=== PATIENT | female | born 1945 | race Caucasian/White ===

== ENCOUNTER 2018-05-25 21:58 | Emergency (ER) | payer MEDICARE, BC ==
[2018-05-25 22:04] VITALS: RESP 18
[2018-05-25] MEDS ORDERED: IPRATROPIUM-ALBUTEROL 3 ML NEB INHALATION STA (22:36)
--- NOTE | 2018-05-25 23:08 | ED ---
SOB HPI - General Chief Complaint: Shortness of Breath Stated Complaint: chills,sob; teo Time Seen by Provider: 05/25/18 22:23 Source: patient, RN notes reviewed Mode of arrival: ambulatory Limitations: no limitations - History of Present Illness Initial Comments: This is a 72-year-old female who presents to the emergency department with chief complaint of shortness of breath. Patient states that she developed shortness of breath last evening. She reports that she is a current, every day smoker. She also reports a cough that has been productive of clear sputum. She reports chills. She states that she has had chest heaviness that comes and goes. She denies history of heart attacks, CVA, heart failure or kidney disease. She denies any fevers. She does report feeling nauseous and having abdominal muscle spasms. Denies abdominal pain. - Related Data Home Medications Medication Instructions Recorded Confirmed Citalopram Hydrobromide [CeleXA] 30 mg PO HS 02/02/16 07/02/16 LORazepam [Ativan] 0.5 mg PO HS PRN 02/02/16 07/02/16 Previous Rx's Medication Instructions Recorded Aspirin 325 mg PO BID #30 tab 07/04/16 HYDROcodone/APAP 7.5-325MG [Herod 1 - 2 each PO Q6H PRN #90 tab 07/04/16 7.5-325] Multivitamins, Thera [Multivitamin 1 each PO DAILY@1200 #30 tab 07/04/16 (formulary)] Nicotine 14Mg/24Hr Patch [Habitrol] 1 patch TRANSDERM DAILY #30 patch 07/04/16 Sennosides-Docusate Sodium 1 tab PO BID #60 tablet 07/04/16 [Senokot-S] Cephalexin [Keflex Susp] 500 mg PO BID 7 Days 05/26/18 Allergies Allergy/AdvReac Type Severity Reaction Status Date / Time Iodinated Contrast- Oral and Allergy Unknown Verified 05/25/18 22:04 IV Dye [Iodinated Contrast Media - IV Dye] sulfamethoxazole Allergy Rash/Hives Verified 05/25/18 22:04 [From Bactrim] trimethoprim [From Bactrim] Allergy Rash/Hives Verified 05/25/18 22:04 Review of Systems ROS Statement: Those systems with pertinent positive or pertinent negative responses have been documented in the HPI. ROS Other: All systems not noted in ROS Statement are negative. Past Medical History Past Medical History: Osteoarthritis (OA), Pneumonia Additional Past Medical History / Comment(s): sinus problems,kidney stones uti, bladder incnt/wears a pad,abd hernia,migraines,"muscles spasms and lt hip pain, had collapsed lung -not large enough to require c/t, DDD, sciatic History of Any Multi-Drug Resistant Organisms: None Reported, C-DIFF, ESBL Date of last positivie culture/infection: 2015 Past Surgical History: Appendectomy, Bladder Surgery, Cholecystectomy, Hysterectomy, Orthopedic Surgery Additional Past Surgical History / Comment(s): artriscopy, lt knee replacemnent, adrenal gland removed,lt knee, colonoscopy, dental implants, 1997 had lt foot sx for hammer toes and stated had an implant in that foot-then january 2015 had a revison of that sx. Past Anesthesia/Blood Transfusion Reactions: No Reported Reaction Past Psychological History: Anxiety Smoking Status: Current every day smoker Past Alcohol Use History: None Reported Past Drug Use History: Unable to Obtain - Past Family History Mother Family Medical History: Dementia Additional Family Medical History / Comment(s): moms sister also had dementia Father Family Medical History: Unable to Obtain General Exam - General Exam Comments Initial Comments: General: Awake and alert, well-developed; in no apparent distress. Patient's friend is at bedside. HEENT: Head atraumatic, normocephalic. Pupils are equal, round and reactive to light. Extraocular movements intact. Oropharynx moist without erythema or exudate. Neck: Supple. Normal ROM. Cardiovascular: Tachycardia. Normal rhythm. No murmurs, rubs or gallops. Chest symmetrical. Respiratory: Normal respiratory effort with no use of accessory muscles. Wheezes noted on auscultation of the right lower lung field. No rhonchi or rales. Abdomen: Soft, distended. Generalized tenderness on palpation, especially in the right and left lower quadrants with guarding. No rigidity or rebound. Large epigastric bulge that patient states is a hiatal hernia. Bowel sounds present in all 4 quadrants. Musculoskeletal: Normal ROM, no tenderness bilateral upper and lower extremities. Skin: [place], warm and dry without rashes or lesions. Neurological: Alert and oriented x3. CN II-XII grossly intact. Speech is fluent and answers are appropriate. No focal neuro deficits. Psychiatric: Normal mood and affect. No overt signs of depression or anxiety noted. Limitations: no limitations Course Vital Signs 05/25/18 05/25/18 05/25/18 22:01 23:26 23:30 Temperature 98.4 F Pulse Rate 113 H 106 H 112 H Respiratory 18 Rate Blood Pressure 100/64 O2 Sat by Pulse 97 Oximetry - Reevaluation(s) Reevaluation #1: Patient presented with shortness of breath, chest heaviness and was found to have tachycardia. D-dimer was obtained which is elevated. Discussed obtaining a CT angiogram of the chest with patient who initially refuses. After full conversation of benefits and risks, patient is in agreement to undergo the computed tomography scan. 05/25/18 23:59 Medical Decision Making - Medical Decision Making This is a 72-year-old female who presents to the emergency department with chief complaint of shortness of breath. Patient reports shortness of breath, increased cough and chest heaviness. Patient also reports nausea and abdominal muscle spasms. On physical examination, wheezes auscultated in the right lung base. EKG revealed sinus tachycardia with occasional PVCs. Patient was given a DuoNeb treatment and a chest x-ray was performed. Chest x-ray revealed no acute abnormalities. D-dimer came back elevated at 1.37. Discussed obtaining a CT angiogram of the chest with patient who initially refused. Benefits and risks were explained and the patient consented to have the CTA performed. This revealed no evidence for acute pulmonary embolism. CBC did reveal a slightly elevated white count at 13.6 with a left shift at 11.5. Evidence for urinary tract infection with positive nitrites, large leukocyte esterase, 125 white blood cells and many bacteria. Patient was given a gram of Rocephin in the emergency department. This case was discussed with attending physician, Dr. Rojo who also evaluated the patient. Patient's vital signs have stabilized. She is in no acute distress and wishes to be discharged home. She will be given an oral suspension of Keflex to treat UTI. Recommended following up with her primary care provider. She is in agreement and voices understanding. All questions were answered. - Lab Data Result diagrams: 05/25/18 23:00 05/25/18 23:00 Lab Results 10/07/18 10/07/18 10/07/18 Range/Units 22:50 23:00 23:00 WBC 13.6 H (3.8-10.6) k/uL RBC 4.71 (3.80-5.40) m/uL Hgb 14.4 (11.4-16.0) gm/dL Hct 41.3 (34.0-46.0) % MCV 87.6 (80.0-100.0) fL MCH 30.5 (25.0-35.0) pg MCHC 34.9 (31.0-37.0) g/dL RDW 13.5 (11.5-15.5) % Plt Count 179 (150-450) k/uL Neutrophils % 85 % Lymphocytes % 7 % Monocytes % 6 % Eosinophils % 1 % Basophils % 0 % Neutrophils # 11.5 H (1.3-7.7) k/uL Lymphocytes # 1.0 (1.0-4.8) k/uL Monocytes # 0.8 (0-1.0) k/uL Eosinophils # 0.1 (0-0.7) k/uL Basophils # 0.0 (0-0.2) k/uL PT (9.0-12.0) sec INR (<1.2) APTT (22.0-30.0) sec D-Dimer (<0.60) mg/L FEU Sodium (137-145) mmol/L Potassium (3.5-5.1) mmol/L Chloride (98-107) mmol/L Carbon Dioxide (22-30) mmol/L Anion Gap mmol/L BUN (7-17) mg/dL Creatinine (0.52-1.04) mg/dL Est GFR (CKD-EPI)AfAm (>60 ml/min/1.73 sqM) Est GFR (CKD-EPI)NonAf (>60 ml/min/1.73 sqM) Glucose (74-99) mg/dL Plasma Lactic Acid Jorge (0.7-2.0) mmol/L Calcium (8.4-10.2) mg/dL Magnesium (1.6-2.3) mg/dL Total Bilirubin (0.2-1.3) mg/dL AST (14-36) U/L ALT (9-52) U/L Alkaline Phosphatase (38-126) U/L Total Creatine Kinase 88 (30-135) U/L CK-MB (CK-2) 0.6 (0.0-2.4) ng/mL CK-MB (CK-2) Rel Index 0.7 Troponin I <0.012 (0.000-0.034) ng/mL Total Protein (6.3-8.2) g/dL Albumin (3.5-5.0) g/dL Amylase (30-110) U/L Lipase (23-300) U/L Urine Color Urine Appearance (Clear) Urine pH (5.0-8.0) Ur Specific [place] (1.001-1.035) Urine Protein (Negative) Urine Glucose (UA) (Negative) Urine Ketones (Negative) Urine Blood (Negative) Urine Nitrite (Negative) Urine Bilirubin (Negative) Urine Urobilinogen (<2.0) mg/dL Ur Leukocyte Esterase (Negative) Urine RBC (0-5) /hpf Urine WBC (0-5) /hpf Urine WBC Clumps (None) /hpf Ur Squamous Epith Cells (0-4) /hpf Urine Bacteria (None) /hpf Urine Mucus (None) /hpf Influenza Type A RNA Not Detected (Not Detectd) Influenza Type B (PCR) Not Detected (Not Detectd) 05/25/18 05/25/18 05/25/18 Range/Units 23:00 23:00 23:00 WBC (3.8-10.6) k/uL RBC (3.80-5.40) m/uL Hgb (11.4-16.0) gm/dL Hct (34.0-46.0) % MCV (80.0-100.0) fL MCH (25.0-35.0) pg MCHC (31.0-37.0) g/dL RDW (11.5-15.5) % Plt Count (150-450) k/uL Neutrophils % % Lymphocytes % % Monocytes % % Eosinophils % % Basophils % % Neutrophils # (1.3-7.7) k/uL Lymphocytes # (1.0-4.8) k/uL Monocytes # (0-1.0) k/uL Eosinophils # (0-0.7) k/uL Basophils # (0-0.2) k/uL PT 9.6 (9.0-12.0) sec INR 1.0 (<1.2) APTT 24.7 (22.0-30.0) sec D-Dimer 1.37 H (<0.60) mg/L FEU Sodium 136 L (137-145) mmol/L Potassium 4.0 (3.5-5.1) mmol/L Chloride 107 (98-107) mmol/L Carbon Dioxide 21 L (22-30) mmol/L Anion Gap 8 mmol/L BUN 16 (7-17) mg/dL Creatinine 0.73 (0.52-1.04) mg/dL Est GFR (CKD-EPI)AfAm >90 (>60 ml/min/1.73 sqM) Est GFR (CKD-EPI)NonAf 83 (>60 ml/min/1.73 sqM) Glucose 117 H (74-99) mg/dL Plasma Lactic Acid Jorge 1.0 (0.7-2.0) mmol/L Calcium 9.0 (8.4-10.2) mg/dL Magnesium 1.9 (1.6-2.3) mg/dL Total Bilirubin 2.0 H (0.2-1.3) mg/dL AST 17 (14-36) U/L ALT 15 (9-52) U/L Alkaline Phosphatase 85 (38-126) U/L Total Creatine Kinase (30-135) U/L CK-MB (CK-2) (0.0-2.4) ng/mL CK-MB (CK-2) Rel Index Troponin I (0.000-0.034) ng/mL Total Protein 6.7 (6.3-8.2) g/dL Albumin 3.8 (3.5-5.0) g/dL Amylase 39 (30-110) U/L Lipase 61 (23-300) U/L Urine Color Urine Appearance (Clear) Urine pH (5.0-8.0) Ur Specific [place] (1.001-1.035) Urine Protein (Negative) Urine Glucose (UA) (Negative) Urine Ketones (Negative) Urine Blood (Negative) Urine Nitrite (Negative) Urine Bilirubin (Negative) Urine Urobilinogen (<2.0) mg/dL Ur Leukocyte Esterase (Negative) Urine RBC (0-5) /hpf Urine WBC (0-5) /hpf Urine WBC Clumps (None) /hpf Ur Squamous Epith Cells (0-4) /hpf Urine Bacteria (None) /hpf Urine Mucus (None) /hpf Influenza Type A RNA (Not Detectd) Influenza Type B (PCR) (Not Detectd) 05/25/18 Range/Units 23:00 WBC (3.8-10.6) k/uL RBC (3.80-5.40) m/uL Hgb (11.4-16.0) gm/dL Hct (34.0-46.0) % MCV (80.0-100.0) fL MCH (25.0-35.0) pg MCHC (31.0-37.0) g/dL RDW (11.5-15.5) % Plt Count (150-450) k/uL Neutrophils % % Lymphocytes % % Monocytes % % Eosinophils % % Basophils % % Neutrophils # (1.3-7.7) k/uL Lymphocytes # (1.0-4.8) k/uL Monocytes # (0-1.0) k/uL Eosinophils # (0-0.7) k/uL Basophils # (0-0.2) k/uL PT (9.0-12.0) sec INR (<1.2) APTT (22.0-30.0) sec D-Dimer (<0.60) mg/L FEU Sodium (137-145) mmol/L Potassium (3.5-5.1) mmol/L Chloride (98-107) mmol/L Carbon Dioxide (22-30) mmol/L Anion Gap mmol/L BUN (7-17) mg/dL Creatinine (0.52-1.04) mg/dL Est GFR (CKD-EPI)AfAm (>60 ml/min/1.73 sqM) Est GFR (CKD-EPI)NonAf (>60 ml/min/1.73 sqM) Glucose (74-99) mg/dL Plasma Lactic Acid Jorge (0.7-2.0) mmol/L Calcium (8.4-10.2) mg/dL Magnesium (1.6-2.3) mg/dL Total Bilirubin (0.2-1.3) mg/dL AST (14-36) U/L ALT (9-52) U/L Alkaline Phosphatase (38-126) U/L Total Creatine Kinase (30-135) U/L CK-MB (CK-2) (0.0-2.4) ng/mL CK-MB (CK-2) Rel Index Troponin I (0.000-0.034) ng/mL Total Protein (6.3-8.2) g/dL Albumin (3.5-5.0) g/dL Amylase (30-110) U/L Lipase (23-300) U/L Urine Color Yellow Urine Appearance Cloudy H (Clear) Urine pH 5.5 (5.0-8.0) Ur Specific [place] 1.013 (1.001-1.035) Urine Protein 1+ H (Negative) Urine Glucose (UA) Negative (Negative) Urine Ketones Negative (Negative) Urine Blood Moderate H (Negative) Urine Nitrite Positive H (Negative) Urine Bilirubin Negative (Negative) Urine Urobilinogen <2.0 (<2.0) mg/dL Ur Leukocyte Esterase Large H (Negative) Urine RBC 7 H (0-5) /hpf Urine WBC 125 H (0-5) /hpf Urine WBC Clumps Few H (None) /hpf Ur Squamous Epith Cells 2 (0-4) /hpf Urine Bacteria Many H (None) /hpf Urine Mucus Rare H (None) /hpf Influenza Type A RNA (Not Detectd) Influenza Type B (PCR) (Not Detectd) - EKG Data EKG Comments: 22:44:50. Sinus tachycardia with occasional premature ventricular complexes. Ventricular rate 101 bpm, NV interval 124, QRS duration 90, QT/QTC 352/456 - Radiology Data Radiology results: report reviewed X-ray KUB impression: Nonacute abdomen. No change. Chest x-ray impression: No acute cardiopulmonary disease. There is clearing of a small infiltrate at the posterior lung base on the lateral view compared to old exam. CT angio chest impression: No evidence of pulmonary embolus. Mild atheromatous change in the thoracic aorta. No aneurysm. Minimal fibrotic changes at the lung bases. Disposition Clinical Impression: Urinary tract infection, Shortness of breath Disposition: HOME SELF-CARE Condition: Good Instructions: Shortness of Breath (ED), Urinary Tract Infection in Women (ED) Additional Instructions: Please take medications as prescribed. Please follow up with primary care provider within 1-2 days. Return to emergency department if symptoms should worsen or any concerns arise. Prescriptions: Cephalexin [Keflex Susp] 500 mg PO BID 7 Days Is patient prescribed a controlled substance at d/c from ED?: No Referrals: Emy Ball MD [Primary Care Provider] - 1-2 days Time of Disposition: 01:43
[2018-05-25 23:12] LABS: Basophils % (A) 0 %; Eosinophils # (A) 0.1 k/uL (0-0.7); Eosinophils % (A) 1 %; HCT 41.3 % (34.0-46.0); HGB 14.4 gm/dL (11.4-16.0); Lymphocytes % (A) 7 %; MCH 30.5 pg (25.0-35.0); MCHC 34.9 g/dL (31.0-37.0); MCV 87.6 fL (80.0-100.0); Mean Platelet Volume 6.5; Monocytes # (A) 0.8 k/uL (0-1.0); Monocytes % (A) 6 %; Neutrophils # (A) 11.5 k/uL (1.3-7.7); Neutrophils % (A) 85 %; Platelet Count 179 k/uL (150-450); RBC 4.71 m/uL (3.80-5.40); RDW 13.5 % (11.5-15.5); WBC 13.6 k/uL (3.8-10.6)
[2018-05-25 23:16] LABS: Appearance,Urine Cloudy (Clear); Bacteria,Urine Many /hpf; Bilirubin,Urine Negative (Negative); Blood,Urine Moderate (Negative); Color,Urine Yellow; Glucose,Urine (UA) Negative (Negative); Ketones,Urine Negative (Negative); Leukocyte Esterase,Urine Large (Negative); Mucus,Urine Rare /hpf; Nitrite,Urine Positive (Negative); PH, Urine 5.5 (5.0-8.0); Protein,Urine 1+ (Negative); RBC,Urine 7 /hpf (0-5); Specific Gravity,Urine 1.013 (1.001-1.035); Squamous Epithelial Cell,Urine 2 /hpf (0-4); Urobilinogen,Urine <2.0 mg/dL (<2.0); WBC,Urine 125 /hpf (0-5)
[2018-05-25 23:31] LABS: ALT 15 U/L (9-52); AST 17 U/L (14-36); Albumin 3.8 g/dL (3.5-5.0); Alkaline Phosphatase 85 U/L (38-126); Amylase 39 U/L (30-110); Anion Gap 8 mmol/L; Blood Urea Nitrogen 16 mg/dL (7-17); Carbon Dioxide 21 mmol/L (22-30); Chloride 107 mmol/L (98-107); Glucose 117 mg/dL (74-99); Lipase 61 U/L (23-300); Magnesium 1.9 mg/dL (1.6-2.3); Sodium 136 mmol/L (137-145); Total Protein 6.7 g/dL (6.3-8.2)
--- NOTE | 2018-05-25 23:32 | XR ---
EXAMINATION TYPE: XR chest 2V DATE OF EXAM: 05/25/2018 COMPARISON: 02/06/2016 HISTORY: Difficulty breathing TECHNIQUE: Frontal and lateral views of the chest are obtained. FINDINGS: Heart and mediastinum are normal. Lungs are clear. Diaphragm is normal. Bony thorax shows mild spurring. There is no sign of pleural effusion. There are chest leads. IMPRESSION: No active cardiopulmonary disease. There is clearing of a small infiltrate at the ent consultant ior lung base on the lateral view compared to old exam.
[2018-05-25 23:33] LABS: Partial Thromboplastin Time 24.7 sec (22.0-30.0); Prothrombin Time 9.6 sec (9.0-12.0)
--- NOTE | 2018-05-25 23:33 | XR ---
EXAMINATION TYPE: XR KUB DATE OF EXAM: 05/25/2018 COMPARISON: 02/05/2016. HISTORY: Difficulty breathing TECHNIQUE: Supine and upright views FINDINGS: There is no sign of intestinal obstruction or pneumoperitoneum. Fecal pattern is normal. Th ere are clips from cholecystectomy. There are no pathologic calcifications over the kidneys. There is spurring in the lumbar spine. IMPRESSION: Nonacute abdomen. No change.
[2018-05-25 23:41] LABS: Creatine Kinase 88 U/L (30-135)
[2018-05-25 23:47] LABS: D-Dimer 1.37 mg/L FEU (<0.60)
[2018-05-25 23:53] LABS: Creatine Kinase MB 0.6 ng/mL (0.0-2.4); Troponin I <0.012 ng/mL (0.000-0.034)
[2018-05-25] MEDS ORDERED: diphenhydrAMINE 50 MG/ML 1 ML VIAL IVP STA (23:58)
[2018-05-25] MEDS ORDERED: FAMOTIDINE 20 MG/2 ML VIAL IV STA (23:58)
[2018-05-25] MEDS ORDERED: methylPREDNISolone SOD SUCCI 125 MG/2 ML VIAL IV STA (23:58)
[2018-05-26] MEDS ORDERED: ACETAMINOPHEN TAB 325 MG TAB PO STA (00:01)
--- NOTE | 2018-05-26 00:56 | CT ---
EXAMINATION TYPE: CT angio chest DATE OF EXAM: 05/26/2018 12:42 AM COMPARISON: None HISTORY: No prior, [place], chills, vomitng, weakness/dizziness, elevated d-dimer, R/O PE CT DLP: 293.30 mGycm Automated exposure control for dose reduction was used. CONTRAST: CTA scan of the thorax is performed with IV Contrast, patient injected with 60 mL of Isovue 370, pulm onary embolism protocol. There are 3-D post processed images.. FINDINGS: The lungs are clear of consolidation. There is no pleural effusion. Heart size is normal. There is no pericardial effusion. There are small hiatal hernia. I see no filling defects in the pulmonary arter ies. There is no mediastinal adenopathy. Thoracic aorta shows mild atheromatous change. There is no e vidence of aneurysm or dissection. There is some spurring in the thoracic spine.. IMPRESSION: NO EVIDENCE OF PULMONARY EMBOLISM. MILD ATHEROMATOUS CHANGE IN THE THORACIC AORTA. NO ANEURYSM. MINIM AL FIBROTIC CHANGE AT THE LUNG BASES.
[2018-05-26 02:01] VITALS: BP 94/60; PULSE 90; TEMP 99.3
== END 2018-05-26 01:50 | disposition home or self-care (01) ==
LOC: EC 21:58
DX: N39.0 Urinary tract infection, site not specified (principal); R06.02 Shortness of breath; I70.0 Atherosclerosis of aorta; J84.10 Pulmonary fibrosis, unspecified; R00.0 Tachycardia, unspecified; I49.3 Ventricular premature depolarization; R79.1 Abnormal coagulation profile; D72.829 Elevated white blood cell count, unspecified; R06.2 Wheezing; R14.0 Abdominal distension (gaseous); K44.9 Diaphragmatic hernia without obstruction or gangrene; R05 Cough; R07.89 Other chest pain; R11.0 Nausea; M62.838 Other muscle spasm; F41.9 Anxiety disorder, unspecified; F17.200 Nicotine dependence, unspecified, uncomplicated; Z88.2 Allergy status to sulfonamides; Z91.041 Radiographic dye allergy status; Z79.899 Other long term (current) drug therapy; Z90.49 Acquired absence of other specified parts of digestive tract; Z53.8 Procedure and treatment not carried out for other reasons
CPT/HCPCS: 36415; 94640; 93005; 85379; 80053; 82150; 82550; 82553; 83605; 83690; 83735; 84484; 85025; 85610; 85730; 81001; 87040; 87502; 71046; 74018; 71275; 99285; 96365; 96375 ×3; J1200; J2930; J0696; Q9967

== ENCOUNTER 2020-10-25 20:25 | Emergency (ER) | payer MEDICARE, BC ==
[2020-10-25] MEDS ORDERED: methylPREDNISolone SOD SUCCI 125 MG/2 ML VIAL IV STA (21:31)
[2020-10-25] MEDS ORDERED: ALBUTEROL HFA INHALER INHALATION STA (21:31)
--- NOTE | 2020-10-25 22:05 | XR ---
EXAMINATION TYPE: XR chest 2V DATE OF EXAM: 10/25/2020 COMPARISON: CTA chest May 26, 2018. 2 view chest x-ray May 25, 2018. HISTORY: Difficulty breathing and chills. TECHNIQUE: Frontal and lateral views of the chest are obtained. FINDINGS: There is chronic emphysematous change with new masslike opacity left infrahilar region leora r superior heart border. Right lung is clear. No pleural effusion or pneumothorax seen bilaterally. T he cardiac silhouette size is stable and within normal limits. Multilevel spurring in the thoracic sp ine. IMPRESSION: Chronic emphysematous change with suspicious left infrahilar masslike opacity. New mass or neoplasm not excluded. Follow-up chest CT is advised to further evaluate.
[2020-10-25 22:26] LABS: Basophils # (A) 0.1 k/uL (0-0.2); Basophils % (A) 1 %; Eosinophils % (A) 9 %; HCT 41.8 % (34.0-46.0); HGB 14.2 gm/dL (11.4-16.0); Lymphocytes # (A) 2.1 k/uL (1.0-4.8); Lymphocytes % (A) 18 %; MCH 30.3 pg (25.0-35.0); MCV 89.2 fL (80.0-100.0); Mean Platelet Volume 6.9; Monocytes # (A) 0.6 k/uL (0-1.0); Monocytes % (A) 5 %; Neutrophils # (A) 7.8 k/uL (1.3-7.7); Neutrophils % (A) 67 %; Platelet Count 251 k/uL (150-450); RBC 4.69 m/uL (3.80-5.40); RDW 12.5 % (11.5-15.5); WBC 11.6 k/uL (3.8-10.6)
[2020-10-25 22:41] LABS: ALT 14 U/L (4-34); AST 29 U/L (14-36); African American GFR (CKD) >90 (>60 ml/min/1.73 sqM); Albumin 4.3 g/dL (3.5-5.0); Alkaline Phosphatase 101 U/L (38-126); Anion Gap 10 mmol/L; Blood Urea Nitrogen 15 mg/dL (7-17); Calcium 9.4 mg/dL (8.4-10.2); Carbon Dioxide 22 mmol/L (22-30); Chloride 108 mmol/L (98-107); Glucose 91 mg/dL (74-99); Non-African American GFR(CKD) 88 (>60 ml/min/1.73 sqM); Potassium 4.1 mmol/L (3.5-5.1); Sodium 140 mmol/L (137-145); Total Bilirubin 0.7 mg/dL (0.2-1.3); Total Protein 7.4 g/dL (6.3-8.2)
[2020-10-25] MEDS ORDERED: diphenhydrAMINE 50 MG/ML 1 ML VIAL IVP STA (22:46)
[2020-10-25] MEDS ORDERED: FAMOTIDINE 20 MG/2 ML VIAL IV STA (22:46)
[2020-10-25 22:51] LABS: Partial Thromboplastin Time 21.9 sec (22.0-30.0); Prothrombin Time 10.3 sec (9.0-12.0)
[2020-10-25 23:02] LABS: D-Dimer 1.37 mg/L FEU (<0.60)
--- NOTE | 2020-10-25 23:13 | ED ---
General Adult HPI - General Chief complaint: Shortness of Breath Stated complaint: SOB,Coughing Time Seen by Provider: 10/25/20 21:19 Source: patient, RN notes reviewed Mode of arrival: ambulatory Limitations: no limitations - History of Present Illness Initial comments: This a 75-year-old female presents emergency Department chief complaint of increasing shortness of breath. Patient does have known asthma, is a smoker. Patient states that her family is concerned about her worsening shortness breath or exertional dyspnea. She denies any chest pain. Occasionally she has had some tightness. Patient denies any fevers chills abdominal pain, leg swelling or leg pain. Patient does admit that she wakes up the morning with a cough which is productive of phlegm and improves throughout the day. - Related Data Home Medications Medication Instructions Recorded Confirmed Albuterol Inhaler [Ventolin Hfa 2 puff INHALATION RT-QID PRN 10/25/20 10/25/20 Inhaler] Citalopram Hydrobromide 40 mg PO DAILY 10/25/20 10/25/20 [Citalopram HBr] Fluticasone Propion/Salmeterol 1 puff INHALATION RT-BID 10/25/20 10/25/20 [Wixela 250-50 Inhub] Ibuprofen [Motrin Ib] 400 mg PO Q8H PRN 10/25/20 10/25/20 LORazepam [Ativan] 0.5 mg PO Q8H PRN 10/25/20 10/25/20 diphenhydrAMINE [Benadryl] 25 mg PO HS PRN 10/25/20 10/25/20 Allergies Allergy/AdvReac Type Severity Reaction Status Date / Time Iodinated Contrast Media Allergy Unknown Verified 10/25/20 22:48 [Iodinated Contrast Media - IV Dye] sulfamethoxazole Allergy Rash/Hives Verified 10/25/20 22:48 [From Bactrim] trimethoprim [From Bactrim] Allergy Rash/Hives Verified 10/25/20 22:48 Review of Systems ROS Statement: Those systems with pertinent positive or pertinent negative responses have been documented in the HPI. ROS Other: All systems not noted in ROS Statement are negative. Past Medical History Past Medical History: Osteoarthritis (OA), Pneumonia Additional Past Medical History / Comment(s): sinus problems,kidney stones uti, bladder incnt/wears a pad,abd hernia,migraines,"muscles spasms and lt hip pain, had collapsed lung -not large enough to require c/t, DDD, sciatic, History of Any Multi-Drug Resistant Organisms: None Reported Date of last positivie culture/infection: 2015 Past Surgical History: Appendectomy, Bladder Surgery, Cholecystectomy, Hysterectomy, Orthopedic Surgery Additional Past Surgical History / Comment(s): artriscopy, lt knee replacemnent,adrenal gland removed,lt knee, colonoscopy, dental implants, 1997 had lt foot sx for hammer toes and stated had an implant in that foot-then january 2015 had a revison of that sx, Cdiff- 2016 Past Anesthesia/Blood Transfusion Reactions: No Reported Reaction Past Psychological History: Anxiety Smoking Status: Current every day smoker Past Alcohol Use History: None Reported Past Drug Use History: None Reported - Past Family History Mother Family Medical History: Dementia Additional Family Medical History / Comment(s): moms sister also had dementia Father Family Medical History: Unable to Obtain General Exam Limitations: no limitations General appearance: alert, in no apparent distress Head exam: Present: atraumatic, normocephalic, normal inspection Eye exam: Present: normal appearance, PERRL, EOMI. Absent: scleral icterus, conjunctival injection, periorbital swelling ENT exam: Present: normal exam, normal oropharynx, mucous membranes moist Neck exam: Present: normal inspection, full ROM. Absent: tenderness, meningismus, lymphadenopathy Respiratory exam: Present: wheezes. Absent: normal lung sounds bilaterally, respiratory distress, rales, rhonchi, stridor Cardiovascular Exam: Present: regular rate, normal rhythm, normal heart sounds. Absent: systolic murmur, diastolic murmur, rubs, gallop, clicks GI/Abdominal exam: Present: soft, normal bowel sounds. Absent: distended, tenderness, guarding, rebound, rigid Extremities exam: Present: normal capillary refill. Absent: pedal edema, calf tenderness Skin exam: Present: warm, dry, intact, normal color. Absent: rash Course Vital Signs 10/25/20 20:27 Temperature 98.8 F Pulse Rate 99 Respiratory 18 Rate Blood Pressure 140/81 O2 Sat by Pulse 98 Oximetry EKG Findings - EKG Comments: EKG Findings:: EKG performed at 22:44 normal sinus rhythm rate of 87 DC 1:30 QRS 84 QT/QTC 374/450 Medical Decision Making - Medical Decision Making Labs chest x-ray CT were performed. Patient has evidence of large left lung mass. I did review all results with the patient and told patient that she needs to be admitted for pulmonology evaluation, possible collagen evaluation. Patient understands the findings states that she does not want stay in the hospital understand wrist of leaving at this time. She states she would prefer to follow palpation. She is awake alert and orientated in no signs of distress. - Lab Data Result diagrams: 10/25/20 22:10 10/25/20 22:10 Lab Results 10/25/20 10/25/20 10/25/20 Range/Units 22:10 22:10 22:10 WBC 11.6 H (3.8-10.6) k/uL RBC 4.69 (3.80-5.40) m/uL Hgb 14.2 (11.4-16.0) gm/dL Hct 41.8 (34.0-46.0) % MCV 89.2 (80.0-100.0) fL MCH 30.3 (25.0-35.0) pg MCHC 34.0 (31.0-37.0) g/dL RDW 12.5 (11.5-15.5) % Plt Count 251 (150-450) k/uL MPV 6.9 Neutrophils % 67 % Lymphocytes % 18 % Monocytes % 5 % Eosinophils % 9 % Basophils % 1 % Neutrophils # 7.8 H (1.3-7.7) k/uL Lymphocytes # 2.1 (1.0-4.8) k/uL Monocytes # 0.6 (0-1.0) k/uL Eosinophils # 1.0 H (0-0.7) k/uL Basophils # 0.1 (0-0.2) k/uL PT 10.3 (9.0-12.0) sec INR 1.0 (<1.2) APTT 21.9 L (22.0-30.0) sec D-Dimer 1.37 H (<0.60) mg/L FEU Sodium 140 (137-145) mmol/L Potassium 4.1 (3.5-5.1) mmol/L Chloride 108 H (98-107) mmol/L Carbon Dioxide 22 (22-30) mmol/L Anion Gap 10 mmol/L BUN 15 (7-17) mg/dL Creatinine 0.65 (0.52-1.04) mg/dL Est GFR (CKD-EPI)AfAm >90 (>60 ml/min/1.73 sqM) Est GFR (CKD-EPI)NonAf 88 (>60 ml/min/1.73 sqM) Glucose 91 (74-99) mg/dL Plasma Lactic Acid Jorge (0.7-2.0) mmol/L Calcium 9.4 (8.4-10.2) mg/dL Total Bilirubin 0.7 (0.2-1.3) mg/dL AST 29 (14-36) U/L ALT 14 (4-34) U/L Alkaline Phosphatase 101 (38-126) U/L Troponin I (0.000-0.034) ng/mL NT-Pro-B Natriuret Pep pg/mL Total Protein 7.4 (6.3-8.2) g/dL Albumin 4.3 (3.5-5.0) g/dL 10/25/20 10/25/20 10/25/20 Range/Units 22:10 22:10 22:10 WBC (3.8-10.6) k/uL RBC (3.80-5.40) m/uL Hgb (11.4-16.0) gm/dL Hct (34.0-46.0) % MCV (80.0-100.0) fL MCH (25.0-35.0) pg MCHC (31.0-37.0) g/dL RDW (11.5-15.5) % Plt Count (150-450) k/uL MPV Neutrophils % % Lymphocytes % % Monocytes % % Eosinophils % % Basophils % % Neutrophils # (1.3-7.7) k/uL Lymphocytes # (1.0-4.8) k/uL Monocytes # (0-1.0) k/uL Eosinophils # (0-0.7) k/uL Basophils # (0-0.2) k/uL PT (9.0-12.0) sec INR (<1.2) APTT (22.0-30.0) sec D-Dimer (<0.60) mg/L FEU Sodium (137-145) mmol/L Potassium (3.5-5.1) mmol/L Chloride (98-107) mmol/L Carbon Dioxide (22-30) mmol/L Anion Gap mmol/L BUN (7-17) mg/dL Creatinine (0.52-1.04) mg/dL Est GFR (CKD-EPI)AfAm (>60 ml/min/1.73 sqM) Est GFR (CKD-EPI)NonAf (>60 ml/min/1.73 sqM) Glucose (74-99) mg/dL Plasma Lactic Acid Jorge 1.1 (0.7-2.0) mmol/L Calcium (8.4-10.2) mg/dL Total Bilirubin (0.2-1.3) mg/dL AST (14-36) U/L ALT (4-34) U/L Alkaline Phosphatase (38-126) U/L Troponin I <0.012 (0.000-0.034) ng/mL NT-Pro-B Natriuret Pep 98 pg/mL Total Protein (6.3-8.2) g/dL Albumin (3.5-5.0) g/dL Disposition Clinical Impression: Mass of left lung Disposition: HOME SELF-CARE Condition: Fair Instructions (If sedation given, give patient instructions): Dyspnea (ED) Additional Instructions: Please return to the Emergency Department if symptoms worsen or any other concerns. Is patient prescribed a controlled substance at d/c from ED?: No Referrals: Emy Ball MD [Primary Care Provider] - 1-2 days Rosie Roa MD [STAFF PHYSICIAN] - 1-2 days Emeterio Garvin MD [STAFF PHYSICIAN] - 1-2 days Time of Disposition: 00:13
--- NOTE | 2020-10-26 00:04 | CT ---
EXAMINATION TYPE: CT chest angio for PE DATE OF EXAM: 10/25/2020 COMPARISON: 05/26/2018 HISTORY: R/O PE CT DLP: 302 mGycm Automated exposure control for dose reduction was used. CONTRAST: Performed with IV Contrast, patient injected with 65 mL of Isovue 370. Images obtained from the thoracic inlet to the diaphragm with IV contrast and 3-D post processed imag es. There is large mass at the left pulmonary hilum which is encasing the left lower lobe and left upper lobe pulmonary arteries. This mass measures approximately 8 x 5 cm. There is extension into the media stinum and enlarged multiple paratracheal and anterior mediastinal lymph nodes up to 2 cm. There is s ubcarinal adenopathy. There is no evidence of filling defect in the pulmonary arteries. Thoracic aorta is atheromatous. The re is no aneurysm or dissection. There is no pleural effusion or pneumothorax. The right lung is fairly clear. There is spurring in the thoracic spine. I see no bony destructive process. There is no compression f racture. Sternum is intact. There is epigastric ventral hernia that appears to contain some fluid and omental fat. This measures overall 6 x 3 cm. IMPRESSION: Large mass at the left pulmonary hilum with extensive mediastinal adenopathy. This is consistent with malignancy. No evidence of pulmonary embolism.
[2020-10-26 00:32] VITALS: BP 136/78; PULSE 92; RESP 20; TEMP 98.1
== END 2020-10-26 00:32 | disposition home or self-care (01) ==
LOC: EC 20:25
DX: R91.8 Other nonspecific abnormal finding of lung field (principal); J45.909 Unspecified asthma, uncomplicated; M19.90 Unspecified osteoarthritis, unspecified site; F41.9 Anxiety disorder, unspecified; F17.200 Nicotine dependence, unspecified, uncomplicated; Z79.51 Long term (current) use of inhaled steroids; Z79.899 Other long term (current) drug therapy; Z91.041 Radiographic dye allergy status; Z88.1 Allergy status to other antibiotic agents; Z88.2 Allergy status to sulfonamides
CPT/HCPCS: 36415; 94640; 93005; 85379; 83880; 80053; 83605; 84484; 85025; 85610; 85730; 71046; 71275; 99284; 96374; 96375 ×2; J1200; J2930; Q9967

== ENCOUNTER 2020-10-29 16:02 | Inpatient (IN) | payer MEDICARE, BC ==
[2020-10-29] MEDS ORDERED: IPRATROPIUM-ALBUTEROL 3 ML NEB INHALATION STA (16:29)
[2020-10-29] MEDS ORDERED: NALOXONE 0.4 MG/ML 1 ML VIAL IV PRN (16:33)
[2020-10-29] MEDS: MORPHINE SULFATE 4 MG/ML SYRINGE IV PRN ×3 (16:46→21:40)
--- NOTE | 2020-10-29 16:46 | ED ---
General Adult HPI - General Chief complaint: Shortness of Breath Stated complaint: KALEIGH Time Seen by Provider: 10/29/20 16:22 Source: patient Mode of arrival: wheelchair Limitations: no limitations - History of Present Illness Initial comments: Dictation was produced using [employer] dictation software. please excuse any grammatical, word or spelling errors. This patient was cared for during a federal and state declared state of emergency secondary to Covid 19 Chief Complaint: 75-year-old female presents to the emergency department for shortness of breath History of Present Illness: Patient is 75-year-old female she returns to the em ergency department. Patient was seen here in emergency department 4 days ago where she was evaluated for shortness of breath. CT angios the chest shows evidence of lung malignancy. Patient requested to be discharge to try and manage her symptoms on outpatient basis. She returns today because she is having persistent shortness of breath and pleuritic chest pain. The ROS documented in this emergency department record has been reviewed and confirmed by me. Those systems with pertinent positive or negative responses have been documented in the HPI. All other systems are other negative and/or noncontributory. PHYSICAL EXAM: General Impression: Alert and oriented x3, not in acute distress HEENT: Normocephalic atraumatic, extra-ocular movements intact, pupils equal and reactive to light bilaterally, mucous membranes moist. Cardiovascular: Heart regular rate and rhythm Chest: Able to complete full sentences, no retractions, no tachypnea, expiratory rale on the left anterior lung demarco Abdomen: abdomen soft, non-tender, non-distended, no organomegaly Musculoskeletal: Pulses present and equal in all extremities, no peripheral edema Motor: no focal deficits noted Neurological: CN II-XII grossly intact, no focal motor or sensory deficits noted Skin: Intact with no visualized rashes Psych: Normal affect and mood ED course: 75-year-old female presents with shortness breath and pleuritic chest pain. Patient was evaluated 4 days ago where she was found to have CT findings suggesting new lung malignancy. Upon arrival shows heart rate 106, rest of vital signs within acceptable limits. Laboratory evaluation obtained. Mild leukocytosis 16.3. Metabolic panel is unremarkable. coronavirus is negative. Chest x-ray shows left lower lobe pneumonia that is increased. Code presentation concerning for pneumonia and new lung malignancy. Patient covered with azithromycin and ceftriaxone. EKG interpretation: Ventricular rate 92, sinus rhythm, NC interval 16, QRS 86, QTC 450. No NC prolongation, no QTC prolongation, no ST or T-wave changes noted. . Overall, this EKG is unremarkable - Related Data Home Medications Medication Instructions Recorded Confirmed Albuterol Inhaler [Ventolin Hfa 2 puff INHALATION RT-QID PRN 10/25/20 10/29/20 Inhaler] Citalopram Hydrobromide 40 mg PO HS 10/25/20 10/29/20 [Citalopram HBr] Fluticasone Propion/Salmeterol 1 puff INHALATION RT-BID 10/25/20 10/29/20 [Wixela 250-50 Inhub] Ibuprofen [Motrin Ib] 400 mg PO Q8H PRN 10/25/20 10/29/20 LORazepam [Ativan] 0.5 mg PO Q8H PRN 10/25/20 10/29/20 diphenhydrAMINE [Benadryl] 25 mg PO HS PRN 10/25/20 10/29/20 Allergies Allergy/AdvReac Type Severity Reaction Status Date / Time Iodinated Contrast Media Allergy Unknown Verified 10/29/20 17:13 [Iodinated Contrast Media - IV Dye] sulfamethoxazole Allergy Rash/Hives Verified 10/29/20 17:13 [From Bactrim] trimethoprim [From Bactrim] Allergy Rash/Hives Verified 10/29/20 17:13 Review of Systems ROS Statement: Those systems with pertinent positive or pertinent negative responses have been documented in the HPI. ROS Other: All systems not noted in ROS Statement are negative. Past Medical History Past Medical History: Osteoarthritis (OA), Pneumonia Additional Past Medical History / Comment(s): sinus problems,kidney stones uti, bladder incnt/wears a pad,abd hernia,migraines,"muscles spasms and lt hip pain, had collapsed lung -not large enough to require c/t, DDD, sciatic, History of Any Multi-Drug Resistant Organisms: None Reported Date of last positivie culture/infection: 2015 Past Surgical History: Appendectomy, Bladder Surgery, Cholecystectomy, Hysterectomy, Orthopedic Surgery Additional Past Surgical History / Comment(s): artriscopy, lt knee replacemnent,adrenal gland removed,lt knee, colonoscopy, dental implants, 1997 had lt foot sx for hammer toes and stated had an implant in that foot-then january 2015 had a revison of that sx, Cdiff- 2016 Past Anesthesia/Blood Transfusion Reactions: No Reported Reaction Past Psychological History: Anxiety Smoking Status: Current every day smoker Past Alcohol Use History: Rare Past Drug Use History: None Reported - Past Family History Mother Family Medical History: Dementia Additional Family Medical History / Comment(s): moms sister also had dementia Father Family Medical History: Unable to Obtain General Exam Limitations: no limitations Course Vital Signs 10/29/20 10/29/20 16:10 17:20 Temperature 98.3 F Pulse Rate 106 H 90 Respiratory 24 22 Rate Blood Pressure 119/75 97/63 O2 Sat by Pulse 96 98 Oximetry Medical Decision Making - Lab Data Result diagrams: 10/29/20 16:30 10/29/20 16:30 Lab Results 10/29/20 10/29/20 Range/Units 16:30 16:30 WBC 16.3 H (3.8-10.6) k/uL RBC 4.91 (3.80-5.40) m/uL Hgb 14.6 (11.4-16.0) gm/dL Hct 43.2 (34.0-46.0) % MCV 88.0 (80.0-100.0) fL MCH 29.7 (25.0-35.0) pg MCHC 33.7 (31.0-37.0) g/dL RDW 13.1 (11.5-15.5) % Plt Count 366 (150-450) k/uL MPV 7.4 Neutrophils % 74 % Lymphocytes % 11 % Monocytes % 6 % Eosinophils % 9 % Basophils % 1 % Neutrophils # 12.0 H (1.3-7.7) k/uL Lymphocytes # 1.7 (1.0-4.8) k/uL Monocytes # 0.9 (0-1.0) k/uL Eosinophils # 1.4 H (0-0.7) k/uL Basophils # 0.1 (0-0.2) k/uL Sodium 138 (137-145) mmol/L Potassium 4.7 (3.5-5.1) mmol/L Chloride 110 H (98-107) mmol/L Carbon Dioxide 18 L (22-30) mmol/L Anion Gap 10 mmol/L BUN 17 (7-17) mg/dL Creatinine 0.74 (0.52-1.04) mg/dL Est GFR (CKD-EPI)AfAm >90 (>60 ml/min/1.73 sqM) Est GFR (CKD-EPI)NonAf 81 (>60 ml/min/1.73 sqM) Glucose 117 H (74-99) mg/dL Calcium 9.6 (8.4-10.2) mg/dL Disposition Clinical Impression: Pneumonia Disposition: ADMITTED IP TO THIS [facility] Condition: Fair Decision Time: 17:49
[2020-10-29] MEDS ORDERED: ONDANSETRON 4 MG/2 ML VIAL IVP STA (16:47)
[2020-10-29] MEDS: SODIUM CHLORIDE 0.9% 1,000 ML IV SCH (16:50)
[2020-10-29 17:16] LABS: Basophils # (A) 0.1 k/uL (0-0.2); Basophils % (A) 1 %; Eosinophils # (A) 1.4 k/uL (0-0.7); Eosinophils % (A) 9 %; HCT 43.2 % (34.0-46.0); HGB 14.6 gm/dL (11.4-16.0); Lymphocytes # (A) 1.7 k/uL (1.0-4.8); Lymphocytes % (A) 11 %; MCH 29.7 pg (25.0-35.0); MCHC 33.7 g/dL (31.0-37.0); Mean Platelet Volume 7.4; Monocytes # (A) 0.9 k/uL (0-1.0); Monocytes % (A) 6 %; Neutrophils % (A) 74 %; Platelet Count 366 k/uL (150-450); RBC 4.91 m/uL (3.80-5.40); RDW 13.1 % (11.5-15.5); WBC 16.3 k/uL (3.8-10.6)
[2020-10-29] MEDS ORDERED: ALBUTEROL HFA INHALER INHALATION STA (17:17)
--- NOTE | 2020-10-29 17:21 | XR ---
EXAMINATION TYPE: XR chest 1V portable DATE OF EXAM: 10/29/2020 COMPARISON: 10/25/2020 HISTORY: Short of breath TECHNIQUE: FINDINGS: There is some patchy infiltrate in the left lower lobe. The right lung is clear. There is n o heart failure. Heart deviated slightly to the left side. There are chest leads. Bony thorax appears intact. IMPRESSION: There is left lower lobe pneumonia and atelectasis that is increased compared to old exam .
[2020-10-29 17:33] LABS: African American GFR (CKD) >90 (>60 ml/min/1.73 sqM); Anion Gap 10 mmol/L; Blood Urea Nitrogen 17 mg/dL (7-17); Calcium 9.6 mg/dL (8.4-10.2); Carbon Dioxide 18 mmol/L (22-30); Chloride 110 mmol/L (98-107); Glucose 117 mg/dL (74-99); Non-African American GFR(CKD) 81 (>60 ml/min/1.73 sqM); Potassium 4.7 mmol/L (3.5-5.1); Sodium 138 mmol/L (137-145)
[2020-10-29] MEDS ORDERED: cefTRIAXone IN SWFI 1,000 MG/10 ML SYRINGE IVP STA (17:48)
[2020-10-29] MEDS ORDERED: AZITHROMYCIN 500 MG in SODIUM CHLORIDE 0.9% 250 ML IVPB STA (17:48)
[2020-10-29] MEDS ORDERED: SODIUM CHLORIDE 0.9% 1,000 ML IV STA (17:49)
[2020-10-29] MEDS ORDERED: DIAZEPAM 5 MG/ML 2 ML INJ IVP STA (19:40)
[2020-10-30] MEDS: MORPHINE SULFATE 4 MG/ML SYRINGE IV PRN ×4 (01:49→17:50)
[2020-10-30] MEDS: PANTOPRAZOLE 40 MG/10 ML VIAL IV SCH (07:47)
[2020-10-30] MEDS ORDERED: IBUPROFEN 400 MG TAB PO PRN (08:23)
[2020-10-30] MEDS ORDERED: diphenhydrAMINE 25 MG CAP PO PRN (08:23)
[2020-10-30] MEDS ORDERED: IPRATROPIUM-ALBUTEROL 3 ML NEB INHALATION PRN ×2 (08:24→14:33)
[2020-10-30] MEDS: LORazepam 0.5 MG TAB PO PRN (08:59)
[2020-10-30] MEDS ORDERED: CYCLOBENZAPRINE 5 MG TAB PO PRN (10:58)
[2020-10-30] MEDS ORDERED: polyethylene glycoL 3350 17 GM POWD.PACK PO PRN (10:59)
[2020-10-30] MEDS: HYDROcodone/APAP 7.5-325MG 1 EACH TAB PO PRN ×2 (11:08→19:21)
[2020-10-30] MEDS: IPRATROPIUM-ALBUTEROL 3 ML NEB INHALATION SCH ×3 (11:31→20:11)
[2020-10-30] MEDS ORDERED: methylPREDNISolone SOD SUCCI 125 MG/2 ML VIAL IV ONE (13:41)
[2020-10-30] MEDS ORDERED: diphenhydrAMINE 50 MG/ML 1 ML VIAL IVP ONE (13:41)
[2020-10-30] MEDS ORDERED: FAMOTIDINE 20 MG/2 ML VIAL IV ONE (13:41)
[2020-10-30] MEDS ORDERED: RX INFO: IV CONTRAST WAS GIVEN 1 EACH MISC MISCELLANE PRN (13:47)
--- NOTE | 2020-10-30 13:59 | P.CNPUL ---
History of Present Illness Consult date: 10/30/20 Requesting physician: Yonny Fofana Reason for consult: dyspnea, abnormal CXR/CT Chief complaint: Shortness of breath, chest discomfort, muscle spasms History of present illness: This a very pleasant 75-year-old female patient who follows with Dr. Ball is her primary care provider. She is a history of anxiety, osteoarthritis, chronic and ongoing tobacco dependence of greater than 50 years. Suddenly she been having issues with increasing shortness of breath. She presented again here to the emergency room and 10/25/2020 and a computed tomography scan revealed a large mass at the left pulmonary hilum with extensive mediastinal adenopathy. Consistent with malignancy. Once informed of these findings she got nervous and left the emergency room without further workup. She represented here yesterday with worsening shortness of breath, left-sided chest discomfort, muscle spasms. She is seen today in consultation on the regular medical floor. She is currently sitting up bedside. Awake and alert in no acute distress. She is still having some left-sided chest wall discomfort. Shortness of breath with exertion. Maintaining O2 saturations in the low 90s on 3 L/m per nasal cannula. Mainly complaints of muscle spasms. She has been having issues with nausea and poor appetite. No vomiting. No significant cough or congestion. No hemoptysis. White count 16.3. Hemoglobin 14.6. Sodium 138. Potassium 4.7. Chloride 110. Bicarb 18. Creatinine 0.74. Calcium 9.6. Chen virus not detected. She is requiring increased amounts of pain medication including morphine and [place]. Flexeril. Ativan. A fentanyl patch has also been ordered. Review of Systems REVIEW OF SYSTEMS: CONSTITUTIONAL: Denies any recent significant weight loss or weight gain. EYES: Denies change in vision. EARS, NOSE, MOUTH, THROAT: Denies headaches, denies sore throat. CARDIOVASCULAR: Positive for left-sided chest wall pain chest pain,no palpitations or syncopal episodes. RESPIRATORY: Positive for shortness of breath, cough, congestion no hemoptysis. GASTROINTESTINAL: Poor appetite, denies abdominal pain GENITOURINARY: Denies hematuria, denies infections. MUSKULOSKELETAL: Positive for muscle spasms. Denies pain, denies swelling. INTEGUMENTARY: Denies rash, denies eczema. NEUROLOGICAL: Denies recent memory loss, no recent seizure activity. PSYCHIATRIC: Positive for anxiety, denies depression. HEMATOLOGIC/LYMPHATIC: Denies anemia, denies enlarged lymph nodes. Past Medical History Past Medical History: Osteoarthritis (OA), Pneumonia Additional Past Medical History / Comment(s): sinus problems,kidney stones uti, bladder incnt/wears a pad,abd hernia,migraines,"muscles spasms and lt hip pain, had collapsed lung -not large enough to require c/t, DDD, sciatic, History of Any Multi-Drug Resistant Organisms: None Reported Date of last positivie culture/infection: 2015 Past Surgical History: Appendectomy, Bladder Surgery, Cholecystectomy, Hysterectomy, Orthopedic Surgery Additional Past Surgical History / Comment(s): artriscopy, lt knee replacemnent,adrenal gland removed,lt knee, colonoscopy, dental implants, 1997 had lt foot sx for hammer toes and stated had an implant in that foot-then january 2015 had a revison of that sx, Cdiff- 2015 Past Anesthesia/Blood Transfusion Reactions: No Reported Reaction Past Psychological History: Anxiety Smoking Status: Current every day smoker Past Alcohol Use History: Rare Additional Past Alcohol Use History / Comment(s): smoked for 40 years 1 ppd, since quit but was'nt sure how long ago. Past Drug Use History: None Reported - Past Family History Mother Family Medical History: Dementia Additional Family Medical History / Comment(s): moms sister also had dementia Father Family Medical History: Unable to Obtain Medications and Allergies Home Medications Medication Instructions Recorded Confirmed Type Albuterol Inhaler [Ventolin Hfa 2 puff INHALATION RT-QID PRN 10/25/20 10/29/20 History Inhaler] Citalopram Hydrobromide 40 mg PO HS 10/25/20 10/29/20 History [Citalopram HBr] Fluticasone Propion/Salmeterol 1 puff INHALATION RT-BID 10/25/20 10/29/20 History [Wixela 250-50 Inhub] Ibuprofen [Motrin Ib] 400 mg PO Q8H PRN 10/25/20 10/29/20 History LORazepam [Ativan] 0.5 mg PO Q8H PRN 10/25/20 10/29/20 History diphenhydrAMINE [Benadryl] 25 mg PO HS PRN 10/25/20 10/29/20 History Allergies Allergy/AdvReac Type Severity Reaction Status Date / Time Iodinated Contrast Media Allergy Unknown Verified 10/29/20 17:13 [Iodinated Contrast Media - IV Dye] sulfamethoxazole Allergy Rash/Hives Verified 10/29/20 17:13 [From Bactrim] trimethoprim [From Bactrim] Allergy Rash/Hives Verified 10/29/20 17:13 Physical Exam Vitals: Vital Signs Temp Pulse Pulse Resp BP BP Pulse Ox 10/30/20 13:00 97.7 F 84 14 101/65 94 L 10/30/20 11:33 92 10/30/20 08:57 96 10/30/20 08:38 88 10/30/20 04:11 98.2 F 84 18 114/66 97 10/29/20 20:00 98.0 F 87 22 110/68 96 10/29/20 19:34 97.8 F 93 24 127/78 93 L 10/29/20 18:07 90 22 97/67 98 10/29/20 17:20 90 22 97/63 98 10/29/20 16:10 98.3 F 106 H 24 119/75 96 Intake and Output 10/29/20 10/30/20 10/30/20 21:59 06:59 14:59 Intake Total Balance Intake: Intake, IV Titration Amount Azithromycin 500 mg In Sodium Chloride 0.9% 250 ml @ 250 mls/hr IVPB ONCE STA Rx#:[id number] Oral Other: Voiding Method Toilet # Voids Weight GENERAL EXAM: Alert, 75-year-old female patient, on 3 L nasal cannula, uncomfortable in no apparent distress. HEAD: Normocephalic. EYES: Normal reaction of pupils, equal size. NOSE: Clear with pink turbinates. THROAT: No erythema or exudates. NECK: No masses, no JVD. CHEST: No chest wall deformity. LUNGS: Equal air entry with end expiratory wheeze. Diminished. CVS: S1 and S2 normal with no audible murmur, regular rhythm. ABDOMEN: No hepatosplenomegaly, normal bowel sounds, no guarding or rigidity. SPINE: No scoliosis or deformity SKIN: No rashes CENTRAL NERVOUS SYSTEM: No focal deficits, tone is normal in all 4 extremities. EXTREMITIES: There is no peripheral edema. No clubbing, no cyanosis. Peripheral pulses are intact. Results - Laboratory Findings CBC and BMP: 10/29/20 16:30 10/29/20 16:30 Abnormal lab findings: Abnormal Labs 10/29/20 10/29/20 16:30 16:30 WBC 16.3 H Neutrophils # 12.0 H Eosinophils # 1.4 H Chloride 110 H Carbon Dioxide 18 L Glucose 117 H - Diagnostic Findings Chest x-ray: image reviewed CT scan - chest: image reviewed Assessment and Plan Assessment: 1 Shortness of breath with left-sided chest wall discomfort secondary to a large mass of the left pulmonary hilum with extensive mediastinal adenopathy 2 Large mass at the left pulmonary hilum with extensive mediastinal adenopathy consistent with malignancy. Suspect small cell lung cancer. CT of the chest in 2018 revealed no significant abnormalities 3 Chronic and ongoing tobacco dependence of greater than 50 years 4 Chronic obstructive pulmonary disease maintained on Wixela and albuterol in the outpatient setting new patient 5 Anxiety 6 History of osteoarthritis Plan: The patient was seen and evaluated by Dr. Roa CAT scan, chest x-ray and labs reviewed Suspect small cell lung cancer Will need bronchoscopy with biopsies either this admission or in the outpatient setting Outpatient PET scan Continue bronchodilators, titrate FiO2 as needed Encouraged regarding the importance of complete smoking cessation. NicoDerm patch is offered We will continue to follow and make further recommendations based on her clinical status I, the cosigning physician, performed a history & physical examination of the patient. Lungs sounds with end expiratory wheeze, diminished. Maintaining good O2 saturations in the 90s on 3 L/m per nasal. I discussed the assessment and plan of care with my nurse practitioner, Annabel Morales. I attest to the above consultation as dictated by her. Time with Patient: Greater than 30
--- NOTE | 2020-10-30 14:38 | P.HPIM ---
History of Present Illness His liver [id number] female with known history of smoking given complaints of pleuritic chest pain patient wasn't treated with similar complaints on October 25 this year and found to have a large mass in the left hilum with extensive gastric adenopathy. Patient was referred to pulmonology clinic and was discharged home comes back again because of uncontrolled pain. Patient is presently complaining of pain in the entire abdomen in the lower back as well as chest which is pleuritic in nature. Patient had a chest x-ray which showed some infiltrate increase in the left lower lung demarco probably atelectasis patient was evaluated by pulmonology. Usually doesn't use any oxygen at home patient is presently in status of oxygen. Patient usually smokes a pack of cigarettes per day. Patient does have shortness of breath on exertion patient was mainly complaining of muscle spasms in the abdomen. Review of Systems REVIEW OF SYSTEMS: CONSTITUTIONAL: No fever, no malaise, no fatigue. HEENT: No recent visual problems or hearing problems. Denied any sore throat. CARDIOVASCULAR: No orthopnea, PND, no palpitations, no syncope. PULMONARY: No shortness of breath, no cough, no hemoptysis. GASTROINTESTINAL: No diarrhea, no nausea, no vomiting, no abdominal pain. NEUROLOGICAL: No headaches, no weakness, no numbness. HEMATOLOGICAL: Denies any bleeding or petechiae. GENITOURINARY: Denies any burning micturition, frequency, or urgency. MUSCULOSKELETAL/RHEUMATOLOGICAL: Denies any joint pain, swelling, or any muscle pain. ENDOCRINE: Denies any polyuria or polydipsia. The rest of the 14-point review of systems is negative. Past Medical History Past Medical History: Osteoarthritis (OA), Pneumonia Additional Past Medical History / Comment(s): sinus problems,kidney stones uti, bladder incnt/wears a pad,abd hernia,migraines,"muscles spasms and lt hip pain, had collapsed lung -not large enough to require c/t, DDD, sciatic, History of Any Multi-Drug Resistant Organisms: None Reported Date of last positivie culture/infection: 2015 Past Surgical History: Appendectomy, Bladder Surgery, Cholecystectomy, Hysterectomy, Orthopedic Surgery Additional Past Surgical History / Comment(s): artriscopy, lt knee replacem nent,adrenal gland removed,lt knee, colonoscopy, dental implants, 1997 had lt foot sx for hammer toes and stated had an implant in that foot-then january 2015 had a revison of that sx, Cdiff- 2015 Past Anesthesia/Blood Transfusion Reactions: No Reported Reaction Past Psychological History: Anxiety Smoking Status: Current every day smoker Past Alcohol Use History: Rare Additional Past Alcohol Use History / Comment(s): smoked for 40 years 1 ppd, since quit but was'nt sure how long ago. Past Drug Use History: None Reported - Past Family History Mother Family Medical History: Dementia Additional Family Medical History / Comment(s): moms sister also had dementia Father Family Medical History: Unable to Obtain Medications and Allergies Home Medications Medication Instructions Recorded Confirmed Type Albuterol Inhaler [Ventolin Hfa 2 puff INHALATION RT-QID PRN 10/25/20 10/29/20 History Inhaler] Citalopram Hydrobromide 40 mg PO HS 10/25/20 10/29/20 History [Citalopram HBr] Fluticasone Propion/Salmeterol 1 puff INHALATION RT-BID 10/25/20 10/29/20 History [Wixela 250-50 Inhub] Ibuprofen [Motrin Ib] 400 mg PO Q8H PRN 10/25/20 10/29/20 History LORazepam [Ativan] 0.5 mg PO Q8H PRN 10/25/20 10/29/20 History diphenhydrAMINE [Benadryl] 25 mg PO HS PRN 10/25/20 10/29/20 History Allergies Allergy/AdvReac Type Severity Reaction Status Date / Time Iodinated Contrast Media Allergy Unknown Verified 10/29/20 17:13 [Iodinated Contrast Media - IV Dye] sulfamethoxazole Allergy Rash/Hives Verified 10/29/20 17:13 [From Bactrim] trimethoprim [From Bactrim] Allergy Rash/Hives Verified 10/29/20 17:13 Physical Exam Vitals: Vital Signs Temp Pulse Pulse Resp BP BP Pulse Ox 10/30/20 13:00 97.7 F 84 14 101/65 94 L 10/30/20 11:33 92 10/30/20 08:57 96 10/30/20 08:38 88 10/30/20 04:11 98.2 F 84 18 114/66 97 10/29/20 20:00 98.0 F 87 22 110/68 96 10/29/20 19:34 97.8 F 93 24 127/78 93 L 10/29/20 18:07 90 22 97/67 98 10/29/20 17:20 90 22 97/63 98 10/29/20 16:10 98.3 F 106 H 24 119/75 96 Intake and Output 10/29/20 10/30/20 10/30/20 21:59 06:59 14:59 Intake Total Balance Intake: Intake, IV Titration Amount Azithromycin 500 mg In Sodium Chloride 0.9% 250 ml @ 250 mls/hr IVPB ONCE STA Rx#:[id number] Oral Other: Voiding Method Toilet # Voids Weight PHYSICAL EXAMINATION: GENERAL: The patient is alert and oriented x3, mild acute distress. Well developed, well nourished. HEENT: Pupils are round and equally reacting to light. EOMI. No scleral icterus. No conjunctival pallor. Normocephalic, atraumatic. No pharyngeal erythema. No t hyromegaly. CARDIOVASCULAR: S1 and S2 present. No murmurs, rubs, or gallops. PULMONARY: Mild expiratory wheezing ABDOMEN: Soft, nontender, nondistended, normoactive bowel sounds. No palpable organomegaly. MUSCULOSKELETAL: No joint swelling or deformity. EXTREMITIES: No cyanosis, clubbing, or pedal edema. NEUROLOGICAL: Gross neurological examination did not reveal any focal deficits. SKIN: No rashes. Results CBC & Chem 7: 10/29/20 16:30 10/29/20 16:30 Labs: Abnormal Lab Results - Last 24 Hours (Table) 10/29/20 10/29/20 Range/Units 16:30 16:30 WBC 16.3 H (3.8-10.6) k/uL Neutrophils # 12.0 H (1.3-7.7) k/uL Eosinophils # 1.4 H (0-0.7) k/uL Chloride 110 H (98-107) mmol/L Carbon Dioxide 18 L (22-30) mmol/L Glucose 117 H (74-99) mg/dL Thrombosis Risk Factor Assmnt - Choose All That Apply Each Factor Represents 1 point: Serious lung disease incl. pneumonia (< 1month) Each Risk Factor Represents 2 Points: Age 61-74 years Other congenital or acquired thrombophilia - If yes, enter type in comment: No Thrombosis Risk Factor Assessment Total Risk Factor Score: 3 Thrombosis Risk Factor Assessment Level: Moderate Risk Assessment and Plan Plan: Pleuritic chest pain: Secondary to hilar mass most probably malignant. Patient has a atelectasis in the left lower lung demarco possibility of pneumonia is low. Patient may have mild COPD exacerbation. May patient has extensive mediastinal and neuropathy. Patient has significant spasms for which we will use Flexeril, for pain patient getting morphine and will add Toradol for pain along with GI prophylaxis. -Acute hypoxic respiratory failure secondary to possibly COPD exacerbation patient will be given a dose of steroids Patient was started on inhalational treatments -Possible lung malignancy: A large valid the patient possibly of bronchoscopy and biopsy tomorrow. We'll evaluate for metastatic disease causing her back pain and severe muscle spasms will obtain a contrast CT of the abdomen and pelvis and also CT of the head, patient probably will benefit from MRI of the head oncology will evaluate the patient as well as the patient probably will need outpatient PET scan -History of osteoarthritis. -Leukocytosis reactive -DVT prophylaxis with Lovenox
--- NOTE | 2020-10-30 15:01 | CT ---
EXAMINATION TYPE: CT brain w con DATE OF EXAM: 10/30/2020 COMPARISON: 05/22/2016 HISTORY: Lung cancer, new diagnosis, possible METS CT DLP: 1077.10 mGycm Automated exposure control for dose reduction was used. CONTRAST: Performed with IV Contrast, patient injected with 100 mL of Isovue 300. Images obtained of the brain with IV contrast. There is cerebral cortical atrophy. There is no mass effect nor midline shift. There is no sign of in tracranial hemorrhage. The calvarium is intact. There is no pathologic enhancement. Skull base is int act. There is normal aeration of the mastoid sinuses. IMPRESSION: Cerebral atrophy. No acute intracranial abnormality. No evidence of metastatic disease. No adverse ch víctor compared to old exam.
--- NOTE | 2020-10-30 15:21 | CT ---
EXAMINATION TYPE: CT abdomen pelvis w con DATE OF EXAM: 10/30/2020 COMPARISON: 06/05/2013 HISTORY: Lung cancer, new diagnosis, possible METS CT DLP: 1037.40 mGycm Automated exposure control for dose reduction was used. CONTRAST: Performed with IV Contrast, patient injected with 100 mL of Isovue 300. Images obtained from the diaphragm to the floor the pelvis with IV contrast. There are numerous variable sized hypodense masses in the liver that measure up to 3.4 x 2 cm. The sp va is intact. Stomach is intact. There is infiltrate and atelectasis left lung base. There is small left pleural effusion. There is no evidence of pancreatic mass. There are clips from cholecystectomy. There is 2 cm cortical cyst upper pole right kidney. There is no adrenal mass. There is some calcific ation at the right adrenal gland that could relate to old hemorrhage. Kidneys show satisfactory contrast opacification. There is no hydronephrosis. There are small cortica l cysts less than 1 cm in the posterior left and right kidney. There is no retroperitoneal adenopathy . Bladder distends smoothly. There is no inguinal hernia. There is no free fluid in the pelvis. There are some sigmoid diverticula. There is no sign of diverticulitis. There is epigastric ventral incarc erated hernia containing omental fat and measures 5 cm in maximum dimension. The lumbar vertebra have normal alignment. There is degenerative disc space narrowing throughout the lumbar spine. There is spur formation of the endplates. There is no compression fracture. Bony pelvis is intact. Hip joints are intact. There is some degenerative cyst formation in the left acetabulum. IMPRESSION: Multiple hypodense liver lesions consistent with metastatic disease. There is small left pleural effu melissa which is new compared to the recent chest CT scan of 10/25/2020. Sigmoid diverticulosis. Atherosclerotic vascular disease.
[2020-10-30] MEDS: NICOTINE 14MG/24HR PATCH TRANSDERM SCH (16:12)
[2020-10-30] MEDS: SODIUM CHLORIDE 0.9% 1,000 ML IV SCH (17:56)
[2020-10-30] MEDS: KETOROLAC 15 MG/ML 1 ML VIAL IVP PRN (19:22)
[2020-10-30] MEDS: CITALOPRAM HYDROBROMIDE 20 MG TAB PO SCH (20:49)
[2020-10-30] MEDS ORDERED: HEPARIN SODIUM,PORCINE 5,000 UNIT/ML 1 ML VIAL SQ SCH (21:00)
[2020-10-31] MEDS: HYDROcodone/APAP 7.5-325MG 1 EACH TAB PO PRN ×3 (00:40→17:55)
[2020-10-31] MEDS: MORPHINE SULFATE 4 MG/ML SYRINGE IV PRN ×2 (01:46→09:39)
[2020-10-31] MEDS: PANTOPRAZOLE 40 MG/10 ML VIAL IV SCH (07:43)
[2020-10-31] MEDS: NICOTINE 14MG/24HR PATCH TRANSDERM SCH (07:44)
[2020-10-31] MEDS: LORazepam 0.5 MG TAB PO PRN (08:29)
[2020-10-31] MEDS: IPRATROPIUM-ALBUTEROL 3 ML NEB INHALATION SCH ×4 (08:42→21:03)
[2020-10-31] MEDS ORDERED: ENOXAPARIN 40 MG/0.4 ML SYRINGE SQ SCH (09:00)
[2020-10-31 09:32] LABS: African American GFR (CKD) 98.9 (60.0-200.0); Albumin/Globulin Ratio 1.82 (1.60-3.17); BUN/Creat Ratio 41.43 Ratio (12.00-20.00); Globulin 2.2 g/dL (1.6-3.3); Non-African American GFR(CKD) 85.4 (60.0-200.0); Potassium 4.5 mmol/L (3.5-5.5); Total Bilirubin 0.4 mg/dL (0.2-1.2); Total Protein 6.2 g/dL (6.2-8.2)
[2020-10-31] MEDS: KETOROLAC 15 MG/ML 1 ML VIAL IVP PRN (09:38)
[2020-10-31 09:51] LABS: Basophils # (A) 0.01 X 10*3/uL (0.00-0.10); Basophils % (A) 0.1 %; Eosinophils # (A) 0.01 X 10*3/uL (0.04-0.35); Eosinophils % (A) 0.1 %; HCT 35.5 % (37.2-46.3); HGB 11.7 g/dL (12.0-15.0); Lymphocytes # (A) 0.65 X 10*3/uL (0.90-5.00); Lymphocytes % (A) 5.9 %; MCH 30.2 pg (27.0-32.0); MCV 91.5 fL (80.0-97.0); Mean Platelet Volume 10.4 fL (9.5-12.2); Monocytes # (A) 0.51 X 10*3/uL (0.20-1.00); Monocytes % (A) 4.6 %; Neutrophils # (A) 9.87 X 10*3/uL (1.80-7.70); Neutrophils % (A) 88.8 %; Platelet Count 229 X 10*3/uL (140-440); RBC 3.88 X 10*6/uL (4.10-5.20); RDW 12.9 % (11.5-14.5)
--- NOTE | 2020-10-31 11:11 | MR ---
EXAMINATION TYPE: MR brain wo/w con DATE OF EXAM: 10/31/2020 COMPARISON: CT brain 10/30/2020 HISTORY: Possible lung cancer asses metastatic TECHNIQUE: Multiplanar, multisequence images of the brain and brainstem is performed without and with IV contras t, utilizing 7.5 mL intravenous Gadavist . FINDINGS: Diffusion weighted images demonstrate no evidence of a recent infarct or other diffusion ab normality. There is mild generalized degenerative change. There is a numerous focal diffuse areas of abnormal signal scattered throughout the white matter bilaterally. No mass effect or midline shift. Changes of chronic sinusitis. Orbits are symmetric. Motion artifact does limit exam. Partially empty sella turcica. Midline structures demonstrate normal morphology. The craniocervical junction appears within normal limits. Post contrast images demonstrate no abnormal enhancement. IMPRESSION: 1. Degenerative nonspecific white matter changes most typical remote ischemia. 2. No evidence of enhancing mass or mass effect
[2020-10-31] MEDS ORDERED: methylPREDNISolone SOD SUCCI 40 MG/ML 1 ML VIAL IV STA (12:05)
[2020-10-31] MEDS ORDERED: SUCCINYLCHOLINE CHLORIDE 100 MG/5 ML SYR IV ONE (13:10)
[2020-10-31] MEDS ORDERED: GLYCOPYRROLATE 0.2 MG/ML 2 ML VIAL ONE (13:10)
[2020-10-31] MEDS ORDERED: MIDAZOLAM 2 MG/2 ML VIAL ONE (13:10)
[2020-10-31] MEDS ORDERED: LIDOCAINE 1% INJ 10MG/ML (20 ML MDV) ONE (13:10)
[2020-10-31] MEDS ORDERED: ePHEDrine SULFATE/0.9% NACL/PF 50 MG/5 ML SYRINGE IV ONE (13:10)
[2020-10-31] MEDS ORDERED: fentaNYL (PF) 50 MCG/ML 2 ML AMP ONE (13:10)
[2020-10-31] MEDS ORDERED: IV FLUID CONTINUATION 1,000 ML IV ONE (13:10)
[2020-10-31] MEDS ORDERED: PROPOFOL 10 MG/ML 20 ML VIAL IV ONE (13:10)
[2020-10-31] MEDS ORDERED: SODIUM CHLORIDE 0.9% 1,000 ML IV ONE (13:59)
--- NOTE | 2020-10-31 14:13 | XR ---
EXAMINATION TYPE: XR chest 1V portable DATE OF EXAM: 10/31/2020 Comparison: 10/29/2020 Clinical History: 75-year-old female post-bronch Findings: Known left hilar and infrahilar mass and patchy opacity at the left base. No pneumothorax or sizable pleural effusion. Moderate centrilobular emphysema with hyperinflation. Heart upper limits of normal in size. Impression: Known left hilar and infrahilar mass with patchy left basilar opacity. Background of COPD, overall un changed.
--- NOTE | 2020-10-31 14:15 | P.PN ---
Subjective Progress Note Date: 10/31/20 This is a 75-year-old female with known history of smoking given complaints of pleuritic chest pain patient wasn't treated with similar complaints on October 25 this year and found to have a large mass in the left hilum with extensive gastric adenopathy. Patient was referred to pulmonology clinic and was di scharged home comes back again because of uncontrolled pain. Patient is presently complaining of pain in the entire abdomen in the lower back as well as chest which is pleuritic in nature. Patient had a chest x-ray which showed some infiltrate increase in the left lower lung demarco probably atelectasis patient was evaluated by pulmonology. Usually doesn't use any oxygen at home patient is presently in status of oxygen. Patient usually smokes a pack of cigarettes per day. Patient does have shortness of breath on exertion patient was mainly complaining of muscle spasms in the abdomen. 10/31/2020 Patient is seen and evaluated follow-up with no acute overnight issues. Patient is currently maintained on 3 L of oxygen via nasal cannula although does not normally wear oxygen in the outpatient setting. Discussed with nursing staff about weaning FiO2 as tolerated. Patient is scheduled to undergo bronchoscopy with biopsy with pulmonary today. Patient denies any worsening shortness of b reath. Patient continues to have expiratory wheezing noted on exam and will give another dose of IV steroids and start a prednisone taper by mouth tomorrow. Prescription was provided to case management and the possibility of requiring oxygen in the outpatient setting. Patient does get dyspneic with exertion and also has newly diagnosed lung cancer. Patient underwent MRI of the brain which was negative for metastasis although underwent abdominal pelvic CT showing multiple hypodense liver lesions consistent with metastatic disease along with a small left pleural effusion with sigmoid diverticulosis and atherosclerotic vascular disease. White blood count trending down and is 11.10 with a h emoglobin of 11.7, sodium is 140 with a potassium of 4.5 and current creatinine is 0.7. Will await bronchoscopy report Review of systems: Constitutional: No reports of fatigue, fever, or chills Cardiovascular: No reports of chest pain or palpitations Respiratory: No reports of worsening shortness of breath or cough GI: No reports of nausea, vomiting, or diarrhea : No reports of dysuria or retention Neurovascular: No reports of weakness or numbness All medications have been reviewed Objective - Vital Signs Vital signs: Vital Signs Temp 97.6 F 10/31/20 05:00 Pulse 80 10/31/20 08:58 Resp 22 10/31/20 05:00 BP 126/72 10/31/20 05:00 Pulse Ox 95 10/31/20 05:00 Intake & Output 10/30/20 10/31/20 10/31/20 18:59 06:59 18:59 Intake Total 800 980 Balance 800 980 Intake: Intake, IV Titration 240 Amount Sodium Chloride 0.9% 1, 240 000 ml @ 20 mls/hr IV . Q24H [facility] Rx#:[id number] Oral 800 740 Other: Voiding Method Toilet Toilet Toilet # Voids 3 2 1 - Exam GENERAL: The patient is alert and oriented x3, mild acute distress. Well developed, well nourished. HEENT: Pupils are round and equally reacting to light. EOMI. No scleral icterus. No conjunctival pallor. Normocephalic, atraumatic. No pharyngeal erythema. No thyromegaly. CARDIOVASCULAR: S1 and S2 present. No murmurs, rubs, or gallops. PULMONARY: Mild expiratory wheezing noted on exam ABDOMEN: Soft, nontender, nondistended, normoactive bowel sounds. No palpable organomegaly. MUSCULOSKELETAL: No joint swelling or deformity. EXTREMITIES: No cyanosis, clubbing, or pedal edema. NEUROLOGICAL: Gross neurological examination did not reveal any focal deficits. SKIN: No rashes. - Labs CBC & Chem 7: 10/31/20 04:50 10/31/20 04:50 Labs: Abnormal Lab Results - Last 24 Hours (Table) 10/31/20 10/31/20 Range/Units 04:50 04:50 WBC 11.10 H (4.50-10.00) X 10*3/uL RBC 3.88 L (4.10-5.20) X 10*6/uL Hgb 11.7 L (12.0-15.0) g/dL Hct 35.5 L (37.2-46.3) % Immature Gran # 0.05 H (0.00-0.04) X 10*3/uL Neutrophils # 9.87 H (1.80-7.70) X 10*3/uL Lymphocytes # 0.65 L (0.90-5.00) X 10*3/uL Eosinophils # 0.01 L (0.04-0.35) X 10*3/uL Carbon Dioxide 21.0 L (21.6-31.8) mmol/L BUN 29.0 H (9.0-27.0) mg/dL BUN/Creatinine Ratio 41.43 H (12.00-20.00) Ratio Glucose 127 H (70-110) mg/dL Microbiology - Last 24 Hours (Table) 10/29/20 19:34 Blood Culture - Preliminary Blood No Growth after 24 hours 10/29/20 19:33 Blood Culture - Preliminary Blood No Growth after 24 hours Assessment and Plan Assessment: -Pleuritic chest pain: Secondary to hilar mass most probably malignant. Patient has a atelectasis in the left lower lung demarco possibility of pneumonia is low. Patient may have mild COPD exacerbation. Patient has significant spasms for which we will use Flexeril, for pain patient getting morphine and will add Toradol for pain along with GI prophylaxis. -Acute hypoxic respiratory failure secondary to possibly COPD exacerbation patient will be given a dose of IV steroids Patient was started on inhalational treatments and will add Symbicort and transitioned oral steroids tomorrow -Possible lung malignancy: Pulmonary performing bronchoscopy and biopsy today. Will await report. CT abdomen and pelvis showed multiple liver lesions most likely metastatic patient will need close outpatient follow-up with oncology and possible PET scan in the outpatient setting -History of osteoarthritis. -Leukocytosis reactive -DVT prophylaxis with Lovenox Plan: Await bronchoscopy report and pulmonary following closely. Discussed with nursing staff about weaning FiO2 as tolerated as she does not normally wear oxyg en in the outpatient setting. Prescription provided to case management and the possibility of requiring home oxygen. Will give another dose of IV steroids and transitioned oral steroids in the morning. Possible discharge in 24 hours.
--- NOTE | 2020-10-31 14:58 | P.PN ---
Subjective Progress Note Date: 10/31/20 Principal diagnosis: Shortness of breath, chest discomfort, muscle spasms This a very pleasant 75-year-old female patient who follows with Dr. Ball is her primary care provider. She is a history of anxiety, osteoarthritis, chronic and ongoing tobacco dependence of greater than 50 years. Suddenly she been having issues with increasing shortness of breath. She presented again here to the emergency room and 10/25/2020 and a computed tomography scan revealed a large mass at the left pulmonary hilum with extensive mediastinal adenopathy. Consistent with malignancy. Once informed of these findings she got nervous and left the emergency room without further workup. She represented here yesterday with worsening shortness of breath, left-sided chest discomfort, muscle spasms. She is seen today in consultation on the regular medical floor. She is currently sitting up bedside. Awake and alert in no acute distress. She is still having some left-sided chest wall discomfort. Shortness of breath with exertion. Maintaining O2 saturations in the low 90s on 3 L/m per nasal cannula. Mainly complaints of muscle spasms. She has been having issues with nausea and poor appetite. No vomiting. No significant cough or congestion. No hemoptysis. White count 16.3. Hemoglobin 14.6. Sodium 138. Potassium 4.7. Chloride 110. Bicarb 18. Creatinine 0.74. Calcium 9.6. Chen virus not detected. She is requiring increased amounts of pain medication including morp aniya and [place]. Flexeril. Ativan. A fentanyl patch has also been ordered. On 10/31/2020 patient seen in follow-up on medical floor, no acute events overnight, she is currently on 8 L of oxygen. Pulse ox is 95%, she's been afebrile, awake and alert, oriented 3. She is breathing comfortably, appears to be in no acute distress, patient underwent a bronchoscopy with biopsies of the bronchial lingular mass, multiple biopsies using the forceps, and brushings and washings for cytology were taken. And needle biopsy of the subcarinal lymph node was taken. Left upper lobe segments and lingula in particular were narrowed. There was some narrowing of the left lower lobe as well. No abnormal findings noted in the right lung. Patient was intubated for the procedure, she tolerated procedure very well, following the procedure chest x-ray was completed showing no pneumothorax or sizable pleural effusion, moderate stage emphysema with hyperinflation. Patient's daughter was updated following the procedure. Brain MRI showed no evidence of brain metastasis. CT of the abdomen showed a variable sized hypodense masses in the liver measuring up to 3.4 x 2 cm suspicious for metastatic disease. Objective - Vital Signs Vital signs: Vital Signs Temp 97.4 F L 10/31/20 13:48 Pulse 117 H 10/31/20 14:22 Resp 18 10/31/20 14:22 BP 118/63 10/31/20 14:22 Pulse Ox 97 10/31/20 14:22 Intake & Output 10/30/20 10/31/20 10/31/20 18:59 06:59 18:59 Intake Total 943 506 0062 Balance 080 560 3002 Intake: IV 700 Intake, IV Titration 240 300 Amount Sodium Chloride 0.9% 1, 240 300 000 ml @ 20 mls/hr IV . Q24H [facility] Rx#:[id number] Oral 800 740 Other: Voiding Method Toilet Toilet Toilet # Voids 3 2 3 - Exam GENERAL EXAM: Alert, very pleasant, 75-year-old white female, 3 L of oxygen with a pulse ox of 98%, comfortable in no apparent distress. HEAD: Normocephalic/atraumatic. EYES: Normal reaction of pupils, equal size. Conjunctiva pink, sclera white. NOSE: Clear with pink turbinates. THROAT: No erythema or exudates. NECK: No masses, no JVD, no thyroid enlargement, no adenopathy. CHEST: No chest wall deformity. Symmetrical expansion. LUNGS: Equal air entry with no crackles, wheeze, rhonchi or dullness. CVS: Regular rate and rhythm, normal S1 and S2, no gallops, no murmurs, no rubs ABDOMEN: Soft, nontender. No hepatosplenomegaly, normal bowel sounds, no guarding or rigidity. EXTREMITIES: No clubbing, no edema, no cyanosis, 2+ pulses and upper and lower extremities. MUSCULOSKELETAL: Muscle strength and tone normal. SPINE: No scoliosis or deformity SKIN: No rashes CENTRAL NERVOUS SYSTEM: Alert and oriented -3. No focal deficits, tone is normal in all 4 extremities. PSYCHIATRIC: Alert and oriented -3. Appropriate affect. Intact judgment and insight. - Labs CBC & Chem 7: 10/31/20 04:50 10/31/20 04:50 Labs: Abnormal Lab Results - Last 24 Hours (Table) 10/31/20 10/31/20 Range/Units 04:50 04:50 WBC 11.10 H (4.50-10.00) X 10*3/uL RBC 3.88 L (4.10-5.20) X 10*6/uL Hgb 11.7 L (12.0-15.0) g/dL Hct 35.5 L (37.2-46.3) % Immature Gran # 0.05 H (0.00-0.04) X 10*3/uL Neutrophils # 9.87 H (1.80-7.70) X 10*3/uL Lymphocytes # 0.65 L (0.90-5.00) X 10*3/uL Eosinophils # 0.01 L (0.04-0.35) X 10*3/uL Carbon Dioxide 21.0 L (21.6-31.8) mmol/L BUN 29.0 H (9.0-27.0) mg/dL BUN/Creatinine Ratio 41.43 H (12.00-20.00) Ratio Glucose 127 H (70-110) mg/dL Microbiology - Last 24 Hours (Table) 10/29/20 19:34 Blood Culture - Preliminary Blood No Growth after 24 hours 10/29/20 19:33 Blood Culture - Preliminary Blood No Growth after 24 hours Assessment and Plan Plan: Assessment: #1. Large mass at the left pulmonary hilum with extensive mediastinal adenopathy consistent with malignancy, suspect small cell lung cancer. Patient underwent bronchoscopy with biopsies of the left upper lobe/lingular endobronchial mass, and needle biopsies of the subcarinal lymph node on 10/31/2020 #2. Shortness of breath with left-sided chest wall discomfort secondary to a large mass of the left pulmonary hilum with extensive mediastinal adenopathy #3. Chronic and ongoing tobacco dependence of greater than 50 years #4. COPD, maintained on Wixela and albuterol in the outpatient setting #5. Anxiety #6. History of osteoarthritis Plan: Patient tolerated bronchoscopy with biopsies very well, will await results of the biopsies, her daughter was updated. If she remains stable in 24 hr patient may be considered for discharge home. if remains stable, may consider discharge with outpatient follow-up regarding the results of the biopsy, MRI of the brain was negative, CT of the abdomen and pelvis suggest metastatic disease in the liver. I performed a history & physical examination of the patient and discussed their management with my nurse practitioner, Teresa Agosto. I reviewed the nurse practitioner's note and agree with the documented findings and plan of care. Lung sounds are positive for diminished breath sounds throughout the lung demarco. The findings and the impression was discussed with the patient. I attest to the documentation by the nurse practitioner. Time with Patient: Less than 30
[2020-10-31 15:54] LABS: Appearance,BF Bloody; Nucleated Cells, Body Fluid 500 /uL; RBC, Body Fluid 196000 /uL
[2020-10-31] MEDS ORDERED: predniSONE 20 MG TAB PO SCH (16:00)
[2020-10-31 16:20] LABS: Mononuclear WBC,Body Fluid 8 %; Polynuclear WBC,Body Fluid 92 %; Total Cells Counted,Body Fluid 100
--- NOTE | 2020-10-31 16:30 | PCN ---
PROCEDURE NOTE PROCEDURE: Bronchoscopy, airway examination, therapeutic lavage, BAL, brushes in the lingula, transbronchial and endobronchial biopsies in the lingula, washes in the lingula and also transbronchial needle aspiration/one needle of the subcarinal region. OPERATORS: 1. Dr. Monterroso. 2. Dr. Agosto. There was informed consent and universal timeout. The patient's procedure was done in room #1. STEEL E[employer]OR APPRENTICE and Anesthesia provided general anesthetic to the patient. PROCEDURE DESCRIPTION: After the patient was sedated and intubated, the bronchoscope was pushed through the bronchoscope adapter connected to the endotracheal tube. The right side was evaluated first. The right upper lobe and its 3 segments, right middle lobe and its 2 segments, right lower lobe and its 5 segments were normal. On the left side, there was gross abnormality. There was significant narrowing at the bronchus going into the left lower lobe. The lingular bronchus was almost completely obstructed and very narrowed. There was patency to the left upper lobe proper and its 2 segments. Next, we did multiple endobronchial and transbronchial biopsies in the lingula. Afterwards, we brushed the lingula and washed the lingula. Subsequent to all this, we went ahead and did transbronchial needle aspirations of the subcarinal region. The patient tolerated the procedure well. There was minimal bleeding. The patient will be extubated and recovered. I did have a chance to speak to the patient's daughter. We should have an answer hopefully by mid week or so. MMODL / IJN: [id number] /
--- NOTE | 2020-10-31 17:41 | P.CONS ---
History of Present Illness - Reason for Consult Consult date: 10/31/20 Lung Mass Requesting physician: Sandro Rojo - Chief Complaint SOB, COugh - History of Present Illness Mrs. Campbell is lifelong smoker who presented with persistent cough and SOB. CT chest revealed a large mass at the left pulmonary hilum with extensive mediastinal adenopathy. Concerning for underlying malignancy. Apparently after this news she left AMA, but ultimately returned the next day as she continued with symptoms. We have been asked to further evaluate given the concern of malignancy. MRI brain without metastatic disease, CT abdomen and pelvis hypodens e masses in the liver measuring up to 3.4 x 2 cm suspicious for metastatic disease. She underwent a bronchoscopy with biopsies Review of Systems All systems: negative Constitutional: Reports as per HPI Past Medical History Past Medical History: Osteoarthritis (OA), Pneumonia Additional Past Medical History / Comment(s): sinus problems,kidney stones uti, bladder incnt/wears a pad,abd hernia,migraines,"muscles spasms and lt hip pain, had collapsed lung -not large enough to require c/t, DDD, sciatic, History of Any Multi-Drug Resistant Organisms: None Reported Year Discovered:: 2015 Past Surgical History: Appendectomy, Bladder Surgery, Cholecystectomy, Hysterectomy, Orthopedic Surgery Additional Past Surgical History / Comment(s): artriscopy, lt knee re placemnent,adrenal gland removed,lt knee, colonoscopy, dental implants, 1997 had lt foot sx for hammer toes and stated had an implant in that foot-then january 2015 had a revison of that sx, Cdiff- 2015 Past Anesthesia/Blood Transfusion Reactions: No Reported Reaction Past Psychological History: Anxiety Smoking Status: Current every day smoker Past Alcohol Use History: Rare Additional Past Alcohol Use History / Comment(s): smoked for 40 years 1 ppd, since quit but was'nt sure how long ago. Past Drug Use History: None Reported - Past Family History Mother Family Medical History: Dementia Additional Family Medical History / Comment(s): moms sister also had dementia Father Family Medical History: Unable to Obtain Medications and Allergies Home Medications Medication Instructions Recorded Confirmed Type Albuterol Inhaler [Ventolin Hfa 2 puff INHALATION RT-QID PRN 10/25/20 10/29/20 History Inhaler] Citalopram Hydrobromide 40 mg PO HS 10/25/20 10/29/20 History [Citalopram HBr] Fluticasone Propion/Salmeterol 1 puff INHALATION RT-BID 10/25/20 10/29/20 History [Wixela 250-50 [place]] Ibuprofen [Motrin Ib] 400 mg PO Q8H PRN 10/25/20 10/29/20 History LORazepam [Ativan] 0.5 mg PO Q8H PRN 10/25/20 10/29/20 History diphenhydrAMINE [Benadryl] 25 mg PO HS PRN 10/25/20 10/29/20 History Allergies Allergy/AdvReac Type Severity Reaction Status Date / Time Iodinated Contrast Media Allergy Unknown Verified 10/29/20 17:13 [Iodinated Contrast Media - IV Dye] sulfamethoxazole Allergy Rash/Hives Verified 10/29/20 17:13 [From Bactrim] trimethoprim [From Bactrim] Allergy Rash/Hives Verified 10/29/20 17:13 Physical Exam Vitals: Vital Signs Temp Pulse Pulse Pulse Resp BP BP 10/31/20 17:04 92 10/31/20 16:52 92 10/31/20 14:58 102 H 20 122/70 10/31/20 14:45 97.3 F L 105 H 22 142/84 10/31/20 14:22 117 H 18 118/63 10/31/20 14:14 110 H 18 122/64 10/31/20 14:01 120 H 18 122/68 10/31/20 13:48 97.4 F L 122 H 20 111/68 10/31/20 12:43 98.8 F 71 18 145/56 10/31/20 12:29 80 10/31/20 12:19 84 10/31/20 08:58 80 10/31/20 08:42 80 10/31/20 05:00 97.6 F 84 22 126/72 10/30/20 20:27 72 10/30/20 20:14 10/30/20 20:11 72 10/30/20 20:00 98.9 F 88 20 125/73 10/30/20 19:20 20 Pulse Ox 10/31/20 17:04 10/31/20 16:52 10/31/20 14:58 96 10/31/20 14:45 96 10/31/20 14:22 97 10/31/20 14:14 96 10/31/20 14:01 96 10/31/20 13:48 96 10/31/20 12:43 96 10/31/20 12:29 10/31/20 12:19 10/31/20 08:58 10/31/20 08:42 10/31/20 05:00 95 10/30/20 20:27 10/30/20 20:14 97 10/30/20 20:11 10/30/20 20:00 92 L 10/30/20 19:20 Intake and Output 10/31/20 10/31/20 10/31/20 06:59 14:59 22:59 Intake Total 480 1000 Balance 480 1000 Intake: IV 700 Intake, IV Titration 240 300 Amount Sodium Chloride 0.9% 1, 240 300 000 ml @ 20 mls/hr IV . Q24H [facility] Rx#:[id number] Oral 240 Other: Voiding Method Toilet # Voids 2 3 - Constitutional General appearance: cooperative, no acute distress - EENT Eyes: EOMI ENT: NA/AT - Neck Neck: lymphadenopathy - Respiratory Respiratory: bilateral: diminished, wheezing - Cardiovascular Rhythm: irregularly irregular - Gastrointestinal General gastrointestinal: normal bowel sounds, soft - Integumentary Integumentary: pale - Neurologic Neurologic: CNII-XII intact - Musculoskeletal Musculoskeletal: generalized weakness - Psychiatric Psychiatric: A&O x's 3 Results CBC & Chem 7: 10/31/20 04:50 10/31/20 04:50 Labs: Abnormal Lab Results - Last 24 Hours (Table) 10/31/20 10/31/20 Range/Units 04:50 04:50 WBC 11.10 H (4.50-10.00) X 10*3/uL RBC 3.88 L (4.10-5.20) X 10*6/uL Hgb 11.7 L (12.0-15.0) g/dL Hct 35.5 L (37.2-46.3) % Immature Gran # 0.05 H (0.00-0.04) X 10*3/uL Neutrophils # 9.87 H (1.80-7.70) X 10*3/uL Lymphocytes # 0.65 L (0.90-5.00) X 10*3/uL Eosinophils # 0.01 L (0.04-0.35) X 10*3/uL Carbon Dioxide 21.0 L (21.6-31.8) mmol/L BUN 29.0 H (9.0-27.0) mg/dL BUN/Creatinine Ratio 41.43 H (12.00-20.00) Ratio Glucose 127 H (70-110) mg/dL Microbiology - Last 24 Hours (Table) 10/29/20 19:34 Blood Culture - Preliminary Blood No Growth after 24 hours 10/29/20 19:33 Blood Culture - Preliminary Blood No Growth after [address] scan - abdomen: report reviewed CT scan - chest: report reviewed CT scan - pelvis: report reviewed Assessment and Plan (1) Mass of left lung Current Visit: No Status: Acute Code(s): R91.8 - OTHER NONSPECIFIC ABNORMAL FINDING OF LUNG FIELD SNOMED Code(s): 312222658 Plan: Assessment and Recommendations: Left Lyng Mass: - Possible metastatic disease in liver - MRI brain negative - Will obtain bone scan for full initial staging - Await tissue bx of lung mass pulm Bronch, Physcian attest: I have completed the full history and physical and agreee with above dictation, dictated as a scribe.
[2020-10-31] MEDS: CITALOPRAM HYDROBROMIDE 20 MG TAB PO SCH (20:03)
[2020-10-31] MEDS: SYMBICORT 80-4.5 MCG INHALER INHALATION SCH ×2 (21:03→21:07)
[2020-11-01] MEDS: SODIUM CHLORIDE 0.9% 1,000 ML IV SCH (00:38)
[2020-11-01] MEDS: HYDROcodone/APAP 7.5-325MG 1 EACH TAB PO PRN (05:15)
[2020-11-01] MEDS: MORPHINE SULFATE 4 MG/ML SYRINGE IV PRN (06:22)
[2020-11-01] MEDS: NICOTINE 14MG/24HR PATCH TRANSDERM SCH ×2 (08:06→08:44)
[2020-11-01] MEDS: PANTOPRAZOLE 40 MG/10 ML VIAL IV SCH (08:07)
[2020-11-01] MEDS: IPRATROPIUM-ALBUTEROL 3 ML NEB INHALATION SCH ×2 (08:15→11:26)
[2020-11-01] MEDS: SYMBICORT 80-4.5 MCG INHALER INHALATION SCH (08:15)
[2020-11-01] MEDS: LORazepam 0.5 MG TAB PO PRN (08:43)
[2020-11-01] MEDS ORDERED: predniSONE 20 MG TAB PO SCH (09:00)
[2020-11-01 12:22] VITALS: BP 128/77; PULSE 85; RESP 18; TEMP 97.5
--- NOTE | 2020-11-01 12:53 | P.PN ---
Subjective Progress Note Date: 11/01/20 PLanning discharge today. She will have bone scan outpatient and see us next week Objective - Vital Signs Vital signs: Vital Signs Temp 97.5 F L 11/01/20 12:21 Pulse 85 11/01/20 12:21 Resp 18 11/01/20 12:21 BP 128/77 11/01/20 12:21 Pulse Ox 91 L 11/01/20 12:35 Intake & Output 10/31/20 11/01/20 11/01/20 18:59 06:59 18:59 Intake Total 1000 440 Balance 1000 440 Intake: IV 700 Intake, IV Titration 300 Amount Sodium Chloride 0.9% 1, 300 000 ml @ 20 mls/hr IV . Q24H [facility] Rx#:[id number] Oral 440 Other: Voiding Method Toilet Toilet Toilet # Voids 3 1 - Exam - Constitutional General appearance: cooperative, no acute distress - EENT Eyes: EOMI ENT: NA/AT - Neck Neck: lymphadenopathy - Respiratory Respiratory: bilateral: diminished, wheezing - Cardiovascular Rhythm: irregularly irregular - Gastrointestinal General gastrointestinal: normal bowel sounds, soft - Integumentary Integumentary: pale - Neurologic Neurologic: CNII-XII intact - Musculoskeletal Musculoskeletal: generalized weakness - Psychiatric Psychiatric: A&O x's 3 - Labs CBC & Chem 7: 10/31/20 04:50 10/31/20 04:50 Labs: Microbiology - Last 24 Hours (Table) 10/29/20 19:33 Blood Culture - Preliminary Blood No Growth after 48 hours 10/29/20 19:34 Blood Culture - Preliminary Blood No Growth after 48 hours Assessment and Plan (1) Mass of left lung Current Visit: No Status: Acute Code(s): R91.8 - OTHER NONSPECIFIC ABNORMAL FINDING OF LUNG FIELD SNOMED Code(s): 938318205 Plan: Assessment and Recommendations: Left Lyng Mass: - Possible metastatic disease in liver - MRI brain negative - Will obtain bone scan for full initial staging - Await tissue bx of lung mass pulm Bronch, Bone Scan as outpatient if not done prior to discharge Follow-up with Dr. Garvin next week. Physcian attest: I have completed the full history and physical and agreee with above dictation, dictated as a scribe.
--- NOTE | 2020-11-01 13:51 | P.DS ---
Providers Date of admission: 10/29/20 16:33 Expected date of discharge: 11/01/20 Attending physician: Rashawn Celaya Consults: 10/29/20 16:29 Consult Physician Routine Consulting Provider: Jorge Luis Ibrahim Consult Reason/Comments: lung mass Do you want consulting provider notified?: Yes 10/29/20 16:30 Consult Physician Routine Consulting Provider: Rosie Roa Consult Reason/Comments: lung mass, asthma Do you want consulting provider notified?: Yes 11/01/20 12:38 Consult Physician Routine Consulting Provider: Juan Simmons Consult Reason/Comments: lung mass Do you want consulting provider notified?: Yes Primary care physician: Emy Reid Hospital Course: Final Diagnosis -Pleuritic chest pain: Secondary to hilar mass most probably malignant. -Acute hypoxic respiratory failure secondary to possibly COPD exacerbation -Possible lung malignancy -History of osteoarthritis -Leukocytosis reactive -DVT prophylaxis Discharge disposition Patient is being discharged in a stable condition with guarded prognosis to home. Patient will follow-up with Dr. Emy reid in the outpatient setting upon discharge. Patient also instructed to follow-up with home Dr. Monterroso along with oncology in the outpatient setting. Patient will follow-up outpatient for biopsy results. Patient is requiring home oxygen at 3 L due to worsening COPD and lung cancer. Patient will continue with the prednisone taper in the outpatient setting. Total time taken is greater than 35 minutes. Hospital course This is a 75-year-old female with known history of smoking given complaints of pleuritic chest pain patient wasn't treated with similar complaints on October 25 this year and found to have a large mass in the left hilum with extensive gastric adenopathy. Patient was referred to pulmonology clinic and was discharged home comes back again because of uncontrolled pain. Patient is presently complaining of pain in the entire abdomen in the lower back as well as chest which is pleuritic in nature. Patient had a chest x-ray which showed some infiltrate increase in the left lower lung demarco probably atelectasis patient was evaluated by pulmonology. Usually doesn't use any oxygen at home patient is presently in status of oxygen. Patient usually smokes a pack of cigarettes per day. Patient does have shortness of breath on exertion patient was mainly complaining of muscle spasms in the abdomen. 10/31/2020 Patient is seen and evaluated follow-up with no acute overnight issues. Patient is currently maintained on 3 L of oxygen via nasal cannula although does not normally wear oxygen in the outpatient setting. Discussed with nursing staff about weaning FiO2 as tolerated. Patient is scheduled to undergo bronchoscopy with biopsy with pulmonary today. Patient denies any worsening shortness of breath. Patient continues to have expiratory wheezing noted on exam and will give another dose of IV steroids and start a prednisone taper by mouth tomorrow. Prescription was provided to case management and the possibility of requiring oxygen in the outpatient setting. Patient does get dyspneic with exertion and also has newly diagnosed lung cancer. Patient underwent MRI of the brain which was negative for metastasis although underwent abdominal pelvic CT showing multiple hypodense liver lesions consistent with metastatic disease along with a small left pleural effusion with sigmoid diverticulosis and atherosclerotic vascular disease. White blood count trending down and is 11.10 with a hemoglobin of 11.7, sodium is 140 with a potassium of 4.5 and current creatinine is 0.7. Will await bronchoscopy report 11/01/2020 Patient underwent bronchoscopy with biopsies and pathology report currently pending. Follow-up with oncology along with pulmonary the outpatient setting for results. Patient will also continue on a prednisone taper along with inhalational treatments and states she does have inhalers at home. Patient would benefit from a spacer. She continued to require oxygen at 3 L and underwent home O2 eval showing 87% on room air with exercise and will continue with 3 L of oxygen via nasal cannula for COPD along with newly diagnosed lung cancer. She instructed to avoid tobacco use. Patient states she feels much better and is asking to go home. Currently no reports of chest pain, worsening shortness of breath, or palpitations. Patient is afebrile. No reports of nausea or vomiting and patient is tolerating diet. Patient will be discharged home today. On exam vital signs are stable. Cardio S1, S2 are muffled. Respiratory system shows diminished breath sounds at the bases with no rhonchi noted. Continued expiratory wheezing noted. Abdomen is soft and nontender. Nervous system shows no focal deficits. Please refer to medication reconciliation sheet for a list of medications. Patient Condition at Discharge: Fair Plan - Discharge Summary Discharge Rx Participant: No New Discharge Prescriptions: New fentaNYL 25MCG/HR PATCH [Duragesic 25MCG/HR] 1 patch TRANSDERM Q72H #3 patch Cyclobenzaprine [Flexeril] 5 mg PO TID PRN #30 tab PRN Reason: Muscle Spasm polyethylene glycoL 3350 [Miralax] 17 gm PO DAILY PRN #20 powd.pack PRN Reason: Constipation HYDROcodone/APAP 7.5-325MG [Luttrell 7.5-325] 1 each PO Q6H PRN #12 tab PRN Reason: Pain predniSONE 10 mg PO DIRECTED #30 tab Continue diphenhydrAMINE [Benadryl] 25 mg PO HS PRN PRN Reason: SLEEP/ALLERGIC REACTION LORazepam [Ativan] 0.5 mg PO Q8H PRN PRN Reason: Anxiety Ibuprofen [Motrin Ib] 400 mg PO Q8H PRN PRN Reason: Pain Fluticasone Propion/Salmeterol [Wixela 250-50 Inhub] 1 puff INHALATION RT-BID Citalopram Hydrobromide [Citalopram HBr] 40 mg PO HS Albuterol Inhaler [Ventolin Hfa Inhaler] 2 puff INHALATION RT-QID PRN PRN Reason: Shortness Of Breath Discharge Medication List Albuterol Inhaler [Ventolin Hfa Inhaler] 2 puff INHALATION RT-QID PRN 10/25/20 [History] Citalopram Hydrobromide [Citalopram HBr] 40 mg PO HS 10/25/20 [History] Fluticasone Propion/Salmeterol [Wixela 250-50 Inhub] 1 puff INHALATION RT-BID 10/25/20 [History] Ibuprofen [Motrin Ib] 400 mg PO Q8H PRN 10/25/20 [History] LORazepam [Ativan] 0.5 mg PO Q8H PRN 10/25/20 [History] diphenhydrAMINE [Benadryl] 25 mg PO HS PRN 10/25/20 [History] Cyclobenzaprine [Flexeril] 5 mg PO TID PRN #30 tab 11/01/20 [Rx] HYDROcodone/APAP 7.5-325MG [Luttrell 7.5-325] 1 each PO Q6H PRN #12 tab 11/01/20 [Rx] fentaNYL 25MCG/HR PATCH [Duragesic 25MCG/HR] 1 patch TRANSDERM Q72H #3 patch 11/01/20 [Rx] polyethylene glycoL 3350 [Miralax] 17 gm PO DAILY PRN #20 powd.pack 11/01/20 [Rx] predniSONE 10 mg PO DIRECTED #30 tab 11/01/20 [Rx] Follow up Appointment(s)/Referral(s): Emeterio Garvin MD [STAFF PHYSICIAN] - 1 Week (Per the front end web developer they will call you with an appointment time and date.) Emy Reid MD [Primary Care Provider] - 11/03/20 2:00 pm Tad Monterroso DO [Doctor of Osteopathic Medicine] - 11/09/20 10:00 am Ambulatory/Diagnostic Orders: Miscellaneous Radiology Order [RAD.AMB] Location: None Selected Activity/Diet/Wound Care/Special Instructions: Activity Limited until follow-up Follow-up with primary care provider upon discharge follow up with pulmonary outpatient Follow-up for biopsy results Follow-up oncology outpatient Avoid tobacco use Continue current diet , Discharge Disposition: HOME SELF-CARE
--- NOTE | 2020-11-01 13:55 | P.PN ---
Subjective Progress Note Date: 11/01/20 Principal diagnosis: Shortness of breath, chest discomfort, muscle spasms This a very pleasant 75-year-old female patient who follows with Dr. Ball is her primary care provider. She is a history of anxiety, osteoarthritis, chronic and ongoing tobacco dependence of greater than 50 years. Suddenly she been having issues with increasing shortness of breath. She presented again here to the emergency room and 10/25/2020 and a computed tomography scan revealed a large mass at the left pulmonary hilum with extensive mediastinal adenopathy. Consistent with malignancy. Once informed of these findings she got nervous and left the emergency room without further workup. She represented here yesterday with worsening shortness of breath, left-sided chest discomfort, muscle spasms. She is seen today in consultation on the regular medical floor. She is currently sitting up bedside. Awake and alert in no acute distress. She is still having some left-sided chest wall discomfort. Shortness of breath with exertion. Maintaining O2 saturations in the low 90s on 3 L/m per nasal cannula. Mainly complaints of muscle spasms. She has been having issues with nausea and poor appetite. No vomiting. No significant cough or congestion. No hemoptysis. White count 16.3. Hemoglobin 14.6. Sodium 138. Potassium 4.7. Chloride 110. Bicarb 18. Creatinine 0.74. Calcium 9.6. Chen virus not detected. She is requiring increased amounts of pain medication including morp aniya and Eclectic. Flexeril. Ativan. A fentanyl patch has also been ordered. On 10/31/2020 patient seen in follow-up on medical floor, no acute events overnight, she is currently on 8 L of oxygen. Pulse ox is 95%, she's been afebrile, awake and alert, oriented 3. She is breathing comfortably, appears to be in no acute distress, patient underwent a bronchoscopy with biopsies of the bronchial lingular mass, multiple biopsies using the forceps, and brushings and washings for cytology were taken. And needle biopsy of the subcarinal lymph node was taken. Left upper lobe segments and lingula in particular were narrowed. There was some narrowing of the left lower lobe as well. No abnormal findings noted in the right lung. Patient was intubated for the procedure, she tolerated procedure very well, following the procedure chest x-ray was completed showing no pneumothorax or sizable pleural effusion, moderate stage emphysema with hyperinflation. Patient's daughter was updated following the procedure. Brain MRI showed no evidence of brain metastasis. CT of the abdomen showed a variable sized hypodense masses in the liver measuring up to 3.4 x 2 cm suspicious for metastatic disease. On 11/01/2020 patient seen in follow-up on medical floor, her lung biopsy results are still pending at this time, MRI of the brain did not show metastatic disease to the brain, CT of the abdomen showed variable sized hypodense masses in the liver suspicious for metastatic disease. From pulmonary perspective she denies any worsening dyspnea, she does remain on oxygen and she did qualify for home oxygen as she desaturated to 87% on room air with ambulation, but no hemoptysis, no chest pain, no fever or chills, No acute events overnight, she's been tolerating ambulation. She is requesting to go home today. Objective - Vital Signs Vital signs: Vital Signs Temp 97.5 F L 11/01/20 12:21 Pulse 85 11/01/20 12:21 Resp 18 11/01/20 12:21 BP 128/77 11/01/20 12:21 Pulse Ox 91 L 11/01/20 12:35 Intake & Output 10/31/20 11/01/20 11/01/20 18:59 06:59 18:59 Intake Total 1000 440 Balance 1000 440 Intake: IV 700 Intake, IV Titration 300 Amount Sodium Chloride 0.9% 1, 300 000 ml @ 20 mls/hr IV . Q24H [facility] Rx#:[id number] Oral 440 Other: Voiding Method Toilet Toilet Toilet # Voids 3 1 - Exam GENERAL EXAM: Alert, very pleasant, 75-year-old white female, 3 L of oxygen with a pulse ox of 94%, comfortable in no apparent distress. HEAD: Normocephalic/atraumatic. EYES: Normal reaction of pupils, equal size. Conjunctiva pink, sclera white. NOSE: Clear with pink turbinates. THROAT: No erythema or exudates. NECK: No masses, no JVD, no thyroid enlargement, no adenopathy. CHEST: No chest wall deformity. Symmetrical expansion. LUNGS: Equal air entry with no crackles, wheeze, rhonchi or dullness. CVS: Regular rate and rhythm, normal S1 and S2, no gallops, no murmurs, no rubs ABDOMEN: Soft, nontender. No hepatosplenomegaly, normal bowel sounds, no guarding or rigidity. EXTREMITIES: No clubbing, no edema, no cyanosis, 2+ pulses and upper and lower extremities. MUSCULOSKELETAL: Muscle strength and tone normal. SPINE: No scoliosis or deformity SKIN: No rashes CENTRAL NERVOUS SYSTEM: Alert and oriented -3. No focal deficits, tone is normal in all 4 extremities. PSYCHIATRIC: Alert and oriented -3. Appropriate affect. Intact judgment and insight. - Labs CBC & Chem 7: 10/31/20 04:50 10/31/20 04:50 Labs: Microbiology - Last 24 Hours (Table) 10/29/20 19:33 Blood Culture - Preliminary Blood No Growth after 48 hours 10/29/20 19:34 Blood Culture - Preliminary Blood No Growth after 48 hours Assessment and Plan Plan: Assessment: #1. Large mass at the left pulmonary hilum with extensive mediastinal adenopathy consistent with malignancy, suspect small cell lung cancer. Patient underwent bronchoscopy with biopsies of the left upper lobe/lingular endobr onchial mass, and needle biopsies of the subcarinal lymph node on 10/31/2020 #2. Shortness of breath with left-sided chest wall discomfort secondary to a large mass of the left pulmonary hilum with extensive mediastinal adenopathy #3. Chronic and ongoing tobacco dependence of greater than 50 years #4. COPD, maintained on Wixela and albuterol in the outpatient setting #5. Anxiety #6. History of osteoarthritis Plan: Patient has been stable, no acute events overnight, she does qualify for home oxygen and discharge planning is working on setting up home oxygen for the patient, she is tolerating intubation, no worsening dyspnea, results of the right lung biopsies still pending at this time, and we'll be available for a few more days. Patient will be set up for outpatient follow-up with Dr. Monterroso in the one week. Also follow up with the radiation oncology and medical oncology I performed a history & physical examination of the patient and discussed their management with my nurse practitioner, Teresa Agosto. I reviewed the nurse practitioner's note and agree with the documented findings and plan of care. Lung sounds are positive for diminished breath sounds throughout the lung demarco. The findings and the impression was discussed with the patient. I attest to the documentation by the nurse practitioner. Time with Patient: Less than 30
[2020-11-02] MEDS ORDERED: PANTOPRAZOLE 40 MG TABLET PO SCH (09:00)
== END 2020-11-01 14:56 | disposition home or self-care (01) | DRG 180 ==
LOC: EC 16:02 → 5NMEDONC 16:33
PROVIDERS: ADMIT Internal Medicine; ATTEND Internal Medicine
PROC: 0B9H8ZX Drainage of Lung Lingula, Via Natural or Artificial Opening Endoscopic, Diagnostic (ICD-10-PCS; principal; 2020-10-31 07:45)
PROC: 0BD98ZX Extraction of Lingula Bronchus, Via Natural or Artificial Opening Endoscopic, Diagnostic (ICD-10-PCS; 2020-10-31 07:45)
DX: C34.90 Malignant neoplasm of unspecified part of unspecified bronchus or lung (principal); J96.01 Acute respiratory failure with hypoxia; C78.7 Secondary malignant neoplasm of liver and intrahepatic bile duct; J98.11 Atelectasis; J44.1 Chronic obstructive pulmonary disease with (acute) exacerbation; F17.210 Nicotine dependence, cigarettes, uncomplicated; Z79.52 Long term (current) use of systemic steroids; F41.9 Anxiety disorder, unspecified; G62.9 Polyneuropathy, unspecified; M19.90 Unspecified osteoarthritis, unspecified site; Z87.01 Personal history of pneumonia (recurrent); D72.829 Elevated white blood cell count, unspecified; Z87.442 Personal history of urinary calculi; Z90.710 Acquired absence of both cervix and uterus
CPT/HCPCS: 31623; 31624; 31625; 31629; 70460; 70553; 71045; 74177; 80048; 80053; 83625; 85025; 87040; 87635; 89050; 93005; 94640

== ENCOUNTER → 2020-11-04 | Outpatient (CLI) | payer MEDICARE, BC ==
--- NOTE | 2020-11-08 06:52 | PE ---
EXAMINATION TYPE: PET CT fusion skull to thigh DATE OF EXAM: 11/04/2020 COMPARISON: CT abdomen and pelvis 5 days ago. CTA chest October 25, 2020. 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 TECHNIQUE: Following the intravenous administration of 11.83 mCi of F-18 FDG, whole body images are performed from the skull base to the midthigh. Images are reviewed on the computer in the coronal, a xial, and sagittal planes. Reconstructed rotating images are created on independent workstation and reviewed on the computer. A localization and attenuation correction CT is performed in conjunction with the PET scan. Blood glucose level equals 79. SCAN: Initial Scan FINDINGS: SKULL BASE AND NECK: Abnormal bilateral hypermetabolic supraclavicular adenopathy with more confluen t mass on the right measuring 3.4 x 2.4 cm axial image 49, max SUV 11.2. CHEST, MEDIASTINUM, AND HILAR REGION: Redemonstration known left hilar mass measuring 3.8 x 3.7 cm ax ial image 87, max SUV is 11.1. Postobstructive atelectatic change along the periphery. There is additional abnormal hypermetabolic left hilar along with subcarinal, prevascular, paratrache al, AP window, and anterior superior mediastinal adenopathy. For reference there is 1.5 x 1.4 cm hype rmetabolic paracarinal lymph node axial image 75. At this level there is hypermetabolic 1.5 cm AP win william lymph node, max SUV 10.37. ABDOMEN AND PELVIS: Multiple hypermetabolic foci throughout the liver corresponding to hypodense lesi ons on recent CT, largest periphery right hepatic lobe measures 4.7 cm long axis axial image 132, max SUV is 6.53. Normal excretion is seen. No additional areas of abnormal hypermetabolic uptake. OSSEOUS STRUCTURES: Innumerable hypermetabolic osseous foci. For reference left sacral lesion axial i mage 188 has max SUV 6.27. Proximal right femoral lesion axial image 217 has max SUV 5.81. Left L3 le melissa axial image 152 has max SUV 7.44. Greatest osseous involvement is throughout the abdomen and pel vis OTHER CT: Moderate calcified plaque bilateral carotid bulb level. Moderate coronary artery calcificat ion. Calcification at level of mitral valve. Umbilical hernia containing fat and tiny mesenteric vessels. Cholecystectomy clips. Moderate calcifie d plaque of the aorta extends into branch vessels. Sigmoid colonic diverticulosis. Multilevel spurring and disc space narrowing in the spine with slight scoliotic curvature. IMPRESSION: Known left hilar malignancy with marked thoracic adenopathy, hepatic and osseous metastat ic disease as detailed above.
== END | disposition home or self-care (01) ==
LOC: RADPETMAIN 14:10
PROVIDERS: ATTEND Radiology Radiation Oncology
DX: C34.02 Malignant neoplasm of left main bronchus (principal); C78.7 Secondary malignant neoplasm of liver and intrahepatic bile duct; C79.51 Secondary malignant neoplasm of bone; C77.1 Secondary and unspecified malignant neoplasm of intrathoracic lymph nodes
CPT/HCPCS: 78815; A9552

== ENCOUNTER 2020-11-26 19:26 | Inpatient (IN) | payer MEDICARE, BC ==
[2020-11-26] MEDS ORDERED: methylPREDNISolone SOD SUCCI 125 MG/2 ML VIAL IV STA (19:49)
[2020-11-26] MEDS ORDERED: FAMOTIDINE 20 MG/2 ML VIAL IV STA (19:49)
[2020-11-26] MEDS ORDERED: diphenhydrAMINE 50 MG/ML 1 ML VIAL IVP STA (19:49)
--- NOTE | 2020-11-26 19:51 | ED ---
General Adult HPI <Keith Antoine - Last Filed: 11/26/20 22:24> - General Source: patient, EMS Mode of arrival: EMS Limitations: no limitations <Sandro Rojo - Last Filed: 12/01/20 15:34> - General Chief complaint: Shortness of Breath Stated complaint: KALEIGH Time Seen by Provider: 11/26/20 19:41 - History of Present Illness Initial comments: Dictation was produced using erento dictation software. please excuse any grammatical, word or spelling errors. This patient was cared for during a federal and state declared state of emergency secondary to Covid 19 Chief Complaint: 75-year-old female past medical history of lung cancer presents emergency department for poor appetite, shortness of breath and right medial thigh pain History of Present Illness: That he 5-year-old female she wears 2-4 L nasal cannula at home. Patient has been having increased shortness of breath. Thea varma is currently being treated for lung cancer. Her oncologist is Dr. Garvin. Patient is on multiple medications. She does not take any blood thinner medications. She does have a history of anxiety. She states she does have a cough that's clear of fluid. She states she has mild asthma. Denies any history of PE or DVT or other thromboembolic conditions. Patient denies any chest pain. She does wear oxygen at home. Denies any constitutional symptoms. She complains of right medial thigh pain. The ROS documented in this emergency department record has been reviewed and confirmed by me. Those systems with pertinent positive or negative responses have been documented in the HPI. All other systems are other negative and/or noncontributory. PHYSICAL EXAM: General Impression: Alert and oriented x3, dyspneic, tachypneic HEENT: Normocephalic atraumatic, extra-ocular movements intact, pupils equal and reactive to light bilaterally, mucous membranes moist. Cardiovascular: Heart regular rate and rhythm Chest: 4 word sentences, noncyanotic, clear breath sounds bilaterally Abdomen: abdomen soft, non-tender, non-distended, no organomegaly Musculoskeletal: Pulses present and equal in all extremities, no peripheral edema, tenderness to palpation over the deep veins of the right lower extremity at the level of the thigh, no popliteal pain or calf pain Motor: no focal deficits noted Neurological: CN II-XII grossly intact, no focal motor or sensory deficits noted Skin: Intact with no visualized rashes Psych: Normal affect and mood ED course: 75-year-old feel past medical history of lung cancer active be undergoing chemotherapy presents to the emergency department for worsening shortness of breath vital signs upon arrival shows heart rate of 106, 86% on room air. Patient wears to 4 L of nasal cannula at home. She is tachypneic and does appear short of breath. Her lungs are clear to auscultation bilaterally. There is concerned pulmonary embolus given that she also has DVT symptoms. She has a ALLERGY to iodine. Patient given premedication. Patient reports that she had a mild reaction to contrast in the past several years ago that required she be given Benadryl. EKG interpretation: Ventricular rate 95, sinus rhythm,. Interval 118, QRS 70, QTc 457. No GA prolongation, no QTC prolongation, no ST or T-wave changes noted. EKG compared to 10/29/2020 showing no changes. Overall, this EKG is unremarkable Patient is positive for Coronavirus. She is hypoxic. CT angios the chest shows no pulmonary embolus but does show groundglass opacities. Venous Doppler study shows no acute right lower extremity DVT. Patient is admitted to [facility]. Patient has had features of COPD exacerbation likely triggered by COVID-19. Patient will be admitted for respiratory distress. (Sandro Rojo) - Related Data Home Medications Medication Instructions Recorded Confirmed Albuterol Inhaler [Ventolin Hfa 2 puff INHALATION RT-QID 10/25/20 11/26/20 Inhaler] Citalopram Hydrobromide 40 mg PO HS 10/25/20 11/26/20 [Citalopram HBr] Ibuprofen [Motrin Ib] 400 mg PO Q8H PRN 10/25/20 11/26/20 LORazepam [Ativan] 0.5 mg PO Q8H PRN 10/25/20 11/26/20 diphenhydrAMINE [Benadryl] 25 mg PO HS PRN 10/25/20 11/26/20 Budesonide/Formoterol Fumarate 1 puff INHALATION RT-BID 11/26/20 11/26/20 [Symbicort 160-4.5 Mcg Inhaler] HYDROcodone/APAP 7.5-325MG [[place] 1 tab PO Q6H PRN 11/26/20 11/26/20 7.5-325] Nystatin 100,000 Unit/ml Susp 750,000 unit PO QID 11/26/20 11/26/20 [Mycostatin Oral Susp] Omeprazole 20 mg PO DAILY 11/26/20 11/26/20 Ondansetron HCl [Zofran] 4 mg PO Q6H PRN 11/26/20 11/26/20 Previous Rx's Medication Instructions Recorded Cyclobenzaprine [Flexeril] 5 mg PO TID PRN #30 tab 11/01/20 fentaNYL 25MCG/HR PATCH [Duragesic 1 patch TRANSDERM Q72H #3 patch 11/01/20 25MCG/HR] polyethylene glycoL 3350 [Miralax] 17 gm PO DAILY PRN #20 powd.pack 11/01/20 Cholecalciferol [Vitamin D3 (25 50 mcg PO DAILY #30 tablet 12/01/20 Mcg = 1000 Iu)] dexAMETHasone ORAL [Hexadrol] 6 mg PO DAILY #5 tab 12/01/20 Allergies Allergy/AdvReac Type Severity Reaction Status Date / Time Iodinated Contrast Media Allergy Unknown Verified 11/26/20 22:07 [Iodinated Contrast Media - IV Dye] sulfamethoxazole Allergy Rash/Hives Verified 11/26/20 22:07 [From Bactrim] trimethoprim [From Bactrim] Allergy Rash/Hives Verified 11/26/20 22:07 Review of Systems ROS Other: All systems not noted in ROS Statement are negative. <Keith Antoine - Last Filed: 11/26/20 22:24> ROS Other: All systems not noted in ROS Statement are negative. <Sandro Rojo - Last Filed: 12/01/20 15:34> ROS Statement: Those systems with pertinent positive or pertinent negative responses have been documented in the HPI. Past Medical History Past Medical History: Osteoarthritis (OA), Pneumonia Additional Past Medical History / Comment(s): sinus problems,kidney stones uti, bladder incnt/wears a pad,abd hernia,migraines,"muscles spasms and lt hip pain, had collapsed lung -not large enough to require c/t, DDD, sciatic, History of Any Multi-Drug Resistant Organisms: None Reported Date of last positivie culture/infection: 2016 Past Surgical History: Appendectomy, Bladder Surgery, Cholecystectomy, Hysterectomy, Orthopedic Surgery Additional Past Surgical History / Comment(s): artriscopy, lt knee replacemnent,adrenal gland removed,lt knee, colonoscopy, dental implants, 1997 had lt foot sx for hammer toes and stated had an implant in that foot-then january 2015 had a revison of that sx, Cdiff- 2016 Past Anesthesia/Blood Transfusion Reactions: No Reported Reaction Past Psychological History: Anxiety Smoking Status: Current every day smoker Past Alcohol Use History: Rare Past Drug Use History: None Reported - Past Family History Mother Family Medical History: Dementia Additional Family Medical History / Comment(s): moms sister also had dementia Father Family Medical History: Unable to Obtain <Sandro Rojo - Last Filed: 12/01/20 15:34> General Exam Limitations: no limitations <Sandro Rojo - Last Filed: 12/01/20 15:34> Course Vital Signs 11/26/20 11/26/20 11/26/20 19:28 19:35 19:38 Temperature 97.3 F L Pulse Rate 106 H Respiratory 24 28 H Rate Blood Pressure 104/76 O2 Sat by Pulse 86 L 89 L Oximetry 11/26/20 11/26/20 11/27/20 20:41 21:25 00:07 Temperature Pulse Rate 88 92 87 Respiratory 24 22 20 Rate Blood Pressure 106/73 119/80 123/83 O2 Sat by Pulse 93 L 95 97 Oximetry Medical Decision Making - Lab Data Result diagrams: 11/26/20 19:56 11/26/20 19:56 <Keith Antoine - Last Filed: 11/26/20 22:24> - Lab Data Result diagrams: 12/01/20 10:04 12/01/20 10:04 <Sandro Rojo - Last Filed: 12/01/20 15:34> - Medical Decision Making As Dr. Cherry had signed out of his computer, I was asked to pride placement orders, no other patient interaction (Keith Antoine) - Lab Data Lab Results 11/26/20 11/26/20 11/26/20 Range/Units 19:56 19:56 19:56 WBC 17.0 H (3.8-10.6) k/uL RBC 4.26 (3.80-5.40) m/uL Hgb 12.7 (11.4-16.0) gm/dL Hct 36.9 (34.0-46.0) % MCV 86.7 (80.0-100.0) fL MCH 29.7 (25.0-35.0) pg MCHC 34.3 (31.0-37.0) g/dL RDW 13.4 (11.5-15.5) % Plt Count 407 (150-450) k/uL MPV 7.6 Neutrophils % (Manual) 64 % Band Neuts % (Manual) 4 % Lymphocytes % (Manual) 25 % Monocytes % (Manual) 5 % Metamyelocytes % 2 % Neutrophils # (Manual) 11.50 H (1.3-7.7) k/uL Lymphocytes # (Manual) 4.25 (1.0-4.8) k/uL Monocytes # (Manual) 0.85 (0-1.0) k/uL Metamyelocytes # (Man) 0.34 H (0) k/uL Nucleated RBCs 0 (0-0) /100 WBC Manual Slide Review Performed Reactive Lymphocytes Present PT 11.1 (9.0-12.0) sec INR 1.0 (<1.2) APTT 19.8 L (22.0-30.0) sec D-Dimer (<0.60) mg/L FEU Sodium 141 (137-145) mmol/L Potassium 3.7 (3.5-5.1) mmol/L Chloride 109 H (98-107) mmol/L Carbon Dioxide 18 L (22-30) mmol/L Anion Gap 14 mmol/L BUN 39 H (7-17) mg/dL Creatinine 1.05 H (0.52-1.04) mg/dL Est GFR (CKD-EPI)AfAm 60 (>60 ml/min/1.73 sqM) Est GFR (CKD-EPI)NonAf 52 (>60 ml/min/1.73 sqM) Glucose 140 H (74-99) mg/dL Plasma Lactic Acid Jorge (0.7-2.0) mmol/L Calcium 9.0 (8.4-10.2) mg/dL Magnesium 1.7 (1.6-2.3) mg/dL Ferritin (10.0-291.0) ng/mL Total Bilirubin 0.8 (0.2-1.3) mg/dL AST 41 H (14-36) U/L ALT 18 (4-34) U/L Alkaline Phosphatase 161 H (38-126) U/L Lactate Dehydrogenase (313-618) U/L Troponin I (0.000-0.034) ng/mL C-Reactive Protein (<10.0) mg/L Total Protein 6.4 (6.3-8.2) g/dL Albumin 3.4 L (3.5-5.0) g/dL Procalcitonin (0.02-0.09) ng/mL Coronavirus (PCR) (Not Detectd) 11/26/20 11/26/20 11/26/20 Range/Units 19:56 19:56 19:57 WBC (3.8-10.6) k/uL RBC (3.80-5.40) m/uL Hgb (11.4-16.0) gm/dL Hct (34.0-46.0) % MCV (80.0-100.0) fL MCH (25.0-35.0) pg MCHC (31.0-37.0) g/dL RDW (11.5-15.5) % Plt Count (150-450) k/uL MPV Neutrophils % (Manual) % Band Neuts % (Manual) % Lymphocytes % (Manual) % Monocytes % (Manual) % Metamyelocytes % % Neutrophils # (Manual) (1.3-7.7) k/uL Lymphocytes # (Manual) (1.0-4.8) k/uL Monocytes # (Manual) (0-1.0) k/uL Metamyelocytes # (Man) (0) k/uL Nucleated RBCs (0-0) /100 WBC Manual Slide Review Reactive Lymphocytes PT (9.0-12.0) sec INR (<1.2) APTT (22.0-30.0) sec D-Dimer (<0.60) mg/L FEU Sodium (137-145) mmol/L Potassium (3.5-5.1) mmol/L Chloride (98-107) mmol/L Carbon Dioxide (22-30) mmol/L Anion Gap mmol/L BUN (7-17) mg/dL Creatinine (0.52-1.04) mg/dL Est GFR (CKD-EPI)AfAm (>60 ml/min/1.73 sqM) Est GFR (CKD-EPI)NonAf (>60 ml/min/1.73 sqM) Glucose (74-99) mg/dL Plasma Lactic Acid Jorge 1.7 (0.7-2.0) mmol/L Calcium (8.4-10.2) mg/dL Magnesium (1.6-2.3) mg/dL Ferritin (10.0-291.0) ng/mL Total Bilirubin (0.2-1.3) mg/dL AST (14-36) U/L ALT (4-34) U/L Alkaline Phosphatase (38-126) U/L Lactate Dehydrogenase (313-618) U/L Troponin I <0.012 (0.000-0.034) ng/mL C-Reactive Protein (<10.0) mg/L Total Protein (6.3-8.2) g/dL Albumin (3.5-5.0) g/dL Procalcitonin (0.02-0.09) ng/mL Coronavirus (PCR) Detected A (Not Detectd) 11/26/20 11/26/20 11/26/20 Range/Units 21:44 21:44 21:59 WBC (3.8-10.6) k/uL RBC (3.80-5.40) m/uL Hgb (11.4-16.0) gm/dL Hct (34.0-46.0) % MCV (80.0-100.0) fL MCH (25.0-35.0) pg MCHC (31.0-37.0) g/dL RDW (11.5-15.5) % Plt Count (150-450) k/uL MPV Neutrophils % (Manual) % Band Neuts % (Manual) % Lymphocytes % (Manual) % Monocytes % (Manual) % Metamyelocytes % % Neutrophils # (Manual) (1.3-7.7) k/uL Lymphocytes # (Manual) (1.0-4.8) k/uL Monocytes # (Manual) (0-1.0) k/uL Metamyelocytes # (Man) (0) k/uL Nucleated RBCs (0-0) /100 WBC Manual Slide Review Reactive Lymphocytes PT (9.0-12.0) sec INR (<1.2) APTT (22.0-30.0) sec D-Dimer 2.27 H (<0.60) mg/L FEU Sodium (137-145) mmol/L Potassium (3.5-5.1) mmol/L Chloride (98-107) mmol/L Carbon Dioxide (22-30) mmol/L Anion Gap mmol/L BUN (7-17) mg/dL Creatinine (0.52-1.04) mg/dL Est GFR (CKD-EPI)AfAm (>60 ml/min/1.73 sqM) Est GFR (CKD-EPI)NonAf (>60 ml/min/1.73 sqM) Glucose (74-99) mg/dL Plasma Lactic Acid Jorge (0.7-2.0) mmol/L Calcium (8.4-10.2) mg/dL Magnesium (1.6-2.3) mg/dL Ferritin 2774.5 H (10.0-291.0) ng/mL Total Bilirubin (0.2-1.3) mg/dL AST (14-36) U/L ALT (4-34) U/L Alkaline Phosphatase (38-126) U/L Lactate Dehydrogenase 2569 H (313-618) U/L Troponin I (0.000-0.034) ng/mL C-Reactive Protein 89.8 H (<10.0) mg/L Total Protein (6.3-8.2) g/dL Albumin (3.5-5.0) g/dL Procalcitonin 0.31 H (0.02-0.09) ng/mL Coronavirus (PCR) (Not Detectd) Disposition <Keith Antoine - Last Filed: 11/26/20 22:24> <Sandro Rojo - Last Filed: 12/01/20 15:34> Clinical Impression: COVID-19, COPD (chronic obstructive pulmonary disease) Disposition: ADMITTED IP TO THIS HOSP Condition: Stable
[2020-11-26 20:22] LABS: HCT 36.9 % (34.0-46.0); HGB 12.7 gm/dL (11.4-16.0); MCH 29.7 pg (25.0-35.0); MCHC 34.3 g/dL (31.0-37.0); MCV 86.7 fL (80.0-100.0); Mean Platelet Volume 7.6; Platelet Count 407 k/uL (150-450); RBC 4.26 m/uL (3.80-5.40); RDW 13.4 % (11.5-15.5)
[2020-11-26 20:28] LABS: Prothrombin Time 11.1 sec (9.0-12.0)
[2020-11-26 20:32] LABS: Albumin 3.4 g/dL (3.5-5.0); Magnesium 1.7 mg/dL (1.6-2.3); Potassium 3.7 mmol/L (3.5-5.1); Total Bilirubin 0.8 mg/dL (0.2-1.3); Total Protein 6.4 g/dL (6.3-8.2)
[2020-11-26 20:36] LABS: Band Neutrophils % 4 %; Lymphocytes # (M) 4.25 k/uL (1.0-4.8); Metamyelocytes # (M) 0.34 k/uL (0); Metamyelocytes % 2 %; Monocytes # (M) 0.85 k/uL (0-1.0); Neutrophils % (M) 64 %; Nucleated Red Blood Cells 0 /100 WBC (0-0); Reactive Lymphocytes Present; Total Cells Counted 100
[2020-11-26 20:37] LABS: Partial Thromboplastin Time 19.8 sec (22.0-30.0)
--- NOTE | 2020-11-26 20:53 | XR ---
EXAMINATION TYPE: XR chest 1V portable DATE OF EXAM: 11/26/2020 COMPARISON: 10/31/2020. HISTORY: Shortness of breath. TECHNIQUE: Single frontal view of the chest is obtained. FINDINGS: There is increased mild to moderate bibasilar hazy opacities. No pleural effusion, or pneu mothorax seen. The cardiac silhouette size is within normal limits. Stable left hilar prominence. T he osseous structures are intact. IMPRESSION: Bibasilar atelectasis versus infiltrates.
[2020-11-26] MEDS ORDERED: dexAMETHasone 2 MG TAB PO SCH (21:00)
--- NOTE | 2020-11-26 21:14 | US ---
EXAMINATION TYPE: US venous doppler duplex LE RT DATE OF EXAM: 11/26/2020 8:27 PM COMPARISON: NONE CLINICAL HISTORY: medial thigh pain, suspect DVT. No swelling, no h/o dvt, pain in patient's right up per medial thigh and she states no injury and does not know how long it has felt this way. SIDE PERFORMED: right TECHNIQUE: The lower extremity deep venous system is examined utilizing real time linear array sonog sandip with graded compression, doppler sonography and color-flow sonography. VESSELS IMAGED: Common Femoral Vein Deep Femoral Vein Greater Saphenous Vein * Femoral Vein Popliteal Vein Small Saphenous Vein * Proximal Calf Veins (* superficial vessels) Right Leg: Negative for DVT IMPRESSION: No acute right lower extremity DVT.
[2020-11-26] MEDS ORDERED: ACETAMINOPHEN TAB 325 MG TAB PO PRN (21:35)
--- NOTE | 2020-11-26 22:08 | CT ---
EXAMINATION TYPE: CT angio chest DATE OF EXAM: 11/26/2020 9:12 PM COMPARISON: 10/25/2020. HISTORY: SOB, covid positive, small cell lung CA CT DLP: 237.4 mGycm Automated exposure control for dose reduction was used. CONTRAST: CTA scan of the thorax is performed with IV Contrast, patient injected with 80 mL of Isovue 370, pulm onary embolism protocol. MIP images are created and reviewed. FINDINGS: LUNGS: There is interval bilateral diffuse patchy ground glass opacities most pronounced in the right lower lobe, right upper lobe and mild elsewhere. No pleural effusion or pneumothorax. There is incre ased moderate partial collapse of the right lower lobe. There is occlusion of left lower lobe bronchi . MEDIASTINUM: There is satisfactory enhancement of the pulmonary artery and its branches, there is no CT evidence for pulmonary embolism. There is redemonstration of left hilar mass measuring approximate ly 4 cm in largest dimension and similar in size and appearance to the prior study. Additional scatte red multiple enlarged mediastinal lymph nodes are also grossly unchanged with index lesion measuring up to 1.5 cm short axis. No pericardial effusion is seen. OTHER: No additional significant abnormality is seen. IMPRESSION: INTERVAL BILATERAL DIFFUSE PATCHY GROUND GLASS OPACITIES, CONCERNING FOR COVID PNEUMONIA. INCREASED MODERATE PARTIAL LEFT LOWER LOBE COLLAPSE WITH OCCLUSION OF THE BRONCHI. REDEMONSTRATED LEFT HILAR MASS AND MEDIASTINAL LYMPHADENOPATHY. NO ACUTE PE.
[2020-11-26 22:21] LABS: C Reactive Protein 89.8 mg/L (<10.0)
[2020-11-27 08:03] LABS: Glucose,Whole Blood 168 mg/dL (75-99)
[2020-11-27] MEDS ORDERED: FAMOTIDINE 20 MG/2 ML VIAL IV SCH (09:00)
[2020-11-27] MEDS: INSULIN ASPART (NovoLOG) 100 UNIT/ML VIAL SQ SCH ×4 (09:17→21:40)
[2020-11-27] MEDS: CHOLECALCIFEROL 25 MCG (1000 IU) TABLET PO SCH (09:28)
[2020-11-27 09:57] LABS: Ferritin 2774.5 ng/mL (10.0-291.0)
[2020-11-27 09:59] LABS: HCT 37.5 % (34.0-46.0); HGB 12.8 gm/dL (11.4-16.0); MCH 29.6 pg (25.0-35.0); MCHC 34.1 g/dL (31.0-37.0); MCV 86.7 fL (80.0-100.0); Mean Platelet Volume 7.4; Platelet Count 435 k/uL (150-450); RBC 4.32 m/uL (3.80-5.40); RDW 13.4 % (11.5-15.5); WBC 17.9 k/uL (3.8-10.6)
[2020-11-27] MEDS ORDERED: ALPRAZolam 0.25 MG TAB PO PRN (10:01)
[2020-11-27 10:09] LABS: Calcium 9.1 mg/dL (8.4-10.2); Potassium 4.2 mmol/L (3.5-5.1)
[2020-11-27] MEDS: ENOXAPARIN 40 MG/0.4 ML SYRINGE SQ SCH (10:12)
[2020-11-27] MEDS ORDERED: polyethylene glycoL 3350 17 GM POWD.PACK PO PRN (10:16)
[2020-11-27] MEDS ORDERED: diphenhydrAMINE 25 MG CAP PO PRN (10:16)
[2020-11-27] MEDS ORDERED: ONDANSETRON 4 MG TAB PO PRN (10:16)
[2020-11-27] MEDS ORDERED: CYCLOBENZAPRINE 5 MG TAB PO PRN (10:16)
[2020-11-27] MEDS: PANTOPRAZOLE 40 MG TABLET PO SCH (10:39)
[2020-11-27] MEDS: SODIUM CHLORIDE 0.9% 1,000 ML IV SCH (10:49)
--- NOTE | 2020-11-27 11:32 | P.HPIM ---
History of Present Illness Patient was a 75-year-old female on 2 L of plastic cannula oxygen at home came in with comments of shortness of breath presently requiring 5 L patient is found to have Covid 19 patient started having symptoms 2 weeks ago shortly after her discharge which he shortness of breath cough patient is wheezing on exam was also complaining of nausea and epigastric abdominal discomfort. 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 Patient was comparing of right thigh pain. Patient denied any fevers. Had a CT of the chest which showed groundglass obesities there is a partial left lower lobe collapse with occlusion of the bronchi and a hilar mass with mediastinal lymphadenopathy the patient's d-dimer is a 2.2 cm admission presently 1.90 patient does have leukocytosis patient does have history of COPD he quit smoking since her diagnosis of cancer. Review of Systems REVIEW OF SYSTEMS: CONSTITUTIONAL: As mentioned in HPI HEENT: No recent visual problems or hearing problems. Denied any sore throat. CARDIOVASCULAR: No chest pain, orthopnea, PND, no palpitations, no syncope. PULMONARY: As mentioned in HPI GASTROINTESTINAL: No diarrhea, no nausea, no vomiting, no abdominal pain. NEUROLOGICAL: No headaches, no weakness, no numbness. HEMATOLOGICAL: Denies any bleeding or petechiae. GENITOURINARY: Denies any burning micturition, frequency, or urgency. MUSCULOSKELETAL/RHEUMATOLOGICAL: Denies any joint pain, swelling, or any muscle pain. ENDOCRINE: Denies any polyuria or polydipsia. The rest of the 14-point review of systems is negative. Past Medical History Past Medical History: Cancer, Osteoarthritis (OA), Pneumonia Additional Past Medical History / Comment(s): sinus problems,kidney stones uti, bladder incnt/wears a pad,abd hernia,migraines,"muscles spasms , had collapsed lung -not large enough to require c/t, DDD, sciatic, [place] diagnosed lung left side with mets to liver and bone, chemotherapy last week History of Any Multi-Drug Resistant Organisms: None Reported Date of last positivie culture/infection: 2015 Past Surgical History: Appendectomy, Bladder Surgery, Cholecystectomy, Hysterectomy, Orthopedic Surgery Additional Past Surgical History / Comment(s): artriscopy, lt knee replacemnent,adrenal gland removed,lt knee, colonoscopy, dental implants, 1997 had lt foot sx for hammer toes and stated had an implant in that foot-then january 2015 had a revison of that sx, Cdi- 2015 Past Anesthesia/Blood Transfusion Reactions: No Reported Reaction Past Psychological History: Anxiety Smoking Status: Never smoker Past Alcohol Use History: Rare Additional Past Alcohol Use History / Comment(s): quit smoking aug 2020 due to lung cancer diagnosis Past Drug Use History: None Reported - Past Family History Mother Family Medical History: Dementia Additional Family Medical History / Comment(s): moms sister also had dementia Father Family Medical History: Unable to Obtain Medications and Allergies Home Medications Medication Instructions Recorded Confirmed Type Albuterol Inhaler [Ventolin Hfa 2 puff INHALATION RT-QID 10/25/20 11/26/20 History Inhaler] Citalopram Hydrobromide 40 mg PO HS 10/25/20 11/26/20 History [Citalopram HBr] Ibuprofen [Motrin Ib] 400 mg PO Q8H PRN 10/25/20 11/26/20 History LORazepam [Ativan] 0.5 mg PO Q8H PRN 10/25/20 11/26/20 History diphenhydrAMINE [Benadryl] 25 mg PO HS PRN 10/25/20 11/26/20 History Cyclobenzaprine [Flexeril] 5 mg PO TID PRN #30 tab 11/01/20 11/26/20 Rx fentaNYL 25MCG/HR PATCH [Duragesic 1 patch TRANSDERM Q72H #3 patch 11/01/20 11/26/20 Rx 25MCG/HR] polyethylene glycoL 3350 [Miralax] 17 gm PO DAILY PRN #20 powd.pack 11/01/20 11/26/20 Rx Budesonide/Formoterol Fumarate 1 puff INHALATION RT-BID 11/26/20 11/26/20 H istory [Symbicort 160-4.5 Mcg Inhaler] HYDROcodone/APAP 7.5-325MG [[place] 1 tab PO Q6H PRN 11/26/20 11/26/20 History 7.5-325] Nystatin 100,000 Unit/ml Susp 750,000 unit PO QID 11/26/20 11/26/20 History [Mycostatin Oral Susp] Omeprazole 20 mg PO DAILY 11/26/20 11/26/20 History Ondansetron HCl [Zofran] 4 mg PO Q6H PRN 11/26/20 11/26/20 History Allergies Allergy/AdvReac Type Severity Reaction Status Date / Time Iodinated Contrast Media Allergy Unknown Verified 11/26/20 22:07 [Iodinated Contrast Media - IV Dye] sulfamethoxazole Allergy Rash/Hives Verified 11/26/20 22:07 [From Bactrim] trimethoprim [From Bactrim] Allergy Rash/Hives Verified 11/26/20 22:07 Physical Exam Vitals: Vital Signs Temp Pulse Pulse Resp BP BP Pulse Ox 11/27/20 09:32 97.0 F L 98 22 142/77 90 L 11/27/20 05:01 98.2 F 76 20 115/76 93 L 11/27/20 02:30 97.7 F 11/27/20 01:39 114 H 26 H 92 L 11/27/20 00:07 87 20 123/83 97 11/26/20 21:25 92 22 119/80 95 11/26/20 20:41 88 24 106/73 93 L 11/26/20 19:38 89 L 11/26/20 19:35 28 H 11/26/20 19:28 97.3 F L 106 H 24 104/76 86 L Intake and Output 11/26/20 11/27/20 11/27/20 22:59 06:59 14:59 Intake Total 200 Balance 200 Intake: Oral 200 Other: Voiding Method Bedside Commode Incontinent # Voids 1 2 Weight 68.039 kg 68.039 kg PHYSICAL EXAMINATION: GENERAL: The patient is alert and oriented x3 mild respiratory distress on 5 L of oxygen. Well developed, well nourished. HEENT: Pupils are round and equally reacting to light. EOMI. No scleral icterus. No conjunctival pallor. Normocephalic, atraumatic. No pharyngeal erythema. No thyromegaly. CARDIOVASCULAR: S1 and S2 present. No murmurs, rubs, or gallops. PULMONARY: Chest is clear to auscultation, no wheezing or crackles. ABDOMEN: Soft, nontender, nondistended, normoactive bowel sounds. No palpable organomegaly. MUSCULOSKELETAL: No joint swelling or deformity. EXTREMITIES: No cyanosis, clubbing, or pedal edema. NEUROLOGICAL: Gross neurological examination did not reveal any focal deficits. SKIN: No rashes. Results CBC & Chem 7: 11/27/20 09:30 11/27/20 09:30 Labs: Abnormal Lab Results - Last 24 Hours (Table) 11/26/20 11/26/20 11/26/20 Range/Units 19:56 19:56 19:56 WBC 17.0 H (3.8-10.6) k/uL Neutrophils # (Manual) 11.50 H (1.3-7.7) k/uL Metamyelocytes # (Man) 0.34 H (0) k/uL APTT 19.8 L (22.0-30.0) sec D-Dimer (<0.60) mg/L FEU Chloride 109 H (98-107) mmol/L Carbon Dioxide 18 L (22-30) mmol/L BUN 39 H (7-17) mg/dL Creatinine 1.05 H (0.52-1.04) mg/dL Glucose 140 H (74-99) mg/dL POC Glucose (mg/dL) (75-99) mg/dL Ferritin (10.0-291.0) ng/mL AST 41 H (14-36) U/L Alkaline Phosphatase 161 H (38-126) U/L Lactate Dehydrogenase (313-618) U/L C-Reactive Protein (<10.0) mg/L Albumin 3.4 L (3.5-5.0) g/dL Procalcitonin (0.02-0.09) ng/mL Coronavirus (PCR) (Not Detectd) 11/26/20 11/26/20 11/26/20 Range/Units 19:57 21:44 21:44 WBC (3.8-10.6) k/uL Neutrophils # (Manual) (1.3-7.7) k/uL Metamyelocytes # (Man) (0) k/uL APTT (22.0-30.0) sec D-Dimer (<0.60) mg/L FEU Chloride (98-107) mmol/L Carbon Dioxide (22-30) mmol/L BUN (7-17) mg/dL Creatinine (0.52-1.04) mg/dL Glucose (74-99) mg/dL POC Glucose (mg/dL) (75-99) mg/dL Ferritin 2774.5 H (10.0-291.0) ng/mL AST (14-36) U/L Alkaline Phosphatase (38-126) U/L Lactate Dehydrogenase 2569 H (313-618) U/L C-Reactive Protein 89.8 H (<10.0) mg/L Albumin (3.5-5.0) g/dL Procalcitonin 0.31 H (0.02-0.09) ng/mL Coronavirus (PCR) Detected A (Not Detectd) 11/26/20 11/27/20 11/27/20 Range/Units 21:59 08:02 09:30 WBC 17.9 H (3.8-10.6) k/uL Neutrophils # (Manual) (1.3-7.7) k/uL Metamyelocytes # (Man) (0) k/uL APTT (22.0-30.0) sec D-Dimer 2.27 H (<0.60) mg/L FEU Chloride (98-107) mmol/L Carbon Dioxide (22-30) mmol/L BUN (7-17) mg/dL Creatinine (0.52-1.04) mg/dL Glucose (74-99) mg/dL POC Glucose (mg/dL) 168 H (75-99) mg/dL Ferritin (10.0-291.0) ng/mL AST (14-36) U/L Alkaline Phosphatase (38-126) U/L Lactate Dehydrogenase (313-618) U/L C-Reactive Protein (<10.0) mg/L Albumin (3.5-5.0) g/dL Procalcitonin (0.02-0.09) ng/mL Coronavirus (PCR) (Not Detectd) 11/27/20 11/27/20 Range/Units 09:30 09:30 WBC (3.8-10.6) k/uL Neutrophils # (Manual) (1.3-7.7) k/uL Metamyelocytes # (Man) (0) k/uL APTT (22.0-30.0) sec D-Dimer 1.90 H (<0.60) mg/L FEU Chloride 108 H (98-107) mmol/L Carbon Dioxide (22-30) mmol/L BUN 36 H (7-17) mg/dL Creatinine (0.52-1.04) mg/dL Glucose 190 H (74-99) mg/dL POC Glucose (mg/dL) (75-99) mg/dL Ferritin (10.0-291.0) ng/mL AST (14-36) U/L Alkaline Phosphatase (38-126) U/L Lactate Dehydrogenase 2422 H (313-618) U/L C-Reactive Protein (<10.0) mg/L Albumin (3.5-5.0) g/dL Procalcitonin (0.02-0.09) ng/mL Coronavirus (PCR) (Not Detectd) Thrombosis Risk Factor Assmnt - Choose All That Apply Any of the Below Risk Factors Present?: Yes Each Factor Represents 1 point: Medical pt on bed rest, Obesity (BMI >25) Other Risk Factors: Yes Each Risk Factor Represents 2 Points: Patient confined to bed, Malignancy Other congenital or acquired thrombophilia - If yes, enter type in comment: No Thrombosis Risk Factor Assessment Total Risk Factor Score: 6 Thrombosis Risk Factor Assessment Level: High Risk Assessment and Plan Plan: - acute on chronic hypoxic and hypercapnic respiratory failure: Secondary to COPD exacerbation along with the covid 19 pneumonia. Patient was started on systemic steroids inhalational treatments. Pulmonology evaluated the patient -Mild acute renal failure: Prerenal azotemia from sepsis and intravascular depletion and dehydration, patient will be started on IV fluids at 75 mL/h -Recently diagnosed with squamous cell lung cancer bronchial obstruction and some lung collapse. -Covid 19 pneumonia -COPD with acute exacerbation -Anxiety disorder - leukocytosis secondary to sepsis from Covid 19 as mentioned above and stent -DVT prophylaxis with Lovenox
[2020-11-27 11:33] LABS: Glucose,Whole Blood 208 mg/dL (75-99)
[2020-11-27] MEDS: methylPREDNISolone SOD SUCCI 125 MG/2 ML VIAL IV SCH ×3 (11:37→22:35)
[2020-11-27] MEDS: NYSTATIN 100,000 UNIT/ML SUSP 500,000 UNIT/5 ML CUP PO SCH ×3 (12:32→21:41)
--- NOTE | 2020-11-27 12:42 | P.CNPUL ---
History of Present Illness Consult date: 11/27/20 Requesting physician: Sandro Rojo Reason for consult: dyspnea, cough, hypoxemia, abnormal CXR/CT Chief complaint: Acute on chronic hypoxemia, cough, congestion, shortness of breath History of present illness: This is a 75-year-old white female patient was recently diagnosed with small cell lung carcinoma after she underwent endoscopy with biopsies of the left upper lobe, lingula on 11/01/2020, after she was found to have a large mass at the left pulmonary hilum with extensive mediastinal adenopathy. Biopsies were positive small cell carcinoma. PET scan on 11/04/2020 showed known left hilar malignancy with marked thoracic adenopathy, hepatic and osseous metastatic disease. MRI of the brain showed no evidence of enhancing mass or mass effect. Patient was started on chemotherapy, and she states she had 2 treatments with last one about a week ago. Following her second treatment she started feeling weak, with increased shortness of breath, cough and chest congestion. Does have history of underlying COPD usually wears 2-3 L on a regular basis. On 11/27/2019 when she came into the emergency department for evaluation of worsening dyspnea and hypoxia, she is currently up to 5 L of oxygen, her pulse ox is 90%, chest x-ray showed bibasilar atelectasis versus infiltrates. COVID 19 PCR was positive. Initial blood work showed white blood cell count of 17, hemoglobin of 12.7, sodium of 141, potassium 3.7, chloride is 109, CO2 is 18, BUN 39, creatinine of 1.05, troponin was less than 0.012. D-dimer was 2.27, pro-Was 0.31. CT Chest Showed Interval Bilateral Diffuse Patchy Groundglass Opacities and increased moderate partial left lower lobe collapse with occlusion of the bronchi, and no evidence of acute pulmonary embolism. Review of Systems All systems: negative Constitutional: Reports fatigue, Reports weakness, Denies chills, Denies fever Eyes: denies blurred vision, denies pain Ears, nose, mouth and throat: Denies headache, Denies sore throat Cardiovascular: Denies chest pain, Denies shortness of breath Respiratory: Reports dyspnea, Reports home oxygen, Reports respiratory infections, Reports wheezing, Denies cough Gastrointestinal: Denies abdominal pain, Denies diarrhea, Denies nausea, Denies vomiting Genitourinary: Denies dysuria, Denies hematuria Musculoskeletal: Denies myalgias Integumentary: Denies pruritus, Denies rash Neurological: Denies numbness, Denies weakness Psychiatric: Denies anxiety, Denies depression Endocrine: Denies fatigue, Denies weight change Past Medical History Past Medical History: Cancer, Osteoarthritis (OA), Pneumonia Additional Past Medical History / Comment(s): sinus problems,kidney stones uti, bladder incnt/wears a pad,abd hernia,migraines,"muscles spasms , had collapsed lung -not large enough to require c/t, DDD, sciatic, Aug diagnosed lung left side with mets to liver and bone, chemotherapy last week History of Any Multi-Drug Resistant Organisms: None Reported Date of last positivie culture/infection: 2015 Past Surgical History: Appendectomy, Bladder Surgery, Cholecystectomy, Hysterectomy, Orthopedic Surgery Additional Past Surgical History / Comment(s): artriscopy, lt knee replacemnent,adrenal gland removed,lt knee, colonoscopy, dental implants, 1997 had lt foot sx for hammer toes and stated had an implant in that foot-then january 2015 had a revison of that sx, Cdiff- 2015 Past Anesthesia/Blood Transfusion Reactions: No Reported Reaction Past Psychological History: Anxiety Smoking Status: Never smoker Past Alcohol Use History: Rare Additional Past Alcohol Use History / Comment(s): quit smoking aug 2020 due to lung cancer diagnosis Past Drug Use History: None Reported - Past Family History Mother Family Medical History: Dementia Additional Family Medical History / Comment(s): moms sister also had dementia Father Family Medical History: Unable to Obtain Medications and Allergies Home Medications Medication Instructions Recorded Confirmed Type Albuterol Inhaler [Ventolin Hfa 2 puff INHALATION RT-QID 10/25/20 11/26/20 History Inhaler] Citalopram Hydrobromide 40 mg PO HS 10/25/20 11/26/20 History [Citalopram HBr] Ibuprofen [Motrin Ib] 400 mg PO Q8H PRN 10/25/20 11/26/20 History LORazepam [Ativan] 0.5 mg PO Q8H PRN 10/25/20 11/26/20 History diphenhydrAMINE [Benadryl] 25 mg PO HS PRN 10/25/20 11/26/20 History Cyclobenzaprine [Flexeril] 5 mg PO TID PRN #30 tab 11/01/20 11/26/20 Rx fentaNYL 25MCG/HR PATCH [Duragesic 1 patch TRANSDERM Q72H #3 patch 11/01/20 11/26/20 Rx 25MCG/HR] polyethylene glycoL 3350 [Miralax] 17 gm PO DAILY PRN #20 powd.pack 11/01/20 11/26/20 Rx Budesonide/Formoterol Fumarate 1 puff INHALATION RT-BID 11/26/20 11/26/20 History [Symbicort 160-4.5 Mcg Inhaler] HYDROcodone/APAP 7.5-325MG [[place] 1 tab PO Q6H PRN 11/26/20 11/26/20 History 7.5-325] Nystatin 100,000 Unit/ml Susp 750,000 unit PO QID 11/26/20 11/26/20 History [Mycostatin Oral Susp] Omeprazole 20 mg PO DAILY 11/26/20 11/26/20 History Ondansetron HCl [Zofran] 4 mg PO Q6H PRN 11/26/20 11/26/20 History Allergies Allergy/AdvReac Type Severity Reaction Status Date / Time Iodinated Contrast Media Allergy Unknown Verified 11/26/20 22:07 [Iodinated Contrast Media - IV Dye] sulfamethoxazole Allergy Rash/Hives Verified 11/26/20 22:07 [From Bactrim] trimethoprim [From Bactrim] Allergy Rash/Hives Verified 11/26/20 22:07 Physical Exam Vitals: Vital Signs Temp Pulse Pulse Resp BP BP Pulse Ox 11/27/20 09:32 97.0 F L 98 22 142/77 90 L 11/27/20 05:01 98.2 F 76 20 115/76 93 L 11/27/20 02:30 97.7 F 11/27/20 01:39 114 H 26 H 92 L 11/27/20 00:07 87 20 123/83 97 11/26/20 21:25 92 22 119/80 95 11/26/20 20:41 88 24 106/73 93 L 11/26/20 19:38 89 L 11/26/20 19:35 28 H 11/26/20 19:28 97.3 F L 106 H 24 104/76 86 L Intake and Output 0411/27/20 11/27/20 22:59 06:59 14:59 Intake Total 200 Balance 200 Intake: Oral 200 Other: Voiding Method Bedside Commode Incontinent # Voids 1 2 Weight 68.039 kg 68.039 kg GENERAL EXAM: Alert, anxious, 75-year-old white female, on 5 L of oxygen and the pulse ox of 92-97% comfortable in no apparent distress. HEAD: Normocephalic/atraumatic. EYES: Normal reaction of pupils, equal size. Conjunctiva pink, sclera white. NOSE: Clear with pink turbinates. THROAT: No erythema or exudates. NECK: No masses, no JVD, no thyroid enlargement, no adenopathy. CHEST: No chest wall deformity. Symmetrical expansion. LUNGS: Equal air entry with diffuse wheezes and rhonchi CVS: Regular rate and rhythm, normal S1 and S2, no gallops, no murmurs, no rubs ABDOMEN: Soft, nontender. No hepatosplenomegaly, normal bowel sounds, no guarding or rigidity. EXTREMITIES: No clubbing, no edema, no cyanosis, 2+ pulses and upper and lower extremities. MUSCULOSKELETAL: Muscle strength and tone normal. SPINE: No scoliosis or deformity SKIN: No rashes CENTRAL NERVOUS SYSTEM: Alert and oriented -3. No focal deficits, tone is nor mal in all 4 extremities. PSYCHIATRIC: Alert and oriented -3. Appropriate affect. Intact judgment and insight. Results - Laboratory Findings CBC and BMP: 11/27/20 09:30 11/27/20 09:30 PT/INR, D-dimer PT 11.1 sec (9.0-12.0) 11/26/20 19:56 INR 1.0 (<1.2) 11/26/20 19:56 D-Dimer 1.90 mg/L FEU (<0.60) H 11/27/20 09:30 Abnormal lab findings: Abnormal Labs 11/26/20 11/26/20 11/26/20 19:56 19:56 19:56 WBC 17.0 H Neutrophils # (Manual) 11.50 H Metamyelocytes # (Man) 0.34 H APTT 19.8 L D-Dimer Chloride 109 H Carbon Dioxide 18 L BUN 39 H Creatinine 1.05 H Glucose 140 H POC Glucose (mg/dL) Ferritin AST 41 H Alkaline Phosphatase 161 H Lactate Dehydrogenase C-Reactive Protein Albumin 3.4 L Procalcitonin Coronavirus (PCR) 11/26/20 11/26/20 11/26/20 19:57 21:44 21:44 WBC Neutrophils # (Manual) Metamyelocytes # (Man) APTT D-Dimer Chloride Carbon Dioxide BUN Creatinine Glucose POC Glucose (mg/dL) Ferritin 2774.5 H AST Alkaline Phosphatase Lactate Dehydrogenase 2569 H C-Reactive Protein 89.8 H Albumin Procalcitonin 0.31 H Coronavirus (PCR) Detected A 11/26/20 11/27/20 11/27/20 21:59 08:02 09:30 WBC 17.9 H Neutrophils # (Manual) Metamyelocytes # (Man) APTT D-Dimer 2.27 H Chloride Carbon Dioxide BUN Creatinine Glucose POC Glucose (mg/dL) 168 H Ferritin AST Alkaline Phosphatase Lactate Dehydrogenase C-Reactive Protein Albumin Procalcitonin Coronavirus (PCR) 11/27/20 11/27/20 11/27/20 09:30 09:30 11:31 WBC Neutrophils # (Manual) Metamyelocytes # (Man) APTT D-Dimer 1.90 H Chloride 108 H Carbon Dioxide BUN 36 H Creatinine Glucose 190 H POC Glucose (mg/dL) 208 H Ferritin AST Alkaline Phosphatase Lactate Dehydrogenase 2422 H C-Reactive Protein Albumin Procalcitonin Coronavirus (PCR) - Diagnostic Findings Chest x-ray: report reviewed, image reviewed CT scan - chest: report reviewed, image reviewed Additional studies: Doppler of right lower extremity is negative for DVT, EKG reviewed, Assessment and Plan Plan: Assessment: #1. Acute on chronic hypoxemic respiratory failure related to acute COVID 19 pneumonia, onset of symptoms is approximately 7 days ago #2. Acute exacerbation of COPD #3. Recent diagnosis of small cell lung cancer, with a skin evidence of hepatic and osseous metastatic disease brain MRI was negative, started chemotherapy treatment last one was one week ago #4. History of COPD on home oxygen #5. Former smoker #6. Elevated d-dimer without CT evidence of pulmonary embolism, right lower extremity Doppler was negative for DVT #7. Increased inflammatory markers related to acute COVID 19 pneumonia #8. History of tobacco dependence, of greater than 50 years #9. Anxiety #10. History of osteoarthritis Plan: We'll continue supportive treatment at this time, we'll switch Decadron to IV Solu-Medrol, continue IV hydration, inhalers, continue Lovenox at prophylactic doses, overall prognosis is poor and guarded in view of underlying malignancy, advanced COPD, we'll start Remdesivir treatment. We'll continue to closely follow I performed a history & physical examination of the patient and discussed their management with my nurse practitioner, Teresa Agosto. I reviewed the nurse practitioner's note and agree with the documented findings and plan of care. Lung sounds are positive for diminished breath sounds. The findings and the impression was discussed with the patient. I attest to the documentation by the nurse practitioner. Time with Patient: Greater than 30
[2020-11-27 12:45] LABS: Band Neutrophils % 6 %; Lymphocytes # (M) 2.69 k/uL (1.0-4.8); Metamyelocytes # (M) 0.54 k/uL (0); Metamyelocytes % 3 %; Monocytes # (M) 1.07 k/uL (0-1.0); Myelocytes # (M) 0.36 k/uL (0); Myelocytes % 2 %; Neutrophils % (M) 69 %; Nucleated Red Blood Cells 0 /100 WBC (0-0); Total Cells Counted 200
[2020-11-27] MEDS ORDERED: REMDESIVIR 200 MG in SODIUM CHLORIDE 0.9% 250 ML IVPB ONE (14:00)
[2020-11-27 16:35] LABS: Glucose,Whole Blood 155 mg/dL (75-99)
[2020-11-27] MEDS: SYMBICORT 160-4.5 MCG INHALER INHALATION SCH (20:18)
[2020-11-27 21:33] LABS: Glucose,Whole Blood 176 mg/dL (75-99)
[2020-11-27] MEDS: LORazepam 0.5 MG TAB PO PRN (21:40)
[2020-11-27] MEDS: CITALOPRAM HYDROBROMIDE 20 MG TAB PO SCH (21:40)
[2020-11-27 23:37] LABS: Ferritin 2504.8 ng/mL (10.0-291.0)
[2020-11-28] MEDS: SODIUM CHLORIDE 0.9% 1,000 ML IV SCH ×2 (01:23→14:11)
[2020-11-28] MEDS: methylPREDNISolone SOD SUCCI 125 MG/2 ML VIAL IV SCH ×4 (06:06→23:35)
[2020-11-28 07:19] LABS: Glucose,Whole Blood 143 mg/dL (75-99)
[2020-11-28] MEDS: ENOXAPARIN 40 MG/0.4 ML SYRINGE SQ SCH (08:30)
[2020-11-28] MEDS: PANTOPRAZOLE 40 MG TABLET PO SCH (08:31)
[2020-11-28] MEDS: INSULIN ASPART (NovoLOG) 100 UNIT/ML VIAL SQ SCH ×4 (08:31→19:53)
[2020-11-28] MEDS: CHOLECALCIFEROL 25 MCG (1000 IU) TABLET PO SCH (08:31)
[2020-11-28] MEDS: NYSTATIN 100,000 UNIT/ML SUSP 500,000 UNIT/5 ML CUP PO SCH ×4 (08:32→20:51)
--- NOTE | 2020-11-28 09:05 | P.PN ---
Subjective Progress Note Date: 11/28/20 This is a 75-year-old white female patient was recently diagnosed with small ce ll lung carcinoma after she underwent endoscopy with biopsies of the left upper lobe, lingula on 11/01/2020, after she was found to have a large mass at the left pulmonary hilum with extensive mediastinal adenopathy. Biopsies were positive small cell carcinoma. PET scan on 11/04/2020 showed known left hilar malignancy with marked thoracic adenopathy, hepatic and osseous metastatic disease. MRI of the brain showed no evidence of enhancing mass or mass effect. Patient was started on chemotherapy, and she states she had 2 treatments with last one about a week ago. Following her second treatment she started feeling weak, with increased shortness of breath, cough and chest congestion. Does have history of underlying COPD usually wears 2-3 L on a regular basis. On 11/27/2019 when she came into the emergency department for evaluation of worsening dyspnea and hypoxia, she is currently up to 5 L of oxygen, her pulse ox is 90%, chest x-ray showed bibasilar atelectasis versus infiltrates. COVID 19 PCR was positive. Initial blood work showed white blood cell count of 17, hemoglobin of 12.7, sodium of 141, potassium 3.7, chloride is 109, CO2 is 18, BUN 39, creatinine of 1.05, troponin was less than 0.012. D-dimer was 2.27, pro-Was 0.31. CT Chest Showed Interval Bilateral Diffuse Patchy Groundglass Opacities and increased moderate partial left lower lobe collapse with occlusion of the bronchi, and no evidence of acute pulmonary embolism. On 11/28/2020, the patient is seen for a follow-up. The patient is currently being treated for COVID 19 related pneumonia. The patient is on Solu-Medrol, anticoagulation with Lovenox and the patient was also started on Remdesivir. Patient doing well. D-dimer from yesterday was 1.9. Inflammatory markers with an elevated LDH level at the time of admission at 2422 and the white cell count of 17.9 along with some mild neutropenia. CT of the chest showed bilateral ground glass pulmonary infiltrates, left lower lobe atelectasis, left hilar mass and mediastinal lymphadenopathy and this is typical of underlying lung cancer. Upper and lower extremities is a been negative. The patient is currently on 5 L of oxygen by nasal cannula. Afebrile. Hemodynamically stable. The patient is currently comfortable on 6 L about 2 by nasal cannula. She is currently undergoing the treatment. Her blood work today is still pending for now. Objective - Vital Signs Vital signs: Vital Signs Temp 98.2 F 11/28/20 08:00 Pulse 80 11/28/20 08:00 Resp 18 11/28/20 08:00 BP 148/76 11/28/20 08:00 Pulse Ox 91 L 11/28/20 08:00 Intake & Output 11/27/20 11/28/20 11/28/20 18:59 06:59 18:59 Intake Total 400 Balance 400 Intake: IV 400 Remdesivir 200 mg In 250 Sodium Chloride 0.9% 250 ml @ 250 mls/hr IVPB ONCE ONE Rx#:[id number] Sodium Chloride 0.9% 1, 150 000 ml @ 75 mls/hr IV . [id number] [facility] Rx#:[id number] Other: Voiding Method Bedside Commode Incontinent # Voids 5 2 - Exam GENERAL EXAM: Alert, anxious, 75-year-old white female, on 6 L of oxygen and the pulse ox of 92-97% comfortable in no apparent distress. HEAD: Normocephalic/atraumatic. EYES: Normal reaction of pupils, equal size. Conjunctiva pink, sclera white. NOSE: Clear with pink turbinates. THROAT: No erythema or exudates. NECK: No masses, no JVD, no thyroid enlargement, no adenopathy. CHEST: No chest wall deformity. Symmetrical expansion. LUNGS: Equal air entry with diffuse wheezes and rhonchi CVS: Regular rate and rhythm, normal S1 and S2, no gallops, no murmurs, no rubs ABDOMEN: Soft, nontender. No hepatosplenomegaly, normal bowel sounds, no gua rding or rigidity. EXTREMITIES: No clubbing, no edema, no cyanosis, 2+ pulses and upper and lower extremities. MUSCULOSKELETAL: Muscle strength and tone normal. SPINE: No scoliosis or deformity SKIN: No rashes CENTRAL NERVOUS SYSTEM: Alert and oriented -3. No focal deficits, tone is normal in all 4 extremities. PSYCHIATRIC: Alert and oriented -3. Appropriate affect. Intact judgment and insight. - Labs CBC & Chem 7: 11/27/20 09:30 11/27/20 09:30 Labs: Abnormal Lab Results - Last 24 Hours (Table) 11/26/20 11/26/20 11/27/20 Range/Units 21:44 21:44 09:30 WBC 17.9 H (3.8-10.6) k/uL Neutrophils # (Manual) 13.40 H (1.3-7.7) k/uL Monocytes # (Manual) 1.07 H (0-1.0) k/uL Metamyelocytes # (Man) 0.54 H (0) k/uL Myelocytes # (Manual) 0.36 H (0) k/uL D-Dimer (<0.60) mg/L FEU Chloride (98-107) mmol/L BUN (7-17) mg/dL Glucose (74-99) mg/dL POC Glucose (mg/dL) (75-99) mg/dL Ferritin 2774.5 H (10.0-291.0) ng/mL Lactate Dehydrogenase (313-618) U/L Procalcitonin 0.31 H (0.02-0.09) ng/mL 11/27/20 11/27/20 11/27/20 Range/Units 09:30 09:30 09:30 WBC (3.8-10.6) k/uL Neutrophils # (Manual) (1.3-7.7) k/uL Monocytes # (Manual) (0-1.0) k/uL Metamyelocytes # (Man) (0) k/uL Myelocytes # (Manual) (0) k/uL D-Dimer 1.90 H (<0.60) mg/L FEU Chloride 108 H (98-107) mmol/L BUN 36 H (7-17) mg/dL Glucose 190 H (74-99) mg/dL POC Glucose (mg/dL) (75-99) mg/dL Ferritin 2504.8 H (10.0-291.0) ng/mL Lactate Dehydrogenase 2422 H (313-618) U/L Procalcitonin 0.22 H (0.02-0.09) ng/mL 11/27/20 11/27/20 11/27/20 Range/Units 11:31 16:33 21:26 WBC (3.8-10.6) k/uL Neutrophils # (Manual) (1.3-7.7) k/uL Monocytes # (Manual) (0-1.0) k/uL Metamyelocytes # (Man) (0) k/uL Myelocytes # (Manual) (0) k/uL D-Dimer (<0.60) mg/L FEU Chloride (98-107) mmol/L BUN (7-17) mg/dL Glucose (74-99) mg/dL POC Glucose (mg/dL) 208 H 155 H 176 H (75-99) mg/dL Ferritin (10.0-291.0) ng/mL Lactate Dehydrogenase (313-618) U/L Procalcitonin (0.02-0.09) ng/mL 11/28/20 Range/Units 07:17 WBC (3.8-10.6) k/uL Neutrophils # (Manual) (1.3-7.7) k/uL Monocytes # (Manual) (0-1.0) k/uL Metamyelocytes # (Man) (0) k/uL Myelocytes # (Manual) (0) k/uL D-Dimer (<0.60) mg/L FEU Chloride (98-107) mmol/L BUN (7-17) mg/dL Glucose (74-99) mg/dL POC Glucose (mg/dL) 143 H (75-99) mg/dL Ferritin (10.0-291.0) ng/mL Lactate Dehydrogenase (313-618) U/L Procalcitonin (0.02-0.09) ng/mL Assessment and Plan Plan: #1. Acute on chronic hypoxemic respiratory failure related to acute COVID 19 pneumonia, onset of symptoms is approximately 7 days ago, and the patient is currently being treated with a combination of steroids, anticoagulation and she was also started on Remdesivir day #2 a month and the pro-calcitonin level was at 0.22. #2. Acute exacerbation of COPD #3. Recent diagnosis of small cell lung cancer, with evidence of hepatic and osseous metastatic disease brain MRI was negative, started chemotherapy treatment last one was one week ago #4. COPD on home oxygen #5. Former smoker #6. Elevated d-dimer without CT evidence of pulmonary embolism, right lower extremity Doppler was negative for DVT #7. Increased inflammatory markers related to acute COVID 19 pneumonia #8. History of tobacco dependence, of greater than 50 years #9. Anxiety #10. History of osteoarthritis Plan: We'll continue IV Solu-Medrol for ongoing bronchospasm wheezing and shortness of breath. continue IV hydration continue Lovenox at prophylactic doses Start the patient on Remdesivir and the patinet is on dio #2 of treatment overall prognosis is poor and guarded in view of underlying malignancy, advanced COPD We'll continue to closely follow
[2020-11-28] MEDS: ALBUTEROL HFA INHALER INHALATION PRN ×4 (09:33→20:02)
[2020-11-28] MEDS: SYMBICORT 160-4.5 MCG INHALER INHALATION SCH ×2 (09:33→20:02)
[2020-11-28 11:11] LABS: Glucose,Whole Blood 111 mg/dL (75-99)
[2020-11-28] MEDS: LORazepam 0.5 MG TAB PO PRN ×2 (11:43→19:53)
--- NOTE | 2020-11-28 12:24 | P.PN ---
Subjective Patient was a 75-year-old female on 2 L of plastic cannula oxygen at home came in with comments of shortness of breath presently requiring 5 L patient is found to have Covid 19 patient started having symptoms 2 weeks ago shortly after her discharge which he shortness of breath cough patient is wheezing on exam was also complaining of nausea and epigastric abdominal discomfort. 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 Patient was comparing of right thigh pain. Patient denied any fevers. Had a CT of the chest which showed groundglass obesities there is a partial left lower lobe collapse with occlusion of the bronchi and a hilar mass with mediastinal lymphadenopathy the patient's d-dimer is a 2.2 cm admission presently 1.90 patient does have leukocytosis patient does have history of COPD he quit smoking since her diagnosis of cancer. 11/28/2020 Patient appears to be bit emotional today and patient is presently on 6 L of oxygen. Patient is hemodynamically stable patient was on 5 L yesterday. Constitutional: Denied any fatigue denied any fever. Cardio vascular: denied any chest pain, palpitations Gastrointestinal denied any nausea vomiting Pulmonary: Denied any shortness of breath cough Neurologic denied any new focal deficits All inpatient medications were reviewed and appropriate changes in these medications as dictated in the interval history and assessment and plan. Objective - Vital Signs Vital signs: Vital Signs Temp 98.2 F 11/28/20 08:00 Pulse 80 11/28/20 08:00 Resp 18 11/28/20 08:00 BP 148/76 11/28/20 08:00 Pulse Ox 91 L 11/28/20 08:00 Intake & Output 11/27/20 11/28/20 11/28/20 18:59 06:59 18:59 Intake Total 400 Balance 400 Intake: IV 400 Remdesivir 200 mg In 250 Sodium Chloride 0.9% 250 ml @ 250 mls/hr IVPB ONCE ONE Rx#:[id number] Sodium Chloride 0.9% 1, 150 000 ml @ 75 mls/hr IV . [id number] [facility] Rx#:[id number] Other: Voiding Method Bedside Commode Bedside Commode Incontinent Incontinent External Catheter # Voids 5 2 - Exam PHYSICAL EXAMINATION: GENERAL: The patient is alert and oriented x3 mild respiratory distress on 5 L of oxygen. Well developed, well nourished. HEENT: Pupils are round and equally reacting to light. EOMI. No scleral icterus. No conjunctival pallor. Normocephalic, atraumatic. No pharyngeal erythema. No thyromegaly. CARDIOVASCULAR: S1 and S2 present. No murmurs, rubs, or gallops. PULMONARY: Chest is clear to auscultation, no wheezing or crackles. ABDOMEN: Soft, nontender, nondistended, normoactive bowel sounds. No palpable organomegaly. MUSCULOSKELETAL: No joint swelling or deformity. EXTREMITIES: No cyanosis, clubbing, or pedal edema. NEUROLOGICAL: Gross neurological examination did not reveal any focal deficits. SKIN: No rashes. - Labs CBC & Chem 7: 11/27/20 09:30 11/27/20 09:30 Labs: Abnormal Lab Results - Last 24 Hours (Table) 11/27/20 11/27/20 11/27/20 Range/Units 09:30 09:30 09:30 Neutrophils # (Manual) 13.40 H (1.3-7.7) k/uL Monocytes # (Manual) 1.07 H (0-1.0) k/uL Metamyelocytes # (Man) 0.54 H (0) k/uL Myelocytes # (Manual) 0.36 H (0) k/uL POC Glucose (mg/dL) (75-99) mg/dL Ferritin 2504.8 H (10.0-291.0) ng/mL Procalcitonin 0.22 H (0.02-0.09) ng/mL 11/27/20 11/27/20 11/28/20 Range/Units 16:33 21:26 07:17 Neutrophils # (Manual) (1.3-7.7) k/uL Monocytes # (Manual) (0-1.0) k/uL Metamyelocytes # (Man) (0) k/uL Myelocytes # (Manual) (0) k/uL POC Glucose (mg/dL) 155 H 176 H 143 H (75-99) mg/dL Ferritin (10.0-291.0) ng/mL Procalcitonin (0.02-0.09) ng/mL 11/28/20 Range/Units 11:10 Neutrophils # (Manual) (1.3-7.7) k/uL Monocytes # (Manual) (0-1.0) k/uL Metamyelocytes # (Man) (0) k/uL Myelocytes # (Manual) (0) k/uL POC Glucose (mg/dL) 111 H (75-99) mg/dL Ferritin (10.0-291.0) ng/mL Procalcitonin (0.02-0.09) ng/mL Assessment and Plan Plan: - acute on chronic hypoxic and hypercapnic respiratory failure: Secondary to COPD exacerbation along with the covid 19 pneumonia. Patient was started on systemic steroids inhalational treatments. Pulmonology evaluated the patient must COPD appears to have improved wheezing improved compared to yesterday -Mild acute renal failure: Prerenal azotemia from sepsis and intravascular depletion and dehydration, patient will be started on IV fluids at 75 mL/h improved with fluids fluids will be discontinued tomorrow -Recently diagnosed with squamous cell lung cancer bronchial obstruction and some lung collapse. -Covid 19 pneumonia -COPD with acute exacerbation -Anxiety disorder - leukocytosis secondary to sepsis from Covid 19 as mentioned above and stent -DVT prophylaxis with Lovenox
[2020-11-28] MEDS: REMDESIVIR 100 MG in SODIUM CHLORIDE 0.9% 250 ML IVPB SCH (15:24)
[2020-11-28 17:12] LABS: Glucose,Whole Blood 150 mg/dL (75-99)
[2020-11-28 19:52] LABS: Glucose,Whole Blood 146 mg/dL (75-99)
[2020-11-28] MEDS: CITALOPRAM HYDROBROMIDE 20 MG TAB PO SCH (19:53)
[2020-11-28] MEDS: HYDROcodone/APAP 7.5-325MG 1 EACH TAB PO PRN (20:48)
[2020-11-29] MEDS: HYDROcodone/APAP 7.5-325MG 1 EACH TAB PO PRN ×2 (02:11→16:31)
[2020-11-29] MEDS ORDERED: MORPHINE SULFATE 4 MG/ML SYRINGE IVP STA (03:08)
[2020-11-29] MEDS: SODIUM CHLORIDE 0.9% 1,000 ML IV SCH (03:12)
[2020-11-29] MEDS: methylPREDNISolone SOD SUCCI 125 MG/2 ML VIAL IV SCH ×4 (05:14→22:59)
[2020-11-29 07:19] LABS: Glucose,Whole Blood 150 mg/dL (75-99)
[2020-11-29] MEDS: SYMBICORT 160-4.5 MCG INHALER INHALATION SCH ×2 (08:19→20:02)
[2020-11-29] MEDS: ALBUTEROL HFA INHALER INHALATION PRN ×2 (08:20→12:39)
[2020-11-29] MEDS: INSULIN ASPART (NovoLOG) 100 UNIT/ML VIAL SQ SCH ×4 (08:35→21:46)
[2020-11-29] MEDS: ENOXAPARIN 40 MG/0.4 ML SYRINGE SQ SCH (08:35)
[2020-11-29] MEDS: NYSTATIN 100,000 UNIT/ML SUSP 500,000 UNIT/5 ML CUP PO SCH ×4 (08:36→21:46)
[2020-11-29] MEDS: PANTOPRAZOLE 40 MG TABLET PO SCH (08:36)
[2020-11-29] MEDS: CHOLECALCIFEROL 25 MCG (1000 IU) TABLET PO SCH (08:36)
[2020-11-29] MEDS: LORazepam 0.5 MG TAB PO PRN (08:46)
--- NOTE | 2020-11-29 09:45 | P.PN ---
Subjective Progress Note Date: 11/29/20 This is a 75-year-old white female patient was recently diagnosed with small ce ll lung carcinoma after she underwent endoscopy with biopsies of the left upper lobe, lingula on 11/01/2020, after she was found to have a large mass at the left pulmonary hilum with extensive mediastinal adenopathy. Biopsies were positive small cell carcinoma. PET scan on 11/04/2020 showed known left hilar malignancy with marked thoracic adenopathy, hepatic and osseous metastatic disease. MRI of the brain showed no evidence of enhancing mass or mass effect. Patient was started on chemotherapy, and she states she had 2 treatments with last one about a week ago. Following her second treatment she started feeling weak, with increased shortness of breath, cough and chest congestion. Does have history of underlying COPD usually wears 2-3 L on a regular basis. On 11/27/2019 when she came into the emergency department for evaluation of worsening dyspnea and hypoxia, she is currently up to 5 L of oxygen, her pulse ox is 90%, chest x-ray showed bibasilar atelectasis versus infiltrates. COVID 19 PCR was positive. Initial blood work showed white blood cell count of 17, hemoglobin of 12.7, sodium of 141, potassium 3.7, chloride is 109, CO2 is 18, BUN 39, creatinine of 1.05, troponin was less than 0.012. D-dimer was 2.27, pro-Was 0.31. CT Chest Showed Interval Bilateral Diffuse Patchy Groundglass Opacities and increased moderate partial left lower lobe collapse with occlusion of the bronchi, and no evidence of acute pulmonary embolism. On 11/28/2020, the patient is seen for a follow-up. The patient is currently being treated for COVID 19 related pneumonia. The patient is on Solu-Medrol, anticoagulation with Lovenox and the patient was also started on Remdesivir. Patient doing well. D-dimer from yesterday was 1.9. Inflammatory markers with an elevated LDH level at the time of admission at 2422 and the white cell count of 17.9 along with some mild neutropenia. CT of the chest showed bilateral ground glass pulmonary infiltrates, left lower lobe atelectasis, left hilar mass and mediastinal lymphadenopathy and this is typical of underlying lung cancer. Upper and lower extremities is a been negative. The patient is currently on 5 L of oxygen by nasal cannula. Afebrile. Hemodynamically stable. The patient is currently comfortable on 6 L about 2 by nasal cannula. She is currently undergoing the treatment. Her blood work today is still pending for now. On 11/29/2020, the patient is feeling slightly better. She remains on 6 L of oxygen by nasal cannula. Her speech is improved. She is breathing easier. She has some cough. No significant sputum production. No fever. No chills. No other new complaints otherwise for now. The patient is a case of Covid 19 related pneumonia. The patient remains on IV Solu-Medrol. The patient is also on Lovenox and the patient is also on Remdesivir. The patient also is known to have lung cancer and she was receiving systemic chemotherapy on outpatient basis. Objective - Vital Signs Vital signs: Vital Signs Temp 98.2 F 11/29/20 03:11 Pulse 71 11/29/20 03:11 Resp 20 11/29/20 03:11 BP 169/79 11/29/20 03:11 Pulse Ox 93 L 11/29/20 03:11 Intake & Output 11/28/20 11/29/20 11/29/20 18:59 06:59 18:59 Intake Total 825 Output Total 600 Balance 825 -600 Intake: IV 825 Sodium Chloride 0.9% 1, 825 000 ml @ 75 mls/hr IV . [id number] [facility] Rx#:[id number] Output: Urine 600 Other: Voiding Method Bedside Commode Bedside Commode Incontinent Incontinent External Catheter External Catheter - Exam GENERAL EXAM: Alert, anxious, 75-year-old white female, on 6 L of oxygen and the pulse ox of 92-97% comfortable in no apparent distress. HEAD: Normocephalic/atraumatic. EYES: Normal reaction of pupils, equal size. Conjunctiva pink, sclera white. NOSE: Clear with pink turbinates. THROAT: No erythema or exudates. NECK: No masses, no JVD, no thyroid enlargement, no adenopathy. CHEST: No chest wall deformity. Symmetrical expansion. LUNGS: Equal air entry with diffuse wheezes and rhonchi CVS: Regular rate and rhythm, normal S1 and S2, no gallops, no murmurs, no rubs ABDOMEN: Soft, nontender. No hepatosplenomegaly, normal bowel sounds, no guarding or rigidity. EXTREMITIES: No clubbing, no edema, no cyanosis, 2+ pulses and upper and lower extremities. MUSCULOSKELETAL: Muscle strength and tone normal. SPINE: No scoliosis or deformity SKIN: No rashes CENTRAL NERVOUS SYSTEM: Alert and oriented -3. No focal deficits, tone is normal in all 4 extremities. PSYCHIATRIC: Alert and oriented -3. Appropriate affect. Intact judgment and insight. - Labs CBC & Chem 7: 11/27/20 09:30 11/27/20 09:30 Labs: Abnormal Lab Results - Last 24 Hours (Table) 11/28/20 11/28/20 11/28/20 Range/Units 11:10 17:11 19:51 POC Glucose (mg/dL) 111 H 150 H 146 H (75-99) mg/dL 11/29/20 Range/Units 07:16 POC Glucose (mg/dL) 150 H (75-99) mg/dL Assessment and Plan Plan: #1. Acute on chronic hypoxemic respiratory failure related to acute COVID 19 pneumonia, onset of symptoms is approximately 7 days ago, and the patient is currently being treated with a combination of steroids, anticoagulation and she was also started on Remdesivir day #3 and the pro-calcitonin level was at 0.22. Clinically the patient is still having some shortness of breath although she is slightly improved and she is on 6 L of oxygen by nasal cannula. Repeat inflammatory markers. #2. Acute exacerbation of COPD #3. Recent diagnosis of small cell lung cancer, with evidence of hepatic and osseous metastatic disease brain MRI was negative, started chemotherapy treatment last one was one week ago #4. COPD on home oxygen #5. Former smoker #6. Elevated d-dimer without CT evidence of pulmonary embolism, right lower extremity Doppler was negative for DVT #7. Increased inflammatory markers related to acute COVID 19 pneumonia #8. History of tobacco dependence, of greater than 50 years #9. Anxiety #10. History of osteoarthritis Plan: We'll continue IV Solu-Medrol for ongoing bronchospasm wheezing and shortness of breath. continue IV hydration X-ray in a.m. Wean down the FiO2 currently on 6 L of oxygen by nasal cannula continue Lovenox at prophylactic doses Start the patient on Remdesivir and the patinet is on day #3 of treatment overall prognosis is poor and guarded in view of underlying malignancy, advanced COPD We'll continue to closely follow
[2020-11-29 12:00] LABS: Glucose,Whole Blood 111 mg/dL (75-99)
--- NOTE | 2020-11-29 12:38 | P.PN ---
Subjective Patient was a 75-year-old female on 2 L of plastic cannula oxygen at home came in with comments of shortness of breath presently requiring 5 L patient is found to have Covid 19 patient started having symptoms 2 weeks ago shortly after her discharge which he shortness of breath cough patient is wheezing on exam was also complaining of nausea and epigastric abdominal discomfort. 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 Patient was comparing of right thigh pain. Patient denied any fevers. Had a CT of the chest which showed groundglass obesities there is a partial left lower lobe collapse with occlusion of the bronchi and a hilar mass with mediastinal lymphadenopathy the patient's d-dimer is a 2.2 cm admission presently 1.90 patient does have leukocytosis patient does have history of COPD he quit smoking since her diagnosis of cancer. 11/28/2020 Patient appears to be bit emotional today and patient is presently on 6 L of oxygen. Patient is hemodynamically stable patient was on 5 L yesterday. 11/29/2020 Patient remains on Jt approximately 6 L at this time. Patient is on IV Solu- Medrol. Patient overall feels fine. Doesn't have any shortness of breath on 6 L of oxygen. Did update the her daughter yesterday evening. Constitutional: Denied any fatigue denied any fever. Cardio vascular: denied any chest pain, palpitations Gastrointestinal denied any nausea vomiting Pulmonary: Denied any shortness of breath cough Neurologic denied any new focal deficits All inpatient medications were reviewed and appropriate changes in these medications as dictated in the interval history and assessment and plan. Objective - Vital Signs Vital signs: Vital Signs Temp 97.5 F L 11/29/20 11:00 Pulse 85 11/29/20 11:00 Resp 20 11/29/20 11:00 BP 147/75 11/29/20 11:00 Pulse Ox 88 L 11/29/20 11:00 Intake & Output 11/28/20 11/29/20 11/29/20 18:59 06:59 18:59 Intake Total 825 Output Total 600 Balance 825 -600 Intake: IV 825 Sodium Chloride 0.9% 1, 825 000 ml @ 75 mls/hr IV . [id number] [facility] Rx#:[id number] Output: Urine 600 Other: Voiding Method Bedside Commode Bedside Commode Bedside Commode Incontinent Incontinent Incontinent External Catheter External Catheter External Catheter - Exam PHYSICAL EXAMINATION: GENERAL: The patient is alert and oriented x3 not having any respiratory distress on 6 L of oxygen. Well developed, well nourished. HEENT: Pupils are round and equally reacting to light. EOMI. No scleral icterus. No conjunctival pallor. Normocephalic, atraumatic. No pharyngeal erythema. No thyromegaly. CARDIOVASCULAR: S1 and S2 present. No murmurs, rubs, or gallops. PULMONARY: Chest is clear to auscultation, no wheezing or crackles. ABDOMEN: Soft, nontender, nondistended, normoactive bowel sounds. No palpable organomegaly. MUSCULOSKELETAL: No joint swelling or deformity. EXTREMITIES: No cyanosis, clubbing, or pedal edema. NEUROLOGICAL: Gross neurological examination did not reveal any focal deficits. SKIN: No rashes. - Labs CBC & Chem 7: 11/27/20 09:30 11/27/20 09:30 Labs: Abnormal Lab Results - Last 24 Hours (Table) 11/28/20 11/28/20 11/29/20 Range/Units 17:11 19:51 07:16 POC Glucose (mg/dL) 150 H 146 H 150 H (75-99) mg/dL 11/29/20 Range/Units 11:58 POC Glucose (mg/dL) 111 H (75-99) mg/dL Assessment and Plan Plan: - acute on chronic hypoxic and hypercapnic respiratory failure: Secondary to COPD exacerbation along with the covid 19 pneumonia. Patient was started on systemic steroids inhalational treatments. Pulmonology evaluated the patient must COPD appears to have improved wheezing improved compared to yesterday -Mild acute renal failure: Prerenal azotemia from sepsis and intravascular depletion and dehydration, improved IV fluids were discontinued. -Recently diagnosed with squamous cell lung cancer bronchial obstruction and some lung collapse. -Covid 19 pneumonia -COPD with acute exacerbation -Anxiety disorder - leukocytosis secondary to sepsis from Covid 19 as mentioned above and stent -DVT prophylaxis with Lovenox
[2020-11-29] MEDS: REMDESIVIR 100 MG in SODIUM CHLORIDE 0.9% 250 ML IVPB SCH (13:08)
[2020-11-29] MEDS: MORPHINE SULFATE 4 MG/ML SYRINGE IVP PRN ×2 (13:24→19:56)
[2020-11-29 17:02] LABS: Glucose,Whole Blood 139 mg/dL (75-99)
[2020-11-29] MEDS: CITALOPRAM HYDROBROMIDE 20 MG TAB PO SCH (19:56)
[2020-11-29 20:40] LABS: Glucose,Whole Blood 223 mg/dL (75-99)
[2020-11-30] MEDS: HYDROcodone/APAP 7.5-325MG 1 EACH TAB PO PRN ×2 (01:51→16:34)
[2020-11-30] MEDS: MORPHINE SULFATE 4 MG/ML SYRINGE IVP PRN ×2 (05:20→17:17)
[2020-11-30] MEDS: methylPREDNISolone SOD SUCCI 125 MG/2 ML VIAL IV SCH ×3 (05:20→17:19)
[2020-11-30 07:36] LABS: Glucose,Whole Blood 134 mg/dL (75-99)
[2020-11-30] MEDS: ALBUTEROL HFA INHALER INHALATION PRN ×4 (08:18→20:17)
[2020-11-30] MEDS: SYMBICORT 160-4.5 MCG INHALER INHALATION SCH ×2 (08:19→20:17)
[2020-11-30] MEDS: INSULIN ASPART (NovoLOG) 100 UNIT/ML VIAL SQ SCH ×4 (08:45→20:52)
[2020-11-30] MEDS: PANTOPRAZOLE 40 MG TABLET PO SCH (08:48)
[2020-11-30] MEDS: ENOXAPARIN 40 MG/0.4 ML SYRINGE SQ SCH (08:48)
[2020-11-30] MEDS: CHOLECALCIFEROL 25 MCG (1000 IU) TABLET PO SCH (08:48)
[2020-11-30] MEDS: NYSTATIN 100,000 UNIT/ML SUSP 500,000 UNIT/5 ML CUP PO SCH ×4 (10:12→20:53)
--- NOTE | 2020-11-30 10:41 | P.PN ---
Subjective Progress Note Date: 11/30/20 This is a 75-year-old white female patient was recently diagnosed with small ce ll lung carcinoma after she underwent endoscopy with biopsies of the left upper lobe, lingula on 11/01/2020, after she was found to have a large mass at the left pulmonary hilum with extensive mediastinal adenopathy. Biopsies were positive small cell carcinoma. PET scan on 11/04/2020 showed known left hilar malignancy with marked thoracic adenopathy, hepatic and osseous metastatic disease. MRI of the brain showed no evidence of enhancing mass or mass effect. Patient was started on chemotherapy, and she states she had 2 treatments with last one about a week ago. Following her second treatment she started feeling weak, with increased shortness of breath, cough and chest congestion. Does have history of underlying COPD usually wears 2-3 L on a regular basis. On 11/27/2019 when she came into the emergency department for evaluation of worsening dyspnea and hypoxia, she is currently up to 5 L of oxygen, her pulse ox is 90%, chest x-ray showed bibasilar atelectasis versus infiltrates. COVID 19 PCR was positive. Initial blood work showed white blood cell count of 17, hemoglobin of 12.7, sodium of 141, potassium 3.7, chloride is 109, CO2 is 18, BUN 39, creatinine of 1.05, troponin was less than 0.012. D-dimer was 2.27, pro-Was 0.31. CT Chest Showed Interval Bilateral Diffuse Patchy Groundglass Opacities and increased moderate partial left lower lobe collapse with occlusion of the bronchi, and no evidence of acute pulmonary embolism. On 11/28/2020, the patient is seen for a follow-up. The patient is currently being treated for COVID 19 related pneumonia. The patient is on Solu-Medrol, anticoagulation with Lovenox and the patient was also started on Remdesivir. Patient doing well. D-dimer from yesterday was 1.9. Inflammatory markers with an elevated LDH level at the time of admission at 2422 and the white cell count of 17.9 along with some mild neutropenia. CT of the chest showed bilateral ground glass pulmonary infiltrates, left lower lobe atelectasis, left hilar mass and mediastinal lymphadenopathy and this is typical of underlying lung cancer. Upper and lower extremities is a been negative. The patient is currently on 5 L of oxygen by nasal cannula. Afebrile. Hemodynamically stable. The patient is currently comfortable on 6 L about 2 by nasal cannula. She is currently undergoing the treatment. Her blood work today is still pending for now. On 11/29/2020, the patient is feeling slightly better. She remains on 6 L of oxygen by nasal cannula. Her speech is improved. She is breathing easier. She has some cough. No significant sputum production. No fever. No chills. No other new complaints otherwise for now. The patient is a case of Covid 19 related pneumonia. The patient remains on IV Solu-Medrol. The patient is also on Lovenox and the patient is also on Remdesivir. The patient also is known to have lung cancer and she was receiving systemic chemotherapy on outpatient basis. 11/30/2020 patient remains on 6 L. She is feeling better. She was able to get up by herself and go to the bathroom and have a bowel movement and that made her feel even better. She has a congested cough. Unable to bring up any sputum. She remains on a combination of IV Solu-Medrol, Lovenox and Remdesivir. . She is feeling stronger. Her speech is also improved. She remains on 6 L with a pulse ox of 90%. Objective - Vital Signs Vital signs: Vital Signs Temp 97.4 F L 11/30/20 07:25 Pulse 67 11/30/20 07:25 Resp 18 11/30/20 07:25 BP 124/72 11/30/20 07:25 Pulse Ox 90 L 11/30/20 07:25 Intake & Output 11/29/20 11/30/20 11/30/20 18:59 06:59 18:59 Intake Total 850 240 Output Total 250 300 550 Balance 600 -300 -310 Intake: IV 600 Sodium Chloride 0.9% 1, 600 000 ml @ 75 mls/hr IV . [id number] [facility] Rx#:[id number] Intake, IV Titration 250 Amount Remdesivir 100 mg In 250 Sodium Chloride 0.9% 250 ml @ 250 mls/hr IVPB Q24H [facility] Rx#:[id number] Oral 240 Output: Urine 250 300 550 Other: Voiding Method Bedside Commode Bedside Commode Incontinent Incontinent External Catheter External Catheter # Bowel Movements 1 - Exam GENERAL EXAM: Alert, anxious, 75-year-old white female, on 6 L of oxygen and the pulse ox of 92-97% comfortable in no apparent distress. HEAD: Normocephalic/atraumatic. EYES: Normal reaction of pupils, equal size. Conjunctiva pink, sclera white. NOSE: Clear with pink turbinates. THROAT: No erythema or exudates. NECK: No masses, no JVD, no thyroid enlargement, no adenopathy. CHEST: No chest wall deformity. Symmetrical expansion. LUNGS: Equal air entry with diffuse wheezes and rhonchi CVS: Regular rate and rhythm, normal S1 and S2, no gallops, no murmurs, no rubs ABDOMEN: Soft, nontender. No hepatosplenomegaly, normal bowel sounds, no guarding or rigidity. EXTREMITIES: No clubbing, no edema, no cyanosis, 2+ pulses and upper and lower extremities. MUSCULOSKELETAL: Muscle strength and tone normal. SPINE: No scoliosis or deformity SKIN: No rashes CENTRAL NERVOUS SYSTEM: Alert and oriented -3. No focal deficits, tone is normal in all 4 extremities. PSYCHIATRIC: Alert and oriented -3. Appropriate affect. Intact judgment and insight. - Labs CBC & Chem 7: 11/27/20 09:30 11/27/20 09:30 Labs: Abnormal Lab Results - Last 24 Hours (Table) 11/29/20 11/29/20 11/29/20 Range/Units 11:58 17:00 20:38 POC Glucose (mg/dL) 111 H 139 H 223 H (75-99) mg/dL 11/30/20 Range/Units 07:20 POC Glucose (mg/dL) 134 H (75-99) mg/dL Assessment and Plan Plan: #1. Acute on chronic hypoxemic respiratory failure related to acute COVID 19 pneumonia, onset of symptoms is approximately 7 days ago, and the patient is currently being treated with a combination of steroids, anticoagulation and she was also started on Remdesivir day #4 and the pro-calcitonin level was at 0.22. Clinically the patient is still having some shortness of breath although she is slightly improved and she is on 6 L of oxygen by nasal cannula. Repeat inflammatory markers In a.m. Clinically is looking better today. She has been less short of breath and she has more energy and her and she really seems to be much more coherent. #2. Acute exacerbation of COPD #3. Recent diagnosis of small cell lung cancer, with evidence of hepatic and osseous metastatic disease brain MRI was negative, started chemotherapy treatment last one was one week ago #4. COPD on home oxygen #5. Former smoker #6. Elevated d-dimer without CT evidence of pulmonary embolism, right lower extremity Doppler was negative for DVT #7. Increased inflammatory markers related to acute COVID 19 pneumonia #8. History of tobacco dependence, of greater than 50 years #9. Anxiety #10. History of osteoarthritis Plan: We'll continue IV Solu-Medrol for ongoing bronchospasm wheezing and shortness of breath. Clinically she is better and she is less bronchospastic and wheezy and she is resolving more clear on today's evaluation. IV fluids to KVO X-ray in a.m. Wean down the FiO2 currently on 6 L of oxygen by nasal cannula continue Lovenox at prophylactic doses Start the patient on Remdesivir and the patinet is on day #4 of treatment overall prognosis is poor and guarded in view of underlying malignancy, advanced COPD We'll continue to closely follow
[2020-11-30 11:43] LABS: Glucose,Whole Blood 158 mg/dL (75-99)
--- NOTE | 2020-11-30 13:12 | P.PN ---
Subjective Patient was a 75-year-old female on 2 L of plastic cannula oxygen at home came in with comments of shortness of breath presently requiring 5 L patient is found to have Covid 19 patient started having symptoms 2 weeks ago shortly after her discharge which he shortness of breath cough patient is wheezing on exam was also complaining of nausea and epigastric abdominal discomfort. 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 Patient was comparing of right thigh pain. Patient denied any fevers. Had a CT of the chest which showed groundglass obesities there is a partial left lower lobe collapse with occlusion of the bronchi and a hilar mass with mediastinal lymphadenopathy the patient's d-dimer is a 2.2 cm admission presently 1.90 patient does have leukocytosis patient does have history of COPD he quit smoking since her diagnosis of cancer. 11/28/2020 Patient appears to be bit emotional today and patient is presently on 6 L of oxygen. Patient is hemodynamically stable patient was on 5 L yesterday. 11/29/2020 Patient remains on Jt approximately 6 L at this time. Patient is on IV Solu- Medrol. Patient overall feels fine. Doesn't have any shortness of breath on 6 L of oxygen. Did update the her daughter yesterday evening. 11/30/2020 Patient remains on 6 L of oxygen continues to have some cough patient to respiratory status is fairly stable continues to be on Remdesivir. Patient actually previous better today Constitutional: Denied any fatigue denied any fever. Cardio vascular: denied any chest pain, palpitations Gastrointestinal denied any nausea vomiting Pulmonary: Denied any shortness of breath cough Neurologic denied any new focal deficits All inpatient medications were reviewed and appropriate changes in these medications as dictated in the interval history and assessment and plan. Objective - Vital Signs Vital signs: Vital Signs Temp 97.4 F L 11/30/20 07:25 Pulse 67 11/30/20 07:25 Resp 18 11/30/20 07:25 BP 124/72 11/30/20 07:25 Pulse Ox 90 L 11/30/20 07:25 Intake & Output 11/29/20 11/30/20 11/30/20 18:59 06:59 18:59 Intake Total 850 240 Output Total 250 300 550 Balance 600 -300 -310 Intake: IV 600 Sodium Chloride 0.9% 1, 600 000 ml @ 75 mls/hr IV . [id number] [facility] Rx#:[id number] Intake, IV Titration 250 Amount Remdesivir 100 mg In 250 Sodium Chloride 0.9% 250 ml @ 250 mls/hr IVPB Q24H [facility] Rx#:[id number] Oral 240 Output: Urine 250 300 550 Other: Voiding Method Bedside Commode Bedside Commode Incontinent Incontinent External Catheter External Catheter # Bowel Movements 1 - Exam PHYSICAL EXAMINATION: GENERAL: The patient is alert and oriented x3 not having any respiratory distress on 6 L of oxygen. Well developed, well nourished. HEENT: Pupils are round and equally reacting to light. EOMI. No scleral icterus. No conjunctival pallor. Normocephalic, atraumatic. No pharyngeal erythema. No thyromegaly. CARDIOVASCULAR: S1 and S2 present. No murmurs, rubs, or gallops. PULMONARY: Chest is clear to auscultation, no wheezing or crackles. ABDOMEN: Soft, nontender, nondistended, normoactive bowel sounds. No palpable organomegaly. MUSCULOSKELETAL: No joint swelling or deformity. EXTREMITIES: No cyanosis, clubbing, or pedal edema. NEUROLOGICAL: Gross neurological examination did not reveal any focal deficits. SKIN: No rashes. - Labs CBC & Chem 7: 11/27/20 09:30 11/27/20 09:30 Labs: Abnormal Lab Results - Last 24 Hours (Table) 11/29/20 11/29/20 11/30/20 Range/Units 17:00 20:38 07:20 POC Glucose (mg/dL) 139 H 223 H 134 H (75-99) mg/dL 11/30/20 Range/Units 11:39 POC Glucose (mg/dL) 158 H (75-99) mg/dL Assessment and Plan Plan: - acute on chronic hypoxic and hypercapnic respiratory failure: Secondary to COPD exacerbation along with the covid 19 pneumonia. Patient was started on systemic steroids inhalational treatments. Pulmonology evaluated the patient must COPD appears to have improved wheezing improved compared to admission -Mild acute renal failure: Prerenal azotemia from sepsis and intravascular depletion and dehydration, improved with IV fluids presently not on any IV fluid s. -Recently diagnosed with squamous cell lung cancer bronchial obstruction and some lung collapse. -Covid 19 pneumonia -COPD with acute exacerbation -Anxiety disorder - leukocytosis secondary to sepsis from Covid 19 as mentioned above and stent -DVT prophylaxis with Lovenox
[2020-11-30] MEDS: REMDESIVIR 100 MG in SODIUM CHLORIDE 0.9% 250 ML IVPB SCH (13:26)
[2020-11-30] MEDS: LORazepam 0.5 MG TAB PO PRN (13:26)
[2020-11-30 16:37] LABS: Glucose,Whole Blood 135 mg/dL (75-99)
[2020-11-30] MEDS: CITALOPRAM HYDROBROMIDE 20 MG TAB PO SCH (20:02)
[2020-11-30 20:28] LABS: Glucose,Whole Blood 172 mg/dL (75-99)
[2020-12-01] MEDS: methylPREDNISolone SOD SUCCI 125 MG/2 ML VIAL IV SCH ×2 (00:30→05:40)
[2020-12-01] MEDS: MORPHINE SULFATE 4 MG/ML SYRINGE IVP PRN (00:31)
[2020-12-01] MEDS: ALBUTEROL HFA INHALER INHALATION PRN (08:12)
[2020-12-01] MEDS: SYMBICORT 160-4.5 MCG INHALER INHALATION SCH (08:12)
[2020-12-01] MEDS: ENOXAPARIN 40 MG/0.4 ML SYRINGE SQ SCH (08:13)
[2020-12-01] MEDS: PANTOPRAZOLE 40 MG TABLET PO SCH (08:13)
[2020-12-01] MEDS: CHOLECALCIFEROL 25 MCG (1000 IU) TABLET PO SCH (08:13)
[2020-12-01] MEDS: NYSTATIN 100,000 UNIT/ML SUSP 500,000 UNIT/5 ML CUP PO SCH ×3 (08:13→17:49)
[2020-12-01] MEDS: HYDROcodone/APAP 7.5-325MG 1 EACH TAB PO PRN ×2 (08:15→16:33)
[2020-12-01 08:48] LABS: Glucose,Whole Blood 185 mg/dL (75-99)
[2020-12-01] MEDS: INSULIN ASPART (NovoLOG) 100 UNIT/ML VIAL SQ SCH ×3 (08:52→17:48)
--- NOTE | 2020-12-01 09:09 | XR ---
EXAMINATION TYPE: XR chest 1V portable DATE OF EXAM: 12/01/2020 COMPARISON: 11/26/2020 INDICATION: Short of breath TECHNIQUE: Single frontal view of the chest is obtained. FINDINGS: The heart size is borderline. The pulmonary vasculature is normal. Minimal left lower lobe infiltrate and small pleural effusion may be present. Findings are developing from comparison. IMPRESSION: 1. Mild developing left lower lobe infiltrate and small pleural effusion.
[2020-12-01] MEDS ORDERED: dexAMETHasone 2 MG TAB PO SCH (10:15)
--- NOTE | 2020-12-01 10:15 | P.PN ---
Subjective Progress Note Date: 12/01/20 This is a 75-year-old white female patient was recently diagnosed with small ce ll lung carcinoma after she underwent endoscopy with biopsies of the left upper lobe, lingula on 11/01/2020, after she was found to have a large mass at the left pulmonary hilum with extensive mediastinal adenopathy. Biopsies were positive small cell carcinoma. PET scan on 11/04/2020 showed known left hilar malignancy with marked thoracic adenopathy, hepatic and osseous metastatic disease. MRI of the brain showed no evidence of enhancing mass or mass effect. Patient was started on chemotherapy, and she states she had 2 treatments with last one about a week ago. Following her second treatment she started feeling weak, with increased shortness of breath, cough and chest congestion. Does have history of underlying COPD usually wears 2-3 L on a regular basis. On 11/27/2019 when she came into the emergency department for evaluation of worsening dyspnea and hypoxia, she is currently up to 5 L of oxygen, her pulse ox is 90%, chest x-ray showed bibasilar atelectasis versus infiltrates. COVID 19 PCR was positive. Initial blood work showed white blood cell count of 17, hemoglobin of 12.7, sodium of 141, potassium 3.7, chloride is 109, CO2 is 18, BUN 39, creatinine of 1.05, troponin was less than 0.012. D-dimer was 2.27, pro-Was 0.31. CT Chest Showed Interval Bilateral Diffuse Patchy Groundglass Opacities and increased moderate partial left lower lobe collapse with occlusion of the bronchi, and no evidence of acute pulmonary embolism. On 11/28/2020, the patient is seen for a follow-up. The patient is currently being treated for COVID 19 related pneumonia. The patient is on Solu-Medrol, anticoagulation with Lovenox and the patient was also started on Remdesivir. Patient doing well. D-dimer from yesterday was 1.9. Inflammatory markers with an elevated LDH level at the time of admission at 2422 and the white cell count of 17.9 along with some mild neutropenia. CT of the chest showed bilateral ground glass pulmonary infiltrates, left lower lobe atelectasis, left hilar mass and mediastinal lymphadenopathy and this is typical of underlying lung cancer. Upper and lower extremities is a been negative. The patient is currently on 5 L of oxygen by nasal cannula. Afebrile. Hemodynamically stable. The patient is currently comfortable on 6 L about 2 by nasal cannula. She is currently undergoing the treatment. Her blood work today is still pending for now. On 11/29/2020, the patient is feeling slightly better. She remains on 6 L of oxygen by nasal cannula. Her speech is improved. She is breathing easier. She has some cough. No significant sputum production. No fever. No chills. No other new complaints otherwise for now. The patient is a case of Covid 19 related pneumonia. The patient remains on IV Solu-Medrol. The patient is also on Lovenox and the patient is also on Remdesivir. The patient also is known to have lung cancer and she was receiving systemic chemotherapy on outpatient basis. 11/30/2020 patient remains on 6 L. She is feeling better. She was able to get up by herself and go to the bathroom and have a bowel movement and that made her feel even better. She has a congested cough. Unable to bring up any sputum. She remains on a combination of IV Solu-Medrol, Lovenox and Remdesivir. . She is feeling stronger. Her speech is also improved. She remains on 6 L with a pulse ox of 90%. On 12/01/2020, or seeing this patient for a follow-up. The patient is a case of related pneumonia. On today's evaluation the patient remains on oxygen and she is currently running at 6 L which is essentially the same as yesterday. She remains on IV Solu-Medrol. She is also on Remdesivir And she'll be receiving her last day of treatment. No new labs from today. The chest x-ray was done today this morning and the patient was found to have stable findings with questionable limited left lower lobe pulmonary f iltration/effusion. She is in great spirits features tolerating her diet. No nausea. No vomiting. No diarrhea. No abdominal pain. No chest pain. Objective - Vital Signs Vital signs: Vital Signs Temp 97.1 F L 12/01/20 08:00 Pulse 16 L 12/01/20 08:00 Resp 20 11/30/20 14:00 BP 130/84 12/01/20 08:00 Pulse Ox 92 L 12/01/20 08:00 Intake & Output 11/30/20 12/01/2021 18:59 06:59 18:59 Intake Total 1240 Output Total 550 Balance 690 Intake: Intake, IV Titration 250 Amount Remdesivir 100 mg In 250 Sodium Chloride 0.9% 250 ml @ 250 mls/hr IVPB Q24H [facility] Rx#:[id number] Oral 990 Output: Urine 550 Other: Voiding Method Bedside Commode Bedside Commode Incontinent Incontinent External Catheter # Voids 2 3 # Bowel Movements 1 - Exam GENERAL EXAM: Alert, anxious, 75-year-old white female, on 6 L of oxygen and the pulse ox of 92-97% comfortable in no apparent distress. HEAD: Normocephalic/atraumatic. EYES: Normal reaction of pupils, equal size. Conjunctiva pink, sclera white. NOSE: Clear with pink turbinates. THROAT: No erythema or exudates. NECK: No masses, no JVD, no thyroid enlargement, no adenopathy. CHEST: No chest wall deformity. Symmetrical expansion. LUNGS: Equal air entry with diffuse wheezes and rhonchi CVS: Regular rate and rhythm, normal S1 and S2, no gallops, no murmurs, no rubs ABDOMEN: Soft, nontender. No hepatosplenomegaly, normal bowel sounds, no guarding or rigidity. EXTREMITIES: No clubbing, no edema, no cyanosis, 2+ pulses and upper and lower extremities. MUSCULOSKELETAL: Muscle strength and tone normal. SPINE: No scoliosis or deformity SKIN: No rashes CENTRAL NERVOUS SYSTEM: Alert and oriented -3. No focal deficits, tone is normal in all 4 extremities. PSYCHIATRIC: Alert and oriented -3. Appropriate affect. Intact judgment and insight. - Labs CBC & Chem 7: 11/27/20 09:30 11/27/20 09:30 Labs: Abnormal Lab Results - Last 24 Hours (Table) 11/30/20 11/30/20 11/30/20 Range/Units 11:39 16:35 20:27 POC Glucose (mg/dL) 158 H 135 H 172 H (75-99) mg/dL 12/01/20 Range/Units 08:30 POC Glucose (mg/dL) 185 H (75-99) mg/dL Assessment and Plan Plan: #1. Acute on chronic hypoxemic respiratory failure related to acute COVID 19 pneumonia, onset of symptoms is approximately 7 days ago, and the patient is currently being treated with a combination of steroids, anticoagulation and she was also started on Remdesivir day #5 and the pro-calcitonin level was at 0.22. Clinically approving, feeling well and the patient is not having any significant shortness of breath and the patient is currently on 6 L which can be obviously weaned off. At home she is at 2 L of oxygen by nasal cannula. #2. Acute exacerbation of COPD #3. Recent diagnosis of small cell lung cancer, with evidence of hepatic and osseous metastatic disease brain MRI was negative, started chemotherapy treatment last one was one week ago #4. COPD on home oxygen #5. Former smoker #6. Elevated d-dimer without CT evidence of pulmonary embolism, right lower extremity Doppler was negative for DVT #7. Increased inflammatory markers related to acute COVID 19 pneumonia #8. History of tobacco dependence, of greater than 50 years #9. Anxiety #10. History of osteoarthritis Plan: Stop IV Solu-Medrol and put the patient on Decadron 6 mg by mouth daily to complete a ten-day course IV fluids to KVO X-ray in a.m. stable findings with questionable atelectasis in the left lower lobe Wean down the FiO2 currently on 6 L of oxygen by nasal cannula, and this is obviously wean as able. The patient has home oxygen concentrator at 2 L continue Lovenox at prophylactic doses Start the patient on Remdesivir and the patinet is on day #5 of treatment overall prognosis is poor and guarded in view of underlying malignancy, advanced COPD We'll continue to closely follow, possible home within the next 24 hours
[2020-12-01 11:12] LABS: HCT 32.8 % (34.0-46.0); HGB 11.3 gm/dL (11.4-16.0); MCH 29.9 pg (25.0-35.0); MCHC 34.5 g/dL (31.0-37.0); MCV 86.6 fL (80.0-100.0); Mean Platelet Volume 7.8; Platelet Count 251 k/uL (150-450); RBC 3.78 m/uL (3.80-5.40); RDW 13.5 % (11.5-15.5)
[2020-12-01 11:16] VITALS: RESP 16
[2020-12-01 12:15] LABS: C Reactive Protein 18.5 mg/L (<10.0); Calcium 8.8 mg/dL (8.4-10.2); Potassium 3.9 mmol/L (3.5-5.1)
--- NOTE | 2020-12-01 12:27 | P.DS ---
Providers Date of admission: 11/26/20 22:23 Attending physician: Destin Chase MD Consults: 11/26/20 20:35 Consult Physician Routine Consulting Provider: Tad Monterroso Consult Reason/Comments: covid Do you want consulting provider notified?: Yes [facility] Course: Patient was a 75-year-old female on 2 L of plastic cannula oxygen at home came in with comments of shortness of breath presently requiring 5 L patient is found to have Covid 19 patient started having symptoms 2 weeks ago shortly after her discharge which he shortness of breath cough patient is wheezing on exam was also complaining of nausea and epigastric abdominal discomfort. 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 Patient was comparing of right thigh pain. Patient denied any fevers. Had a CT of the chest which showed groundglass obesities there is a partial left lower lobe collapse with occlusion of the bronchi and a hilar mass with mediastinal lymphadenopathy the patient's d-dimer is a 2.2 cm admission presently 1.90 patient does have leukocytosis patient does have history of COPD he quit smoking since her diagnosis of cancer. 11/28/2020 Patient appears to be bit emotional today and patient is presently on 6 L of oxygen. Patient is hemodynamically stable patient was on 5 L yesterday. 11/29/2020 Patient remains on Jt approximately 6 L at this time. Patient is on IV Solu- Medrol. Patient overall feels fine. Doesn't have any shortness of breath on 6 L of oxygen. Did update the her daughter yesterday evening. 11/30/2020 Patient remains on 6 L of oxygen continues to have some cough patient to respiratory status is fairly stable continues to be on Remdesivir. Patient actually previous better today 12/01/2020 at and patient is presently on 4 L of oxygen patient usually uses 2 L at home. Patient will continue 4 L and this can be tapered as an outpatient patient will be discharged today on Decadron for 5 more days comparing total 10 day of steroid therapy. Patient completed a course of Remdesivir. Patient has mild wheezing on exam. PHYSICAL EXAMINATION: GENERAL: The patient is alert and oriented x3, not in any acute distress. Well developed, well nourished. HEENT: Pupils are round and equally reacting to light. EOMI. No scleral icterus. No conjunctival pallor. Normocephalic, atraumatic. No pharyngeal erythema. No thyromegaly. CARDIOVASCULAR: S1 and S2 present. No murmurs, rubs, or gallops. PULMONARY: Mild expiratory wheezing on exam ABDOMEN: Soft, nontender, nondistended, normoactive bowel sounds. No palpable organomegaly. MUSCULOSKELETAL: No joint swelling or deformity. EXTREMITIES: No cyanosis, clubbing, or pedal edema. NEUROLOGICAL: Gross neurological examination did not reveal any focal deficits. SKIN: No rashes. Assessment and Plan Plan: - acute on chronic hypoxic and hypercapnic respiratory failure: Secondary to COPD exacerbation along with the covid 19 pneumonia. -Mild acute renal failure: Prerenal azotemia from sepsis and intravascular depletion and dehydration, improved with IV fluids. -Recently diagnosed with squamous cell lung cancer bronchial obstruction and some lung collapse. -Covid 19 pneumonia -COPD with acute exacerbation -Anxiety disorder - leukocytosis secondary to sepsis from Covid 19 as mentioned above and stent Patient Condition at Discharge: Stable Plan - Discharge Summary Discharge Rx Participant: Yes New Discharge Prescriptions: New Cholecalciferol [Vitamin D3 (25 Mcg = 1000 Iu)] 50 mcg PO DAILY #30 tablet dexAMETHasone ORAL [Hexadrol] 6 mg PO DAILY #5 tab Continue diphenhydrAMINE [Benadryl] 25 mg PO HS PRN PRN Reason: SLEEP/ALLERGIC REACTION LORazepam [Ativan] 0.5 mg PO Q8H PRN PRN Reason: Anxiety Ibuprofen [Motrin Ib] 400 mg PO Q8H PRN PRN Reason: Pain Citalopram Hydrobromide [Citalopram HBr] 40 mg PO HS Albuterol Inhaler [Ventolin Hfa Inhaler] 2 puff INHALATION RT-QID fentaNYL 25MCG/HR PATCH [Duragesic 25MCG/HR] 1 patch TRANSDERM Q72H #3 patch Cyclobenzaprine [Flexeril] 5 mg PO TID PRN #30 tab PRN Reason: Muscle Spasm polyethylene glycoL 3350 [Miralax] 17 gm PO DAILY PRN #20 powd.pack PRN Reason: Constipation Budesonide/Formoterol Fumarate [Symbicort 160-4.5 Mcg Inhaler] 1 puff INHALATION RT-BID HYDROcodone/APAP 7.5-325MG [[place] 7.5-325] 1 tab PO Q6H PRN PRN Reason: Pain Nystatin 100,000 Unit/ml Susp [Mycostatin Oral Susp] 750,000 unit PO QID Omeprazole 20 mg PO DAILY Ondansetron HCl [Zofran] 4 mg PO Q6H PRN PRN Reason: Nausea And Vomiting Discharge Medication List Albuterol Inhaler [Ventolin Hfa Inhaler] 2 puff INHALATION RT-QID 10/25/20 [History] Citalopram Hydrobromide [Citalopram HBr] 40 mg PO HS 10/25/20 [History] Ibuprofen [Motrin Ib] 400 mg PO Q8H PRN 10/25/20 [History] LORazepam [Ativan] 0.5 mg PO Q8H PRN 10/25/20 [History] diphenhydrAMINE [Benadryl] 25 mg PO HS PRN 10/25/20 [History] Cyclobenzaprine [Flexeril] 5 mg PO TID PRN #30 tab 11/01/20 [Rx] fentaNYL 25MCG/HR PATCH [Duragesic 25MCG/HR] 1 patch TRANSDERM Q72H #3 patch 11/01/20 [Rx] polyethylene glycoL 3350 [Miralax] 17 gm PO DAILY PRN #20 powd.pack 11/01/20 [Rx] Budesonide/Formoterol Fumarate [Symbicort 160-4.5 Mcg Inhaler] 1 puff INHALATION RT-BID 11/26/20 [History] HYDROcodone/APAP 7.5-325MG [[place] 7.5-325] 1 tab PO Q6H PRN 11/26/20 [History] Nystatin 100,000 Unit/ml Susp [Mycostatin Oral Susp] 750,000 unit PO QID 11/26/20 [History] Omeprazole 20 mg PO DAILY 11/26/20 [History] Ondansetron HCl [Zofran] 4 mg PO Q6H PRN 11/26/20 [History] Cholecalciferol [Vitamin D3 (25 Mcg = 1000 Iu)] 50 mcg PO DAILY #30 tablet 12/01/20 [Rx] dexAMETHasone ORAL [Hexadrol] 6 mg PO DAILY #5 tab 12/01/20 [Rx] Follow up Appointment(s)/Referral(s): Emy Ball MD [Primary Care Provider] - 3 Days Tad Monterroso DO [Doctor of Osteopathic Medicine] - 3 Weeks
[2020-12-01 12:28] LABS: Glucose,Whole Blood 120 mg/dL (75-99)
[2020-12-01] MEDS: REMDESIVIR 100 MG in SODIUM CHLORIDE 0.9% 250 ML IVPB SCH (13:20)
[2020-12-01 14:01] LABS: Band Neutrophils % 3 %; Lymphocytes # (M) 1.03 k/uL (1.0-4.8); Metamyelocytes # (M) 0.86 k/uL (0); Metamyelocytes % 5 %; Monocytes # (M) 0.51 k/uL (0-1.0); Myelocytes # (M) 0.17 k/uL (0); Myelocytes % 1 %; Neutrophils % (M) 83 %; Nucleated Red Blood Cells 1 /100 WBC (0-0); Total Cells Counted 200; WBC 17.1 k/uL (3.8-10.6)
[2020-12-01 16:29] VITALS: BP 164/77; PULSE 86; TEMP 97.5
[2020-12-01 16:59] LABS: Glucose,Whole Blood 139 mg/dL (75-99)
== END 2020-12-01 18:35 | disposition home or self-care (01) | DRG 871 ==
LOC: EC 19:26 → 4SSUR 22:23 → 1SOBS 11-27 00:50
PROVIDERS: ADMIT Internal Medicine; ATTEND Internal Medicine
PROC: XW033E5 Introduction of Remdesivir Anti-infective into Peripheral Vein, Percutaneous Approach, New Technology Group 5 (ICD-10-PCS; principal; 2020-11-28)
DX: A41.89 Other specified sepsis (principal); J96.21 Acute and chronic respiratory failure with hypoxia; J96.22 Acute and chronic respiratory failure with hypercapnia; J12.82 Pneumonia due to coronavirus disease 2019; U07.1 COVID-19; J44.1 Chronic obstructive pulmonary disease with (acute) exacerbation; N17.9 Acute kidney failure, unspecified; J44.0 Chronic obstructive pulmonary disease with (acute) lower respiratory infection; C34.12 Malignant neoplasm of upper lobe, left bronchus or lung; C78.7 Secondary malignant neoplasm of liver and intrahepatic bile duct; C79.51 Secondary malignant neoplasm of bone; E86.0 Dehydration; E86.9 Volume depletion, unspecified; Z96.652 Presence of left artificial knee joint; G43.909 Migraine, unspecified, not intractable, without status migrainosus; R65.20 Severe sepsis without septic shock; M19.90 Unspecified osteoarthritis, unspecified site; F41.9 Anxiety disorder, unspecified; Z88.2 Allergy status to sulfonamides; Z91.041 Radiographic dye allergy status; Z79.51 Long term (current) use of inhaled steroids; Z79.52 Long term (current) use of systemic steroids; Z79.899 Other long term (current) drug therapy; Z90.49 Acquired absence of other specified parts of digestive tract; Z90.710 Acquired absence of both cervix and uterus; Z87.442 Personal history of urinary calculi; Z87.440 Personal history of urinary (tract) infections; Z87.19 Personal history of other diseases of the digestive system; Z81.8 Family history of other mental and behavioral disorders; Z99.81 Dependence on supplemental oxygen; Z87.891 Personal history of nicotine dependence
CPT/HCPCS: 36415; 71045; 71275; 80048; 80053; 82728; 83605; 83615; 83735; 84145; 84484; 85025; 85379; 85610; 85730; 86140; 87635; 93005; 94640; 96374; 96375; 99285

== ENCOUNTER 2020-12-13 14:42 | Inpatient (IN) | payer MEDICARE, BC ==
[2020-12-13] MEDS ORDERED: SODIUM CHLORIDE 0.9% 1,000 ML IV STA (15:12)
--- NOTE | 2020-12-13 15:13 | ED ---
General Adult HPI - General Chief complaint: Recheck/Abnormal Lab/Rx Stated complaint: low BP Time Seen by Provider: 12/13/20 14:49 Source: patient Mode of arrival: wheelchair Limitations: no limitations - History of Present Illness Initial comments: Dictation was produced using [employer] dictation software. please excuse any grammatical, word or spelling errors. This patient was cared for during a federal and state declared state of emergency secondary to Covid 19 Chief Complaint: 75-year-old female past medical history of lung and kidney carcinoma presents to the emergency department for low blood pressures and concerns of pneumonia History of Present Illness: Is 75-year-old female she states she's been feeling per usual. She went to her oncologist office today for a follow-up appointment. She was scheduled to have a follow-up appointment to determine if patient can resume chemotherapy for her lung in kidney cancer. She was seen in the office where she was found to have dyspnea, low blood pressure and concerns of pneum onia. She was sent here for admission, infectious disease workup and pulmonary consultation. Patient states she's been feeling usual. She has these intermittent episodes of her usual midthoracic back pain and nausea. She denies any significant vomiting. She does report having poor appetite since being discharged from the hospital. Patient was recently admitted for COVID-19 where she spent 4 days admitted to the hospital and evaluated by pulmonology. Patient wears 4 L of home oxygen. Discharge summary shows that patient was recently admitted under the care of [facility] hospitalist group. She was admitted for acute on chronic hypoxic and hypercapnic respiratory failure, mild acute renal failure. She has not had chemotherapy in several months. The ROS documented in this emergency department record has been reviewed and confirmed by me. Those systems with pertinent positive or negative responses have been documented in the HPI. All other systems are other negative and/or noncontributory. PHYSICAL EXAM: General Impression: Alert and oriented x3, not in acute distress HEENT: Normocephalic atraumatic, extra-ocular movements intact, pupils equal and reactive to light bilaterally, dry mucous membranes Cardiovascular: Heart regular rate and rhythm Chest: Able to complete full sentences, no retractions, no tachypnea Abdomen: abdomen soft, diffuse abdominal tenderness worse in the right upper quadrant, non-distended, no organomegaly Musculoskeletal: Pulses present and equal in all extremities, no peripheral edema Motor: no focal deficits noted Neurological: CN II-XII grossly intact, no focal motor or sensory deficits noted Skin: Intact with no visualized rashes Psych: Normal affect and mood ED course: 75-year-old female with past medical history of 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 She was sent here from her oncologist office. Signs upon arrival shows blood pressure of 89/62, rest of vital signs within acceptable limits. Computed tomography scan of the abdomen and pelvis was obtained given that there is concerns of sepsis without any obvious findings. She did have some abdominal pain. CT was ordered to rule out intra-abdominal source of infection. CT without contrast was obtained showing hepatic hypodensities similar to CT from previous. No acute abnormalities noted. Laboratory evaluation obtained. Leukocytosis of 19.4. Neutrophils of 17.7. Lymphocytes of 0.7. Coag panel is unremarkable. Elevated renal markers with a BUN of 43 creatinine 1.7. Lactic acidosis 2.9. Rest labs with any acceptable limits. Urinalysis does not show any signs of obvious UTI. Urinalysis is a dirty catch. She have a urinary symptoms. The patient's risk factors is concerned about bacterial infection. Given dose of Zosyn. She is observed in emergency department with stable blood pressures after intravenous fluids. That I bedside reports that patient has not been eating and drinking well since being discharged from the hospital for COVID-19. With parent Martita who is mental retardation aide for [facility] hospitalist group who is willing to accept patient's care. EKG interpretation: Ventricular rate 105, sinus tachycardia, UT interval 112, QRS 82, QTC 481. No UT prolongation, no QTC prolongation, no ST or T-wave changes noted. EKG compared to 11/26/2020 showing no changes. Overall, this EKG is unremarkable - Related Data Home Medications Medication Instructions Recorded Confirmed Albuterol Inhaler [Ventolin Hfa 2 puff INHALATION RT-QID PRN 10/25/20 12/13/20 Inhaler] Citalopram Hydrobromide 40 mg PO HS 10/25/20 12/13/20 [Citalopram HBr] Ibuprofen [Motrin Ib] 400 mg PO Q8H PRN 10/25/20 12/13/20 LORazepam [Ativan] 0.5 mg PO Q8H PRN 10/25/20 12/13/20 diphenhydrAMINE [Benadryl] 25 mg PO HS PRN 10/25/20 12/13/20 Budesonide/Formoterol Fumarate 1 puff INHALATION RT-BID 11/26/20 12/13/20 [Symbicort 160-4.5 Mcg Inhaler] HYDROcodone/APAP 7.5-325MG [[place] 1 tab PO Q6H PRN 11/26/20 12/13/20 7.5-325] Omeprazole 20 mg PO DAILY 11/26/20 12/13/20 Ondansetron HCl [Zofran] 4 mg PO Q6H PRN 11/26/20 12/13/20 Cholecalciferol [Vitamin D3 (25 25 mcg PO BID 12/13/20 12/13/20 Mcg = 1000 Iu)] Fluticasone Propion/Salmeterol 1 puff INHALATION RT-BID 12/13/20 12/13/20 [[place] 250-50 Inhub] Previous Rx's Medication Instructions Recorded Cyclobenzaprine [Flexeril] 5 mg PO TID PRN #30 tab 11/01/20 fentaNYL 25MCG/HR PATCH [Duragesic 1 patch TRANSDERM Q72H #3 patch 11/01/20 25MCG/HR] polyethylene glycoL 3350 [Miralax] 17 gm PO DAILY PRN #20 powd.pack 11/01/20 Allergies Allergy/AdvReac Type Severity Reaction Status Date / Time Iodinated Contrast Media Allergy Unknown Verified 12/13/20 15:51 [Iodinated Contrast Media - IV Dye] sulfamethoxazole Allergy Rash/Hives Verified 12/13/20 15:51 [From Bactrim] trimethoprim [From Bactrim] Allergy Rash/Hives Verified 12/13/20 15:51 Review of Systems ROS Statement: Those systems with pertinent positive or pertinent negative responses have been documented in the HPI. ROS Other: All systems not noted in ROS Statement are negative. Past Medical History Past Medical History: Cancer, Osteoarthritis (OA), Pneumonia Additional Past Medical History / Comment(s): sinus problems,kidney stones uti, bladder incnt/wears a pad,abd hernia,migraines,"muscles spasms and lt hip pain, 1980's had collapsed lung -not large enough to require c/t, DDD, sciatic, History of Any Multi-Drug Resistant Organisms: None Reported Date of last positivie culture/infection: 2015 Past Surgical History: Appendectomy, Bladder Surgery, Cholecystectomy, Hysterectomy, Orthopedic Surgery Additional Past Surgical History / Comment(s): artriscopy, lt knee replacemnen t,adrenal gland removed,lt knee, colonoscopy, dental implants, 1997 had lt foot sx for hammer toes and stated had an implant in that foot-then january 2015 had a revison of that sx, Cdiff- 2016 Past Anesthesia/Blood Transfusion Reactions: No Reported Reaction Past Psychological History: Anxiety Smoking Status: Current every day smoker Past Alcohol Use History: Rare Past Drug Use History: None Reported - Past Family History Mother Family Medical History: Dementia Additional Family Medical History / Comment(s): moms sister also had dementia Father Family Medical History: Unable to Obtain General Exam Limitations: no limitations Course Vital Signs 12/13/20 12/13/20 12/13/20 14:43 16:10 16:47 Temperature 97.5 F L 97.6 F Pulse Rate 110 H 87 Respiratory 20 18 Rate Blood Pressure 89/62 119/61 97/62 O2 Sat by Pulse 98 98 98 Oximetry 12/13/20 18:21 Temperature Pulse Rate 87 Respiratory 18 Rate Blood Pressure 97/62 O2 Sat by Pulse 98 Oximetry Medical Decision Making - Lab Data Result diagrams: 12/13/20 15:16 12/13/20 15:16 Lab Results 12/13/20 12/13/20 12/13/20 Range/Units 15:16 15:16 15:16 WBC 19.4 H (3.8-10.6) k/uL RBC 4.08 (3.80-5.40) m/uL Hgb 12.3 (11.4-16.0) gm/dL Hct 36.3 (34.0-46.0) % MCV 89.0 (80.0-100.0) fL MCH 30.2 (25.0-35.0) pg MCHC 33.9 (31.0-37.0) g/dL RDW 15.2 (11.5-15.5) % Plt Count 204 (150-450) k/uL MPV 7.9 Neutrophils % 91 % Lymphocytes % 4 % Monocytes % 4 % Eosinophils % 1 % Basophils % 1 % Neutrophils # 17.7 H (1.3-7.7) k/uL Lymphocytes # 0.7 L (1.0-4.8) k/uL Monocytes # 0.7 (0-1.0) k/uL Eosinophils # 0.1 (0-0.7) k/uL Basophils # 0.1 (0-0.2) k/uL PT 13.0 H (9.0-12.0) sec INR 1.3 H (<1.2) APTT 25.9 (22.0-30.0) sec Sodium 136 L (137-145) mmol/L Potassium 3.8 (3.5-5.1) mmol/L Chloride 99 (98-107) mmol/L Carbon Dioxide 22 (22-30) mmol/L Anion Gap 15 mmol/L BUN 43 H (7-17) mg/dL Creatinine 1.87 H (0.52-1.04) mg/dL Est GFR (CKD-EPI)AfAm 30 (>60 ml/min/1.73 sqM) Est GFR (CKD-EPI)NonAf 26 (>60 ml/min/1.73 sqM) Glucose 168 H (74-99) mg/dL Lactic Ac Sepsis Rflx Plasma Lactic Acid Jorge (0.7-2.0) mmol/L Calcium 10.2 (8.4-10.2) mg/dL Ionized Calcium Luis 5.1 (4.5-5.3) mg/dL Magnesium 1.6 (1.6-2.3) mg/dL Total Bilirubin 0.9 (0.2-1.3) mg/dL AST 61 H (14-36) U/L ALT 17 (4-34) U/L Alkaline Phosphatase 244 H (38-126) U/L Troponin I (0.000-0.034) ng/mL C-Reactive Protein 43.9 H (<1.0) mg/dL NT-Pro-B Natriuret Pep pg/mL Total Protein 6.1 L (6.3-8.2) g/dL Albumin 3.1 L (3.5-5.0) g/dL Urine Color Urine Appearance (Clear) Urine pH (5.0-8.0) Ur Specific [place] (1.001-1.035) Urine Protein (Negative) Urine Glucose (UA) (Negative) Urine Ketones (Negative) Urine Blood (Negative) Urine Nitrite (Negative) Urine Bilirubin (Negative) Urine Urobilinogen (<2.0) mg/dL Ur Leukocyte Esterase (Negative) Urine RBC (0-5) /hpf Urine WBC (0-5) /hpf Urine WBC Clumps (None) /hpf Ur Squamous Epith Cells (0-4) /hpf Urine Bacteria (None) /hpf Hyaline Casts (0-2) /lpf Urine Mucus (None) /hpf Influenza Type A (PCR) (Not Detectd) Influenza Type B (PCR) (Not Detectd) RSV (PCR) (Not Detectd) SARS-CoV-2 (PCR) (Not Detectd) 12/13/20 12/13/20 12/13/20 Range/Units 15:16 15:16 15:16 WBC (3.8-10.6) k/uL RBC (3.80-5.40) m/uL Hgb (11.4-16.0) gm/dL Hct (34.0-46.0) % MCV (80.0-100.0) fL MCH (25.0-35.0) pg MCHC (31.0-37.0) g/dL RDW (11.5-15.5) % Plt Count (150-450) k/uL MPV Neutrophils % % Lymphocytes % % Monocytes % % Eosinophils % % Basophils % % Neutrophils # (1.3-7.7) k/uL Lymphocytes # (1.0-4.8) k/uL Monocytes # (0-1.0) k/uL Eosinophils # (0-0.7) k/uL Basophils # (0-0.2) k/uL PT (9.0-12.0) sec INR (<1.2) APTT (22.0-30.0) sec Sodium (137-145) mmol/L Potassium (3.5-5.1) mmol/L Chloride (98-107) mmol/L Carbon Dioxide (22-30) mmol/L Anion Gap mmol/L BUN (7-17) mg/dL Creatinine (0.52-1.04) mg/dL Est GFR (CKD-EPI)AfAm (>60 ml/min/1.73 sqM) Est GFR (CKD-EPI)NonAf (>60 ml/min/1.73 sqM) Glucose (74-99) mg/dL Lactic Ac Sepsis Rflx Plasma Lactic Acid Jorge 2.9 H* (0.7-2.0) mmol/L Calcium (8.4-10.2) mg/dL Ionized Calcium Luis (4.5-5.3) mg/dL Magnesium (1.6-2.3) mg/dL Total Bilirubin (0.2-1.3) mg/dL AST (14-36) U/L ALT (4-34) U/L Alkaline Phosphatase (38-126) U/L Troponin I <0.012 (0.000-0.034) ng/mL C-Reactive Protein (<1.0) mg/dL NT-Pro-B Natriuret Pep 1570 pg/mL Total Protein (6.3-8.2) g/dL Albumin (3.5-5.0) g/dL Urine Color Urine Appearance (Clear) Urine pH (5.0-8.0) Ur Specific [place] (1.001-1.035) Urine Protein (Negative) Urine Glucose (UA) (Negative) Urine Ketones (Negative) Urine Blood (Negative) Urine Nitrite (Negative) Urine Bilirubin (Negative) Urine Urobilinogen (<2.0) mg/dL Ur Leukocyte Esterase (Negative) Urine RBC (0-5) /hpf Urine WBC (0-5) /hpf Urine WBC Clumps (None) /hpf Ur Squamous Epith Cells (0-4) /hpf Urine Bacteria (None) /hpf Hyaline Casts (0-2) /lpf Urine Mucus (None) /hpf Influenza Type A (PCR) (Not Detectd) Influenza Type B (PCR) (Not Detectd) RSV (PCR) (Not Detectd) SARS-CoV-2 (PCR) (Not Detectd) 12/13/20 12/13/20 12/13/20 Range/Units 15:50 16:00 16:00 WBC (3.8-10.6) k/uL RBC (3.80-5.40) m/uL Hgb (11.4-16.0) gm/dL Hct (34.0-46.0) % MCV (80.0-100.0) fL MCH (25.0-35.0) pg MCHC (31.0-37.0) g/dL RDW (11.5-15.5) % Plt Count (150-450) k/uL MPV Neutrophils % % Lymphocytes % % Monocytes % % Eosinophils % % Basophils % % Neutrophils # (1.3-7.7) k/uL Lymphocytes # (1.0-4.8) k/uL Monocytes # (0-1.0) k/uL Eosinophils # (0-0.7) k/uL Basophils # (0-0.2) k/uL PT (9.0-12.0) sec INR (<1.2) APTT (22.0-30.0) sec Sodium (137-145) mmol/L Potassium (3.5-5.1) mmol/L Chloride (98-107) mmol/L Carbon Dioxide (22-30) mmol/L Anion Gap mmol/L BUN (7-17) mg/dL Creatinine (0.52-1.04) mg/dL Est GFR (CKD-EPI)AfAm (>60 ml/min/1.73 sqM) Est GFR (CKD-EPI)NonAf (>60 ml/min/1.73 sqM) Glucose (74-99) mg/dL Lactic Ac Sepsis Rflx Y Plasma Lactic Acid Jorge (0.7-2.0) mmol/L Calcium (8.4-10.2) mg/dL Ionized Calcium Luis (4.5-5.3) mg/dL Magnesium (1.6-2.3) mg/dL Total Bilirubin (0.2-1.3) mg/dL AST (14-36) U/L ALT (4-34) U/L Alkaline Phosphatase (38-126) U/L Troponin I (0.000-0.034) ng/mL C-Reactive Protein (<1.0) mg/dL NT-Pro-B Natriuret Pep pg/mL Total Protein (6.3-8.2) g/dL Albumin (3.5-5.0) g/dL Urine Color Yellow Urine Appearance Turbid H (Clear) Urine pH 5.5 (5.0-8.0) Ur Specific [place] 1.021 (1.001-1.035) Urine Protein 1+ H (Negative) Urine Glucose (UA) Negative (Negative) Urine Ketones Negative (Negative) Urine Blood Moderate H (Negative) Urine Nitrite Negative (Negative) Urine Bilirubin 1+ H (Negative) Urine Urobilinogen 2.0 (<2.0) mg/dL Ur Leukocyte Esterase Large H (Negative) Urine RBC 14 H (0-5) /hpf Urine WBC 26 H (0-5) /hpf Urine WBC Clumps Many H (None) /hpf Ur Squamous Epith Cells 46 H (0-4) /hpf Urine Bacteria Many H (None) /hpf Hyaline Casts 15 H (0-2) /lpf Urine Mucus Rare H (None) /hpf Influenza Type A (PCR) Not Detected (Not Detectd) Influenza Type B (PCR) Not Detected (Not Detectd) RSV (PCR) Not Detected (Not Detectd) SARS-CoV-2 (PCR) Not Detected (Not Detectd) Critical Care Time Critical Care Time: Yes Total Critical Care Time: 33 Disposition Clinical Impression: Hypotension, SIRS (systemic inflammatory response syndrome), Dehydration Disposition: [facility] Condition: Fair Referrals: Emy Ball MD [Primary Care Provider] - 1-2 days Decision Time: 18:45
[2020-12-13 15:31] LABS: Basophils # (A) 0.1 k/uL (0-0.2); Basophils % (A) 1 %; Eosinophils # (A) 0.1 k/uL (0-0.7); Eosinophils % (A) 1 %; HCT 36.3 % (34.0-46.0); HGB 12.3 gm/dL (11.4-16.0); Lymphocytes # (A) 0.7 k/uL (1.0-4.8); Lymphocytes % (A) 4 %; MCH 30.2 pg (25.0-35.0); MCHC 33.9 g/dL (31.0-37.0); Mean Platelet Volume 7.9; Monocytes # (A) 0.7 k/uL (0-1.0); Monocytes % (A) 4 %; Neutrophils # (A) 17.7 k/uL (1.3-7.7); Neutrophils % (A) 91 %; Platelet Count 204 k/uL (150-450); RBC 4.08 m/uL (3.80-5.40); RDW 15.2 % (11.5-15.5); WBC 19.4 k/uL (3.8-10.6)
[2020-12-13 15:38] LABS: Ionized Calcium 5.1 mg/dL (4.5-5.3)
--- NOTE | 2020-12-13 15:41 | XR ---
EXAMINATION TYPE: XR chest 1V portable DATE OF EXAM: 12/13/2020 HISTORY: Shortness of breath. COMPARISON: None. TECHNIQUE: Single view of the chest is submitted. FINDINGS: Left hilar mass redemonstrated. Patchy infiltrate and volume loss left lower lobe with small effusion . Overall similar appearance to prior study. The heart is stable. Hilar and mediastinal structures are within normal limits. Degenerative changes are seen of the dorsal spine. IMPRESSION: 1. Left hilar mass redemonstrated. Patchy infiltrate and volume loss left lower lobe with small effu melissa. Overall similar appearance to prior study.
[2020-12-13 15:48] LABS: INR 1.3 (<1.2); Partial Thromboplastin Time 25.9 sec (22.0-30.0)
[2020-12-13 15:54] LABS: Potassium 3.8 mmol/L (3.5-5.1)
[2020-12-13 15:55] LABS: Albumin 3.1 g/dL (3.5-5.0); Calcium 10.2 mg/dL (8.4-10.2); Magnesium 1.6 mg/dL (1.6-2.3); Total Bilirubin 0.9 mg/dL (0.2-1.3); Total Protein 6.1 g/dL (6.3-8.2)
[2020-12-13 16:23] LABS: C Reactive Protein 43.9 mg/dL (<1.0)
[2020-12-13 16:29] LABS: Appearance,Urine Turbid (Clear); Bacteria,Urine Many /hpf; Bilirubin,Urine 1+ (Negative); Blood,Urine Moderate (Negative); Color,Urine Yellow; Glucose,Urine (UA) Negative (Negative); Hyaline Casts,Urine 15 /lpf (0-2); Ketones,Urine Negative (Negative); Leukocyte Esterase,Urine Large (Negative); Mucus,Urine Rare /hpf; Nitrite,Urine Negative (Negative); PH, Urine 5.5 (5.0-8.0); Protein,Urine 1+ (Negative); RBC,Urine 14 /hpf (0-5); Specific Gravity,Urine 1.021 (1.001-1.035); Squamous Epithelial Cell,Urine 46 /hpf (0-4); WBC,Urine 26 /hpf (0-5)
[2020-12-13] MEDS ORDERED: ONDANSETRON 4 MG/2 ML VIAL IVP PRN (18:10)
[2020-12-13] MEDS ORDERED: NALOXONE 0.4 MG/ML 1 ML VIAL IV PRN (18:10)
[2020-12-13] MEDS: PIPERACILLIN-TAZOBACTAM 3.375 GM in SODIUM CHLORIDE 0.9% 100 ML IVPB SCH (18:15)
[2020-12-13] MEDS: SODIUM CHLORIDE 0.9% 1,000 ML IV SCH (18:15)
--- NOTE | 2020-12-13 18:42 | CT ---
EXAMINATION TYPE: CT abdomen pelvis wo con DATE OF EXAM: 12/13/2020 COMPARISON: 10/30/2020 HISTORY: Abdominal pain. CT DLP: 446.1 mGycm Automated exposure control for dose reduction was used. Images obtained from the diaphragm to the floor the pelvis without contrast. There is some infiltrate and atelectasis at the right posterior lung base. There is some dense consol idation in the left lower lobe left paraspinal region. There is no pleural effusion. Heart size is no rmal. There are clips from cholecystectomy. There are multiple variable sized areas of hypodensity in the l iver that measure up to 3.5 cm. The spleen is intact. There is no pancreatic mass. Stomach is intact. The bile ducts are not dilated. There is no adrenal mass. Kidneys show no hydronephrosis. There are hypodense areas in both kidneys c onsistent with cortical cysts. Detail limited without contrast. There is no retroperitoneal adenopathy. Ureters are not dilated. Bladder distends smoothly. There is no inguinal hernia. There are sigmoid diverticula. I see no sign of diverticulitis. Appendix is not s een. There is no sign of thickened appendix. There is no mesenteric edema. There is no ascites or solis e air. There is no evidence of bowel obstruction. The lumbar vertebra have normal alignment. There is disc space narrowing throughout the lumbar spine. There is no compression fracture. Bony pelvis is intact. No pelvic fracture seen. Hip joints are int act. There are some subtle lucencies in the lumbar spine consistent with metastatic disease better better demonstrated on the recent PET CT scan of 11/04/2020. IMPRESSION: Multiple hepatic hypodensities consistent with metastatic disease not significantly different than ol d CT scan. There is dense left lower lobe consolidation with a changing pattern of atelectasis compared to old e xam. There is clearing of small left pleural effusion compared to old exam. Multiple renal hypodensities could be cortical cysts. Metastatic disease not excluded.
[2020-12-13] MEDS: HYDROcodone/APAP 7.5-325MG 1 EACH TAB PO SCH ×2 (18:54→23:48)
[2020-12-13] MEDS ORDERED: ALBUTEROL HFA INHALER INHALATION PRN (20:12)
[2020-12-13] MEDS ORDERED: HYDROcodone/APAP 7.5-325MG 1 EACH TAB PO PRN (20:12)
[2020-12-13] MEDS ORDERED: polyethylene glycoL 3350 17 GM POWD.PACK PO PRN (20:40)
[2020-12-13] MEDS ORDERED: IBUPROFEN 400 MG TAB PO PRN (20:40)
[2020-12-13] MEDS ORDERED: CYCLOBENZAPRINE 5 MG TAB PO PRN (20:40)
[2020-12-13] MEDS ORDERED: IPRATROPIUM-ALBUTEROL 3 ML NEB INHALATION PRN (20:43)
[2020-12-13] MEDS: CHOLECALCIFEROL 25 MCG (1000 IU) TABLET PO SCH (21:34)
[2020-12-13] MEDS: LORazepam 0.5 MG TAB PO PRN (21:34)
[2020-12-13] MEDS: CITALOPRAM HYDROBROMIDE 20 MG TAB PO SCH (21:35)
[2020-12-14] MEDS: SODIUM CHLORIDE 0.9% 1,000 ML IV SCH ×2 (01:58→16:52)
[2020-12-14] MEDS: PIPERACILLIN-TAZOBACTAM 3.375 GM in SODIUM CHLORIDE 0.9% 100 ML IVPB SCH ×3 (01:58→23:50)
[2020-12-14] MEDS: SYMBICORT 160-4.5 MCG INHALER INHALATION SCH ×2 (07:48→20:28)
--- NOTE | 2020-12-14 08:15 | P.CONS ---
History of Present Illness - Reason for Consult Consult date: 12/14/20 Hypotension Requesting physician: Sandro Rojo - Chief Complaint Weak and post covid syndrome - History of Present Illness Ms. Campbell is a very pleasant 75-year-old female who was referred to us for a new diagnosis of metastatic small cell lung cancer. She is O2 dependent, she has a 40 year pack history of smoking, states quitting but doesn't remember when. In late September early October 2020 she had a progressive, persistent cough, no hemoptysis, she was also experiencing pain in the middle of her back as well as in her left shoulder. The symptoms became so severe that it was causing her to feel lightheaded and dizzy at times, she can also not get comfortable. Family became concerned and took her to the emergency room. She had a CT angiogram on 10/25/20 revealing a large left pulmonary hilar mass encasing the left lower lobe and left upper lobe pulmonary arteries, measuring 8 x 5 cm. There was extension into the mediastinum with multiple enlarged paratracheal and anterior mediastinal lymph nodes up to 2 cm, subcarinal adenopathy. She did not have a PE. She had a Mcbride needle biopsy and bronchial washings 10/31/[address] Monterroso. All of them were nondiagnostic except for the lingula brushings, rare, mildly atypical cells suspicious for small cell, the transbronchial biopsy was positive for small cell, positive for CAM 5.2, synaptophysin and CD 56. IHC negative for TTF-1. CT of the brain with contrast 10/30/20 showed no evidence of metastatic disease. CT of the abdomen and pelvis with contrast 10/30/20 revealed numerous hypodense masses in the liver, measuring up to 3.4 x 2 cm. There was a small left pleural effusion seen. MRI of the brain with and without contrast 10/31/20 no evidence of enhancing mass. Staging PET scan 11/04/20 showed [facility] admitted the with bilateral hypermetabolic supraclavicular adenopathy right greater than left, measuring 3.4 x 2.4 cm. Left hilar mass 3.8 x 3.7 cm. Additional abnormalities in the left hilar region along subcarinal, prevascular, paratracheal, AP window and anterior superior mediastinal adenopathy. Multiple hypermetabolic foci throughout the liver, the largest one in the right lobe measuring 4.7 cm. Innumerable hypermetabolic osseous foci. Left sacral lesion, proximal right femur lesion, left L3 lesion called out for reference. Greatest osseous involvement is throughout the abdomen and pelvis. She was seen in the hospital by Dr. Garvin. Recommendation was to begin chem otherapy therapy/IO. She is in the office 11/08/20 for treatment education. During the discussion is noted patient is extraordinarily anxious, her O2 tank ran out, at 1. she burst into tears and began sobbing uncontrollably. She started to complain of chest pain, pain in the middle of her back, feeling dizzy, to touch she was clammy and sweaty. Muscles brought into evaluate patient. Once she began talking about other things, her symptoms dissipated. Patient does not appear to have substantial support at home. She has 2 daughters but, neither are here for her appointment, I did talk to one of them on the phone briefly. She states that she lives alone, she has 4-5 steps to get up into her house. She is getting back and forth to appointments via Cab at this time as her family would not let her drive because of the new addition of narcotic painkillers. 11/15/20-Pt here today s/p cycle 1 of carbo/[employer]/tecentriq. States diarrhea and vomiting yesterday and today, 1 hour, thick and frothy, nausea pill helped, 2-3 episodes of diarrhea, denied cramping, bleeding or mucus. CBC is WNL. No fevers, she does have dry mouth, SOB is stable, no swelling, pain is controlled. No other physical c/o. As above. patient had cycle #1 starting 11/09/20 and is status post 1 cycle. The patient was unable to have cycle #2 on schedule, as she was admitted with Covid pneumonitis. Discharged on 12/01/20. She was seen in the office in follow-up on 12/13/20. The patient on evaluation was quite weak and unable to give a coherent history. History was mostly obtained from the daughter. There is no history of any fevers/chills/nausea or vomiting. Patient appears to be having significant cough with production of clear phlegm. She has been quite weak with some worsening over the past few days, including in her respiratory status. Oxygen requirement is up to 4 L, and activity level is very limited. She has mostly been taking liquids with oral intake of solids also quite limited. She is able to walk only a few feet before getting winded. He is complaining of some new onset of left-sided back pain that developed while moving around earlier today. the patient was recently admitted for COVID pneumonitis. therefore second cycle of chemotherapy was delayed. Post discharge the patient was doing better, but over the last few days has deteriorated, with multiple symptoms as detailed in the HPI. On exam the patient was quite weak and otherwise functionally. In addition her blood pressure was quite low with systolic in the 70-80 range which is much lower than her baseline. - Possible etiologies were discussed in detail with her daughter. At this time concern is for developing sepsis, such as from postobstructive pneumonia second phase of COVID pneumonitis with immune mediated inflammation is also possibility, among others - Given the patient's current compromised status, she is obviously not a candidate to begin treatment at this time. She was directed to go to the em ergency room immediately. Case was discussed with [facility] ER physici Review of Systems All systems: negative Constitutional: Reports as per HPI Past Medical History Past Medical History: Cancer, Osteoarthritis (OA), Pneumonia Additional Past Medical History / Comment(s): sinus problems,kidney stones uti, bladder incnt/wears a pad,abd hernia,migraines,"muscles spasms and lt hip pain, had collapsed lung -not large enough to require c/t, DDD, sciatic, History of Any Multi-Drug Resistant Organisms: None Reported Year Discovered:: 2015 Past Surgical History: Appendectomy, Bladder Surgery, Cholecystectomy, Hysterectomy, Orthopedic Surgery Additional Past Surgical History / Comment(s): artriscopy, lt knee replacemnent,adrenal gland removed,lt knee, colonoscopy, dental implants, 1997 had lt foot sx for hammer toes and stated had an implant in that foot-then january 2015 had a revison of that sx, Cdiff- 2015 Past Anesthesia/Blood Transfusion Reactions: No Reported Reaction Past Psychological History: Anxiety Smoking Status: Current every day smoker Past Alcohol Use History: Rare Additional Past Alcohol Use History / Comment(s): quit smoking aug 2020 due to lung cancer diagnosis Past Drug Use History: None Reported - Past Family History Mother Family Medical History: Dementia Additional Family Medical History / Comment(s): moms sister also had dementia Father Family Medical History: Unable to Obtain Medications and Allergies Home Medications Medication Instructions Recorded Confirmed Type Albuterol Inhaler [Ventolin Hfa 2 puff INHALATION RT-QID PRN 10/25/20 12/13/20 History Inhaler] Citalopram Hydrobromide 40 mg PO HS 10/25/20 12/13/20 History [Citalopram HBr] Ibuprofen [Motrin Ib] 400 mg PO Q8H PRN 10/25/20 12/13/20 History LORazepam [Ativan] 0.5 mg PO Q8H PRN 10/25/20 12/13/20 History diphenhydrAMINE [Benadryl] 25 mg PO HS PRN 10/25/20 12/13/20 History Cyclobenzaprine [Flexeril] 5 mg PO TID PRN #30 tab 11/01/20 12/13/20 Rx fentaNYL 25MCG/HR PATCH [Duragesic 1 patch TRANSDERM Q72H #3 patch 11/01/20 12/13/20 Rx 25MCG/HR] polyethylene glycoL 3350 [Miralax] 17 gm PO DAILY PRN #20 powd.pack 11/01/20 Rx Budesonide/Formoterol Fumarate 1 puff INHALATION RT-BID 11/26/20 12/13/20 History [Symbicort 160-4.5 Mcg Inhaler] HYDROcodone/APAP 7.5-325MG [[place] 1 tab PO Q6H PRN 11/26/20 12/13/20 History 7.5-325] Omeprazole 20 mg PO DAILY 11/26/20 12/13/20 History Ondansetron HCl [Zofran] 4 mg PO Q6H PRN 11/26/20 12/13/20 History Cholecalciferol [Vitamin D3 (25 25 mcg PO BID 12/13/20 12/13/20 History Mcg = 1000 Iu)] Fluticasone Propion/Salmeterol 1 puff INHALATION RT-BID 12/13/20 12/13/20 History [Wixela 250-50 Inhub] Allergies Allergy/AdvReac Type Severity Reaction Status Date / Time Iodinated Contrast Media Allergy Unknown Verified 12/13/20 15:51 [Iodinated Contrast Media - IV Dye] sulfamethoxazole Allergy Rash/Hives Verified 12/13/20 15:51 [From Bactrim] trimethoprim [From Bactrim] Allergy Rash/Hives Verified 12/13/20 15:51 Physical Exam Vitals: Vital Signs Temp Pulse Pulse Resp BP BP Pulse Ox 12/14/20 05:00 97.7 F 87 16 98/65 97 12/13/20 21:46 98.4 F 87 16 102/62 99 12/13/20 20:35 16 12/13/20 20:05 70 17 110/67 100 12/13/20 18:53 97.6 F 93 18 101/65 99 12/13/20 18:21 87 18 97/62 98 12/13/20 16:47 97.6 F 87 18 97/62 98 12/13/20 16:10 119/61 98 12/13/20 14:43 97.5 F L 110 H 20 89/62 98 Intake and Output 12/13/20 12/14/20 12/14/20 22:59 06:59 14:59 Intake Total 120 1970 Balance 120 1969 Intake: Intake, IV Titration 900 Amount Piperacillin-Tazobactam 3 100 .375 gm In Sodium Chloride 0.9% 100 ml @ 25 mls/hr IVPB Q8H [facility] Rx#: [id number] Sodium Chloride 0.9% 1, 800 000 ml @ 100 mls/hr IV . Q10H [facility] Rx#:[id number] Oral 120 1070 Other: # Voids 2 Weight 58.967 kg - Constitutional General appearance: cooperative, no acute distress - EENT Eyes: EOMI ENT: NA/AT - Neck Neck: lymphadenopathy - Respiratory Respiratory: bilateral: diminished, wheezing - Cardiovascular Rhythm: irregularly irregular - Gastrointestinal General gastrointestinal: normal bowel sounds, soft - Integumentary Integumentary: pale - Neurologic Neurologic: CNII-XII intact - Musculoskeletal Musculoskeletal: generalized weakness - Psychiatric Psychiatric: A&O x's 3 Results CBC & Chem 7: 12/13/20 15:16 12/13/20 15:16 Labs: Abnormal Lab Results - Last 24 Hours (Table) 12/13/20 12/13/20 12/13/20 Range/Units 15:16 15:16 15:16 WBC 19.4 H (3.8-10.6) k/uL Neutrophils # 17.7 H (1.3-7.7) k/uL Lymphocytes # 0.7 L (1.0-4.8) k/uL PT 13.0 H (9.0-12.0) sec INR 1.3 H (<1.2) Sodium 136 L (137-145) mmol/L BUN 43 H (7-17) mg/dL Creatinine 1.87 H (0.52-1.04) mg/dL Glucose 168 H (74-99) mg/dL Plasma Lactic Acid Jorge (0.7-2.0) mmol/L AST 61 H (14-36) U/L Alkaline Phosphatase 244 H (38-126) U/L C-Reactive Protein 43.9 H (<1.0) mg/dL Total Protein 6.1 L (6.3-8.2) g/dL Albumin 3.1 L (3.5-5.0) g/dL Urine Appearance (Clear) Urine Protein (Negative) Urine Blood (Negative) Urine Bilirubin (Negative) Ur Leukocyte Esterase (Negative) Urine RBC (0-5) /hpf Urine WBC (0-5) /hpf Urine WBC Clumps (None) /hpf Ur Squamous Epith Cells (0-4) /hpf Urine Bacteria (None) /hpf Hyaline Casts (0-2) /lpf Urine Mucus (None) /hpf 12/13/20 12/13/20 Range/Units 15:16 16:00 WBC (3.8-10.6) k/uL Neutrophils # (1.3-7.7) k/uL Lymphocytes # (1.0-4.8) k/uL PT (9.0-12.0) sec INR (<1.2) Sodium (137-145) mmol/L BUN (7-17) mg/dL Creatinine (0.52-1.04) mg/dL Glucose (74-99) mg/dL Plasma Lactic Acid Jorge 2.9 H* (0.7-2.0) mmol/L AST (14-36) U/L Alkaline Phosphatase (38-126) U/L C-Reactive Protein (<1.0) mg/dL Total Protein (6.3-8.2) g/dL Albumin (3.5-5.0) g/dL Urine Appearance Turbid H (Clear) Urine Protein 1+ H (Negative) Urine Blood Moderate H (Negative) Urine Bilirubin 1+ H (Negative) Ur Leukocyte Esterase Large H (Negative) Urine RBC 14 H (0-5) /hpf Urine WBC 26 H (0-5) /hpf Urine WBC Clumps Many H (None) /hpf Ur Squamous Epith Cells 46 H (0-4) /hpf Urine Bacteria Many H (None) /hpf Hyaline Casts 15 H (0-2) /lpf Urine Mucus Rare H (None) /hpf Microbiology - Last 24 Hours (Table) 12/13/20 16:00 Urine Culture - Preliminary Urine,Clean Catch Comments: Xtary hip no fracture Assessment and Plan (1) SIRS (systemic inflammatory response syndrome) Current Visit: Yes Status: Acute Code(s): R65.10 - SIRS OF NON-INFECTIOUS ORIGIN W/O ACUTE ORGAN DYSFUNCTION SNOMED Code(s): 364149100 (2) Small cell lung cancer Current Visit: Yes Status: Acute Code(s): C34.90 - MALIGNANT NEOPLASM OF UNSP PART OF UNSP BRONCHUS OR LUNG SNOMED Code(s): 158915207 Plan: She complains of pain in hip so will image to assess for metastatic disease to bone She will follow up with Dr. Garvin for further treatment plan with new diagnosis extensive small cell after discharge IV Hydration and [place] [employer] Physician attest: I have completed the full history andphysical and agree with above dictation dictated as a scribe
[2020-12-14] MEDS ORDERED: PANTOPRAZOLE 40 MG/10 ML VIAL IV SCH (09:00)
[2020-12-14] MEDS: CHOLECALCIFEROL 25 MCG (1000 IU) TABLET PO SCH ×2 (09:12→23:49)
[2020-12-14] MEDS: PANTOPRAZOLE 40 MG TABLET PO SCH (09:13)
[2020-12-14] MEDS: HYDROcodone/APAP 7.5-325MG 1 EACH TAB PO SCH ×3 (09:14→16:51)
[2020-12-14] MEDS: LORazepam 0.5 MG TAB PO PRN (13:22)
--- NOTE | 2020-12-14 14:28 | XR ---
EXAMINATION TYPE: XR Hip Bilateral and AP pelvis DATE OF EXAM: 12/14/2020 CLINICAL HISTORY: pain TECHNIQUE: Single view the pelvis is submitted. FINDINGS: No evidence for fracture, dislocation or bony lesion. Joint spaces are mildly narrowed bi laterally. SI joints appear symmetric. IMPRESSION: 1. No acute fracture or dislocation seen. ICD 10 NO FRACTURE, INITIAL EVALUATION
--- NOTE | 2020-12-14 18:03 | P.HPIM ---
History of Present Illness 75-year-old female was sent in from oncology office as patient was hypotensive found to be dyspneic with low blood pressures. Patient is found to be dehydrated was started on IV fluids were also started on antibiotics but there is no evidence of infection at this time and medics were dyspnea and patient was recently admitted for Covid 19 with an infection. Patient has history of lung cancer patient is receiving chemotherapy at this time.` Review of Systems REVIEW OF SYSTEMS: CONSTITUTIONAL: No fever, no malaise, no fatigue. HEENT: No recent visual problems or hearing problems. Denied any sore throat. CARDIOVASCULAR: No chest pain, orthopnea, PND, no palpitations, no syncope. PULMONARY: No shortness of breath, no cough, no hemoptysis. GASTROINTESTINAL: No diarrhea, no nausea, no vomiting, no abdominal pain. NEUROLOGICAL: No headaches, no weakness, no numbness. HEMATOLOGICAL: Denies any bleeding or petechiae. GENITOURINARY: Denies any burning micturition, frequency, or urgency. MUSCULOSKELETAL/RHEUMATOLOGICAL: Denies any joint pain, swelling, or any muscle pain. ENDOCRINE: Denies any polyuria or polydipsia. The rest of the 14-point review of systems is negative. Past Medical History Past Medical History: Cancer, Osteoarthritis (OA), Pneumonia Additional Past Medical History / Comment(s): sinus problems,kidney stones uti, bladder incnt/wears a pad,abd hernia,migraines,"muscles spasms and lt hip pain, had collapsed lung -not large enough to require c/t, DDD, sciatic, History of Any Multi-Drug Resistant Organisms: None Reported Date of last positivie culture/infection: 2015 Past Surgical History: Appendectomy, Bladder Surgery, Cholecystectomy, Hysterectomy, Orthopedic Surgery Additional Past Surgical History / Comment(s): artriscopy, lt knee replacemnent,adrenal gland removed,lt knee, colonoscopy, dental implants, 1997 had lt foot sx for hammer toes and stated had an implant in that foot-then january 2015 had a revison of that sx, Cdiff- 2016 Past Anesthesia/Blood Transfusion Reactions: No Reported Reaction Past Psychological History: Anxiety Smoking Status: Current every day smoker Past Alcohol Use History: Rare Additional Past Alcohol Use History / Comment(s): quit smoking aug 2020 due to lung cancer diagnosis Past Drug Use History: None Reported - Past Family History Mother Family Medical History: Dementia Additional Family Medical History / Comment(s): moms sister also had dementia Father Family Medical History: Unable to Obtain Medications and Allergies Home Medications Medication Instructions Recorded Confirmed Type Albuterol Inhaler [Ventolin Hfa 2 puff INHALATION RT-QID PRN 10/25/20 12/13/20 History Inhaler] Citalopram Hydrobromide 40 mg PO HS 10/25/20 12/13/20 History [Citalopram HBr] Ibuprofen [Motrin Ib] 400 mg PO Q8H PRN 10/25/20 12/13/20 History LORazepam [Ativan] 0.5 mg PO Q8H PRN 10/25/20 12/13/20 History diphenhydrAMINE [Benadryl] 25 mg PO HS PRN 10/25/20 12/13/20 History Cyclobenzaprine [Flexeril] 5 mg PO TID PRN #30 tab 11/01/20 12/13/20 Rx fentaNYL 25MCG/HR PATCH [Duragesic 1 patch TRANSDERM Q72H #3 patch 11/01/20 12/13/20 Rx 25MCG/HR] polyethylene glycoL 3350 [Miralax] 17 gm PO DAILY PRN #20 powd.pack 11/01/20 12/13/20 Rx Budesonide/Formoterol Fumarate 1 puff INHALATION RT-BID 11/26/20 12/13/20 Histor y [Symbicort 160-4.5 Mcg Inhaler] HYDROcodone/APAP 7.5-325MG [[place] 1 tab PO Q6H PRN 11/26/20 12/13/20 History 7.5-325] Omeprazole 20 mg PO DAILY 11/26/20 12/13/20 History Ondansetron HCl [Zofran] 4 mg PO Q6H PRN 11/26/20 12/13/20 History Cholecalciferol [Vitamin D3 (25 25 mcg PO BID 12/13/20 12/13/20 History Mcg = 1000 Iu)] Fluticasone Propion/Salmeterol 1 puff INHALATION RT-BID 12/13/20 12/13/20 History [Wixela 250-50 Inhub] Allergies Allergy/AdvReac Type Severity Reaction Status Date / Time Iodinated Contrast Media Allergy Unknown Verified 12/13/20 15:51 [Iodinated Contrast Media - IV Dye] sulfamethoxazole Allergy Rash/Hives Verified 12/13/20 15:51 [From Bactrim] trimethoprim [From Bactrim] Allergy Rash/Hives Verified 12/13/20 15:51 Physical Exam Vitals: Vital Signs Temp Pulse Pulse Resp BP BP Pulse Ox 12/14/20 11:59 97.3 F L 74 18 96/54 99 12/14/20 05:00 97.7 F 87 16 98/65 97 12/13/20 21:46 98.4 F 87 16 102/62 99 12/13/20 20:35 16 12/13/20 20:05 70 17 110/67 100 12/13/20 18:53 97.6 F 93 18 101/65 99 12/13/20 18:21 87 18 97/62 98 Intake and Output 12/14/20 12/14/20 12/14/20 06:59 14:59 22:59 Intake Total 1970 700 Balance 1969 700 Intake: Intake, IV Titration 900 700 Amount Piperacillin-Tazobactam 3 100 100 .375 gm In Sodium Chloride 0.9% 100 ml @ 25 mls/hr IVPB Q8H [facility] Rx#: [id number] Sodium Chloride 0.9% 1, 800 600 000 ml @ 100 mls/hr IV . Q10H [facility] Rx#:[id number] Oral 1070 Other: Voiding Method Toilet Diaper Incontinent # Voids 2 4 PHYSICAL EXAMINATION: GENERAL: The patient is alert and oriented x3, not in any acute distress. Well developed, well nourished. HEENT: Pupils are round and equally reacting to light. EOMI. No scleral icterus. No conjunctival pallor. Normocephalic, atraumatic. No pharyngeal erythema. No thyromegaly. CARDIOVASCULAR: S1 and S2 present. No murmurs, rubs, or gallops. PULMONARY: Chest is clear to auscultation, no wheezing or crackles. ABDOMEN: Soft, nontender, nondistended, normoactive bowel sounds. No palpable organomegaly. MUSCULOSKELETAL: No joint swelling or deformity. EXTREMITIES: No cyanosis, clubbing, or pedal edema. NEUROLOGICAL: Gross neurological examination did not reveal any focal deficits. SKIN: No rashes. Results CBC & Chem 7: 12/13/20 15:16 12/13/20 15:16 Labs: Microbiology - Last 24 Hours (Table) 12/13/20 15:16 Blood Culture - Preliminary Blood No Growth after 24 hours 12/13/20 16:00 Urine Culture - Preliminary Urine,Clean Catch Assessment and Plan Plan: -Acute renal failure: Patient has elevated creatinine of 1.87 secondary to dehydration and intravascular depletion patient will be started on IV fluids and continued on IV fluids no evidence of infection are reviewed the computed tomography scan of the chest which did not show any pneumonia or consolidation but it was read as dense consolidation on the computed tomography scan, CT of the abdomen and chest did show significant metastatic disease and significant hepatic metastasis. -Hypotension secondary to dehydration IV fluids as mentioned above Recent Covid 19 infection -Renal cell cancer: In college was consulted -Depression -Nicotine use. Next and-due to prophylaxis with the heparin
--- NOTE | 2020-12-14 19:02 | CONS ---
CONSULTATION DATE OF SERVICE: 12/14/2020 REASON FOR CONSULTATION: SIRS. HISTORY OF PRESENT ILLNESS: The patient is a 75-year-old female with a past medical history significant for small-cell lung cancer, for which the patient received her first chemo on 11/15/2020. The patient subsequently was admitted to [facility] for COVID pneumonia in the beginning of November and was discharged on 12/01/2020. The patient went for her follow-up visit with her oncologist yesterday. At the time of evaluation, the patient was noted to be very weak and incoherent. The patient has been complaining of significant cough with production of some clear sputum. The patient has been quite weak, with difficulty getting up and around, and also complaining of shortness of breath. No clear history of any nausea, vomiting or any diarrhea. The patient was noted to be hypoxic and hypotensive at the oncology office. With concern about possible postobstructive pneumonia or sepsis, the patient was sent to [facility] ER for further evaluation. On arrival in the ER, the patient was afebrile. The patient is currently saturating 92% to 99% on 4 L nasal cannula. The patient did have a white count of 19.4 with a left shift and did have elevated BUN and creatinine. Lactic acid was 2.9. CRP was 43.9. She did have a positive UA with large leukocyte esterase and 26 WBCs, many bacteria. Chen PCR was negative. RSV and influenza PCR was negative. The patient did have a chest x-ray; left hilar mass was re-demonstrated, patchy infiltrate, volume loss, left lower lobe. CT of abdomen and pelvis did show concern for dense left lower lobe consultation with changing pattern of atelectasis compared to old exam. The patient was started on Zosyn. Subsequently that has been discontinued by the primary physician. Infectious Disease was consulted for further recommendations regarding antibiotic therapy. REVIEW OF SYSTEMS: Positive points have been mentioned in the HPI. Rest of the systems are negative. PAST MEDICAL HISTORY: Significant for small-cell lung cancer, history of osteoarthritis, pneumonia and recent COVID-19 infection. PAST SURGICAL HISTORY: Appendectomy, bladder surgery, cholecystectomy, hysterectomy, left knee replacement, bronchoscopy with biopsy. SOCIAL HISTORY: Patient a current everyday smoker. Rarely drinks. No drug use. FAMILY HISTORY: Mother with history of dementia. ALLERGIES: IODINATED CONTRAST DYE and SULFAMETHOXAZOLE. MEDICATIONS: The patient is currently on Tylenol, [place], Ventolin, DuoNeb, Symbicort, Celexa, Flexeril, Duragesic patch, Ativan, Narcan, Zofran, Protonix, MiraLAX, Zosyn, which was discontinued. PHYSICAL EXAMINATION: Blood pressure is 96/54, pulse of 74, temperature 97.3. She is 99% on 4 L nasal cannula. General description is an elderly female lying in bed in no distress. No tachypnea or accessory muscle of respiration use. HEENT: Examination shows no pallor or scleral icterus. Oral mucous membrane is dry. NECK: Trachea is central. No thyromegaly. LUNGS: Unlabored breathing. Decreased breath sounds at the base. No wheeze. HEART: S1, S2. Regular rate and rhythm. ABDOMEN: Soft. No tenderness. No guarding or rigidity. EXTREMITIES: No edema of the feet. SKIN EXAMINATION: No rash or mass palpable. Neurologically the patient is awake, alert, oriented x3. Mood and affect normal. LABS: Hemoglobin is 12.3, white count 19.4, BUN of 43, creatinine 1.87. AST was 51. CRP 43.9. Urine is mildly positive. DIAGNOSTIC IMPRESSION AND PLAN: Patient admitted to hospital with generalized weakness, increasing shortness of breath. Did have a cough with sputum production with evidence of left lower lobe consolidation seen on the CT. Did have a positive UA in this patient with a history of small-cell cancer with one chemo about a month ago, now with elevated white count, elevated lactic acid. Underlying pneumonia needs to be considered plus/minus urinary tract infection. PLAN: 1. We will obtain a procalcitonin level and check sputum for Gram stain and culture. 2. We will start the patient on Zosyn 3.375 grams q.8 hours, waiting for the culture to finalize. 3. Will follow clinical condition and culture to further adjust medication if needed. Thank you for this consultation. Will follow this patient along with you. MMODL / IJN: [id number] /
[2020-12-15] MEDS: CITALOPRAM HYDROBROMIDE 20 MG TAB PO SCH ×2 (03:25→21:43)
[2020-12-15] MEDS: HYDROcodone/APAP 7.5-325MG 1 EACH TAB PO SCH ×2 (03:25→10:41)
[2020-12-15] MEDS: SYMBICORT 160-4.5 MCG INHALER INHALATION SCH ×2 (09:37→20:48)
[2020-12-15] MEDS: SODIUM CHLORIDE 0.9% 1,000 ML IV SCH ×2 (09:43→13:11)
[2020-12-15] MEDS: PIPERACILLIN-TAZOBACTAM 3.375 GM in SODIUM CHLORIDE 0.9% 100 ML IVPB SCH ×2 (10:03→17:13)
[2020-12-15] MEDS: CHOLECALCIFEROL 25 MCG (1000 IU) TABLET PO SCH ×2 (10:42→21:43)
[2020-12-15] MEDS: PANTOPRAZOLE 40 MG TABLET PO SCH (12:04)
[2020-12-15 12:19] LABS: Chloride 110 mmol/L (98-107); Glucose 52 mg/dL (74-99); Potassium 2.8 mmol/L (3.5-5.1); Sodium 141 mmol/L (137-145)
[2020-12-15 12:20] LABS: African American GFR (CKD) >90 (>60 ml/min/1.73 sqM); Anion Gap 10 mmol/L; Blood Urea Nitrogen 20 mg/dL (7-17); Calcium 9.5 mg/dL (8.4-10.2); Carbon Dioxide 21 mmol/L (22-30); Non-African American GFR(CKD) 84 (>60 ml/min/1.73 sqM)
[2020-12-15 12:36] LABS: Glucose,Whole Blood 75 mg/dL (75-99)
[2020-12-15] MEDS ORDERED: Potassium Replacement Protocol 1 EACH MISC MISCELLANE PRN (12:39)
[2020-12-15 12:49] LABS: Basophils % (A) 0 %; Eosinophils % (A) 0 %; HCT 31.2 % (34.0-46.0); HGB 9.8 gm/dL (11.4-16.0); Lymphocytes # (A) 0.7 k/uL (1.0-4.8); Lymphocytes % (A) 7 %; MCH 28.6 pg (25.0-35.0); MCHC 31.5 g/dL (31.0-37.0); MCV 90.8 fL (80.0-100.0); Mean Platelet Volume 8.4; Monocytes # (A) 0.5 k/uL (0-1.0); Monocytes % (A) 5 %; Neutrophils % (A) 86 %; Platelet Count 180 k/uL (150-450); RBC 3.43 m/uL (3.80-5.40); RDW 15.9 % (11.5-15.5); WBC 10.4 k/uL (3.8-10.6)
[2020-12-15] MEDS: POTASSIUM CHLORIDE ER 20 MEQ TAB.ER PO SCH ×4 (13:11→23:37)
--- NOTE | 2020-12-15 13:41 | P.PN ---
Subjective Progress Note Date: 12/15/20 75-year-old female was sent in from oncology office as patient was hypotensive found to be dyspneic with low blood pressures. Patient is found to be dehydrated was started on IV fluids were also started on antibiotics but there is no evidence of infection at this time and medics were dyspnea and patient was recently admitted for Covid 19 with an infection. Patient has history of lung cancer patient is receiving chemotherapy at this time.` 12/15/2020 A is seen and evaluated in follow-up this morning and per nursing staff is slightly confused and not alert and oriented 3 and has recently received Ativan and per nursing staff she takes this at home twice daily although will hold at this time and monitor for improvements and confusion. Infectious disease along with oncology following as patient was most recently receiving treatment for metastatic small cell lung cancer but due to current admissions and COVID-19 treatments have been on hold. Patient is also noted to be on a number of narc otics which have been decreased due to patient's lethargy and mentation. Patient is oxygen dependent normally of 3 L currently 97% on 4 L via nasal cannula. Patient is afebrile. Blood cultures negative and currently attempting to obtain sputum culture and urine culture preliminary showing gram-negative bacilli and patient was restarted back on IV Zosyn and infectious disease is following. Review of systems: Constitutional: reports of fatigue, no reports of fever, or chills Cardiovascular: No reports of chest pain or palpitations Respiratory: No reports of worsening shortness of breath with occasional cough GI: No reports of nausea, vomiting, or diarrhea : No reports of dysuria or retention Neurovascular: reports of weakness All medications have been reviewed Objective - Vital Signs Vital signs: Vital Signs Temp 97.9 F 12/15/20 05:00 Pulse 101 H 12/15/20 05:00 Resp 18 12/15/20 05:00 BP 143/88 12/15/20 05:00 Pulse Ox 97 12/15/20 05:00 Intake & Output 12/14/20 12/15/20 12/15/20 18:59 06:59 18:59 Intake Total 700 1800 Balance 700 1800 Intake: Intake, IV Titration 700 1300 Amount Piperacillin-Tazobactam 3 100 .375 gm In Sodium Chloride 0.9% 100 ml @ 25 mls/hr IVPB Q8H [facility] Rx#: [id number] Piperacillin-Tazobactam 3 100 .375 gm In Sodium Chloride 0.9% 100 ml @ 25 mls/hr IVPB Q8HR [facility] Rx# :[id number] Sodium Chloride 0.9% 1, 600 1200 000 ml @ 100 mls/hr IV . Q10H [facility] Rx#:[id number] Oral 500 Other: Voiding Method Toilet Bedside Commode Bedside Commode Diaper Diaper Diaper Incontinent Incontinent Incontinent # Voids 4 4 - Exam GENERAL: The patient is alert and oriented x2-3, not in any acute distress. Well developed, well nourished. HEENT: Pupils are round and equally reacting to light. EOMI. No scleral icterus. No conjunctival pallor. Normocephalic, atraumatic. No pharyngeal erythema. No thyromegaly. CARDIOVASCULAR: S1 and S2 present. No murmurs, rubs, or gallops. PULMONARY: Diminished breath sounds bilaterally with a few scattered rhonchi noted. ABDOMEN: Soft, nontender, nondistended, normoactive bowel sounds. No palpable organomegaly. MUSCULOSKELETAL: No joint swelling or deformity. EXTREMITIES: No cyanosis, clubbing, or pedal edema. NEUROLOGICAL: Gross neurological examination did not reveal any focal deficits. Diffusely weak SKIN: No rashes. - Labs CBC & Chem 7: 12/15/20 09:51 12/15/20 09:51 Labs: Abnormal Lab Results - Last 24 Hours (Table) 12/15/20 12/15/20 12/15/20 Range/Units 02:28 02:28 09:51 RBC 3.43 L (3.80-5.40) m/uL Hgb 9.8 L D (11.4-16.0) gm/dL Hct 31.2 L (34.0-46.0) % RDW 15.9 H (11.5-15.5) % Neutrophils # 9.0 H (1.3-7.7) k/uL Lymphocytes # 0.7 L (1.0-4.8) k/uL Potassium (3.5-5.1) mmol/L Chloride (98-107) mmol/L Carbon Dioxide (22-30) mmol/L BUN (7-17) mg/dL Glucose (74-99) mg/dL C-Reactive Protein 25.7 H (<1.0) mg/dL Procalcitonin 1.43 H (0.02-0.09) ng/mL 12/15/20 Range/Units 09:51 RBC (3.80-5.40) m/uL Hgb (11.4-16.0) gm/dL Hct (34.0-46.0) % RDW (11.5-15.5) % Neutrophils # (1.3-7.7) k/uL Lymphocytes # (1.0-4.8) k/uL Potassium 2.8 L (3.5-5.1) mmol/L Chloride 110 H (98-107) mmol/L Carbon Dioxide 21 L (22-30) mmol/L BUN 20 H (7-17) mg/dL Glucose 52 L (74-99) mg/dL C-Reactive Protein (<1.0) mg/dL Procalcitonin (0.02-0.09) ng/mL Microbiology - Last 24 Hours (Table) 12/13/20 16:00 Urine Culture - Preliminary Urine,Clean Catch Gram Neg Bacilli 12/13/20 15:16 Blood Culture - Preliminary Blood No Growth after 24 hours Assessment and Plan Assessment: -Acute renal failure: Patient has elevated creatinine of 1.87 secondary to dehydration and intravascular depletion patient will be started on IV fluids and continued on IV fluids no evidence of infection are reviewed the computed tomography scan of the chest which did not show any pneumonia or consolidation but it was read as dense consolidation on the computed tomography scan, CT of the abdomen and chest did show significant metastatic disease and significant hepatic metastasis. Kidney functions improving and continued on IV fluids, patient's creatinine today is 0.72, will decrease IV fluid -Hypotension secondary to dehydration IV fluids as mentioned above -Acute urinary tract infection with preliminary culture showing gram-negative bacilli and patient is maintained on Zosyn, infectious disease is following. -Hypokalemia, probably 2.8 and replacing per protocol, will repeat a.m. labs. -Recent Covid 19 infection -Small cell lung cancer, oncology following -Depression -Nicotine use. -DVT prophylaxis with subcutaneous heparin -Full code Plan: Ativan discontinued and pain medications only as needed as patient's mentation was slightly worse than yesterday. Patient was maintained on clear liquids although denying any abdominal pain and will advance to monitor for tolerance. Patient's potassium was found to be 2.8 and will replace per protocol and repeat a.m. labs. Will cut down IV fluids and advance diet and monitor. Urine cultures preliminary showing gram-negative bacilli and patient is maintained on IV antibiotics in the form of Zosyn and will continue while awaiting for cultures to finalized. Will have PT/OT evaluate the patient.
--- NOTE | 2020-12-15 19:07 | P.PN ---
Subjective Progress Note Date: 12/15/20 Objective - Vital Signs Vital signs: Vital Signs Temp 97.5 F L 12/15/20 13:43 Pulse 99 12/15/20 13:43 Resp 21 12/15/20 13:43 BP 123/74 12/15/20 13:43 Pulse Ox 97 12/15/20 13:43 Intake & Output 12/15/20 12/15/20 12/16/20 06:59 18:59 06:59 Intake Total 1800 100 Balance 1800 100 Intake: Intake, IV Titration 1300 100 Amount Piperacillin-Tazobactam 3 100 100 .375 gm In Sodium Chloride 0.9% 100 ml @ 25 mls/hr IVPB Q8HR [facility] Rx# :[id number] Sodium Chloride 0.9% 1, 1200 000 ml @ 20 mls/hr IV . Q24H [facility] Rx#:[id number] Oral 500 Other: Voiding Method Bedside Commode Bedside Commode Diaper Diaper Incontinent Incontinent # Voids 4 # Bowel Movements 1 - Exam - Constitutional General appearance: cooperative, no acute distress - EENT Eyes: EOMI ENT: NA/AT - Neck Neck: lymphadenopathy - Respiratory Respiratory: bilateral: diminished, wheezing - Cardiovascular Rhythm: irregularly irregular - Gastrointestinal General gastrointestinal: normal bowel sounds, soft - Integumentary Integumentary: pale - Neurologic Neurologic: CNII-XII intact - Musculoskeletal Musculoskeletal: generalized weakness - Psychiatric Psychiatric: A&O x's 3 - Labs CBC & Chem 7: 12/15/20 09:51 12/15/20 09:51 Labs: Abnormal Lab Results - Last 24 Hours (Table) 12/15/20 12/15/20 12/15/20 Range/Units 02:28 02:28 09:51 RBC 3.43 L (3.80-5.40) m/uL Hgb 9.8 L D (11.4-16.0) gm/dL Hct 31.2 L (34.0-46.0) % RDW 15.9 H (11.5-15.5) % Neutrophils # 9.0 H (1.3-7.7) k/uL Lymphocytes # 0.7 L (1.0-4.8) k/uL Potassium (3.5-5.1) mmol/L Chloride (98-107) mmol/L Carbon Dioxide (22-30) mmol/L BUN (7-17) mg/dL Glucose (74-99) mg/dL C-Reactive Protein 25.7 H (<1.0) mg/dL Procalcitonin 1.43 H (0.02-0.09) ng/mL 12/15/20 Range/Units 09:51 RBC (3.80-5.40) m/uL Hgb (11.4-16.0) gm/dL Hct (34.0-46.0) % RDW (11.5-15.5) % Neutrophils # (1.3-7.7) k/uL Lymphocytes # (1.0-4.8) k/uL Potassium 2.8 L (3.5-5.1) mmol/L Chloride 110 H (98-107) mmol/L Carbon Dioxide 21 L (22-30) mmol/L BUN 20 H (7-17) mg/dL Glucose 52 L (74-99) mg/dL C-Reactive Protein (<1.0) mg/dL Procalcitonin (0.02-0.09) ng/mL Microbiology - Last 24 Hours (Table) 12/13/20 16:00 Urine Culture - Final Urine,Clean Catch Escherichia coli 12/13/20 15:16 Blood Culture - Preliminary Blood No Growth after 48 hours Assessment and Plan (1) SIRS (systemic inflammatory response syndrome) Current Visit: Yes Status: Acute Code(s): R65.10 - SIRS OF NON-INFECTIOUS ORIGIN W/O ACUTE ORGAN DYSFUNCTION SNOMED Code(s): 968599052 (2) Small cell lung cancer Current Visit: Yes Status: Acute Code(s): C34.90 - MALIGNANT NEOPLASM OF UNSP PART OF UNSP BRONCHUS OR LUNG SNOMED Code(s): 429401548 Plan: She complains of pain in hip so will image to assess for metastatic disease to bone She will follow up with Dr. Garvin for further treatment plan with new diagnosis extensive small cell after discharge IV Hydration and Ocampo Cultures UTI - POsitive ecoli culture - Abx on board Hypokalemia: - CHeck mag and recheck after protocol
--- NOTE | 2020-12-15 20:10 | PN ---
PROGRESS NOTE DATE OF SERVICE: 12/15/2020 REASON FOR FOLLOWUP: Pneumonia and a question of UTI. INTERVAL HISTORY: The patient is currently afebrile. The patient mentioned she is feeling much better today. She is breathing comfortably. The patient does have a cough with occasional sputum production. No abdominal pain or diarrhea. PHYSICAL EXAMINATION: Blood pressure 123/74, pulse 99, temperature 97.5. She is 97% on 4 L nasal cannula. General description is an elderly female lying in bed in no distress. RESPIRATORY SYSTEM: Unlabored breathing with decreased breath sounds at the base. No wheeze. HEART: S1, S2. Regular rate and rhythm. ABDOMEN: Soft. No tenderness. LABS: BUN of 20, creatinine 0.72. Hemoglobin 9.8, white count of 10.4, which came down from initial white count of 19.4. She did have elevated CRP as well as procalcitonin. DIAGNOSTIC IMPRESSION AND PLAN: Patient admitted to hospital with weakness, shortness of breath, cough and hypertension with concern for possible pneumonia and urinary tract infection. Patient is covered with Zosyn and having clinical response; to continue. Hopefully finish therapy with oral antibiotics. Continue supportive care. MMODL / IJN: [id number] / MTDD
[2020-12-15 21:03] LABS: Magnesium 1.5 mg/dL (1.6-2.3); Potassium 3.2 mmol/L (3.5-5.1)
[2020-12-15] MEDS: ACETAMINOPHEN TAB 325 MG TAB PO PRN (21:43)
[2020-12-16] MEDS: POTASSIUM CHLORIDE ER 20 MEQ TAB.ER PO SCH (01:01)
[2020-12-16] MEDS: PIPERACILLIN-TAZOBACTAM 3.375 GM in SODIUM CHLORIDE 0.9% 100 ML IVPB SCH ×3 (02:49→15:36)
[2020-12-16 03:21] LABS: Basophils % (A) 0 %; Eosinophils % (A) 1 %; HCT 30.6 % (34.0-46.0); HGB 9.7 gm/dL (11.4-16.0); Lymphocytes # (A) 0.8 k/uL (1.0-4.8); Lymphocytes % (A) 8 %; MCH 28.7 pg (25.0-35.0); MCHC 31.7 g/dL (31.0-37.0); MCV 90.4 fL (80.0-100.0); Mean Platelet Volume 7.7; Monocytes # (A) 0.5 k/uL (0-1.0); Monocytes % (A) 5 %; Neutrophils # (A) 8.1 k/uL (1.3-7.7); Neutrophils % (A) 84 %; Platelet Count 173 k/uL (150-450); RBC 3.38 m/uL (3.80-5.40); RDW 15.8 % (11.5-15.5); WBC 9.6 k/uL (3.8-10.6)
[2020-12-16 03:28] LABS: ALT 13 U/L (4-34); AST 58 U/L (14-36); African American GFR (CKD) >90 (>60 ml/min/1.73 sqM); Albumin 2.4 g/dL (3.5-5.0); Alkaline Phosphatase 241 U/L (38-126); Anion Gap 4 mmol/L; Blood Urea Nitrogen 16 mg/dL (7-17); Calcium 10.4 mg/dL (8.4-10.2); Carbon Dioxide 23 mmol/L (22-30); Chloride 114 mmol/L (98-107); Globulin 2.5 g/dL; Glucose 77 mg/dL (74-99); Magnesium 1.4 mg/dL (1.6-2.3); Non-African American GFR(CKD) 88 (>60 ml/min/1.73 sqM); Potassium 3.9 mmol/L (3.5-5.1); Sodium 141 mmol/L (137-145); Total Bilirubin 0.6 mg/dL (0.2-1.3); Total Protein 4.9 g/dL (6.3-8.2)
[2020-12-16] MEDS: SODIUM CHLORIDE 0.9% 1,000 ML IV SCH (03:32)
[2020-12-16] MEDS: SYMBICORT 160-4.5 MCG INHALER INHALATION SCH (07:50)
[2020-12-16] MEDS: ACETAMINOPHEN TAB 325 MG TAB PO PRN ×2 (08:28→14:01)
[2020-12-16] MEDS: CHOLECALCIFEROL 25 MCG (1000 IU) TABLET PO SCH (08:28)
[2020-12-16] MEDS: PANTOPRAZOLE 40 MG TABLET PO SCH (08:31)
[2020-12-16 09:42] VITALS: BP 161/94; TEMP 97.5
[2020-12-16] MEDS: IPRATROPIUM-ALBUTEROL 3 ML NEB INHALATION SCH ×2 (11:28→15:07)
[2020-12-16 11:32] VITALS: RESP 18
[2020-12-16 15:19] VITALS: PULSE 110
--- NOTE | 2020-12-16 15:41 | P.DS ---
Providers Date of admission: 12/13/20 18:10 Expected date of discharge: 12/16/20 Attending physician: Mitesh Munson Consults: 12/13/20 17:37 Consult Physician Routine Consulting Provider: Emeterio Garvin Consult Reason/Comments: hx of CA Do you want consulting provider notified?: Yes 12/13/20 18:12 Consult Physician Routine Consulting Provider: Maegan Norman Consult Reason/Comments: sirs Do you want consulting provider notified?: Yes Primary care physician: Emy Ball Hospital Course: Final diagnosis -Acute renal failure: secondary to dehydration and intravascular depletion -Hypotension secondary to dehydration -Hypomagnesemia -Acute urinary tract infection with culture finalizing showing E. coli -Hypokalemia, improved -Recent Covid 19 infection -Small cell lung cancer, oncology outpatient -Depression -Nicotine use. -DVT prophylaxis -Full code Discharge disposition Patient is being discharged in a stable condition with guarded prognosis to home. Patient will follow-up with Dr. Emy ball upon discharge. Patient also instructed to follow-up with oncology Dr. Garvin and will continue with home care in the outpatient setting. Will also continue on oral antibiotics in the form of Levaquin 500 mg daily for the next 1 week to complete the course. Total time taken is greater than 35 minutes. Hospital course 75-year-old female was sent in from oncology office as patient was hypotensive found to be dyspneic with low blood pressures. Patient is found to be dehydrated was started on IV fluids were also started on antibiotics but there is no evidence of infection at this time and medics were dyspnea and patient was recently admitted for Covid 19 with an infection. Patient has history of lung cancer patient is receiving chemotherapy at this time.` 12/15/2020 Patient is seen and evaluated in follow-up this morning and per nursing staff is slightly confused and not alert and oriented 3 and has recently received Ativan and per nursing staff she takes this at home twice daily although will hold at this time and monitor for improvements and confusion. Infectious disease along with oncology following as patient was most recently receiving treatment for metastatic small cell lung cancer but due to current admissions and COVID-19 treatments have been on hold. Patient is also noted to be on a number of narcotics which have been decreased due to patient's lethargy and mentation. Patient is oxygen dependent normally of 3 L currently 97% on 4 L via nasal cannula. Patient is afebrile. Blood cultures negative and currently attempting to obtain sputum culture and urine culture preliminary showing gram-negative bacilli and patient was restarted back on IV Zosyn and infectious disease is following. 12/16/2020 Patient is seen in follow-up with no acute overnight issues. Patient is being discharged today and family is agreeable to take the patient home with home care. Patient was continued on IV Zosyn and urine cultures finalized showing E. coli and patient will continue on oral Levaquin 500 mg daily for the next one week to complete course. Magnesium was slightly low and replaced today and prescriptions provided for repeat labs in 2-3 days. Patient will follow-up with Dr. Garvin in the office to discuss reinitiating chemotherapy next week. Currently no reports of chest pain, worsening shortness of breath, or palpitations. Kobi uribe is afebrile. No reports of nausea or vomiting and patient is tolerating diet. Patient will be discharged home today. Guarded prognosis. On exam vital signs are stable. Cardio S1, S2 are muffled. Respiratory shows diminished breath sounds at the bases with no wheezing or rhonchi noted. Abdomen is soft and nontender. Nervous system shows no focal deficits. Please refer to medication reconciliation sheet for a list of medications. Patient Condition at Discharge: Fair Plan - Discharge Summary New Discharge Prescriptions: New Levofloxacin [Levaquin] 500 mg PO DAILY 7 Days #7 tab Acetaminophen Tab [Tylenol] 650 mg PO Q6HR PRN tab PRN Reason: Mild Pain Or Fever > 100.5 Continue diphenhydrAMINE [Benadryl] 25 mg PO HS PRN PRN Reason: SLEEP/ALLERGIC REACTION Citalopram Hydrobromide [Citalopram HBr] 40 mg PO HS Albuterol Inhaler [Ventolin Hfa Inhaler] 2 puff INHALATION RT-QID PRN PRN Reason: Shortness Of Breath fentaNYL 25MCG/HR PATCH [Duragesic 25MCG/HR] 1 patch TRANSDERM Q72H #3 patch Cyclobenzaprine [Flexeril] 5 mg PO TID PRN #30 tab PRN Reason: Muscle Spasm polyethylene glycoL 3350 [Miralax] 17 gm PO DAILY PRN #20 powd.pack PRN Reason: Constipation Budesonide/Formoterol Fumarate [Symbicort 160-4.5 Mcg Inhaler] 1 puff INHALATION RT-BID HYDROcodone/APAP 7.5-325MG [[place] 7.5-325] 1 tab PO Q6H PRN PRN Reason: Pain Cholecalciferol [Vitamin D3 (25 Mcg = 1000 Iu)] 25 mcg PO BID Omeprazole 20 mg PO DAILY Ondansetron HCl [Zofran] 4 mg PO Q6H PRN PRN Reason: Nausea And Vomiting Fluticasone Propion/Salmeterol [Wixela 250-50 Inhub] 1 puff INHALATION RT-BID Discontinued LORazepam [Ativan] 0.5 mg PO Q8H PRN PRN Reason: Anxiety Ibuprofen [Motrin Ib] 400 mg PO Q8H PRN PRN Reason: Pain Discharge Medication List Albuterol Inhaler [Ventolin Hfa Inhaler] 2 puff INHALATION RT-QID PRN 10/25/20 [History] Citalopram Hydrobromide [Citalopram HBr] 40 mg PO HS 10/25/20 [History] diphenhydrAMINE [Benadryl] 25 mg PO HS PRN 10/25/20 [History] Cyclobenzaprine [Flexeril] 5 mg PO TID PRN #30 tab 11/01/20 [Rx] fentaNYL 25MCG/HR PATCH [Duragesic 25MCG/HR] 1 patch TRANSDERM Q72H #3 patch 11/01/20 [Rx] polyethylene glycoL 3350 [Miralax] 17 gm PO DAILY PRN #20 powd.pack 11/01/20 [Rx] Budesonide/Formoterol Fumarate [Symbicort 160-4.5 Mcg Inhaler] 1 puff INHALATION RT-BID 11/26/20 [History] HYDROcodone/APAP 7.5-325MG [[place] 7.5-325] 1 tab PO Q6H PRN 11/26/20 [History] Omeprazole 20 mg PO DAILY 11/26/20 [History] Ondansetron HCl [Zofran] 4 mg PO Q6H PRN 11/26/20 [History] Cholecalciferol [Vitamin D3 (25 Mcg = 1000 Iu)] 25 mcg PO BID 12/13/20 [History] Fluticasone Propion/Salmeterol [[place] 250-50 Inhub] 1 puff INHALATION RT-BID 12/13/20 [History] Acetaminophen Tab [Tylenol] 650 mg PO Q6HR PRN tab 12/16/20 [Rx] Levofloxacin [Levaquin] 500 mg PO DAILY 7 Days #7 tab 12/16/20 [Rx] Follow up Appointment(s)/Referral(s): Emy Ball MD [Primary Care Provider] - 1-2 days [facility], [NON-STAFF] - 1 Week Emeterio Garvin MD [STAFF PHYSICIAN] - 3 Days Ambulatory/Diagnostic Orders: Complete Blood Count w/diff [LAB.AMB] Time Frame: 3 Days, Location: None Selected Activity/Diet/Wound Care/Special Instructions: Activity Limited until follow-up Follow-up with primary care provider upon discharge Follow-up with oncology as discussed Continue with antibiotics for 7 days Repeat labs in 2-3 days Continue with home care Continue current diet Discharge Disposition: HOME WITH HOME HEALTH SERVICES
--- NOTE | 2020-12-16 16:16 | PN ---
PROGRESS NOTE DATE OF SERVICE: 12/16/2020 REASON FOR FOLLOWUP: Pneumonia and a question of UTI. INTERVAL HISTORY: The patient is currently afebrile. The patient is feeling much better. She is breathing comfortably. The patient denies having any chest pain or shortness of breath or cough. No abdominal pain or diarrhea. PHYSICAL EXAMINATION: Blood pressure is 151/94 with a pulse of 108, temperature 97.5. She is 98% on 4 L nasal cannula. General description is an elderly female up in the chair in no distress. RESPIRATORY SYSTEM: Unlabored breathing. Clear to auscultation anteriorly. HEART: S1, S2. Regular rate and rhythm. ABDOMEN: Soft. No tenderness. LABS: Urine is showing E coli. Blood culture has been negative so far. DIAGNOSTIC IMPRESSION AND PLAN: Patient admitted to hospital with concern for pneumonia. Blood culture has been negative. No sputum has been collected. Urine is showing an E coli sensitive pathogen. Plan is to finish therapy with a seven-day course of oral Levaquin and close outpatient followup. MMODL / IJN: [id number] /
--- NOTE | 2020-12-16 19:50 | P.PN ---
Subjective Progress Note Date: 12/16/20 Principal diagnosis: Febrile Neutropenia Labs are stable, continues on zosyn for UTI. Mag supp today. Potassium improved. Objective - Vital Signs Vital signs: Vital Signs Temp 97.5 F L 12/16/20 09:40 Pulse 108 H 12/16/20 09:42 Resp 20 12/16/20 09:42 BP 161/94 12/16/20 09:40 Pulse Ox 98 12/16/20 09:40 Intake & Output 12/15/20 12/16/20 12/16/20 18:59 06:59 18:59 Intake Total 100 640 Balance 100 640 Intake: Intake, IV Titration 100 340 Amount Piperacillin-Tazobactam 3 100 100 .375 gm In Sodium Chloride 0.9% 100 ml @ 25 mls/hr IVPB Q8HR [facility] Rx# :[id number] Sodium Chloride 0.9% 1, 240 000 ml @ 20 mls/hr IV . Q24H [facility] Rx#:[id number] Oral 300 Other: Voiding Method Bedside Commode Bedside Commode Bedside Commode Diaper Diaper Diaper Incontinent # Voids 3 # Bowel Movements 1 - Exam - Constitutional General appearance: cooperative, no acute distress - EENT Eyes: EOMI ENT: NA/AT - Neck Neck: lymphadenopathy - Respiratory Respiratory: bilateral: diminished, wheezing - Cardiovascular Rhythm: irregularly irregular - Gastrointestinal General gastrointestinal: normal bowel sounds, soft - Integumentary Integumentary: pale - Neurologic Neurologic: CNII-XII intact - Musculoskeletal Musculoskeletal: generalized weakness - Psychiatric Psychiatric: A&O x's 3 - Labs CBC & Chem 7: 12/16/20 02:39 12/16/20 02:39 Labs: Abnormal Lab Results - Last 24 Hours (Table) 12/15/20 12/15/20 12/15/20 Range/Units 02:28 09:51 09:51 RBC 3.43 L (3.80-5.40) m/uL Hgb 9.8 L D (11.4-16.0) gm/dL Hct 31.2 L (34.0-46.0) % RDW 15.9 H (11.5-15.5) % Neutrophils # 9.0 H (1.3-7.7) k/uL Lymphocytes # 0.7 L (1.0-4.8) k/uL Potassium 2.8 L (3.5-5.1) mmol/L Chloride 110 H (98-107) mmol/L Carbon Dioxide 21 L (22-30) mmol/L BUN 20 H (7-17) mg/dL Glucose 52 L (74-99) mg/dL Calcium (8.4-10.2) mg/dL Magnesium (1.6-2.3) mg/dL AST (14-36) U/L Alkaline Phosphatase (38-126) U/L Total Protein (6.3-8.2) g/dL Albumin (3.5-5.0) g/dL Procalcitonin 1.43 H (0.02-0.09) ng/mL 12/15/20 12/16/20 12/16/20 Range/Units 20:32 02:39 02:39 RBC 3.38 L (3.80-5.40) m/uL Hgb 9.7 L (11.4-16.0) gm/dL Hct 30.6 L (34.0-46.0) % RDW 15.8 H (11.5-15.5) % Neutrophils # 8.1 H (1.3-7.7) k/uL Lymphocytes # 0.8 L (1.0-4.8) k/uL Potassium 3.2 L (3.5-5.1) mmol/L Chloride 112 H 114 H (98-107) mmol/L Carbon Dioxide (22-30) mmol/L BUN (7-17) mg/dL Glucose (74-99) mg/dL Calcium 10.4 H (8.4-10.2) mg/dL Magnesium 1.5 L 1.4 L (1.6-2.3) mg/dL AST 58 H (14-36) U/L Alkaline Phosphatase 241 H (38-126) U/L Total Protein 4.9 L (6.3-8.2) g/dL Albumin 2.4 L (3.5-5.0) g/dL Procalcitonin (0.02-0.09) ng/mL Microbiology - Last 24 Hours (Table) 12/13/20 16:00 Urine Culture - Final Urine,Clean Catch Escherichia coli 12/13/20 15:16 Blood Culture - Preliminary Blood No Growth after 48 hours Assessment and Plan (1) SIRS (systemic inflammatory response syndrome) Status: Acute Code(s): R65.10 - SIRS OF NON-INFECTIOUS ORIGIN W/O ACUTE ORGAN DYSFUNCTION SNOMED Code(s): 418215109 (2) Small cell lung cancer Status: Acute Code(s): C34.90 - MALIGNANT NEOPLASM OF UNSP PART OF UNSP BRONCHUS OR LUNG SNOMED Code(s): 019107403 Plan: She complains of pain in hip so will image to assess for metastatic disease to bone She will follow up with Dr. Garvin for further treatment plan with new diagnosis extensive small cell after discharge IV Hydration and Ocampo Cultures UTI - POsitive ecoli culture - Abx on board -Frances Hypokalemia: - Supped 12/15, improved today Hypomagnesium: - Supp Continue supportive care and ID for abx regimen at discharge. Spoke with patient, daughter and primary team. Will discharge with homecare and follow-up next week in office Physician Attest: I have completed full history and physical developed above impression and plan, agree with dictation, dictated as a scribe
--- NOTE | 2021-01-04 06:05 | CDI ---
Documentation Clarification Form Date: 01/04/21 From: Payton Chong Phone: Admit Date: 12/13/2020 06:10:00 PM Patient Name: Mary Campbell Visit Number: [id number] Discharge Date: 12/16/2020 05:25:00 PM ATTENTION: The Clinical Documentation Specialists (CDI) and [facility] Coding Staff appreciate your assistance in clarifying documentation. Please respond to the clarification below the line at the bottom and electronically sign. The CDI & [facility] Coding staff will review the response and follow-up if needed. Please note: Queries are made part of the Legal Health Record. If you have any questions, please contact the author of this message via ITS. Dr. Shirley Rodriguez, The patient presented with the following clinical indicators. Additional clarification regarding the etiology/cause of the clinical indicators is requested. History/Risk Factors: hx of lung & kidney cancer, pneumonia, kidney stones, UTI Clinical Indicators: Hypotension, diffuse abdominal tenderness worse in the right upper quadrant, met to liver. Per ED concerns for sepsis secondary to pneumonia. WBC: 19.4 Neutrophils: 17.7 Lactic acid: 2.9 Blood cultures: no growth Vitals signs: T-97.5, P-110, R-20, BP-89/62, O2-98 (4Lnc) Procalcitonin: 1.43 CRP: 43.9 CR: 1.87 Urine: Urine Bilirubin 1+, Leukocyte Esterase large, WBC 26, Bacteria many, hyaline casts 15 Urine culture: E. coli >100,000 CFU/ML ID Consult: Now with elevated WBC and lactic acid, underlying pneumonia needs to be considered plus/minus UTI. Antibiotics:IV Zoysn IV Bolus: Sodium Chloride 0.9% 1,000 ml IV 999 mls/hr In your professional opinion, please clarify if these findings signify one of the following conditions: [ ] Sepsis due to UTI POA [ ] Sepsis, Not POA [ ] Sepsis ruled out [ ] SIRS, without underlying infectious process [ ] Other, please specify [ ] Unable to determine SIRS Criteria: 2 or more of the following may indicate SIRS -Temperature < 96.8F (36C) or > 101.0F (38.3C) -Heart Rate > 90 bpm -Respiratory Rate > 20 breaths/min or PaCO2 < 32 mmHg -White Blood Cell Count > 12,000 or < 4,000 cells/mm3 or > 10% bands Sepsis due to UTI POA MTDD
== END 2020-12-16 17:25 | disposition home health service (06) | DRG 872 ==
LOC: EC 14:42 → 5NMEDONC 18:10
PROVIDERS: ADMIT Hospitalist; ATTEND Hospitalist
DX: A41.51 Sepsis due to Escherichia coli [E. coli] (principal); N39.0 Urinary tract infection, site not specified; N17.9 Acute kidney failure, unspecified; C78.7 Secondary malignant neoplasm of liver and intrahepatic bile duct; E87.2 Acidosis; E89.6 Postprocedural adrenocortical (-medullary) hypofunction; C34.02 Malignant neoplasm of left main bronchus; C64.9 Malignant neoplasm of unspecified kidney, except renal pelvis; B96.20 Unspecified Escherichia coli [E. coli] as the cause of diseases classified elsewhere; E87.6 Hypokalemia; I95.9 Hypotension, unspecified; Z20.822 Contact with and (suspected) exposure to COVID-19; E86.0 Dehydration; I10 Essential (primary) hypertension; E83.42 Hypomagnesemia; F32.9 Major depressive disorder, single episode, unspecified; R32 Unspecified urinary incontinence; M54.9 Dorsalgia, unspecified; M54.30 Sciatica, unspecified side; M25.552 Pain in left hip; R59.0 Localized enlarged lymph nodes; M19.90 Unspecified osteoarthritis, unspecified site; Z99.81 Dependence on supplemental oxygen; Z86.19 Personal history of other infectious and parasitic diseases; F17.210 Nicotine dependence, cigarettes, uncomplicated; F41.9 Anxiety disorder, unspecified; Z79.51 Long term (current) use of inhaled steroids; Z79.891 Long term (current) use of opiate analgesic; Z79.899 Other long term (current) drug therapy; Z87.01 Personal history of pneumonia (recurrent); Z87.442 Personal history of urinary calculi; Z86.16 Personal history of COVID-19; Z90.49 Acquired absence of other specified parts of digestive tract; Z87.19 Personal history of other diseases of the digestive system; Z90.710 Acquired absence of both cervix and uterus; Z87.42 Personal history of other diseases of the female genital tract; Z96.652 Presence of left artificial knee joint; Z96.5 Presence of tooth-root and mandibular implants; Z87.39 Personal history of other diseases of the musculoskeletal system and connective tissue; Z86.69 Personal history of other diseases of the nervous system and sense organs; Z98.890 Other specified postprocedural states; Z88.2 Allergy status to sulfonamides; Z91.041 Radiographic dye allergy status; Z81.8 Family history of other mental and behavioral disorders
CPT/HCPCS: 36415; 71045; 73521; 74176; 80048; 80051; 80053; 81001; 82330; 83605; 83735; 83880; 84145; 84484; 85025; 85610; 85730; 86140; 87040; 87077; 87086; 87186; 87636; 93005; 94640; 96361; 96365; 99291

== ENCOUNTER 2021-01-03 21:41 | Inpatient (IN) | payer MEDICARE, BC ==
--- NOTE | 2021-01-03 22:26 | ED ---
SOB HPI - General Chief Complaint: Shortness of Breath Stated Complaint: SOB Time Seen by Provider: 01/03/21 22:03 Source: patient, family, RN notes reviewed, old records reviewed Mode of arrival: wheelchair Limitations: no limitations - History of Present Illness Initial Comments: This is a 75-year-old female DF for evaluation severe weakness lightheadedness dizziness she is seeing Dr. prakash for lung cancer, having severe weakness, does not feel well severely short of breath decreased appetite lack of appetite not eating or drinking. MD Complaint: shortness of breath, pain with inspiration, anxiety -: hour(s) Severity: moderate, severe Severity scale (1-10): 7 Improves With: nothing Worsens With: exertion Known History Of: COPD, asthma Context: recent URI Associated Symptoms: chest pain, pain with inspiration, cough Treatments Prior to Arrival: oxygen - Related Data Home Medications Medication Instructions Recorded Confirmed Albuterol Inhaler [Ventolin Hfa 2 puff INHALATION RT-QID PRN 10/25/20 01/03/21 Inhaler] Citalopram Hydrobromide 40 mg PO HS 10/25/20 01/03/21 [Citalopram HBr] diphenhydrAMINE [Benadryl] 25 mg PO HS PRN 10/25/20 01/03/21 Budesonide/Formoterol Fumarate 2 puff INHALATION RT-BID 11/26/20 01/03/21 [Symbicort 160-4.5 Mcg Inhaler] HYDROcodone/APAP 7.5-325MG [Dunlow 1 tab PO Q6H PRN 11/26/20 01/03/21 7.5-325] Omeprazole 20 mg PO DAILY 11/26/20 01/03/21 Ondansetron HCl [Zofran] 4 mg PO Q4H PRN 11/26/20 01/03/21 Cholecalciferol [Vitamin D3 (25 25 mcg PO BID 12/13/20 01/03/21 Mcg = 1000 Iu)] Fluticasone Propion/Salmeterol 1 puff INHALATION RT-BID 12/13/20 01/03/21 [Wixela 250-50 Inhub] Potassium Chloride ER [K-Dur 20] See Taper PO DIRECTED 01/03/21 01/03/21 Previous Rx's Medication Instructions Recorded Cyclobenzaprine [Flexeril] 5 mg PO TID PRN #30 tab 11/01/20 fentaNYL 25MCG/HR PATCH [Duragesic 1 patch TRANSDERM Q72H #3 patch 11/01/20 25MCG/HR] Levofloxacin [Levaquin] 500 mg PO DAILY 7 Days #7 tab 12/16/20 Allergies Allergy/AdvReac Type Severity Reaction Status Date / Time Iodinated Contrast Media Allergy Unknown Verified 01/03/21 23:10 [Iodinated Contrast Media - IV Dye] sulfamethoxazole Allergy Rash/Hives Verified 01/03/21 23:10 [From Bactrim] trimethoprim [From Bactrim] Allergy Rash/Hives Verified 01/03/21 23:10 Review of Systems ROS Statement: Those systems with pertinent positive or pertinent negative responses have been documented in the HPI. ROS Other: All systems not noted in ROS Statement are negative. Past Medical History Past Medical History: Cancer, Osteoarthritis (OA), Pneumonia Additional Past Medical History / Comment(s): sinus problems,kidney stones uti, bladder incnt/wears a pad,abd hernia,migraines,"muscles spasms and lt hip pain, had collapsed lung -not large enough to require c/t, DDD, sciatic, History of Any Multi-Drug Resistant Organisms: None Reported Date of last positivie culture/infection: 2015 Past Surgical History: Appendectomy, Bladder Surgery, Cholecystectomy, Hysterectomy, Orthopedic Surgery Additional Past Surgical History / Comment(s): artriscopy, lt knee replacemnent,adrenal gland removed,lt knee, colonoscopy, dental implants, 1997 had lt foot sx for hammer toes and stated had an implant in that foot-then january 2015 had a revison of that sx, Cdiff- 2016. covid 11/06 Past Anesthesia/Blood Transfusion Reactions: No Reported Reaction Past Psychological History: Anxiety Smoking Status: Former smoker Past Alcohol Use History: Rare Past Drug Use History: None Reported - Past Family History Mother Family Medical History: Dementia Additional Family Medical History / Comment(s): moms sister also had dementia Father Family Medical History: Unable to Obtain General Exam Limitations: no limitations General appearance: alert, in no apparent distress, anxious Head exam: Present: atraumatic, normocephalic, normal inspection Eye exam: Present: normal appearance, PERRL, EOMI. Absent: scleral icterus, conjunctival injection, periorbital swelling ENT exam: Present: normal exam, mucous membranes moist Neck exam: Present: normal inspection. Absent: tenderness, meningismus, lymph adenopathy Respiratory exam: Present: normal lung sounds bilaterally. Absent: respiratory distress, wheezes, rales, rhonchi, stridor Cardiovascular Exam: Present: normal rhythm, tachycardia, normal heart sounds. Absent: systolic murmur, diastolic murmur, rubs, gallop, clicks GI/Abdominal exam: Present: soft, normal bowel sounds. Absent: distended, tenderness, guarding, rebound, rigid Extremities exam: Present: normal inspection, full ROM, normal capillary refill. Absent: tenderness, pedal edema, joint swelling, calf tenderness Back exam: Present: normal inspection Neurological exam: Present: alert, oriented X3, CN II-XII intact Psychiatric exam: Present: normal affect, normal mood Skin exam: Present: warm, dry, intact, normal color. Absent: rash Course Vital Signs 01/03/21 01/03/21 01/03/21 21:44 23:44 23:48 Temperature 97.4 F L 97.6 F Pulse Rate 112 H 100 Respiratory 24 19 19 Rate Blood Pressure 99/64 132/70 O2 Sat by Pulse 100 100 Oximetry 01/04/21 01/04/21 01/04/21 00:48 04:12 04:17 Temperature Pulse Rate 98 110 H Respiratory 18 Rate Blood Pressure 129/86 O2 Sat by Pulse 99 99 Oximetry 01/04/21 01/04/21 01/04/21 04:20 05:29 05:30 Temperature 97.9 F 97.8 F Pulse Rate 107 H 107 H 117 H Respiratory 18 18 Rate Blood Pressure 130/88 153/84 O2 Sat by Pulse 99 99 Oximetry 01/04/21 01/04/21 01/04/21 05:39 06:09 06:56 Temperature 98.5 F 99 F 98.1 F Pulse Rate 108 H 108 H 109 H Respiratory 18 20 18 Rate Blood Pressure 134/93 111/82 143/89 O2 Sat by Pulse 99 98 98 Oximetry 01/04/21 01/04/21 01/04/21 07:31 07:50 07:57 Temperature 97.7 F Pulse Rate 99 98 110 H Respiratory 19 Rate Blood Pressure 140/90 O2 Sat by Pulse 99 Oximetry 01/04/21 01/04/2101/04/21 08:03 08:13 08:27 Temperature 97.5 F L 97.8 F 98.6 F Pulse Rate 110 H 112 H 120 H Respiratory 18 18 18 Rate Blood Pressure 146/92 155/99 159/103 O2 Sat by Pulse Oximetry 01/04/21 01/04/21 08:43 09:38 Temperature 97.6 F 97.9 F Pulse Rate 116 H 105 H Respiratory 20 18 Rate Blood Pressure 150/92 139/102 O2 Sat by Pulse 98 98 Oximetry - Reevaluation(s) Reevaluation #1: Medical record is reviewed Patient has significant improvement in symptoms here in the ER Spoke patient regarding findings at length and questions are answered Patient still feeling shortness of breath and lightheaded although improved Medical Decision Making - Medical Decision Making 75 female DF for evaluation of severe weakness weakness with dehydration COPD exacerbation and anemia. Patient will be admitted - Lab Data Result diagrams: 01/05/21 04:32 01/05/21 04:32 Lab Results 01/03/21 01/03/21 01/03/21 Range/Units 22:39 22:39 22:39 WBC 6.0 (3.8-10.6) k/uL RBC 2.62 L (3.80-5.40) m/uL Hgb 7.4 L D (11.4-16.0) gm/dL Hct 23.0 L (34.0-46.0) % MCV 87.5 (80.0-100.0) fL MCH 28.4 (25.0-35.0) pg MCHC 32.4 (31.0-37.0) g/dL RDW 16.0 H (11.5-15.5) % Plt Count 42 L D (150-450) k/uL MPV 8.5 Neutrophils % (Manual) 29 % Band Neuts % (Manual) 17 % Lymphocytes % (Manual) 30 % Monocytes % (Manual) 15 % Eosinophils % (Manual) 1 % Metamyelocytes % 4 % Blast Cells % 4 H* % Neutrophils # (Manual) 2.70 (1.3-7.7) k/uL Lymphocytes # (Manual) 1.80 (1.0-4.8) k/uL Monocytes # (Manual) 0.90 (0-1.0) k/uL Eosinophils # (Manual) 0.06 (0-0.7) k/uL Metamyelocytes # (Man) 0.24 H (0) k/uL Blast Cells # (Man) 0.24 H (0) k/uL Nucleated RBCs 1 H (0-0) /100 WBC Manual Slide Review Performed Pathologist Review See comment A Anisocytosis Slight PT 14.3 H (9.0-12.0) sec INR 1.4 H (<1.2) APTT 26.0 (22.0-30.0) sec Sodium 135 L (137-145) mmol/L Potassium 3.5 (3.5-5.1) mmol/L Chloride 101 (98-107) mmol/L Carbon Dioxide 29 (22-30) mmol/L Anion Gap 5 mmol/L BUN 14 (7-17) mg/dL Creatinine 0.66 (0.52-1.04) mg/dL Est GFR (CKD-EPI)AfAm >90 (>60 ml/min/1.73 sqM) Est GFR (CKD-EPI)NonAf 87 (>60 ml/min/1.73 sqM) Glucose 89 (74-99) mg/dL Plasma Lactic Acid Jorge (0.7-2.0) mmol/L Calcium 9.1 (8.4-10.2) mg/dL Iron (50-170) ug/dL TIBC (228-460) ug/dL % Saturation (12.00-45.00) Ferritin (10.0-291.0) ng/mL Total Bilirubin 0.9 (0.2-1.3) mg/dL AST 25 (14-36) U/L ALT 11 (4-34) U/L Alkaline Phosphatase 199 H (38-126) U/L Lactate Dehydrogenase 1966 H (313-618) U/L Creatine Kinase 32 (30-135) U/L Troponin I (0.000-0.034) ng/mL C-Reactive Protein 5.7 H (<1.0) mg/dL NT-Pro-B Natriuret Pep pg/mL Total Protein 5.0 L (6.3-8.2) g/dL Albumin 2.7 L (3.5-5.0) g/dL Vitamin B12 (200.0-944.0) pg/mL Folate ng/mL Urine Color Urine Appearance (Clear) Urine pH (5.0-8.0) Ur Specific [place] (1.001-1.035) Urine Protein (Negative) Urine Glucose (UA) (Negative) Urine Ketones (Negative) Urine Blood (Negative) Urine Nitrite (Negative) Urine Bilirubin (Negative) Urine Urobilinogen (<2.0) mg/dL Ur Leukocyte Esterase (Negative) Coronavirus (PCR) (Not Detectd) 01/03/21 01/03/21 01/03/21 Range/Units 22:39 22:39 22:39 WBC (3.8-10.6) k/uL RBC (3.80-5.40) m/uL Hgb (11.4-16.0) gm/dL Hct (34.0-46.0) % MCV (80.0-100.0) fL MCH (25.0-35.0) pg MCHC (31.0-37.0) g/dL RDW (11.5-15.5) % Plt Count (150-450) k/uL MPV Neutrophils % (Manual) % Band Neuts % (Manual) % Lymphocytes % (Manual) % Monocytes % (Manual) % Eosinophils % (Manual) % Metamyelocytes % % Blast Cells % % Neutrophils # (Manual) (1.3-7.7) k/uL Lymphocytes # (Manual) (1.0-4.8) k/uL Monocytes # (Manual) (0-1.0) k/uL Eosinophils # (Manual) (0-0.7) k/uL Metamyelocytes # (Man) (0) k/uL Blast Cells # (Man) (0) k/uL Nucleated RBCs (0-0) /100 WBC Manual Slide Review Pathologist Review Anisocytosis PT (9.0-12.0) sec INR (<1.2) APTT (22.0-30.0) sec Sodium (137-145) mmol/L Potassium (3.5-5.1) mmol/L Chloride (98-107) mmol/L Carbon Dioxide (22-30) mmol/L Anion Gap mmol/L BUN (7-17) mg/dL Creatinine (0.52-1.04) mg/dL Est GFR (CKD-EPI)AfAm (>60 ml/min/1.73 sqM) Est GFR (CKD-EPI)NonAf (>60 ml/min/1.73 sqM) Glucose (74-99) mg/dL Plasma Lactic Acid Jorge 2.0 (0.7-2.0) mmol/L Calcium (8.4-10.2) mg/dL Iron (50-170) ug/dL TIBC (228-460) ug/dL % Saturation (12.00-45.00) Ferritin (10.0-291.0) ng/mL Total Bilirubin (0.2-1.3) mg/dL AST (14-36) U/L ALT (4-34) U/L Alkaline Phosphatase (38-126) U/L Lactate Dehydrogenase (313-618) U/L Creatine Kinase (30-135) U/L Troponin I <0.012 (0.000-0.034) ng/mL C-Reactive Protein (<1.0) mg/dL NT-Pro-B Natriuret Pep 488 pg/mL Total Protein (6.3-8.2) g/dL Albumin (3.5-5.0) g/dL Vitamin B12 (200.0-944.0) pg/mL Folate ng/mL Urine Color Urine Appearance (Clear) Urine pH (5.0-8.0) Ur Specific [place] (1.001-1.035) Urine Protein (Negative) Urine Glucose (UA) (Negative) Urine Ketones (Negative) Urine Blood (Negative) Urine Nitrite (Negative) Urine Bilirubin (Negative) Urine Urobilinogen (<2.0) mg/dL Ur Leukocyte Esterase (Negative) Coronavirus (PCR) (Not Detectd) 01/03/21 01/03/21 01/04/21 Range/Units 22:39 23:40 01:08 WBC (3.8-10.6) k/uL RBC (3.80-5.40) m/uL Hgb (11.4-16.0) gm/dL Hct (34.0-46.0) % MCV (80.0-100.0) fL MCH (25.0-35.0) pg MCHC (31.0-37.0) g/dL RDW (11.5-15.5) % Plt Count (150-450) k/uL MPV Neutrophils % (Manual) % Band Neuts % (Manual) % Lymphocytes % (Manual) % Monocytes % (Manual) % Eosinophils % (Manual) % Metamyelocytes % % Blast Cells % % Neutrophils # (Manual) (1.3-7.7) k/uL Lymphocytes # (Manual) (1.0-4.8) k/uL Monocytes # (Manual) (0-1.0) k/uL Eosinophils # (Manual) (0-0.7) k/uL Metamyelocytes # (Man) (0) k/uL Blast Cells # (Man) (0) k/uL Nucleated RBCs (0-0) /100 WBC Manual Slide Review Pathologist Review Anisocytosis PT (9.0-12.0) sec INR (<1.2) APTT (22.0-30.0) sec Sodium (137-145) mmol/L Potassium (3.5-5.1) mmol/L Chloride (98-107) mmol/L Carbon Dioxide (22-30) mmol/L Anion Gap mmol/L BUN (7-17) mg/dL Creatinine (0.52-1.04) mg/dL Est GFR (CKD-EPI)AfAm (>60 ml/min/1.73 sqM) Est GFR (CKD-EPI)NonAf (>60 ml/min/1.73 sqM) Glucose (74-99) mg/dL Plasma Lactic Acid Jorge (0.7-2.0) mmol/L Calcium (8.4-10.2) mg/dL Iron 117 (50-170) ug/dL TIBC 173 L (228-460) ug/dL % Saturation 67.63 H (12.00-45.00) Ferritin 1858.4 H (10.0-291.0) ng/mL Total Bilirubin (0.2-1.3) mg/dL AST (14-36) U/L ALT (4-34) U/L Alkaline Phosphatase (38-126) U/L Lactate Dehydrogenase (313-618) U/L Creatine Kinase (30-135) U/L Troponin I (0.000-0.034) ng/mL C-Reactive Protein (<1.0) mg/dL NT-Pro-B Natriuret Pep pg/mL Total Protein (6.3-8.2) g/dL Albumin (3.5-5.0) g/dL Vitamin B12 1384.0 H (200.0-944.0) pg/mL Folate 3.9 ng/mL Urine Color Yellow Urine Appearance Clear (Clear) Urine pH 7.0 (5.0-8.0) Ur Specific [place] 1.018 (1.001-1.035) Urine Protein Trace H (Negative) Urine Glucose (UA) Negative (Negative) Urine Ketones Negative (Negative) Urine Blood Negative (Negative) Urine Nitrite Negative (Negative) Urine Bilirubin 1+ H (Negative) Urine Urobilinogen 2.0 (<2.0) mg/dL Ur Leukocyte Esterase Negative (Negative) Coronavirus (PCR) Not Detected (Not Detectd) - EKG Data -: EKG Interpreted by Me (EKG is a junctional rhythm of 106 AL 96 QRS 70 QTC 480) - Radiology Data Radiology results: report reviewed (Chest x-rays negative for acute disease), image reviewed Critical Care Time Critical Care Time: Yes Total Critical Care Time: 31 Disposition Clinical Impression: Dehydration, Anemia, Weakness, COPD exacerbation Disposition: ADMITTED IP TO THIS [facility] Condition: Serious Is patient prescribed a controlled substance at d/c from ED?: No
[2021-01-03 22:58] LABS: Anisocytosis Slight; MCH 28.4 pg (25.0-35.0); MCHC 32.4 g/dL (31.0-37.0); MCV 87.5 fL (80.0-100.0); Mean Platelet Volume 8.5; RBC 2.62 m/uL (3.80-5.40)
--- NOTE | 2021-01-03 22:58 | XR ---
EXAMINATION TYPE: XR chest 2V DATE OF EXAM: 01/03/2021 COMPARISON: 12/13/2020 HISTORY: Weakness There is blunting left costophrenic angle. Heart size is normal. There is no heart failure. Right thi ng is clear. There are chest leads. IMPRESSION: There is left pleural effusion which is improved compared to last exam. No heart failure.
[2021-01-03 23:02] LABS: INR 1.4 (<1.2); Prothrombin Time 14.3 sec (9.0-12.0)
[2021-01-03 23:04] LABS: HGB 7.4 gm/dL (11.4-16.0)
[2021-01-03 23:05] LABS: ALT 11 U/L (4-34); AST 25 U/L (14-36); African American GFR (CKD) >90 (>60 ml/min/1.73 sqM); Albumin 2.7 g/dL (3.5-5.0); Alkaline Phosphatase 199 U/L (38-126); Anion Gap 5 mmol/L; Blood Urea Nitrogen 14 mg/dL (7-17); C Reactive Protein 5.7 mg/dL (<1.0); Calcium 9.1 mg/dL (8.4-10.2); Carbon Dioxide 29 mmol/L (22-30); Chloride 101 mmol/L (98-107); Creatine Kinase 32 U/L (30-135); Glucose 89 mg/dL (74-99); LDH 1966 U/L (313-618); Non-African American GFR(CKD) 87 (>60 ml/min/1.73 sqM); Potassium 3.5 mmol/L (3.5-5.1); Sodium 135 mmol/L (137-145); Total Bilirubin 0.9 mg/dL (0.2-1.3)
[2021-01-03 23:21] LABS: Band Neutrophils % 17 %; Eosinophils # (M) 0.06 k/uL (0-0.7); Metamyelocytes # (M) 0.24 k/uL (0); Metamyelocytes % 4 %; Neutrophils % (M) 29 %
[2021-01-03 23:27] LABS: Blast Cells # (M) 0.24 k/uL (0); Nucleated Red Blood Cells 1 /100 WBC (0-0); Total Cells Counted 200
[2021-01-03 23:29] LABS: Platelet Count 42 k/uL (150-450)
[2021-01-04 00:09] LABS: Appearance,Urine Clear (Clear); Bilirubin,Urine 1+ (Negative); Blood,Urine Negative (Negative); Color,Urine Yellow; Glucose,Urine (UA) Negative (Negative); Ketones,Urine Negative (Negative); Leukocyte Esterase,Urine Negative (Negative); Nitrite,Urine Negative (Negative); Protein,Urine Trace (Negative); Specific Gravity,Urine 1.018 (1.001-1.035)
[2021-01-04] MEDS ORDERED: NALOXONE 0.4 MG/ML 1 ML VIAL IV PRN (01:22)
[2021-01-04] MEDS ORDERED: SODIUM CHLORIDE 0.9% 1,000 ML IV STA ×2 (01:22)
[2021-01-04] MEDS ORDERED: IPRATROPIUM-ALBUTEROL 3 ML NEB INHALATION PRN (01:25)
[2021-01-04] MEDS ORDERED: ONDANSETRON 4 MG/2 ML VIAL IVP STA (02:32)
[2021-01-04] MEDS: methylPREDNISolone SOD SUCCI 125 MG/2 ML VIAL IV SCH ×4 (07:23→23:21)
[2021-01-04] MEDS ORDERED: HYDROcodone/APAP 7.5-325MG 1 EACH TAB PO PRN (10:58)
[2021-01-04] MEDS ORDERED: ALBUTEROL HFA INHALER INHALATION PRN (10:58)
[2021-01-04] MEDS ORDERED: guaiFENesin-Coden 100-10MG/5ML 10 ML CUP PO PRN (11:50)
--- NOTE | 2021-01-04 12:01 | P.HPIM ---
History of Present Illness This is a pleasant 75 years old female with past medical history of osteoarthritis, degenerative disc disease and sciatic nerve pain. Kidney stone. Patient also with right lung cancer for a few months now being followed closely with Dr. Garvin, presents because of increased shortness of breath and lower extremity edema. Patient states that she presents because of significant dyspnea and dry cough and since yesterday. The patient found to have severe anemia and currently she getting her second unit of blood transfusion. Patient currently lying in bed and breathing quietly stating that her dyspnea is significantly improved however she still have significant dry cough and. She denies chest pain. She did not complain from significant abdominal pain, however on examination she has significant tenderness all over. She denies diarrhea or vomiting. No fever. She denies smoking, alcohol or illicit drugs Vital signs stable except for tachycardia with heart rate 108. Hemoglobin on admission was 7.4 dropping from 9.7 last month. INR is 1.4. BMP and liver enzymes AST and ALT are unremarkable. Lactate dehydrogenase is elevated 1966. Troponin is negative less than 0.012. C- reactive protein is high 5.7. Urinalysis is not suspicious of infection. Chen virus not detected. EKG showing accelerated junctional rhythm at [address]-T changes Chest x-ray: Left pleural effusion which is improved compared to last exam. No heart failure In the emergency room patient got 1 unit of blood transfusion, And 1 L of normal saline and started on Solu-Medrol 60 mg Pathology service was consulted from the ED Review of Systems CONSTITUTIONAL: No fever, no malaise, no fatigue. HEENT: No recent visual problems or hearing problems. Denied any sore throat. CARDIOVASCULAR: No orthopnea, PND, no palpitations, no syncope. PULMONARY: No shortness of breath, no cough, no hemoptysis. GASTROINTESTINAL: No diarrhea, no nausea, no vomiting. Normoactive bowel sounds. NEUROLOGICAL: No headaches, no weakness, no numbness. HEMATOLOGICAL: Denies any bleeding or petechiae. GENITOURINARY: Denies any burning micturition, frequency, or urgency. MUSCULOSKELETAL/RHEUMATOLOGICAL: Denies any joint pain, swelling, or any muscle pain. ENDOCRINE: Denies any polyuria or polydipsia. Past Medical History Past Medical History: Cancer, Osteoarthritis (OA), Pneumonia Additional Past Medical History / Comment(s): sinus problems,kidney stones uti, bladder incnt/wears a pad,abd hernia,migraines,"muscles spasms and lt hip pain, had collapsed lung -not large enough to require c/t, DDD, sciatic, History of Any Multi-Drug Resistant Organisms: None Reported Date of last positivie culture/infection: 2015 Past Surgical History: Appendectomy, Bladder Surgery, Cholecystectomy, Hysterectomy, Orthopedic Surgery Additional Past Surgical History / Comment(s): artriscopy, lt knee replacemnent,adrenal gland removed,lt knee, colonoscopy, dental implants, 1997 had lt foot sx for hammer toes and stated had an implant in that foot-then january 2015 had a revison of that sx, Cdiff- 2015. covid 11/06 Past Anesthesia/Blood Transfusion Reactions: No Reported Reaction Past Psychological History: Anxiety Smoking Status: Former smoker Past Alcohol Use History: Rare Past Drug Use History: None Reported - Past Family History Mother Family Medical History: Dementia Additional Family Medical History / Comment(s): moms sister also had dementia Father Family Medical History: Unable to Obtain Medications and Allergies Home Medications Medication Instructions Recorded Confirmed Type Albuterol Inhaler [Ventolin Hfa 2 puff INHALATION RT-QID PRN 10/25/20 01/03/21 History Inhaler] Citalopram Hydrobromide 40 mg PO HS 10/25/20 01/03/21 History [Citalopram HBr] diphenhydrAMINE [Benadryl] 25 mg PO HS PRN 10/25/20 01/03/21 History Cyclobenzaprine [Flexeril] 5 mg PO TID PRN #30 tab 11/01/20 01/03/21 Rx fentaNYL 25MCG/HR PATCH [Duragesic 1 patch TRANSDERM Q72H #3 patch 11/01/20 01/03/21 Rx 25MCG/HR] Budesonide/Formoterol Fumarate 2 puff INHALATION RT-BID 11/26/20 01/03/21 History [Symbicort 160-4.5 Mcg Inhaler] HYDROcodone/APAP 7.5-325MG [Patterson 1 tab PO Q6H PRN 11/26/20 01/03/21 History 7.5-325] Omeprazole 20 mg PO DAILY 11/26/20 01/03/21 History Ondansetron HCl [Zofran] 4 mg PO Q4H PRN 11/26/20 01/03/21 History Cholecalciferol [Vitamin D3 (25 25 mcg PO BID 12/13/20 01/03/21 History Mcg = 1000 Iu)] Fluticasone Propion/Salmeterol 1 puff INHALATION RT-BID 12/13/20 01/03/21 History [Wixela 250-50 Inhub] Levofloxacin [Levaquin] 500 mg PO DAILY 7 Days #7 tab 12/16/20 01/03/21 Rx Potassium Chloride ER [K-Dur 20] See Taper PO DIRECTED 01/03/21 01/03/21 History Allergies Allergy/AdvReac Type Severity Reaction Status Date / Time Iodinated Contrast Media Allergy Unknown Verified 01/03/21 23:10 [Iodinated Contrast Media - IV Dye] sulfamethoxazole Allergy Rash/Hives Verified 01/03/21 23:10 [From Bactrim] trimethoprim [From Bactrim] Allergy Rash/Hives Verified 01/03/21 23:10 Physical Exam Vitals: Vital Signs Temp Pulse Pulse Resp BP BP Pulse Ox 01/04/21 10:15 98.2 F 108 H 17 151/88 99 01/04/21 09:38 97.9 F 105 H 18 139/102 98 01/04/21 08:43 97.6 F 116 H 20 150/92 98 01/04/21 08:27 98.6 F 120 H 18 159/103 01/04/21 08:13 97.8 F 112 H 18 155/99 01/04/21 08:03 97.5 F L 110 H 18 146/92 01/04/21 07:57 110 H 01/04/21 07:50 98 01/04/21 07:31 97.7 F 99 19 140/90 99 01/04/21 06:56 98.1 F 109 H 18 143/89 98 01/04/21 06:09 99 F 108 H 20 111/82 98 01/04/21 05:39 98.5 F 108 H 18 134/93 99 01/04/21 05:30 97.8 F 117 H 18 153/84 99 01/04/21 05:29 97.9 F 107 H 18 130/88 99 01/04/21 04:20 107 H 01/04/21 04:17 99 01/04/21 04:12 110 H 01/04/21 00:48 98 18 129/86 99 01/03/21 23:48 19 01/03/21 23:44 97.6 F 100 19 132/70 100 01/03/21 21:44 97.4 F L 112 H 24 99/64 100 Intake and Output 01/03/21 01/04/21 01/04/21 22:59 06:59 14:59 Intake Total 0 310 Balance 0 310 Intake: Blood Product 0 310 Rc As-1 Unit 0 310 [id number] Rc As-1 Unit 0 [id number] Other: Weight 58.967 kg -GENERAL: The patient is alert and oriented x3, not in any acute distress. Well developed, well nourished. Alopecia HEENT: Pupils are round and equally reacting to light. EOMI. No scleral icterus. No conjunctival pallor. Normocephalic, atraumatic. No pharyngeal erythema. No thyromegaly. CARDIOVASCULAR: S1 and S2 present. No murmurs, rubs, or gallops. PULMONARY: Chest is clear to auscultation, no wheezing or crackles. -ABDOMEN: Soft, generalized abdominal tenderness, nondistended, normoactive bowel sounds. No palpable organomegaly. MUSCULOSKELETAL: No joint swelling or deformity. EXTREMITIES: No cyanosis, clubbing, or pedal edema. NEUROLOGICAL: Gross neurological examination did not reveal any focal deficits. SKIN: No rashes. No petechiae Results CBC & Chem 7: 01/03/21 22:39 01/03/21 22:39 Labs: Abnormal Lab Results - Last 24 Hours (Table) 01/03/21 01/03/21 01/03/21 Range/Units 22:39 22:39 22:39 RBC 2.62 L (3.80-5.40) m/uL Hgb 7.4 L D (11.4-16.0) gm/dL Hct 23.0 L (34.0-46.0) % RDW 16.0 H (11.5-15.5) % Plt Count 42 L D (150-450) k/uL Blast Cells % 4 H* % Metamyelocytes # (Man) 0.24 H (0) k/uL Blast Cells # (Man) 0.24 H (0) k/uL Nucleated RBCs 1 H (0-0) /100 WBC PT 14.3 H (9.0-12.0) sec INR 1.4 H (<1.2) Sodium 135 L (137-145) mmol/L Alkaline Phosphatase 199 H (38-126) U/L Lactate Dehydrogenase 1966 H (313-618) U/L C-Reactive Protein 5.7 H (<1.0) mg/dL Total Protein 5.0 L (6.3-8.2) g/dL Albumin 2.7 L (3.5-5.0) g/dL Urine Protein (Negative) Urine Bilirubin (Negative) Crossmatch 01/03/21 01/04/21 Range/Units 23:40 01:45 RBC (3.80-5.40) m/uL Hgb (11.4-16.0) gm/dL Hct (34.0-46.0) % RDW (11.5-15.5) % Plt Count (150-450) k/uL Blast Cells % % Metamyelocytes # (Man) (0) k/uL Blast Cells # (Man) (0) k/uL Nucleated RBCs (0-0) /100 WBC PT (9.0-12.0) sec INR (<1.2) Sodium (137-145) mmol/L Alkaline Phosphatase (38-126) U/L Lactate Dehydrogenase (313-618) U/L C-Reactive Protein (<1.0) mg/dL Total Protein (6.3-8.2) g/dL Albumin (3.5-5.0) g/dL Urine Protein Trace H (Negative) Urine Bilirubin 1+ H (Negative) Crossmatch See Detail Assessment and Plan Assessment: Acute anemia with blast cells and the blood Right lung cancer and she follow up with Dr. Garvin Abdominal pain and tenderness Osteoarthritis History of Degenerative disc disease and sciatic nerve pain History of kidney stone Plan: this is a pleasant 75 years old female who presents with severe anemia and blast in the blood. She is status post blood transfusion. Monitor hemoglobin and electrolytes. Hematology/oncology team were consulted already. We'll do anemia workup We'll order CT of the abdomen and pelvis for abdominal pain, no IV contrast as she has ALLERGY. Labs and medication were reviewed.. Continue same treatment. Continue with symptomatic treatment. Resume home medication. Monitor lytes and vitals. DVT and GI prophylaxis. Further recommendations depends on the clinical course of the patient DVT prophylaxis: no heparin review of her severe anemia and possible bleed GI Prophylaxis: Pepcid PT/OT: Pending Prognosis is guarded
--- NOTE | 2021-01-04 12:18 | CT ---
EXAMINATION TYPE: CT abdomen pelvis wo con DATE OF EXAM: 01/04/2021 COMPARISON: 12/13/2020 HISTORY: 75-year-old female Abdominal tenderness CT DLP: 346.50 mGycm. Automated exposure control for dose reduction was used. TECHNIQUE: Contiguous axial scanning of the abdomen and pelvis without IV contrast. Coronal and sagit venkat reconstructions performed. FINDINGS: LAD and RCA coronary artery calcifications. Heart normal size. Known left hilar mass and left lower l obar collapse. There is some small effusion developing in the interval at the left base. Patchy almaraz es at the right base are similar, probably scarring. Numerous hepatic metastases are redemonstrated. These show interval progression having increased in b oth number and size, largest posterior right liver lobe measuring up to 4.0 cm in not seen previously . Some of the previous lesions may have been treated for example, lateral right liver lobe measuring 2.9 cm versus 3.1 cm, previously. Liver borderline in size at 17.1 cm. There is an epigastric ventral abdominal wall hernia containing omental fat measuring 5.2 cm wide ragini roberta 4.9 cm previously. Some mild ascites fluid is located within the hernia sac. Mild generalized pratik sarca change. Cholecystectomy clips. Surgical clips may reflect prior right adrenalectomy. Mild thickening of the left adrenal gland is un changed. 1.0 cm hypodensity left kidney is unchanged. Spleen and atrophic pancreas show no gross abnormality. 1.2 cm cortical lesion medial right kidney previously measured 3.2 cm. Probably a cyst that has colla psed. Moderate atherosclerotic calcifications abdominal aorta and iliac arteries. No dilated small bowel, free fluid, or free air. No mesenteric or retroperitoneal lymphadenopathy. Mild stool burden. No pericolonic inflammatory. Bladder collapsed. No abnormal fluid collection in the pelvis or pelvic lymphadenopathy. Uterus surgi leah absent. Right ovary questionably seen. Bones: Degenerative changes both hips. Advanced degenerative disc disease, facet arthropathy, and Baa strup's disease in the visualized lumbar spine. Subtle lucencies throughout the osseous structures, f or example, sagittal image 59 within T11 and T12 suspicious for osseous metastatic disease. These alber encies were present previously as well. IMPRESSION: 1. Known left hilar mass and secondary left lower lobar collapse. A small left pleural effusion is n ew. 2. Disease progression with increasing size and number of hepatic metastases, largest measuring 4.0 cm. Moderate severe disease burden onto the liver. 3. Mild generalized anasarca. Epigastric ventral abdominal wall hernia contains omental fat and some trace ascites fluid measuring 5.2 cm wide versus 4.9 cm, previously. 4. Faint osseous lucencies were present previously as well and suggest diffuse osseous metastatic di sease, likely underestimated on CT.
[2021-01-04] MEDS: ONDANSETRON 4 MG/2 ML VIAL IVP PRN (12:19)
--- NOTE | 2021-01-04 12:50 | P.CONS ---
History of Present Illness - Reason for Consult Consult date: 01/04/21 Small Cell Lung Cancer Requesting physician: Mitesh Munson - History of Present Illness Ms. Campbell is a very pleasant 75-year-old female who was referred to us for a new diagnosis of metastatic small cell lung cancer. She is O2 dependent, she has a 40 year pack history of smoking, states quitting but doesn't remember when. In late September early October 2020 she had a progressive, persistent cough, no hemoptysis, she was also experiencing pain in the middle of her back as well as in her left shoulder. The symptoms became so severe that it was causing her to feel lightheaded and dizzy at times, she can also not get comfortable. Family became concerned and took her to the emergency room. She had a CT angiogram on 10/25/20 revealing a large left pulmonary hilar mass encasing the left lower lobe and left upper lobe pulmonary arteries, measuring 8 x 5 cm. There was extension into the mediastinum with multiple enlarged paratracheal and anterior mediastinal lymph nodes up to 2 cm, subcarinal adenopathy. She did not have a PE. She had a Mcbride needle biopsy and bronchial washings 10/31/[address] Monterroso. All of them were nondiagnostic except for the lingula brushings, rare, mildly atypical cells suspicious for small cell, the transbronchial biopsy was positive for small cell, positive for CAM 5.2, synaptophysin and CD 56. IHC negative for TTF-1. CT of the brain with contrast 10/30/20 showed no evidence of metastatic disease. CT of the abdomen and pelvis with contrast 10/30/20 revealed numerous hypodense masses in the liver, measuring up to 3.4 x 2 cm. There was a small left pleural effusion seen. MRI of the brain with and without contrast 10/31/20 no evidence of enhancing mass. Staging PET scan 11/04/20 showed [facility] admitted the with bilateral hypermetabolic suprac lavicular adenopathy right greater than left, measuring 3.4 x 2.4 cm. Left hilar mass 3.8 x 3.7 cm. Additional abnormalities in the left hilar region along subcarinal, prevascular, paratracheal, AP window and anterior superior mediastinal adenopathy. Multiple hypermetabolic foci throughout the liver, the largest one in the right lobe measuring 4.7 cm. Innumerable hypermetabolic osseous foci. Left sacral lesion, proximal right femur lesion, left L3 lesion called out for reference. Greatest osseous involvement is throughout the abdomen and pelvis. She was seen in the hospital by Dr. Garvin. Recommendation was to begin chemotherapy therapy/IO. She is in the office 11/08/20 for treatment education. During the discussion is noted patient is extraordinarily anxious, her O2 tank ran out, at 1. she burst into tears and began sobbing uncontrollably. She started to complain of chest pain, pain in the middle of her back, feeling dizzy, to touch she was clammy and sweaty. Muscles brought into evaluate patient. Once she began talking about other things, her symptoms dissipated. Patient does not appear to have substantial support at home. She has 2 daughters but, neither are here for her appointment, I did talk to one of them on the phone briefly. She states that she lives alone, she has 4-5 steps to get up into her house. She is getting back and forth to appointments via Cab at this time as her family would not let her drive because of the new addition of narcotic painkillers. 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 States diarrhea and vomiting yesterday and today, 1 hour, thick and frothy, nausea pill helped, 2-3 episodes of diarrhea, denied cramping, bleeding or mucus. CBC is WNL. No fevers, she does have dry mouth, SOB is stable, no swelling, pain is controlled. No other physical c/o. As above. patient had cycle #1 starting 11/09/20 and is status post 1 cycle. The patient was unable to have cycle #2 on schedule, as she was admitted with Covid pneumonitis. Discharged on 12/01/20. She was seen in the office in follow-up on 12/13/20. The patient on evaluation was quite weak and unable to give a coherent history. History was mostly obtained from the daughter. There is no history of any fevers/chills/nausea or vomiting. Patient appears to be having significant cough with production of clear phlegm. She has been quite weak with some worsening over the past few days, including in her respiratory status. Oxygen requirement is up to 4 L, and activity level is very limited. She has mostly been taking liquids with oral intake of solids also quite limited. She is able to walk only a few feet before getting winded. He is complaining of some new onset of left-sided back pain that developed while moving around earlier today. the patient was recently admitted for COVID pneumonitis. therefore second cycle of chemotherapy was delayed. Post discharge the patient was doing better, but over the last few days has deteriorated, with multiple symptoms as detailed in the HPI. On exam the patient was quite weak and otherwise functionally. In addition her blood pressure was quite low with systolic in the 70-80 range which is much lower than her baseline. She was again sent to ER for further evaluation, since this time she was seen in office on 01/02/21 by YUMIKO Olguin for cytopenias and still not feeling well. Review of Systems All systems: negative Constitutional: Reports as per HPI Past Medical History Past Medical History: Cancer, Osteoarthritis (OA), Pneumonia Additional Past Medical History / Comment(s): sinus problems,kidney stones uti, bladder incnt/wears a pad,abd hernia,migraines,"muscles spasms and lt hip pain, had collapsed lung -not large enough to require c/t, DDD, sciatic, History of Any Multi-Drug Resistant Organisms: None Reported Year Discovered:: 2015 Past Surgical History: Appendectomy, Bladder Surgery, Cholecystectomy, Hysterectomy, Orthopedic Surgery Additional Past Surgical History / Comment(s): artriscopy, lt knee replacemnent,adrenal gland removed,lt knee, colonoscopy, dental implants, 1997 had lt foot sx for hammer toes and stated had an implant in that foot-then january 2015 had a revison of that sx, Cdiff- 2015. covid 11/06 Past Anesthesia/Blood Transfusion Reactions: No Reported Reaction Additional Past Anesthesia/Blood Transfusion Reaction / Comm: Pt received blood without reaction. Past Psychological History: Anxiety Smoking Status: Former smoker Past Alcohol Use History: Rare Past Drug Use History: None Reported - Past Family History Mother Family Medical History: Dementia Additional Family Medical History / Comment(s): moms sister also had dementia Father Family Medical History: Unable to Obtain Medications and Allergies Home Medications Medication Instructions Recorded Confirmed Type Albuterol Inhaler [Ventolin Hfa 2 puff INHALATION RT-QID PRN 10/25/20 01/03/21 History Inhaler] Citalopram Hydrobromide 40 mg PO HS 10/25/20 01/03/21 History [Citalopram HBr] diphenhydrAMINE [Benadryl] 25 mg PO HS PRN 10/25/20 01/03/21 History Cyclobenzaprine [Flexeril] 5 mg PO TID PRN #30 tab 11/01/20 01/03/21 Rx fentaNYL 25MCG/HR PATCH [Duragesic 1 patch TRANSDERM Q72H #3 patch 11/01/20 01/03/21 Rx 25MCG/HR] Budesonide/Formoterol Fumarate 2 puff INHALATION RT-BID 11/26/20 01/03/21 History [Symbicort 160-4.5 Mcg Inhaler] HYDROcodone/APAP 7.5-325MG [[place] 1 tab PO Q6H PRN 11/26/20 01/03/21 History 7.5-325] Omeprazole 20 mg PO DAILY 11/26/20 01/03/21 History Ondansetron HCl [Zofran] 4 mg PO Q4H PRN 11/26/20 01/03/21 History Cholecalciferol [Vitamin D3 (25 25 mcg PO BID 12/13/20 01/03/21 History Mcg = 1000 Iu)] Fluticasone Propion/Salmeterol 1 puff INHALATION RT-BID 12/13/20 01/03/21 History [Wixela 250-50 Inhub] Levofloxacin [Levaquin] 500 mg PO DAILY 7 Days #7 tab 12/16/20 01/03/21 Rx Potassium Chloride ER [K-Dur 20] See Taper PO DIRECTED 01/03/21 01/03/21 History Allergies Allergy/AdvReac Type Severity Reaction Status Date / Time Iodinated Contrast Media Allergy Unknown Verified 01/03/21 23:10 [Iodinated Contrast Media - IV Dye] sulfamethoxazole Allergy Rash/Hives Verified 01/03/21 23:10 [From Bactrim] trimethoprim [From Bactrim] Allergy Rash/Hives Verified 01/03/21 23:10 Physical Exam Vitals: Vital Signs Temp Pulse Pulse Resp BP BP Pulse Ox 01/04/21 11:12 98.4 F 106 H 16 151/90 100 01/04/21 10:15 98.2 F 108 H 17 151/88 99 01/04/21 09:38 97.9 F 105 H 18 139/102 98 01/04/21 08:43 97.6 F 116 H 20 150/92 98 01/04/21 08:27 98.6 F 120 H 18 159/103 01/04/21 08:13 97.8 F 112 H 18 155/99 01/04/21 08:03 97.5 F L 110 H 18 146/92 01/04/21 07:57 110 H 01/04/21 07:50 98 01/04/21 07:31 97.7 F 99 19 140/90 99 01/04/21 06:56 98.1 F 109 H 18 143/89 98 01/04/21 06:09 99 F 108 H 20 111/82 98 01/04/21 05:39 98.5 F 108 H 18 134/93 99 01/04/21 05:30 97.8 F 117 H 18 153/84 99 01/04/21 05:29 97.9 F 107 H 18 130/88 99 01/04/21 04:20 107 H 01/04/21 04:17 99 01/04/21 04:12 110 H 01/04/21 00:48 98 18 129/86 99 01/03/21 23:48 19 01/03/21 23:44 97.6 F 100 19 132/70 100 01/03/21 21:44 97.4 F L 112 H 24 99/64 100 Intake and Output 01/03/21 01/04/21 01/04/21 22:59 06:59 14:59 Intake Total 0 620 Balance 0 620 Intake: Blood Product 0 620 Rc As-1 Unit 0 310 [id number] Rc As-1 Unit 310 [id number] Other: Weight 58.967 kg 58.967 kg - Exam - Constitutional General appearance: cooperative, no acute distress - EENT Eyes: EOMI ENT: NA/AT - Neck Neck: lymphadenopathy - Respiratory Respiratory: bilateral: diminished, wheezing - Cardiovascular Rhythm: irregularly irregular - Gastrointestinal General gastrointestinal: normal bowel sounds, soft - Integumentary Integumentary: pale - Neurologic Neurologic: CNII-XII intact - Musculoskeletal Musculoskeletal: generalized weakness - Psychiatric Psychiatric: A&O x's 3 Results CBC & Chem 7: 01/04/21 12:56 01/04/21 12:56 Labs: Abnormal Lab Results - Last 24 Hours (Table) 01/03/21 01/03/21 01/03/21 Range/Units 22:39 22:39 22:39 RBC 2.62 L (3.80-5.40) m/uL Hgb 7.4 L D (11.4-16.0) gm/dL Hct 23.0 L (34.0-46.0) % RDW 16.0 H (11.5-15.5) % Plt Count 42 L D (150-450) k/uL Blast Cells % 4 H* % Metamyelocytes # (Man) 0.24 H (0) k/uL Blast Cells # (Man) 0.24 H (0) k/uL Nucleated RBCs 1 H (0-0) /100 WBC PT 14.3 H (9.0-12.0) sec INR 1.4 H (<1.2) Sodium 135 L (137-145) mmol/L Alkaline Phosphatase 199 H (38-126) U/L Lactate Dehydrogenase 1966 H (313-618) U/L C-Reactive Protein 5.7 H (<1.0) mg/dL Total Protein 5.0 L (6.3-8.2) g/dL Albumin 2.7 L (3.5-5.0) g/dL Urine Protein (Negative) Urine Bilirubin (Negative) Crossmatch 01/03/21 01/04/21 Range/Units 23:40 01:45 RBC (3.80-5.40) m/uL Hgb (11.4-16.0) gm/dL Hct (34.0-46.0) % RDW (11.5-15.5) % Plt Count (150-450) k/uL Blast Cells % % Metamyelocytes # (Man) (0) k/uL Blast Cells # (Man) (0) k/uL Nucleated RBCs (0-0) /100 WBC PT (9.0-12.0) sec INR (<1.2) Sodium (137-145) mmol/L Alkaline Phosphatase (38-126) U/L Lactate Dehydrogenase (313-618) U/L C-Reactive Protein (<1.0) mg/dL Total Protein (6.3-8.2) g/dL Albumin (3.5-5.0) g/dL Urine Protein Trace H (Negative) Urine Bilirubin 1+ H (Negative) Crossmatch See Detail Chest x-ray: report reviewed CT scan - abdomen: report reviewed CT scan - pelvis: report reviewed Assessment and Plan (1) Anemia Current Visit: Yes Status: Acute Code(s): D64.9 - ANEMIA, UNSPECIFIED SNOMED Code(s): 651290861 (2) Small cell lung cancer Current Visit: No Status: Acute Code(s): C34.90 - MALIGNANT NEOPLASM OF UNSP PART OF UNSP BRONCHUS OR LUNG SNOMED Code(s): 568965971 Plan: Assessment and Plan Extensive Stage Small cell lung cancer Status: Acute Code(s): C34.90 - MALIGNANT NEOPLASM OF UNSP PART OF UNSP BRONCHUS OR LUNG SNOMED Code(s): 682898987 Plan: Symptomatic Normocytic Anemia - Recent Anemia work-up without actionable deficiency - Likely secondary to extensive disease, progresive disease (bone and liver and poss bone marrow) - Transfuse hemoglobin less than 7 Thrombocytopenia - Less than 50K, Hold NSAIDS, ASA, Anticoagulation - Transfusion support less than 7 - Check Coags, yesterday INR 1.4 Extensive Stage Small Cell Lung Cancer: - CT Abd/Pelvis from this hospital stay shows progressive disease in liver (number and size) Recent UTI/SIRS: - Recheck Ocampo Cultures Hypertensive: - Recently had Hypotension and BP meds stopped/Held/Changed - Defer to medical Management to re-adjust medications Tachycardia/ Increased SOB: - Maybe secondary to symptomatic anemia versus progression versus other - CTA ordered
[2021-01-04 13:41] LABS: ALT 11 U/L (4-34); AST 27 U/L (14-36); African American GFR (CKD) >90 (>60 ml/min/1.73 sqM); Albumin 2.7 g/dL (3.5-5.0); Albumin/Globulin Ratio 1.1; Alkaline Phosphatase 220 U/L (38-126); Anion Gap 6 mmol/L; Blood Urea Nitrogen 11 mg/dL (7-17); Calcium 8.9 mg/dL (8.4-10.2); Carbon Dioxide 27 mmol/L (22-30); Chloride 104 mmol/L (98-107); Globulin 2.4 g/dL; Glucose 79 mg/dL (74-99); Non-African American GFR(CKD) 87 (>60 ml/min/1.73 sqM); Potassium 3.4 mmol/L (3.5-5.1); Sodium 137 mmol/L (137-145); Total Bilirubin 1.3 mg/dL (0.2-1.3); Total Protein 5.1 g/dL (6.3-8.2)
[2021-01-04 13:53] LABS: Basophils # (A) 0.1 k/uL (0-0.2); Basophils % (A) 1 %; Eosinophils % (A) 0 %; HCT 31.1 % (34.0-46.0); Lymphocytes # (A) 1.1 k/uL (1.0-4.8); Lymphocytes % (A) 18 %; MCH 29.6 pg (25.0-35.0); MCHC 35.4 g/dL (31.0-37.0); MCV 83.7 fL (80.0-100.0); Mean Platelet Volume 8.8; Monocytes # (A) 0.5 k/uL (0-1.0); Monocytes % (A) 9 %; Neutrophils # (A) 4.1 k/uL (1.3-7.7); Neutrophils % (A) 67 %; RBC 3.71 m/uL (3.80-5.40); RDW 15.4 % (11.5-15.5); WBC 6.2 k/uL (3.8-10.6)
[2021-01-04 13:58] LABS: INR 1.4 (<1.2); Partial Thromboplastin Time 25.9 sec (22.0-30.0); Prothrombin Time 14.2 sec (9.0-12.0)
[2021-01-04 14:05] LABS: Platelet Count 36 k/uL (150-450)
[2021-01-04 14:51] LABS: Band Neutrophils % 5 %; Blast Cells # (M) 0.12 k/uL (0); Lymphocytes # (M) 1.43 k/uL (1.0-4.8); Metamyelocytes # (M) 0.12 k/uL (0); Metamyelocytes % 2 %; Monocytes # (M) 0.56 k/uL (0-1.0); Myelocytes # (M) 0.06 k/uL (0); Myelocytes % 1 %; Neutrophils % (M) 60 %; Nucleated Red Blood Cells 0 /100 WBC (0-0); Total Cells Counted 200
[2021-01-04 14:53] LABS: Toxic Granulation Present
[2021-01-04 17:28] LABS: % Iron Saturation 67.63 (12.00-45.00); Ferritin 1858.4 ng/mL (10.0-291.0)
[2021-01-04] MEDS ORDERED: predniSONE 50 MG TAB PO ONE (18:00)
[2021-01-04 19:50] LABS: Folate, Serum 3.9 ng/mL
[2021-01-04] MEDS ORDERED: CITALOPRAM HYDROBROMIDE 20 MG TAB PO SCH (21:00)
[2021-01-04] MEDS: CHOLECALCIFEROL 25 MCG (1000 IU) TABLET PO SCH (21:07)
[2021-01-04] MEDS: SYMBICORT 160-4.5 MCG INHALER INHALATION SCH (21:24)
[2021-01-04] MEDS ORDERED: POTASSIUM CHLORIDE ER 20 MEQ TAB.ER PO STA (21:42)
[2021-01-05 04:59] LABS: Basophils % (A) 1 %; Eosinophils % (A) 0 %; HCT 30.9 % (34.0-46.0); Lymphocytes % (A) 13 %; MCH 29.8 pg (25.0-35.0); MCHC 35.4 g/dL (31.0-37.0); MCV 84.2 fL (80.0-100.0); Mean Platelet Volume 8.7; Monocytes # (A) 0.5 k/uL (0-1.0); Monocytes % (A) 7 %; Neutrophils # (A) 5.8 k/uL (1.3-7.7); Neutrophils % (A) 75 %; Platelet Count 48 k/uL (150-450); RBC 3.67 m/uL (3.80-5.40); RDW 15.5 % (11.5-15.5); WBC 7.7 k/uL (3.8-10.6)
[2021-01-05] MEDS: methylPREDNISolone SOD SUCCI 125 MG/2 ML VIAL IV SCH ×2 (05:54→11:41)
[2021-01-05] MEDS ORDERED: predniSONE 50 MG TAB PO ONE ×2 (06:00)
[2021-01-05] MEDS ORDERED: diphenhydrAMINE 50 MG CAP PO ONE (06:00)
[2021-01-05 06:07] LABS: Band Neutrophils % 7 %; Blast Cells # (M) 0.23 k/uL (0); Monocytes # (M) 0.62 k/uL (0-1.0); Neutrophils % (M) 71 %; Nucleated Red Blood Cells 0 /100 WBC (0-0); Total Cells Counted 200
[2021-01-05] MEDS: SYMBICORT 160-4.5 MCG INHALER INHALATION SCH (07:28)
[2021-01-05] MEDS: CHOLECALCIFEROL 25 MCG (1000 IU) TABLET PO SCH (07:39)
--- NOTE | 2021-01-05 07:59 | CT ---
EXAMINATION TYPE: CT angio chest DATE OF EXAM: 01/05/2021 COMPARISON: 11/26/2020 HISTORY: Small cell lung cancer CT DLP: 431 mGycm CONTRAST: CT chest with contrast and 3D reconstruction with MIP imaging is performed without and with IV Contra st, patient injected with 76 inj, 21 wasted mL of Isovue 370. Contrast-enhanced CT of the chest was performed through the course of the pulmonary arteries with giovanni g and mediastinal window settings submitted. 3D reconstruction with MIP imaging was also performed. PULMONARY ARTERIES: The pulmonary arteries and their major tributaries are patent. I do not see malik dence for sizable filling defect to suggest pulmonary embolic process. LUNGS: Left hilar mass is redemonstrated and measures an estimated 3.5 cm. Left lower lobe collapse i dentified as well as loculated effusion. Persistent scattered groundglass infiltrates but much improv ed from prior study. Trace right-sided pleural effusion and compressive atelectasis. MEDIASTINUM: Atheromatous changes thoracic aorta without evidence for aneurysm. The heart is enlarged . Enlarged mediastinal lymph nodes are unchanged from prior study. HILAR STRUCTURES: No evidence for mass. No hilar lymph nodes greater than 1 cm. UPPER ABDOMEN: No significant abnormality is seen. IMPRESSION: 1. No evidence for Pulmonary embolism at this time. 2.Left hilar mass is redemonstrated and measures an estimated 3.5 cm. Left lower lobe collapse identi fied as well as loculated effusion. Persistent scattered groundglass infiltrates but much improved fr om prior study.
[2021-01-05 09:38] LABS: INR 1.29 (0.90-1.11); Prothrombin Time 13.8 sec (9.9-11.9)
[2021-01-05 10:57] LABS: African American GFR (CKD) 98.9 (60.0-200.0); Albumin 3.1 g/dL (3.80-4.90); Albumin/Globulin Ratio 1.72 (1.60-3.17); Anion Gap 13.7 mmol/L (4.00-12.00); BUN/Creat Ratio 25.71 Ratio (12.00-20.00); Calcium 8.4 mg/dL (8.7-10.3); Carbon Dioxide 23.3 mmol/L (21.6-31.8); Globulin 1.8 g/dL (1.6-3.3); Non-African American GFR(CKD) 85.4 (60.0-200.0); Potassium 3.5 mmol/L (3.5-5.5); Total Protein 4.9 g/dL (6.2-8.2)
[2021-01-05 11:57] VITALS: BP 120/78; PULSE 99; RESP 14; TEMP 98.9
[2021-01-05] MEDS: ONDANSETRON 4 MG/2 ML VIAL IVP PRN (13:28)
[2021-01-05 13:46] VITALS: BMI 23.0
[2021-01-05 15:05] LABS: Appearance,Urine Clear (Clear); Bacteria,Urine Rare /hpf; Bilirubin,Urine 1+ (Negative); Blood,Urine Trace (Negative); Color,Urine Yellow; Glucose,Urine (UA) Negative (Negative); Ketones,Urine Negative (Negative); Leukocyte Esterase,Urine Negative (Negative); Nitrite,Urine Negative (Negative); PH, Urine 6.5 (5.0-8.0); Protein,Urine Trace (Negative); RBC,Urine 4 /hpf (0-5); Squamous Epithelial Cell,Urine 4 /hpf (0-4); WBC,Urine 3 /hpf (0-5)
[2021-01-05 15:06] LABS: Specific Gravity,Urine >1.050 (1.001-1.035)
--- NOTE | 2021-01-05 23:45 | P.DS ---
Providers Date of admission: 01/04/21 01:22 Attending physician: Mitesh Munson Consults: 01/04/21 01:23 Consult Physician Routine Consulting Provider: Emeterio Garvin Consult Reason/Comments: cp Do you want consulting provider notified?: Yes Primary care physician: Emy Ball Hospital Course: Diagnoses: Acute anemia with blast cells and the blood, related to anemia of chronic disease. Improved with lung transfusion. Left lung cancer and she follow up with Dr. Garvin . CTA of the chest is negative for PE Abdominal pain and tenderness, secondary to her hepatic metastasis Osteoarthritis History of Degenerative disc disease and sciatic nerve pain History of kidney stone Hospital course: This is a pleasant 75 years old female with past medical history of osteoarthritis, degenerative disc disease and sciatic nerve pain. Kidney stone. Patient also with left lung cancer for a few months now being followed closely with Dr. Garvin, presents because of increased shortness of breath secondary to her severe anemia were hemoglobin on presentation was 7.4. Patient received 2 units of blood transfusion and her hemoglobin increased to 11+, she still have mild thrombocytopenia with platelet count 48 k. After blood transfusion her dyspnea improved and she significantly feels better, no dyspnea and no chest pain, no coughing. CTA of the chest was negative for PE. CT of the abdomen and pelvis showing left hilar mass and left lower lobe collapse which is seen on the previous imaging. Also she has worsening hepatic metastasis, increase in number and size. the suspicion of infection is low, however her procalcitonin is slightly elevated at 0.29, but is coming down from 1.4 on 12/15. Patient instructed to resume her Levaquin upon discharge Patient has been evaluated by oncology service and they cleared patient for discharge Problems and management plan were discussed with the patient and he verbalized understanding and acceptance Patient was found stable and can be discharged home however he needs follow-up as an outpatient. Patient was instructed to follow up with PCP Dr. Ball within one week and patient agrees. Patient was instructed to follow up with carpentry professional oncologist YUMIKO ramirez ne week and surgeon Dr. Ball in one week, patient agrees with the staff make an appointment for her Physical exam Gen: patient is a AAOx3, no distress CVS: S1-S2, RRR, no murmur Lungs: B/L CTA, no wheezing -Abdomen: soft, mild abdominal pain and tenderness, no tenderness, positive bowel sounds Extremity: no leg edema or induration Time spent more than 35 minutes Patient Condition at Discharge: Serious Plan - Discharge Summary Discharge Rx Participant: No New Discharge Prescriptions: Continue diphenhydrAMINE [Benadryl] 25 mg PO HS PRN PRN Reason: SLEEP/ALLERGIC REACTION Citalopram Hydrobromide [Citalopram HBr] 40 mg PO HS Albuterol Inhaler [Ventolin Hfa Inhaler] 2 puff INHALATION RT-QID PRN PRN Reason: Shortness Of Breath fentaNYL 25MCG/HR PATCH [Duragesic 25MCG/HR] 1 patch TRANSDERM Q72H #3 patch Cyclobenzaprine [Flexeril] 5 mg PO TID PRN #30 tab PRN Reason: Muscle Spasm Budesonide/Formoterol Fumarate [Symbicort 160-4.5 Mcg Inhaler] 2 puff INHALATION RT-BID HYDROcodone/APAP 7.5-325MG [[place] 7.5-325] 1 tab PO Q6H PRN PRN Reason: Pain Cholecalciferol [Vitamin D3 (25 Mcg = 1000 Iu)] 25 mcg PO BID Levofloxacin [Levaquin] 500 mg PO DAILY 7 Days #7 tab Potassium Chloride ER [K-Dur 20] See Taper PO DIRECTED Omeprazole 20 mg PO DAILY Ondansetron HCl [Zofran] 4 mg PO Q4H PRN PRN Reason: Nausea And Vomiting Fluticasone Propion/Salmeterol [Wixela 250-50 Inhub] 1 puff INHALATION RT-BID Discharge Medication List Albuterol Inhaler [Ventolin Hfa Inhaler] 2 puff INHALATION RT-QID PRN 10/25/20 [History] Citalopram Hydrobromide [Citalopram HBr] 40 mg PO HS 10/25/20 [History] diphenhydrAMINE [Benadryl] 25 mg PO HS PRN 10/25/20 [History] Cyclobenzaprine [Flexeril] 5 mg PO TID PRN #30 tab 11/01/20 [Rx] fentaNYL 25MCG/HR PATCH [Duragesic 25MCG/HR] 1 patch TRANSDERM Q72H #3 patch 11/01/20 [Rx] Budesonide/Formoterol Fumarate [Symbicort 160-4.5 Mcg Inhaler] 2 puff INHALATION RT-BID 11/26/20 [History] HYDROcodone/APAP 7.5-325MG [[place] 7.5-325] 1 tab PO Q6H PRN 11/26/20 [History] Omeprazole 20 mg PO DAILY 11/26/20 [History] Ondansetron HCl [Zofran] 4 mg PO Q4H PRN 11/26/20 [History] Cholecalciferol [Vitamin D3 (25 Mcg = 1000 Iu)] 25 mcg PO BID 12/13/20 [History] Fluticasone Propion/Salmeterol [Wixela 250-50 Inhub] 1 puff INHALATION RT-BID 12/13/20 [History] Levofloxacin [Levaquin] 500 mg PO DAILY 7 Days #7 tab 12/16/20 [Rx] Potassium Chloride ER [K-Dur 20] See Taper PO DIRECTED 01/03/21 [History] Follow up Appointment(s)/Referral(s): Sujatha Nj ANPBC [Nurse Practitioner] - 01/12/21 2:30 pm Emy Ball MD [Primary Care Provider] - 01/11/21 10:30 am [facility], [NON-STAFF] - Patient Instructions/Handouts: Dehydration (DC), COPD (Chronic Obstructive Pulmonary Disease) (DC), Weakness (DC), Anemia (DC) Activity/Diet/Wound Care/Special Instructions: Heart healthy diet Activity is restricted until you see your doctor Discharge Disposition: HOME SELF-CARE
--- NOTE | 2021-01-30 07:38 | CDI ---
Documentation Clarification Form Date: 01/30/21 From: Payton Chong Admit Date: 01/04/2021 01:22:00 AM Patient Name: Mary Campbell Visit Number: [id number] Discharge Date: 01/05/2021 04:20:00 PM ATTENTION: The Clinical Documentation Specialists (CDI) and [facility] Coding Staff appreciate your assistance in clarifying documentation. Please respond to the clarification below the line at the bottom and electronically sign. The CDI & [facility] Coding staff will review the response and follow-up if needed. Please note: Queries are made part of the Legal Health Record. If you have any questions, please contact the author of this message via ITS. Dr. Weir E Sheet, Acute anemia with blast cells and the blood, related to anemia of chronic disease documented in the discharge summary. Additional specificity regarding the [type, acuity] of anemia is requested. 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 Garvin, presents because of increased shortness of breath and lower extremity edema. Patient states that she presents because of significant dyspnea and dry cough and since yesterday. The patient found to have severe anemia and currently she getting her second unit of blood transfusion. Hemoglobin: 7.4, 11.0, 11.0 Hematocrit: 23.0, 31.1, 30.9 Treatment: 2 units of red blood cells Please clarify the cause of the chronic anemia: [ ] Drug induced anemia, please specify [ ] Anemia due to malignancy [ ] Unable to determine [ ] Other, please specify Unable to determine, not my pt MTDD
== END 2021-01-05 16:20 | disposition home health service (06) | DRG 812 ==
LOC: EC 21:41 → 5NMEDONC 01-04 01:22
PROVIDERS: ADMIT Hospitalist; ATTEND Hospitalist
PROC: 30233N1 Transfusion of Nonautologous Red Blood Cells into Peripheral Vein, Percutaneous Approach (ICD-10-PCS; principal; 2021-01-04)
DX: D46.21 Refractory anemia with excess of blasts 1 (principal); C79.51 Secondary malignant neoplasm of bone; J44.1 Chronic obstructive pulmonary disease with (acute) exacerbation; C34.02 Malignant neoplasm of left main bronchus; C78.7 Secondary malignant neoplasm of liver and intrahepatic bile duct; E89.6 Postprocedural adrenocortical (-medullary) hypofunction; D69.6 Thrombocytopenia, unspecified; E86.0 Dehydration; Z20.822 Contact with and (suspected) exposure to COVID-19; F41.9 Anxiety disorder, unspecified; K46.9 Unspecified abdominal hernia without obstruction or gangrene; M54.30 Sciatica, unspecified side; M19.90 Unspecified osteoarthritis, unspecified site; M25.552 Pain in left hip; R32 Unspecified urinary incontinence; Z99.81 Dependence on supplemental oxygen; Z86.16 Personal history of COVID-19; Z79.51 Long term (current) use of inhaled steroids; Z79.899 Other long term (current) drug therapy; Z96.652 Presence of left artificial knee joint; Z87.891 Personal history of nicotine dependence; Z87.01 Personal history of pneumonia (recurrent); Z87.442 Personal history of urinary calculi; Z87.440 Personal history of urinary (tract) infections; Z86.69 Personal history of other diseases of the nervous system and sense organs; Z90.49 Acquired absence of other specified parts of digestive tract; Z90.710 Acquired absence of both cervix and uterus; Z87.19 Personal history of other diseases of the digestive system; Z87.448 Personal history of other diseases of urinary system; Z96.5 Presence of tooth-root and mandibular implants; Z86.19 Personal history of other infectious and parasitic diseases; Z87.39 Personal history of other diseases of the musculoskeletal system and connective tissue; Z98.890 Other specified postprocedural states; Z88.2 Allergy status to sulfonamides; Z91.041 Radiographic dye allergy status; Z81.8 Family history of other mental and behavioral disorders
CPT/HCPCS: 36415; 71046; 71275; 74176; 80053; 81001; 81003; 82533; 82550; 82607; 82728; 82746; 83540; 83550; 83605; 83615; 83735; 83880; 84145; 84443; 84484; 85025; 85610; 85730; 86140; 86850; 86900; 86901; 86920; 87040; 87635; 93005; 94640; 94760; 99285

== ENCOUNTER 2021-01-18 15:02 | Inpatient (IN) | payer MEDICARE, BC ==
[2021-01-18] MEDS ORDERED: SODIUM CHLORIDE 0.9% 500 ML 500 ML IV STA ×2 (17:05→18:08)
[2021-01-18] MEDS ORDERED: ONDANSETRON 4 MG/2 ML VIAL IVP STA (17:05)
[2021-01-18] MEDS ORDERED: HYDROmorphone 0.5 MG/0.5 ML SYRINGE IVP STA (17:05)
--- NOTE | 2021-01-18 17:14 | ED ---
Abdominal Pain HPI - General Chief Complaint: Abdominal Pain Stated Complaint: Neutropenic Colitis Time Seen by Provider: 01/18/21 16:36 Source: patient Mode of arrival: wheelchair - History of Present Illness Initial Comments: This patient is a 75-year-old woman, who is sent here from the [facility] where she was having a follow-up after chemotherapy treatment. She was sent here to be evaluated for upper abdominal pain. The patient states she has been having these pains intermittently with the cancer diagnosis. She states that previously when she had it the pain responded to blood transfusion. MD Complaint: abdominal pain -: days(s) Location: LUQ, RUQ Radiation: none Migration to: no migration Severity: moderate Quality: aching Consistency: constant Improves With: nothing Worsens With: nothing Associated Symptoms: nausea - Related Data Home Medications Medication Instructions Recorded Confirmed Albuterol Inhaler [Ventolin Hfa 2 puff INHALATION RT-QID PRN 10/25/20 01/18/21 Inhaler] Citalopram Hydrobromide 40 mg PO HS 10/25/20 01/18/21 [Citalopram HBr] diphenhydrAMINE [Benadryl] 25 mg PO HS PRN 10/25/20 01/18/21 HYDROcodone/APAP 7.5-325MG [[place] 1 tab PO Q6H PRN 11/26/20 01/18/21 7.5-325] Omeprazole 20 mg PO DAILY 11/26/20 01/18/21 Ondansetron HCl [Zofran] 4 mg PO Q4H PRN 11/26/20 01/18/21 Cholecalciferol [Vitamin D3 (25 25 mcg PO BID 12/13/20 01/18/21 Mcg = 1000 Iu)] Fluticasone Propion/Salmeterol 1 puff INHALATION RT-BID 12/13/20 01/18/21 [[place] 250-50 Inhub] Potassium Chloride Oral Liquid 20 meq PO DAILY 01/18/21 01/18/21 Previous Rx's Medication Instructions Recorded Cyclobenzaprine [Flexeril] 5 mg PO TID PRN #30 tab 11/01/20 fentaNYL 25MCG/HR PATCH [Duragesic 1 patch TRANSDERM Q72H #3 patch 11/01/20 25MCG/HR] Amoxic-Pot Clav 875-125Mg 1 tab PO Q12HR 5 Days #10 tab 01/23/21 [Augmentin 875-125] Loperamide [Imodium] 2 mg PO QID PRN #30 cap 01/23/21 Promethazine [Phenergan] 25 mg PO Q6HR PRN #10 tab 01/23/21 Allergies Allergy/AdvReac Type Severity Reaction Status Date / Time Iodinated Contrast Media Allergy Unknown Verified 01/18/21 17:46 [Iodinated Contrast Media - IV Dye] sulfamethoxazole Allergy Rash/Hives Verified 01/18/21 17:46 [From Bactrim] trimethoprim [From Bactrim] Allergy Rash/Hives Verified 01/18/21 17:46 Review of Systems ROS Statement: Those systems with pertinent positive or pertinent negative responses have been documented in the HPI. ROS Other: All systems not noted in ROS Statement are negative. Constitutional: Reports: weakness. Denies: fever, chills Respiratory: Denies: cough, dyspnea Cardiovascular: Denies: chest pain, palpitations, edema Endocrine: Reports: fatigue Gastrointestinal: Reports: abdominal pain, nausea, constipation. Denies: vomiting, diarrhea, hematemesis, melena, hematochezia Genitourinary: Denies: dysuria, frequency, hematuria Musculoskeletal: Denies: back pain Skin: Denies: rash Neurological: Denies: headache, weakness, numbness, paresthesias Past Medical History Past Medical History: Cancer, Osteoarthritis (OA), Pneumonia Additional Past Medical History / Comment(s): sinus problems,kidney stones uti, bladder incnt/wears a pad,abd hernia,migraines,"muscles spasms and lt hip pain, had collapsed lung -not large enough to require c/t, DDD, sciatic, History of Any Multi-Drug Resistant Organisms: None Reported Date of last positivie culture/infection: 2015 Past Surgical History: Appendectomy, Bladder Surgery, Cholecystectomy, Hysterectomy, Orthopedic Surgery Additional Past Surgical History / Comment(s): artriscopy, lt knee replacemnent,adrenal gland removed,lt knee, colonoscopy, dental implants, 1997 had lt foot sx for hammer toes and stated had an implant in that foot-then january 2015 had a revison of that sx, Cdiff- 2015. covid 11/06 Past Anesthesia/Blood Transfusion Reactions: No Reported Reaction Additional Past Anesthesia/Blood Transfusion Reaction / Comment(s): Pt received blood without reaction. Past Psychological History: Anxiety Smoking Status: Former smoker Past Alcohol Use History: Rare Past Drug Use History: None Reported - Past Family History Mother Family Medical History: Dementia Additional Family Medical History / Comment(s): moms sister also had dementia Father Family Medical History: Unable to Obtain General Exam General appearance: alert, in no apparent distress Head exam: Present: atraumatic, normocephalic Eye exam: Present: normal appearance. Absent: scleral icterus, conjunctival injection ENT exam: Present: normal oropharynx Neck exam: Present: normal inspection Respiratory exam: Present: normal lung sounds bilaterally. Absent: respiratory distress, wheezes, rales, rhonchi, stridor Cardiovascular Exam: Present: regular rate, normal rhythm, normal heart sounds. Absent: systolic murmur, diastolic murmur, rubs, gallop GI/Abdominal exam: Present: soft, tenderness (Mild upper abdominal tenderness without rebound or guarding). Absent: distended, guarding, rebound, rigid, mass, pulsatile mass, hernia Extremities exam: Present: normal inspection, normal capillary refill. Absent: pedal edema, calf tenderness Neurological exam: Present: alert Skin exam: Present: warm, dry, intact, pallor. Absent: rash Course Vital Signs 01/18/21 01/18/21 01/18/21 15:10 17:06 18:38 Temperature 97.9 F Pulse Rate 67 112 H 96 Respiratory 18 18 16 Rate Blood Pressure 94/62 115/78 108/78 O2 Sat by Pulse 98 100 100 Oximetry 01/18/21 01/18/21 01/18/21 19:30 20:20 21:40 Temperature 98.2 F Pulse Rate 102 H 101 H 97 Respiratory 20 20 16 Rate Blood Pressure 145/90 132/91 O2 Sat by Pulse 96 96 100 Oximetry 01/18/21 23:09 Temperature 98.1 F Pulse Rate 90 Respiratory 18 Rate Blood Pressure 136/89 O2 Sat by Pulse 96 Oximetry Medical Decision Making - Lab Data Result diagrams: 01/23/21 11:50 01/23/21 11:50 Lab Results 01/18/21 01/18/21 01/18/21 Range/Units 17:03 17:03 17:03 WBC 0.8 L* (3.8-10.6) k/uL RBC 3.31 L (3.80-5.40) m/uL Hgb 9.7 L (11.4-16.0) gm/dL Hct 28.3 L (34.0-46.0) % MCV 85.5 (80.0-100.0) fL MCH 29.2 (25.0-35.0) pg MCHC 34.2 (31.0-37.0) g/dL RDW 15.7 H (11.5-15.5) % Plt Count 70 L (150-450) k/uL MPV 8.2 Neutrophils # Differential Comment Manual Slide Review Performed PT (9.0-12.0) sec INR (<1.2) APTT (22.0-30.0) sec Sodium 138 (137-145) mmol/L Potassium 4.2 (3.5-5.1) mmol/L Chloride 109 H (98-107) mmol/L Carbon Dioxide 22 (22-30) mmol/L Anion Gap 7 mmol/L BUN 23 H (7-17) mg/dL Creatinine 0.71 (0.52-1.04) mg/dL Est GFR (CKD-EPI)AfAm >90 (>60 ml/min/1.73 sqM) Est GFR (CKD-EPI)NonAf 85 (>60 ml/min/1.73 sqM) BUN/Creatinine Ratio (12.00-20.00) Ratio Glucose 136 H (74-99) mg/dL Lactic Ac Sepsis Rflx Plasma Lactic Acid Jorge (0.7-2.0) mmol/L Calcium 9.1 (8.4-10.2) mg/dL Magnesium (1.6-2.3) mg/dL Iron (50-170) ug/dL TIBC (228-460) ug/dL % Saturation (12.00-45.00) Ferritin (10.0-291.0) ng/mL Total Bilirubin 1.7 H (0.2-1.3) mg/dL AST 28 (14-36) U/L ALT 16 (4-34) U/L Alkaline Phosphatase 192 H (38-126) U/L Troponin I (0.000-0.034) ng/mL Total Protein 5.9 L (6.3-8.2) g/dL Albumin 3.4 L (3.5-5.0) g/dL Globulin g/dL Albumin/Globulin Ratio Amylase 35 (30-110) U/L Lipase 80 (23-300) U/L Vitamin B1 (38-122) ug/L Vitamin B12 (200.0-944.0) pg/mL Methylmalonic Acid (<0.40) umol/L Folate ng/mL TSH (0.350-5.500) uIU/mL Cortisol (3.10-22.40) ug/dL Urine Color Yellow Urine Appearance Clear (Clear) Urine pH 6.0 (5.0-8.0) Ur Specific [place] 1.015 (1.001-1.035) Urine Protein Trace H (Negative) Urine Glucose (UA) Negative (Negative) Urine Ketones Negative (Negative) Urine Blood Negative (Negative) Urine Nitrite Negative (Negative) Urine Bilirubin Negative (Negative) Urine Urobilinogen <2.0 (<2.0) mg/dL Ur Leukocyte Esterase Negative (Negative) Coronavirus (PCR) (Not Detectd) 01/18/21 01/18/21 01/18/21 Range/Units 17:03 17:03 17:32 WBC (3.8-10.6) k/uL RBC (3.80-5.40) m/uL Hgb (11.4-16.0) gm/dL Hct (34.0-46.0) % MCV (80.0-100.0) fL MCH (25.0-35.0) pg MCHC (31.0-37.0) g/dL RDW (11.5-15.5) % Plt Count (150-450) k/uL MPV Neutrophils # Differential Comment Manual Slide Review PT (9.0-12.0) sec INR (<1.2) APTT (22.0-30.0) sec Sodium (137-145) mmol/L Potassium (3.5-5.1) mmol/L Chloride (98-107) mmol/L Carbon Dioxide (22-30) mmol/L Anion Gap mmol/L BUN (7-17) mg/dL Creatinine (0.52-1.04) mg/dL Est GFR (CKD-EPI)AfAm (>60 ml/min/1.73 sqM) Est GFR (CKD-EPI)NonAf (>60 ml/min/1.73 sqM) BUN/Creatinine Ratio (12.00-20.00) Ratio Glucose (74-99) mg/dL Lactic Ac Sepsis Rflx Y Plasma Lactic Acid Jorge 2.4 H* (0.7-2.0) mmol/L Calcium (8.4-10.2) mg/dL Magnesium (1.6-2.3) mg/dL Iron (50-170) ug/dL TIBC (228-460) ug/dL % Saturation (12.00-45.00) Ferritin (10.0-291.0) ng/mL Total Bilirubin (0.2-1.3) mg/dL AST (14-36) U/L ALT (4-34) U/L Alkaline Phosphatase (38-126) U/L Troponin I <0.012 (0.000-0.034) ng/mL Total Protein (6.3-8.2) g/dL Albumin (3.5-5.0) g/dL Globulin g/dL Albumin/Globulin Ratio Amylase (30-110) U/L Lipase (23-300) U/L Vitamin B1 (38-122) ug/L Vitamin B12 (200.0-944.0) pg/mL Methylmalonic Acid (<0.40) umol/L Folate ng/mL TSH (0.350-5.500) uIU/mL Cortisol (3.10-22.40) ug/dL Urine Color Urine Appearance (Clear) Urine pH (5.0-8.0) Ur Specific [place] (1.001-1.035) Urine Protein (Negative) Urine Glucose (UA) (Negative) Urine Ketones (Negative) Urine Blood (Negative) Urine Nitrite (Negative) Urine Bilirubin (Negative) Urine Urobilinogen (<2.0) mg/dL Ur Leukocyte Esterase (Negative) Coronavirus (PCR) (Not Detectd) 01/18/21 01/18/21 01/19/21 Range/Units 21:25 21:33 12:11 WBC (3.8-10.6) k/uL RBC (3.80-5.40) m/uL Hgb (11.4-16.0) gm/dL Hct (34.0-46.0) % MCV (80.0-100.0) fL MCH (25.0-35.0) pg MCHC (31.0-37.0) g/dL RDW (11.5-15.5) % Plt Count (150-450) k/uL MPV Neutrophils # Differential Comment Manual Slide Review PT (9.0-12.0) sec INR (<1.2) APTT (22.0-30.0) sec Sodium (137-145) mmol/L Potassium (3.5-5.1) mmol/L Chloride (98-107) mmol/L Carbon Dioxide (22-30) mmol/L Anion Gap mmol/L BUN (7-17) mg/dL Creatinine (0.52-1.04) mg/dL Est GFR (CKD-EPI)AfAm (>60 ml/min/1.73 sqM) Est GFR (CKD-EPI)NonAf (>60 ml/min/1.73 sqM) BUN/Creatinine Ratio (12.00-20.00) Ratio Glucose (74-99) mg/dL Lactic Ac Sepsis Rflx Plasma Lactic Acid Jorge 0.8 (0.7-2.0) mmol/L Calcium (8.4-10.2) mg/dL Magnesium (1.6-2.3) mg/dL Iron 97 (50-170) ug/dL TIBC 186 L (228-460) ug/dL % Saturation 52.15 H (12.00-45.00) Ferritin 2131.5 H (10.0-291.0) ng/mL Total Bilirubin (0.2-1.3) mg/dL AST (14-36) U/L ALT (4-34) U/L Alkaline Phosphatase (38-126) U/L Troponin I (0.000-0.034) ng/mL Total Protein (6.3-8.2) g/dL Albumin (3.5-5.0) g/dL Globulin g/dL Albumin/Globulin Ratio Amylase (30-110) U/L Lipase (23-300) U/L Vitamin B1 (38-122) ug/L Vitamin B12 2564.0 H (200.0-944.0) pg/mL Methylmalonic Acid (<0.40) umol/L Folate 4.7 ng/mL TSH 0.730 (0.350-5.500) uIU/mL Cortisol 20.6 (3.10-22.40) ug/dL Urine Color Urine Appearance (Clear) Urine pH (5.0-8.0) Ur Specific [place] (1.001-1.035) Urine Protein (Negative) Urine Glucose (UA) (Negative) Urine Ketones (Negative) Urine Blood (Negative) Urine Nitrite (Negative) Urine Bilirubin (Negative) Urine Urobilinogen (<2.0) mg/dL Ur Leukocyte Esterase (Negative) Coronavirus (PCR) Not Detected (Not Detectd) 01/19/21 01/19/21 01/19/21 Range/Units 12:11 12:11 12:11 WBC 0.5 L* (3.8-10.6) k/uL RBC 2.69 L (3.80-5.40) m/uL Hgb 7.6 L D (11.4-16.0) gm/dL Hct 23.8 L (34.0-46.0) % MCV 88.5 (80.0-100.0) fL MCH 28.2 (25.0-35.0) pg MCHC 31.9 (31.0-37.0) g/dL RDW 15.9 H (11.5-15.5) % Plt Count 34 L D (150-450) k/uL MPV 9.1 Neutrophils # SHELL MAKER LOCKSTITCH Differential Comment Manual Slide Review Performed PT 10.7 (9.0-12.0) sec INR 1.0 (<1.2) APTT 25.0 (22.0-30.0) sec Sodium (137-145) mmol/L Potassium (3.5-5.1) mmol/L Chloride (98-107) mmol/L Carbon Dioxide (22-30) mmol/L Anion Gap mmol/L BUN (7-17) mg/dL Creatinine (0.52-1.04) mg/dL Est GFR (CKD-EPI)AfAm (>60 ml/min/1.73 sqM) Est GFR (CKD-EPI)NonAf (>60 ml/min/1.73 sqM) BUN/Creatinine Ratio (12.00-20.00) Ratio Glucose (74-99) mg/dL Lactic Ac Sepsis Rflx Plasma Lactic Acid Jorge (0.7-2.0) mmol/L Calcium (8.4-10.2) mg/dL Magnesium (1.6-2.3) mg/dL Iron (50-170) ug/dL TIBC (228-460) ug/dL % Saturation (12.00-45.00) Ferritin (10.0-291.0) ng/mL Total Bilirubin (0.2-1.3) mg/dL AST (14-36) U/L ALT (4-34) U/L Alkaline Phosphatase (38-126) U/L Troponin I (0.000-0.034) ng/mL Total Protein (6.3-8.2) g/dL Albumin (3.5-5.0) g/dL Globulin g/dL Albumin/Globulin Ratio Amylase (30-110) U/L Lipase (23-300) U/L Vitamin B1 11 L (38-122) ug/L Vitamin B12 (200.0-944.0) pg/mL Methylmalonic Acid 0.12 (<0.40) umol/L Folate ng/mL TSH (0.350-5.500) uIU/mL Cortisol (3.10-22.40) ug/dL Urine Color Urine Appearance (Clear) Urine pH (5.0-8.0) Ur Specific [place] (1.001-1.035) Urine Protein (Negative) Urine Glucose (UA) (Negative) Urine Ketones (Negative) Urine Blood (Negative) Urine Nitrite (Negative) Urine Bilirubin (Negative) Urine Urobilinogen (<2.0) mg/dL Ur Leukocyte Esterase (Negative) Coronavirus (PCR) (Not Detectd) 01/19/21 01/19/21 01/20/21 Range/Units 12:11 19:30 05:59 WBC 0.4 L* (3.8-10.6) k/uL RBC 2.90 L (3.80-5.40) m/uL Hgb 8.1 L (11.4-16.0) gm/dL Hct 25.6 L (34.0-46.0) % MCV 88.1 (80.0-100.0) fL MCH 28.1 (25.0-35.0) pg MCHC 31.9 (31.0-37.0) g/dL RDW 15.7 H (11.5-15.5) % Plt Count 31 L (150-450) k/uL MPV 8.3 Neutrophils # SHELL MAKER LOCKSTITCH Differential Comment Manual Slide Review Performed PT (9.0-12.0) sec INR (<1.2) APTT (22.0-30.0) sec Sodium 139 (137-145) mmol/L Potassium 3.2 L (3.5-5.1) mmol/L Chloride 114 H (98-107) mmol/L Carbon Dioxide 21 L (22-30) mmol/L Anion Gap 4 mmol/L BUN 16 (7-17) mg/dL Creatinine 0.52 (0.52-1.04) mg/dL Est GFR (CKD-EPI)AfAm >90 (>60 ml/min/1.73 sqM) Est GFR (CKD-EPI)NonAf >90 (>60 ml/min/1.73 sqM) BUN/Creatinine Ratio (12.00-20.00) Ratio Glucose 89 (74-99) mg/dL Lactic Ac Sepsis Rflx Plasma Lactic Acid Jorge (0.7-2.0) mmol/L Calcium 7.7 L (8.4-10.2) mg/dL Magnesium 1.1 L (1.6-2.3) mg/dL Iron (50-170) ug/dL TIBC (228-460) ug/dL % Saturation (12.00-45.00) Ferritin (10.0-291.0) ng/mL Total Bilirubin 0.9 (0.2-1.3) mg/dL AST 23 (14-36) U/L ALT 12 (4-34) U/L Alkaline Phosphatase 136 H (38-126) U/L Troponin I (0.000-0.034) ng/mL Total Protein 4.8 L (6.3-8.2) g/dL Albumin 2.6 L (3.5-5.0) g/dL Globulin 2.2 g/dL Albumin/Globulin Ratio 1.2 Amylase (30-110) U/L Lipase (23-300) U/L Vitamin B1 (38-122) ug/L Vitamin B12 (200.0-944.0) pg/mL Methylmalonic Acid (<0.40) umol/L Folate ng/mL TSH (0.350-5.500) uIU/mL Cortisol (3.10-22.40) ug/dL Urine Color Light Yellow Urine Appearance Clear (Clear) Urine pH 6.5 (5.0-8.0) Ur Specific [place] 1.010 (1.001-1.035) Urine Protein Negative (Negative) Urine Glucose (UA) Negative (Negative) Urine Ketones Negative (Negative) Urine Blood Negative (Negative) Urine Nitrite Negative (Negative) Urine Bilirubin Negative (Negative) Urine Urobilinogen <2.0 (<2.0) mg/dL Ur Leukocyte Esterase Negative (Negative) Coronavirus (PCR) (Not Detectd) 01/20/21 01/20/21 01/20/21 Range/Units 05:59 05:59 11:42 WBC 0.8 L* (3.8-10.6) k/uL RBC 2.91 L (3.80-5.40) m/uL Hgb 8.7 L (11.4-16.0) gm/dL Hct 25.5 L (34.0-46.0) % MCV 87.4 (80.0-100.0) fL MCH 29.7 (25.0-35.0) pg MCHC 34.0 (31.0-37.0) g/dL RDW 15.4 (11.5-15.5) % Plt Count 37 L (150-450) k/uL MPV 8.6 Neutrophils # Differential Comment Manual Slide Review Performed PT 10.8 (9.0-12.0) sec INR 1.0 (<1.2) APTT 24.5 (22.0-30.0) sec Sodium 143 (137-145) mmol/L Potassium 3.4 L (3.5-5.1) mmol/L Chloride 113 H (98-107) mmol/L Carbon Dioxide 18.5 L (22-30) mmol/L Anion Gap 11.50 mmol/L BUN 16.0 (7-17) mg/dL Creatinine 0.5 L (0.52-1.04) mg/dL Est GFR (CKD-EPI)AfAm 110.5 (>60 ml/min/1.73 sqM) Est GFR (CKD-EPI)NonAf 95.3 (>60 ml/min/1.73 sqM) BUN/Creatinine Ratio 32.00 H (12.00-20.00) Ratio Glucose 90 (74-99) mg/dL Lactic Ac Sepsis Rflx Plasma Lactic Acid Jorge (0.7-2.0) mmol/L Calcium 8.0 L (8.4-10.2) mg/dL Magnesium 1.1 L (1.6-2.3) mg/dL Iron (50-170) ug/dL TIBC (228-460) ug/dL % Saturation (12.00-45.00) Ferritin (10.0-291.0) ng/mL Total Bilirubin 0.9 (0.2-1.3) mg/dL AST 20 (14-36) U/L ALT 19 (4-34) U/L Alkaline Phosphatase 181 H (38-126) U/L Troponin I (0.000-0.034) ng/mL Total Protein 4.9 L (6.3-8.2) g/dL Albumin 3.10 L (3.5-5.0) g/dL Globulin 1.8 g/dL Albumin/Globulin Ratio 1.72 Amylase (30-110) U/L Lipase (23-300) U/L Vitamin B1 (38-122) ug/L Vitamin B12 (200.0-944.0) pg/mL Methylmalonic Acid (<0.40) umol/L Folate ng/mL TSH (0.350-5.500) uIU/mL Cortisol (3.10-22.40) ug/dL Urine Color Urine Appearance (Clear) Urine pH (5.0-8.0) Ur Specific [place] (1.001-1.035) Urine Protein (Negative) Urine Glucose (UA) (Negative) Urine Ketones (Negative) Urine Blood (Negative) Urine Nitrite (Negative) Urine Bilirubin (Negative) Urine Urobilinogen (<2.0) mg/dL Ur Leukocyte Esterase (Negative) Coronavirus (PCR) (Not Detectd) Disposition Clinical Impression: Pancytopenia due to antineoplastic chemotherapy, Abdominal pain Disposition: ADMITTED IP TO THIS HOSP Condition: Fair
[2021-01-18 17:24] LABS: ALT 16 U/L (4-34); AST 28 U/L (14-36); African American GFR (CKD) >90 (>60 ml/min/1.73 sqM); Albumin 3.4 g/dL (3.5-5.0); Alkaline Phosphatase 192 U/L (38-126); Amylase 35 U/L (30-110); Anion Gap 7 mmol/L; Blood Urea Nitrogen 23 mg/dL (7-17); Calcium 9.1 mg/dL (8.4-10.2); Carbon Dioxide 22 mmol/L (22-30); Chloride 109 mmol/L (98-107); Glucose 136 mg/dL (74-99); Lipase 80 U/L (23-300); Non-African American GFR(CKD) 85 (>60 ml/min/1.73 sqM); Potassium 4.2 mmol/L (3.5-5.1); Sodium 138 mmol/L (137-145); Total Bilirubin 1.7 mg/dL (0.2-1.3); Total Protein 5.9 g/dL (6.3-8.2)
[2021-01-18 17:29] LABS: HCT 28.3 % (34.0-46.0); HGB 9.7 gm/dL (11.4-16.0); MCH 29.2 pg (25.0-35.0); MCHC 34.2 g/dL (31.0-37.0); MCV 85.5 fL (80.0-100.0); Mean Platelet Volume 8.2; RBC 3.31 m/uL (3.80-5.40); RDW 15.7 % (11.5-15.5)
[2021-01-18 17:31] LABS: WBC 0.8 k/uL (3.8-10.6)
[2021-01-18 17:34] LABS: Platelet Count 70 k/uL (150-450)
--- NOTE | 2021-01-18 17:49 | XR ---
EXAMINATION TYPE: XR KUB DATE OF EXAM: 01/18/2021 Comparison: 05/25/2018 Clinical History: 75-year-old female abdominal pain Findings: Lung bases are clear. Cholecystectomy clips. No dilated small bowel or air-fluid levels. No significa nt stool burden identified. Relative possibly of colonic air. No suspicious calcifications seen. Mild to moderate degenerative change of the left hip. Degenerative disc disease throughout the lumbar spi ne. Impression: Nonspecific, overall nonobstructive bowel gas pattern. No free air.
[2021-01-18] MEDS ORDERED: SODIUM CHLORIDE 0.9% 1,000 ML IV STA (18:08)
[2021-01-18] MEDS ORDERED: CEFEPIME 2 GM in SODIUM CHLORIDE 0.9% 100 ML IVPB STA (18:08)
[2021-01-18] MEDS ORDERED: SODIUM CHLORIDE 0.9% 500 ML 250 ML IV ONE (18:31)
[2021-01-18] MEDS ORDERED: ACETAMINOPHEN TAB 325 MG TAB PO PRN (18:32)
[2021-01-18] MEDS ORDERED: MORPHINE SULFATE 4 MG/ML SYRINGE IV PRN (18:32)
[2021-01-18] MEDS ORDERED: NALOXONE 0.4 MG/ML 1 ML VIAL IV PRN (18:32)
[2021-01-18] MEDS ORDERED: HYDROmorphone 0.5 MG/0.5 ML SYRINGE IVP PRN (18:32)
[2021-01-18 20:05] LABS: Appearance,Urine Clear (Clear); Bilirubin,Urine Negative (Negative); Blood,Urine Negative (Negative); Color,Urine Yellow; Glucose,Urine (UA) Negative (Negative); Ketones,Urine Negative (Negative); Leukocyte Esterase,Urine Negative (Negative); Nitrite,Urine Negative (Negative); Protein,Urine Trace (Negative); Specific Gravity,Urine 1.015 (1.001-1.035); Urobilinogen,Urine <2.0 mg/dL (<2.0)
[2021-01-18] MEDS: ONDANSETRON 4 MG/2 ML VIAL IVP PRN (21:34)
[2021-01-18] MEDS: FAMOTIDINE 20 MG TAB PO SCH (21:34)
[2021-01-19] MEDS: FAMOTIDINE 20 MG TAB PO SCH (08:54)
[2021-01-19] MEDS ORDERED: CYCLOBENZAPRINE 5 MG TAB PO PRN (10:29)
[2021-01-19] MEDS ORDERED: ALBUTEROL NEBULIZED 2.5 MG/3 ML INHALATION PRN (10:29)
[2021-01-19] MEDS ORDERED: diphenhydrAMINE 25 MG CAP PO PRN (10:29)
[2021-01-19] MEDS ORDERED: HYDROcodone/APAP 7.5-325MG 1 EACH TAB PO PRN (10:30)
[2021-01-19] MEDS ORDERED: PANTOPRAZOLE 40 MG/10 ML VIAL IVP SCH (10:30)
[2021-01-19] MEDS: SODIUM CHLORIDE 0.9% 1,000 ML IV SCH ×2 (11:15→23:51)
[2021-01-19] MEDS: ONDANSETRON 4 MG/2 ML VIAL IVP PRN (11:31)
[2021-01-19] MEDS ORDERED: predniSONE 50 MG TAB PO ONE ×3 (11:57→20:00)
--- NOTE | 2021-01-19 13:08 | XR ---
EXAMINATION TYPE: XR chest 2V DATE OF EXAM: 01/19/2021 COMPARISON: 01/03/2021 HISTORY: Neutropenic fever TECHNIQUE: Frontal and lateral views of the chest are obtained. FINDINGS: Heart size is within normal limits. Atherosclerotic aorta. No pneumothorax. There is mild streaky retrocardiac airspace opacity suggestive of atelectasis or developing pneumonia. Small liquor tester ior pleural effusions. Degenerative changes of the thoracic spine. Cholecystectomy clips. IMPRESSION: 1. Streaky retrocardiac airspace opacities suggestive of atelectasis or pneumonitis with small liquor tester ior pleural effusions.
[2021-01-19 13:09] LABS: HCT 23.8 % (34.0-46.0); MCH 28.2 pg (25.0-35.0); MCHC 31.9 g/dL (31.0-37.0); MCV 88.5 fL (80.0-100.0); Mean Platelet Volume 9.1; RBC 2.69 m/uL (3.80-5.40); RDW 15.9 % (11.5-15.5)
[2021-01-19 13:14] LABS: WBC 0.5 k/uL (3.8-10.6)
[2021-01-19 13:15] LABS: HGB 7.6 gm/dL (11.4-16.0); Prothrombin Time 10.7 sec (9.0-12.0)
[2021-01-19 13:16] LABS: ALT 12 U/L (4-34); AST 23 U/L (14-36); African American GFR (CKD) >90 (>60 ml/min/1.73 sqM); Albumin 2.6 g/dL (3.5-5.0); Albumin/Globulin Ratio 1.2; Alkaline Phosphatase 136 U/L (38-126); Anion Gap 4 mmol/L; Blood Urea Nitrogen 16 mg/dL (7-17); Calcium 7.7 mg/dL (8.4-10.2); Carbon Dioxide 21 mmol/L (22-30); Chloride 114 mmol/L (98-107); Globulin 2.2 g/dL; Glucose 89 mg/dL (74-99); Magnesium 1.1 mg/dL (1.6-2.3); Non-African American GFR(CKD) >90 (>60 ml/min/1.73 sqM); Potassium 3.2 mmol/L (3.5-5.1); Sodium 139 mmol/L (137-145); Total Bilirubin 0.9 mg/dL (0.2-1.3); Total Protein 4.8 g/dL (6.3-8.2)
[2021-01-19 13:43] LABS: Platelet Count 34 k/uL (150-450)
[2021-01-19] MEDS ORDERED: Potassium Replacement Protocol 1 EACH MISC MISCELLANE PRN (14:09)
--- NOTE | 2021-01-19 14:14 | P.HPIM ---
History of Present Illness 75-year-old pleasant female was sent in from oncology office because of bilateral lower abdominal pain. Sharp in nature nonradiating patient denied nausea vomiting or diarrhea patient's abdomen is soft. Patient appears to have neutropenic colitis the patient doesn't have any fever. Patient does have history of lung cancer. Patient recently received chemotherapy. Patient was given a dose of cefepime patient will be started on Zosyn here. Patient will remain nothing by mouth as recommended by oncology. Review of Systems REVIEW OF SYSTEMS: CONSTITUTIONAL: No fever, no malaise, no fatigue. HEENT: No recent visual problems or hearing problems. Denied any sore throat. CARDIOVASCULAR: No chest pain, orthopnea, PND, no palpitations, no syncope. PULMONARY: No shortness of breath, no cough, no hemoptysis. GASTROINTESTINAL: As mentioned in HPI NEUROLOGICAL: No headaches, no weakness, no numbness. HEMATOLOGICAL: Denies any bleeding or petechiae. GENITOURINARY: Denies any burning micturition, frequency, or urgency. MUSCULOSKELETAL/RHEUMATOLOGICAL: Denies any joint pain, swelling, or any muscle pain. ENDOCRINE: Denies any polyuria or polydipsia. The rest of the 14-point review of systems is negative. Past Medical History Past Medical History: Cancer, Osteoarthritis (OA), Pneumonia Additional Past Medical History / Comment(s): sinus problems,kidney stones uti, bladder incnt/wears a pad,abd hernia,migraines,"muscles spasms and lt hip pain, had collapsed lung -not large enough to require c/t, DDD, sciatic, History of Any Multi-Drug Resistant Organisms: None Reported Date of last positivie culture/infection: 2015 Past Surgical History: Appendectomy, Bladder Surgery, Cholecystectomy, Hysterectomy, Orthopedic Surgery Additional Past Surgical History / Comment(s): artriscopy, lt knee replacemnent,adrenal gland removed,lt knee, colonoscopy, dental implants, 1997 had lt foot sx for hammer toes and stated had an implant in that foot-then january 2015 had a revison of that sx, Cdiff- 2016. covid 11/06 Past Anesthesia/Blood Transfusion Reactions: No Reported Reaction Additional Past Anesthesia/Blood Transfusion Reaction / Comment(s): Pt received blood without reaction. Past Psychological History: Anxiety Additional Psychological History / Comment(s): Pt resides with her champNajma. She has [facility]. She uses no device. She does not drive, her champ drives. Champ assists with RX. Smoking Status: Former smoker Past Alcohol Use History: Rare Additional Past Alcohol Use History / Comment(s): Pt started smoking in nd quit smoking aug 2020 due to lung cancer diagnosis Past Drug Use History: None Reported - Past Family History Mother Family Medical History: Dementia Additional Family Medical History / Comment(s): moms sister also had dementia Father Family Medical History: Unable to Obtain Medications and Allergies Home Medications Medication Instructions Recorded Confirmed Type Albuterol Inhaler [Ventolin Hfa 2 puff INHALATION RT-QID PRN 10/25/20 01/18/21 History Inhaler] Citalopram Hydrobromide 40 mg PO HS 10/25/20 01/18/21 History [Citalopram HBr] diphenhydrAMINE [Benadryl] 25 mg PO HS PRN 10/25/20 01/18/21 History Cyclobenzaprine [Flexeril] 5 mg PO TID PRN #30 tab 11/01/20 01/18/21 Rx fentaNYL 25MCG/HR PATCH [Duragesic 1 patch TRANSDERM Q72H #3 patch 11/01/20 01/18/21 Rx 25MCG/HR] HYDROcodone/APAP 7.5-325MG [[place] 1 tab PO Q6H PRN 11/26/20 01/18/21 History 7.5-325] Omeprazole 20 mg PO DAILY 11/26/20 01/18/21 History Ondansetron HCl [Zofran] 4 mg PO Q4H PRN 11/26/20 01/18/21 History Cholecalciferol [Vitamin D3 (25 25 mcg PO BID 12/13/20 01/18/21 History Mcg = 1000 Iu)] Fluticasone Propion/Salmeterol 1 puff INHALATION RT-BID 12/13/20 01/18/21 History [Wixela 250-50 Inhub] Potassium Chloride Oral Liquid 20 meq PO DAILY 01/18/21 01/18/21 History Allergies Allergy/AdvReac Type Severity Reaction Status Date / Time Iodinated Contrast Media Allergy Unknown Verified 01/18/21 17:46 [Iodinated Contrast Media - IV Dye] sulfamethoxazole Allergy Rash/Hives Verified 01/18/21 17:46 [From Bactrim] trimethoprim [From Bactrim] Allergy Rash/Hives Verified 01/18/21 17:46 Physical Exam Vitals: Vital Signs Temp Pulse Pulse Resp BP BP Pulse Ox 01/19/21 12:02 97.7 F 97 17 125/78 100 01/19/21 05:50 97.8 F 97 20 130/83 99 01/18/21 23:50 97.7 F 107 H 20 157/94 100 01/18/21 23:09 98.1 F 90 18 136/89 96 01/18/21 21:40 97 16 132/91 100 01/18/21 20:20 101 H 20 96 01/18/21 19:30 98.2 F 102 H 20 145/90 96 01/18/21 18:38 96 16 108/78 100 01/18/21 17:06 112 H 18 115/78 100 01/18/21 15:10 97.9 F 67 18 94/62 98 Intake and Output 01/18/21 01/19/21 01/19/21 22:59 06:59 14:59 Other: # Voids 2 Weight 56.245 kg PHYSICAL EXAMINATION: GENERAL: The patient is alert and oriented x3, not in any acute distress. Well developed, well nourished. HEENT: Pupils are round and equally reacting to light. EOMI. No scleral icterus. No conjunctival pallor. Normocephalic, atraumatic. No pharyngeal erythema. No thyromegaly. CARDIOVASCULAR: S1 and S2 present. No murmurs, rubs, or gallops. PULMONARY: Chest is clear to auscultation, no wheezing or crackles. ABDOMEN: Soft, nontender, nondistended, normoactive bowel sounds. No palpable organomegaly. MUSCULOSKELETAL: No joint swelling or deformity. EXTREMITIES: No cyanosis, clubbing, or pedal edema. NEUROLOGICAL: Gross neurological examination did not reveal any focal deficits. SKIN: No rashes. Results CBC & Chem 7: 01/19/21 12:11 01/19/21 12:11 Labs: Abnormal Lab Results - Last 24 Hours (Table) 01/18/21 01/18/21 01/18/21 Range/Units 17:03 17:03 17:03 WBC 0.8 L* (3.8-10.6) k/uL RBC 3.31 L (3.80-5.40) m/uL Hgb 9.7 L (11.4-16.0) gm/dL Hct 28.3 L (34.0-46.0) % RDW 15.7 H (11.5-15.5) % Plt Count 70 L (150-450) k/uL Potassium (3.5-5.1) mmol/L Chloride 109 H (98-107) mmol/L Carbon Dioxide (22-30) mmol/L BUN 23 H (7-17) mg/dL Glucose 136 H (74-99) mg/dL Plasma Lactic Acid Jorge (0.7-2.0) mmol/L Calcium (8.4-10.2) mg/dL Magnesium (1.6-2.3) mg/dL Total Bilirubin 1.7 H (0.2-1.3) mg/dL Alkaline Phosphatase 192 H (38-126) U/L Total Protein 5.9 L (6.3-8.2) g/dL Albumin 3.4 L (3.5-5.0) g/dL Urine Protein Trace H (Negative) 01/18/21 01/19/21 01/19/21 Range/Units 17:03 12:11 12:11 WBC 0.5 L* (3.8-10.6) k/uL RBC 2.69 L (3.80-5.40) m/uL Hgb 7.6 L D (11.4-16.0) gm/dL Hct 23.8 L (34.0-46.0) % RDW 15.9 H (11.5-15.5) % Plt Count 34 L D (150-450) k/uL Potassium 3.2 L (3.5-5.1) mmol/L Chloride 114 H (98-107) mmol/L Carbon Dioxide 21 L (22-30) mmol/L BUN (7-17) mg/dL Glucose (74-99) mg/dL Plasma Lactic Acid Jorge 2.4 H* (0.7-2.0) mmol/L Calcium 7.7 L (8.4-10.2) mg/dL Magnesium 1.1 L (1.6-2.3) mg/dL Total Bilirubin (0.2-1.3) mg/dL Alkaline Phosphatase 136 H (38-126) U/L Total Protein 4.8 L (6.3-8.2) g/dL Albumin 2.6 L (3.5-5.0) g/dL Urine Protein (Negative) Thrombosis Risk Factor Assmnt - Choose All That Apply Each Factor Represents 1 point: Abnormal pulmonary function (COPD) Other Risk Factors: Yes Each Risk Factor Represents 2 Points: Age 61-74 years, Malignancy Other congenital or acquired thrombophilia - If yes, enter type in comment: No Thrombosis Risk Factor Assessment Total Risk Factor Score: 5 Thrombosis Risk Factor Assessment Level: High Risk Assessment and Plan Plan: -Neutropenic colitis: Patient will be started on Zosyn continue with IV fluids to replace electrolytes. Patient will remain nothing by mouth today. Patient probably will be started on the diet tomorrow possibility of discharge tomorrow -Left-sided lung cancer on chemotherapy -Gases visual reflux disease -Depression DVT prophylaxis with Lovenox
[2021-01-19 14:56] VITALS: BMI 21.9
[2021-01-19] MEDS ORDERED: POTASSIUM CHLORIDE 10 MEQ in WATER FOR INJECTION 1 100ML.BAG IVPB SCH (15:00)
[2021-01-19] MEDS: PIPERACILLIN-TAZOBACTAM 3.375 GM in SODIUM CHLORIDE 0.9% 100 ML IVPB SCH ×2 (15:57→23:51)
[2021-01-19 19:57] LABS: Appearance,Urine Clear (Clear); Bilirubin,Urine Negative (Negative); Blood,Urine Negative (Negative); Color,Urine Light Yellow; Glucose,Urine (UA) Negative (Negative); Ketones,Urine Negative (Negative); Leukocyte Esterase,Urine Negative (Negative); Nitrite,Urine Negative (Negative); PH, Urine 6.5 (5.0-8.0); Protein,Urine Negative (Negative); Urobilinogen,Urine <2.0 mg/dL (<2.0)
[2021-01-19] MEDS: SYMBICORT 80-4.5 MCG INHALER INHALATION SCH (20:20)
[2021-01-19] MEDS: CITALOPRAM HYDROBROMIDE 20 MG TAB PO SCH (20:21)
--- NOTE | 2021-01-19 22:20 | P.CONS ---
History of Present Illness - Reason for Consult Consult date: 01/19/21 Lung Cancer Requesting physician: Keith Antoine - Chief Complaint Abdomional pain - History of Present Illness Patient was sent into hospital from office yesterday with diffuse abdominal tenderness, diarrhea and neutropenia. Medical History Ms. Campbell is a very pleasant 75-year-old female who was referred to us for a new diagnosis of metastatic small cell lung cancer. She is O2 dependent, she has a 40 year pack history of smoking, states quitting but d oesn't remember when. In late September early October 2020 she had a progressive, persistent cough, no hemoptysis, she was also experiencing pain in the middle of her back as well as in her left shoulder. The symptoms became so severe that it was causing her to feel lightheaded and dizzy at times, she can also not get comfortable. Family became concerned and took her to the emergency room. She had a CT angiogram on 10/25/20 revealing a large left pulmonary hilar mass encasing the left lower lobe and left upper lobe pulmonary arteries, measuring 8 x 5 cm. There was extension into the mediastinum with multiple enlarged paratracheal and anterior mediastinal lymph nodes up to 2 cm, subcarinal ad enopathy. She did not have a PE. She had a Mcbride needle biopsy and bronchial washings 10/31/[address] Monterroso. All of them were nondiagnostic except for the lingula brushings, rare, mildly atypical cells suspicious for small cell, the transbronchial biopsy was positive for small cell, positive for CAM 5.2, synaptophysin and CD 56. IHC negative for TTF-1. CT of the brain with contrast 10/30/20 showed no evidence of metastatic disease. CT of the abdomen and pelvis with contrast 10/30/20 revealed numerous hypodense masses in the liver, measuring up to 3.4 x 2 cm. There was a small left pleural effusion seen. MRI of the brain with and without contrast 10/31/20 no evidence of enhancing mass. Staging PET scan 11/04/20 showed [facility] admitted the with bilateral hypermetabolic supraclavicular adenopathy right greater than left, measuring 3.4 x 2.4 cm. Left hilar mass 3.8 x 3.7 cm. Additional abnormalities in the left hilar region along subcarinal, prevascular, paratracheal, AP window and anterior superior mediastinal adenopathy. Multiple hypermetabolic foci throughout the liver, the largest one in the right lobe measuring 4.7 cm. Innumerable hypermetabolic osseous foci. Left sacral lesion, proximal right femur lesion, left L3 lesion called out for reference. Greatest osseous involvement is throughout the abdomen and pelvis. She was seen in the hospital by Dr. Garvin. Recommendation was to begin chemotherapy therapy/IO. She is in the office 11/08/20 for treatment education. During the discussion is noted patient is extraordinarily anxious, her O2 tank ran out, at 1. she burst into tears and began sobbing uncontrollably. She started to complain of chest pain, pain in the middle of her back, feeling dizzy, to touch she was clammy and sweaty. Muscles brought into evaluate p atient. Once she began talking about other things, her symptoms dissipated. Patient does not appear to have substantial support at home. She has 2 daughters but, neither are here for her appointment, I did talk to one of them on the phone briefly. She states that she lives alone, she has 4-5 steps to get up into her house. She is getting back and forth to appointments via Cab at this time as her family would not let her drive because of the new addition of narcotic painkillers. 11/15/20-Pt here today s/p cycle 1 of carbo/REGULATORY COMPLIANCE COORDINATOR/tecentriq. States diarrhea and vomiting yesterday and today, 1 hour, thick and frothy, nausea pill helped, 2-3 episodes of diarrhea, denied cramping, bleeding or mucus. CBC is WNL. No fevers, she does have dry mouth, SOB is stable, no swelling, pain is controlled. No other physical c/o. As above. patient had cycle #1 starting 11/09/20 and is status post 1 cycle. The patient was unable to have cycle #2 on schedule, as she was admitted with Covid pneumonitis. Discharged on 12/01/20. She was seen in the office in follow-up on 12/13/20. The patient on evaluation was quite weak and unable to give a coherent history. History was mostly obtained from the daughter. There is no history of any fevers/chills/nausea or vomiting. Patient appears to be having significant cough with production of clear phlegm. She has been quite weak with some worsening over the past few days, including in her respiratory status. Oxygen requirement is up to 4 L, and activity level is very limited. She has mostly been taking liquids with oral intake of solids also quite limited. She is able to walk only a few feet before getting winded. He is complaining of some new onset of left-sided back pain that developed while moving around earlier today. Review of systems otherwise as per HPI and negative out of 10 01/02/21-Pt here today for f/u on significantly low labs last week. 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 She has had no F, chills, nausea, vomiting, oral irritation, constipation, her appetite is fair, she is in w/c, she gets tired easily and her legs feel tired if she gets moving around too much, she has mild diarrhea. She feels pretty good today overall. Review of Systems All systems: negative Constitutional: Reports as per HPI Past Medical History Past Medical History: Cancer, Osteoarthritis (OA), Pneumonia Additional Past Medical History / Comment(s): sinus problems,kidney stones uti, bladder incnt/wears a pad,abd hernia,migraines,"muscles spasms and lt hip pain, had collapsed lung -not large enough to require c/t, DDD, sciatic, History of Any Multi-Drug Resistant Organisms: None Reported Year Discovered:: 2015 Past Surgical History: Appendectomy, Bladder Surgery, Cholecystectomy, Hysterectomy, Orthopedic Surgery Additional Past Surgical History / Comment(s): artriscopy, lt knee replace mnent,adrenal gland removed,lt knee, colonoscopy, dental implants, 1997 had lt foot sx for hammer toes and stated had an implant in that foot-then january 2015 had a revison of that sx, Cdiff- 2016. covid 11/06 Past Anesthesia/Blood Transfusion Reactions: No Reported Reaction Additional Past Anesthesia/Blood Transfusion Reaction / Comm: Pt received blood without reaction. Past Psychological History: Anxiety Additional Psychological History / Comment(s): Pt resides with her champNajma. She has [facility]. She uses no device. She does not drive, her champ drives. Champ assists with RX. Smoking Status: Former smoker Past Alcohol Use History: Rare Additional Past Alcohol Use History / Comment(s): Pt started smoking in nd quit smoking aug 2020 due to lung cancer diagnosis Past Drug Use History: None Reported - Past Family History Mother Family Medical History: Dementia Additional Family Medical History / Comment(s): moms sister also had dementia Father Family Medical History: Unable to Obtain Medications and Allergies Home Medications Medication Instructions Recorded Confirmed Type Albuterol Inhaler [Ventolin Hfa 2 puff INHALATION RT-QID PRN 10/25/20 01/18/21 History Inhaler] Citalopram Hydrobromide 40 mg PO HS 10/25/20 01/18/21 History [Citalopram HBr] diphenhydrAMINE [Benadryl] 25 mg PO HS PRN 10/25/20 01/18/21 History Cyclobenzaprine [Flexeril] 5 mg PO TID PRN #30 tab 11/01/20 01/18/21 Rx fentaNYL 25MCG/HR PATCH [Duragesic 1 patch TRANSDERM Q72H #3 patch 11/01/20 01/18/21 Rx 25MCG/HR] HYDROcodone/APAP 7.5-325MG [[place] 1 tab PO Q6H PRN 11/26/20 01/18/21 History 7.5-325] Omeprazole 20 mg PO DAILY 11/26/20 01/18/21 History Ondansetron HCl [Zofran] 4 mg PO Q4H PRN 11/26/20 01/18/21 History Cholecalciferol [Vitamin D3 (25 25 mcg PO BID 12/13/20 01/18/21 History Mcg = 1000 Iu)] Fluticasone Propion/Salmeterol 1 puff INHALATION RT-BID 12/13/20 01/18/21 History [Wixela 250-50 Inhub] Potassium Chloride Oral Liquid 20 meq PO DAILY 01/18/21 01/18/21 History Allergies Allergy/AdvReac Type Severity Reaction Status Date / Time Iodinated Contrast Media Allergy Unknown Verified 01/18/21 17:46 [Iodinated Contrast Media - IV Dye] sulfamethoxazole Allergy Rash/Hives Verified 01/18/21 17:46 [From Bactrim] trimethoprim [From Bactrim] Allergy Rash/Hives Verified 01/18/21 17:46 Physical Exam Vitals: Vital Signs Temp Pulse Pulse Resp BP BP Pulse Ox 01/19/21 21:00 97.9 F 102 H 16 120/67 100 06/03/21 12:02 97.7 F 97 17 125/78 100 01/19/21 08:00 97 17 01/19/21 05:50 97.8 F 97 20 130/83 99 01/18/21 23:50 97.7 F 107 H 20 157/94 100 01/18/21 23:09 98.1 F 90 18 136/89 96 Intake and Output 01/19/21 01/19/21 01/19/21 06:59 14:59 22:59 Other: Voiding Method Toilet Toilet Diaper Diaper # Voids 2 1 Weight 56.245 kg - Constitutional General appearance: cooperative, no acute distress - EENT Eyes: EOMI, PERRLA ENT: NA/AT - Respiratory Respiratory: bilateral: CTA - Cardiovascular Rhythm: regular - Gastrointestinal General gastrointestinal: soft, tenderness - Musculoskeletal Musculoskeletal: generalized weakness - Psychiatric Anxious Psychiatric: A&O x's 3 Results CBC & Chem 7: 01/19/21 12:11 01/19/21 12:11 Labs: Abnormal Lab Results - Last 24 Hours (Table) 01/19/21 01/19/21 Range/Units 12:11 12:11 WBC 0.5 L* (3.8-10.6) k/uL RBC 2.69 L (3.80-5.40) m/uL Hgb 7.6 L D (11.4-16.0) gm/dL Hct 23.8 L (34.0-46.0) % RDW 15.9 H (11.5-15.5) % Plt Count 34 L D (150-450) k/uL Potassium 3.2 L (3.5-5.1) mmol/L Chloride 114 H (98-107) mmol/L Carbon Dioxide 21 L (22-30) mmol/L Calcium 7.7 L (8.4-10.2) mg/dL Magnesium 1.1 L (1.6-2.3) mg/dL Alkaline Phosphatase 136 H (38-126) U/L Total Protein 4.8 L (6.3-8.2) g/dL Albumin 2.6 L (3.5-5.0) g/dL Assessment and Plan (1) Neutropenic colitis Current Visit: Yes Status: Acute Code(s): D70.9 - NEUTROPENIA, UNSPECIFIED; K52.89 - OTHER SPECIFIED NONINFECTIVE GASTROENTERITIS AND COLITIS SNOMED Code(s): 670184105 (2) Pancytopenia due to antineoplastic chemotherapy Current Visit: Yes Status: Acute Code(s): D61.810 - ANTINEOPLASTIC CHEMOTHERAPY INDUCED PANCYTOPENIA; T45.1X5A - ADVERSE EFFECT OF ANTINEOPLASTIC AND IMMUNOSUP DRUGS, INIT SNOMED Code(s): 589128986488294 (3) Small cell lung cancer Current Visit: No Status: Acute Code(s): C34.90 - MALIGNANT NEOPLASM OF UNSP PART OF UNSP BRONCHUS OR LUNG SNOMED Code(s): 699383923 Plan: Keep NPO with Ice chips CBC Daily Transfuse hemoglobin less than 7 Hold AC therapy platelets less than 50K CT abdomen and pelvis Physician attest: I have completed the full history and physical and agree with above dictation, dictated as a scribe
[2021-01-20] MEDS ORDERED: predniSONE 50 MG TAB PO ONE ×3 (02:00→08:00)
[2021-01-20] MEDS: BARIUM SULFATE 450 ML ORAL.SUSP BOTTLE PO PRN ×2 (05:11→08:10)
[2021-01-20 06:47] LABS: HCT 25.6 % (34.0-46.0); HGB 8.1 gm/dL (11.4-16.0); MCH 28.1 pg (25.0-35.0); MCHC 31.9 g/dL (31.0-37.0); MCV 88.1 fL (80.0-100.0); Mean Platelet Volume 8.3; RDW 15.7 % (11.5-15.5)
[2021-01-20 07:04] LABS: Platelet Count 31 k/uL (150-450); WBC 0.4 k/uL (3.8-10.6)
[2021-01-20 07:08] LABS: Partial Thromboplastin Time 24.5 sec (22.0-30.0); Prothrombin Time 10.8 sec (9.0-12.0)
[2021-01-20] MEDS: SODIUM CHLORIDE 0.9% 1,000 ML IV SCH ×3 (07:40→21:14)
[2021-01-20] MEDS: SYMBICORT 80-4.5 MCG INHALER INHALATION SCH ×2 (07:56→20:08)
[2021-01-20] MEDS ORDERED: diphenhydrAMINE 50 MG CAP PO ONE ×2 (08:00)
[2021-01-20] MEDS: PANTOPRAZOLE 40 MG TABLET PO SCH (08:09)
[2021-01-20] MEDS: PIPERACILLIN-TAZOBACTAM 3.375 GM in SODIUM CHLORIDE 0.9% 100 ML IVPB SCH ×2 (08:11→15:40)
[2021-01-20] MEDS ORDERED: ENOXAPARIN 40 MG/0.4 ML SYRINGE SQ SCH (09:00)
--- NOTE | 2021-01-20 12:13 | P.PN ---
Subjective Progress Note Date: 01/20/21 Principal diagnosis: Abdominal Pain and neutropenia CBC is stable Discontinued Prophylaxis Lovenox as platelets less than 50K Feeling better this morning during evaluation Objective - Vital Signs Vital signs: Vital Signs Temp 98.4 F 01/20/21 05:00 Pulse 85 01/20/21 08:00 Resp 16 01/20/21 08:00 BP 104/71 01/20/21 05:00 Pulse Ox 96 01/20/21 05:00 Intake & Output 01/19/21 01/20/21 01/20/21 18:59 06:59 18:59 Weight 56.245 kg Other: Voiding Method Toilet Toilet Toilet Diaper Diaper Diaper # Voids 2 4 1 - Exam - Constitutional General appearance: cooperative, no acute distress - EENT Eyes: EOMI, PERRLA ENT: NA/AT - Respiratory Respiratory: bilateral: CTA - Cardiovascular Rhythm: regular - Gastrointestinal General gastrointestinal: soft, tenderness - Musculoskeletal Musculoskeletal: generalized weakness - Psychiatric Anxious Psychiatric: A&O x's 3 - Labs CBC & Chem 7: 01/20/21 11:42 01/20/21 05:59 Labs: Abnormal Lab Results - Last 24 Hours (Table) 01/19/21 01/19/21 01/20/21 Range/Units 12:11 12:11 05:59 WBC 0.5 L* 0.4 L* (3.8-10.6) k/uL RBC 2.69 L 2.90 L (3.80-5.40) m/uL Hgb 7.6 L D 8.1 L (11.4-16.0) gm/dL Hct 23.8 L 25.6 L (34.0-46.0) % RDW 15.9 H 15.7 H (11.5-15.5) % Plt Count 34 L D 31 L (150-450) k/uL Potassium 3.2 L (3.5-5.1) mmol/L Chloride 114 H (98-107) mmol/L Carbon Dioxide 21 L (22-30) mmol/L Calcium 7.7 L (8.4-10.2) mg/dL Magnesium 1.1 L (1.6-2.3) mg/dL Alkaline Phosphatase 136 H (38-126) U/L Total Protein 4.8 L (6.3-8.2) g/dL Albumin 2.6 L (3.5-5.0) g/dL Assessment and Plan (1) Neutropenic colitis Current Visit: Yes Status: Acute Code(s): D70.9 - NEUTROPENIA, UNSPECIFIED; K52.89 - OTHER SPECIFIED NONINFECTIVE GASTROENTERITIS AND COLITIS SNOMED Code(s): 653087871 (2) Pancytopenia due to antineoplastic chemotherapy Current Visit: Yes Status: Acute Code(s): D61.810 - ANTINEOPLASTIC CHEMOTHERAPY INDUCED PANCYTOPENIA; T45.1X5A - ADVERSE EFFECT OF ANTINEOPLASTIC AND IMMUNOSUP DRUGS, INIT SNOMED Code(s): 510636995454578 (3) Small cell lung cancer Current Visit: No Status: Acute Code(s): C34.90 - MALIGNANT NEOPLASM OF UNSP PART OF UNSP BRONCHUS OR LUNG SNOMED Code(s): 397136349 Plan: Neutropenia: - Not improved - Continue broad spectrum antibiotics Keep NPO with Ice chips CBC Daily Transfuse hemoglobin less than 7 THROMBOCYTOPENIA: - Hold AC therapy platelets less than 50K - No ASA< NSAIS or other blood thinners till greater than 50K CT abdomen and pelvis Pending Physician attest: I have completed the full history and physical and agree with above dictation, dictated as a scribe
[2021-01-20 12:32] LABS: HCT 25.5 % (34.0-46.0); HGB 8.7 gm/dL (11.4-16.0); MCH 29.7 pg (25.0-35.0); MCV 87.4 fL (80.0-100.0); Mean Platelet Volume 8.6; Platelet Count 37 k/uL (150-450); RBC 2.91 m/uL (3.80-5.40); RDW 15.4 % (11.5-15.5)
--- NOTE | 2021-01-20 12:50 | CT ---
EXAMINATION TYPE: CT abdomen pelvis w con DATE OF EXAM: 01/20/2021 HISTORY: Neutropenic colitis, rule out dissection. Diffuse pain. Known small cell lung cancer with he patic an osseous metastatic disease. CT DLP: 2531.3mGycm Automated Exposure Control for Dose Reduction was Utilized. CONTRAST: CT scan of the abdomen and pelvis is performed with IV Contrast, patient injected with 100ml mL of Is ovue 370. COMPARISON: CT abdomen and pelvis January 04, 2021. PET/CT November 04, 2020 FINDINGS: LUNG BASES: Persistent medial posterior left basilar consolidation and/or postobstructive atelectasis with small fluid component inferiorly unchanged from most recent CT. LIVER/GB: Innumerable hepatic metastatic lesions redemonstrated of varying size and shape. One of lar gest measures 4.4 cm long axis axial image 19 posterior right hepatic lobe not significantly changed from most recent CT. Cholecystectomy clips are redemonstrated. No new biliary dilatation. PANCREAS: [id number] generalized fat replaced atrophy. SPLEEN: No significant abnormality is seen. ADRENALS: No significant abnormality is seen. KIDNEYS: There is 1.9 cm thin-walled cyst upper pole of the right kidney axial image 22. Scattered s ubcentimeter low dense lesions throughout both kidneys. Nonspecific near 1.0 cm lesion medially lower pole right kidney axial image 37 series 5. Symmetric cortical medullary uptake and excretion without hydronephrosis seen bilaterally. BOWEL: Some oral contrast reaches level of rectum. No suspicious small or large bowel dilatation. The re is a mild/moderate wall thickening throughout the entire colon are present. Sigmoid colonic divert iculosis. No significant focal fat stranding. UTERUS/ADNEXA: No gross abnormality seen. LYMPH NODES: No greater than 1cm abdominal or pelvic lymph nodes are appreciated. OSSEOUS STRUCTURES: Multilevel spondylolisthesis and disc space narrowing in the lumbar spine. Multil evel spurring. The osseous metastatic lesions seen on PET/CT less well seen on true CT images, likely subtle lucent lesions throughout the spine for reference T12 level sagittal image 55 right aspect OTHER: Moderate calcified plaque of the aorta extends into branch vessels. Stable wide neck ventral w all hernia in the midline of the upper abdomen containing fat along with some free fluid in tiny mese nteric vessels axial image 21 for reference. IMPRESSION: Possible mild to moderate multifocal or diffuse uncomplicated colitis on current study. N o free air. No well-formed fluid collection or abscess. Redemonstration of known hepatic and osseous metastatic disease without obvious interval neoplastic progression.
[2021-01-20 12:51] LABS: WBC 0.8 k/uL (3.8-10.6)
[2021-01-20 13:28] LABS: African American GFR (CKD) 110.5 (60.0-200.0); Albumin 3.1 g/dL (3.80-4.90); Albumin/Globulin Ratio 1.72 (1.60-3.17); Anion Gap 11.5 mmol/L (4.00-12.00); Carbon Dioxide 18.5 mmol/L (21.6-31.8); Globulin 1.8 g/dL (1.6-3.3); Magnesium 1.1 mg/dL (1.5-2.4); Non-African American GFR(CKD) 95.3 (60.0-200.0); Potassium 3.4 mmol/L (3.5-5.5); Total Bilirubin 0.9 mg/dL (0.2-1.2); Total Protein 4.9 g/dL (6.2-8.2)
[2021-01-20] MEDS: MAGNESIUM SULFATE-D5W PMX 1 GM in DEXTROSE/WATER 1 100ML.BAG IVPB SCH ×3 (15:33→18:21)
[2021-01-20] MEDS: POTASSIUM CHLORIDE ER 20 MEQ TAB.ER PO SCH (15:36)
--- NOTE | 2021-01-20 15:51 | P.PN ---
Subjective Patient with neutropenia is admitted for a neutropenic colitis and patient is presently on Zosyn. Patient remains neutropenic. Patient is being continued on broad-spectrum antibiotics and IV fluids potassium is low which is being replaced but patient declined taking it any more potassium supplementation at this time. Patient is clinically doing well at this time patient was started on clear liquid diet today. Constitutional: Denied any fatigue denied any fever. Cardio vascular: denied any chest pain, palpitations Gastrointestinal denied any nausea vomiting Pulmonary: Denied any shortness of breath cough Neurologic denied any new focal deficits All inpatient medications were reviewed and appropriate changes in these medications as dictated in the interval history and assessment and plan. Objective - Vital Signs Vital signs: Vital Signs Temp 98.1 F 01/20/21 12:48 Pulse 95 01/20/21 12:48 Resp 18 01/20/21 12:48 BP 134/79 01/20/21 12:48 Pulse Ox 100 01/20/21 12:48 Intake & Output 01/19/21 01/20/21 01/20/21 18:59 06:59 18:59 Weight 56.245 kg Other: Voiding Method Toilet Toilet Toilet Diaper Diaper Diaper # Voids 2 4 1 - Exam PHYSICAL EXAMINATION: GENERAL: The patient is alert and oriented x3, not in any acute distress. Well developed, well nourished. HEENT: Pupils are round and equally reacting to light. EOMI. No scleral icterus. No conjunctival pallor. Normocephalic, atraumatic. No pharyngeal erythema. No thyromegaly. CARDIOVASCULAR: S1 and S2 present. No murmurs, rubs, or gallops. PULMONARY: Chest is clear to auscultation, no wheezing or crackles. ABDOMEN: Soft, nontender, nondistended, normoactive bowel sounds. No palpable organomegaly. MUSCULOSKELETAL: No joint swelling or deformity. EXTREMITIES: No cyanosis, clubbing, or pedal edema. NEUROLOGICAL: Gross neurological examination did not reveal any focal deficits. SKIN: No rashes. - Labs CBC & Chem 7: 01/20/21 11:42 01/20/21 05:59 Labs: Abnormal Lab Results - Last 24 Hours (Table) 01/20/21 01/20/21 01/20/21 Range/Units 05:59 05:59 11:42 WBC 0.4 L* 0.8 L* (3.8-10.6) k/uL RBC 2.90 L 2.91 L (3.80-5.40) m/uL Hgb 8.1 L 8.7 L (11.4-16.0) gm/dL Hct 25.6 L 25.5 L (34.0-46.0) % RDW 15.7 H (11.5-15.5) % Plt Count 31 L 37 L (150-450) k/uL Potassium 3.4 L (3.5-5.5) mmol/L Chloride 113 H (96-109) mmol/L Carbon Dioxide 18.5 L (21.6-31.8) mmol/L Creatinine 0.5 L (0.6-1.5) mg/dL BUN/Creatinine Ratio 32.00 H (12.00-20.00) Ratio Calcium 8.0 L (8.7-10.3) mg/dL Magnesium 1.1 L (1.5-2.4) mg/dL Alkaline Phosphatase 181 H (41-126) U/L Total Protein 4.9 L (6.2-8.2) g/dL Albumin 3.10 L (3.80-4.90) g/dL Microbiology - Last 24 Hours (Table) 01/19/21 12:20 Blood Culture - Preliminary Blood No Growth after 24 hours 01/19/21 12:11 Blood Culture - Preliminary Blood No Growth after 24 hours Assessment and Plan Plan: -Neutropenic colitis: Patient will be started on Zosyn continue with IV fluids to replace electrolytes. She will be started on diet -Left-sided lung cancer on chemotherapy -Gastroesophageal reflux disease -Depression DVT prophylaxis with Lovenox
[2021-01-20 16:40] LABS: Folate, Serum 4.7 ng/mL
[2021-01-20 17:07] LABS: % Iron Saturation 52.15 (12.00-45.00); Ferritin 2131.5 ng/mL (10.0-291.0)
[2021-01-20] MEDS: ONDANSETRON 4 MG/2 ML VIAL IVP PRN (19:26)
[2021-01-20] MEDS: CITALOPRAM HYDROBROMIDE 20 MG TAB PO SCH (21:10)
[2021-01-21] MEDS: PIPERACILLIN-TAZOBACTAM 3.375 GM in SODIUM CHLORIDE 0.9% 100 ML IVPB SCH ×3 (00:46→16:33)
[2021-01-21 07:56] LABS: ALT 11 U/L (4-34); AST 19 U/L (14-36); African American GFR (CKD) >90 (>60 ml/min/1.73 sqM); Albumin 2.4 g/dL (3.5-5.0); Albumin/Globulin Ratio 1.1; Alkaline Phosphatase 137 U/L (38-126); Anion Gap 3 mmol/L; Blood Urea Nitrogen 7 mg/dL (7-17); Calcium 7.6 mg/dL (8.4-10.2); Carbon Dioxide 22 mmol/L (22-30); Chloride 114 mmol/L (98-107); Globulin 2.2 g/dL; Glucose 65 mg/dL (74-99); Magnesium 1.8 mg/dL (1.6-2.3); Non-African American GFR(CKD) >90 (>60 ml/min/1.73 sqM); Potassium 2.8 mmol/L (3.5-5.1); Sodium 139 mmol/L (137-145); Total Bilirubin 0.6 mg/dL (0.2-1.3); Total Protein 4.6 g/dL (6.3-8.2)
[2021-01-21 08:07] LABS: Basophils % (A) 1 %; Eosinophils % (A) 0 %; HCT 20.8 % (34.0-46.0); Lymphocytes # (A) 0.5 k/uL (1.0-4.8); Lymphocytes % (A) 44 %; MCH 28.6 pg (25.0-35.0); MCV 86.6 fL (80.0-100.0); Mean Platelet Volume 8.9; Monocytes # (A) 0.1 k/uL (0-1.0); Monocytes % (A) 10 %; Neutrophils % (A) 32 %; RBC 2.41 m/uL (3.80-5.40)
[2021-01-21 08:16] LABS: WBC 1.1 k/uL (3.8-10.6)
[2021-01-21 08:28] LABS: Platelet Count 17 k/uL (150-450)
[2021-01-21 08:29] LABS: HGB 6.9 gm/dL (11.4-16.0)
[2021-01-21] MEDS: SYMBICORT 80-4.5 MCG INHALER INHALATION SCH ×2 (08:51→21:05)
[2021-01-21 08:55] LABS: Band Neutrophils % 7 %; Metamyelocytes % 2 %; Myelocytes % 4 %; Neutrophils % (M) 18 %; Nucleated Red Blood Cells 0 /100 WBC (0-0); Total Cells Counted 100
[2021-01-21 09:06] LABS: Neutrophils # (A) 0.4 k/uL (1.3-7.7)
[2021-01-21] MEDS: PANTOPRAZOLE 40 MG TABLET PO SCH (09:18)
[2021-01-21] MEDS: POTASSIUM BICARBONATE/CIT AC 20 MEQ TABLET.EFF NG-TUBE SCH ×3 (09:19→16:41)
--- NOTE | 2021-01-21 11:54 | PN ---
PROGRESS NOTE DATE OF SERVICE: January 21, 2021. CHIEF COMPLAINT: Abdominal pain. HISTORY: The patient is seen today in followup. She continues to have some abdominal pain but no diarrhea, no bowel movement. . No fever or chills. No hematuria, hemoptysis, or hematemesis. Overall she feels tired, but she stated that she is feeling a little better. CURRENT MEDICATION: Reviewed in her electronic medical record. PHYSICAL EXAMINATION: She is alert, oriented x3. She does not appear to be in distress. Her vital signs show a temperature 97.5, afebrile, pulse 85 regular, respirations 16, blood pressure 99/60. HEENT normocephalic, atraumatic. Oral mucosa dry. Neck is supple. Chest equal expansion bilaterally. Lungs are clear to auscultation heart is regular rate and rhythm. Abdomen is slightly distended. She has generalized tenderness. Hypoactive bowel sounds. Extremities reveal trace edema. LABORATORY DATA: Sodium 139, potassium 2.8, chloride 114, CO2 is 22, BUN is 7, creatinine 0.59. Alkaline phosphatase 137, AST 19, ALT is 11. IMPRESSION: 1. Extensive stage small cell lung carcinoma. The patient has received so far 3 cycles of combination of chemotherapy and immunotherapy with carboplatin, etoposide, and Tecentriq. Her last treatment was provided on 01/12/2021, and this was followed by Luis. 2. Neutropenic colitis. 3. Chemotherapy-induced myelosuppression. 4. Electrolyte imbalance. RECOMMENDATION: 1. Overall, the patient appears to be stable. 2. Continue broad-spectrum antibiotics. 3. Due to significant anemia today, she will be transfused with 1 unit of packed red blood cells. 4. Due to significant thrombocytopenia, we will hold off DVT prophylaxis. 5. Replace electrolytes. The above was discussed with the patient. I have answered all of her questions. MMODL / IJN: [id number] /
[2021-01-21] MEDS: ONDANSETRON 4 MG/2 ML VIAL IVP PRN ×2 (13:11→20:01)
[2021-01-21] MEDS: 0.9% NACL WITH KCL 40 MEQ/L 1,000 ML IV SCH ×2 (13:12→22:12)
--- NOTE | 2021-01-21 15:39 | P.PN ---
Subjective Patient with neutropenia is admitted for a neutropenic colitis and patient is presently on Zosyn. Patient remains neutropenic. Patient is being continued on broad-spectrum antibiotics and IV fluids potassium is low which is being replaced but patient declined taking it any more potassium supplementation at this time. Patient is clinically doing well at this time patient was started on clear liquid diet today. 01/21/2021 Patient the neutropenia improved white blood cell count is 1100 compared to 400 yesterday. Patient hemoglobin is 6.9 for which patient is to monitor. Obesity transfusion patient does have thrombocytopenia as well patient has applied abnormalities which we're trying to Correct and the patient does not want to IV potassium supplementation will add potassium to her IV fluids. Patient to hypomagnesemia improved. Patient will be started on clear liquid diet. Patient remains on broad-spectrum antibiotics Constitutional: Denied any fatigue denied any fever. Cardio vascular: denied any chest pain, palpitations Gastrointestinal denied any nausea vomiting Pulmonary: Denied any shortness of breath cough Neurologic denied any new focal deficits All inpatient medications were reviewed and appropriate changes in these medications as dictated in the interval history and assessment and plan. Objective - Vital Signs Vital signs: Vital Signs Temp 98.1 F 01/21/21 14:09 Pulse 100 01/21/21 14:09 Resp 18 01/21/21 12:18 BP 108/69 01/21/21 14:09 Pulse Ox 99 01/21/21 14:09 Intake & Output 01/20/21 01/21/21 01/21/21 18:59 06:59 18:59 Intake Total 60 1100 0 Balance 60 1100 0 Intake: Intake, IV Titration 1100 Amount Piperacillin-Tazobactam 3 100 .375 gm In Sodium Chloride 0.9% 100 ml @ 25 mls/hr IVPB Q8HR [facility] Rx# :[id number] Sodium Chloride 0.9% 1, 1000 000 ml @ 100 mls/hr IV . Q10H [facility] Rx#:[id number] Oral 60 Blood Product 0 Rc Cpda-1 Unit 0 [id number] Other: Voiding Method Toilet Toilet Toilet Diaper Bedside Commode # Voids 5 1 - Exam PHYSICAL EXAMINATION: GENERAL: The patient is alert and oriented x3, not in any acute distress. Well developed, well nourished. HEENT: Pupils are round and equally reacting to light. EOMI. No scleral icterus. No conjunctival pallor. Normocephalic, atraumatic. No pharyngeal erythema. No thyromegaly. CARDIOVASCULAR: S1 and S2 present. No murmurs, rubs, or gallops. PULMONARY: Chest is clear to auscultation, no wheezing or crackles. ABDOMEN: Soft, nontender, nondistended, normoactive bowel sounds. No palpable organomegaly. MUSCULOSKELETAL: No joint swelling or deformity. EXTREMITIES: No cyanosis, clubbing, or pedal edema. NEUROLOGICAL: Gross neurological examination did not reveal any focal deficits. SKIN: No rashes. - Labs CBC & Chem 7: 01/21/21 06:29 01/21/21 06:29 Labs: Abnormal Lab Results - Last 24 Hours (Table) 01/19/21 01/21/21 01/21/21 Range/Units 12:11 06:29 06:29 WBC 1.1 L* (3.8-10.6) k/uL RBC 2.41 L (3.80-5.40) m/uL Hgb 6.9 L* D (11.4-16.0) gm/dL Hct 20.8 L (34.0-46.0) % RDW 16.0 H (11.5-15.5) % Plt Count 17 L* D (150-450) k/uL Neutrophils # 0.4 L* (1.3-7.7) k/uL Lymphocytes # 0.5 L (1.0-4.8) k/uL Potassium 2.8 L (3.5-5.1) mmol/L Chloride 114 H (98-107) mmol/L Glucose 65 L (74-99) mg/dL Calcium 7.6 L (8.4-10.2) mg/dL TIBC 186 L (228-460) ug/dL % Saturation 52.15 H (12.00-45.00) Ferritin 2131.5 H (10.0-291.0) ng/mL Alkaline Phosphatase 137 H (38-126) U/L Total Protein 4.6 L (6.3-8.2) g/dL Albumin 2.4 L (3.5-5.0) g/dL Vitamin B12 2564.0 H (200.0-944.0) pg/mL Crossmatch 01/21/21 Range/Units 10:53 WBC (3.8-10.6) k/uL RBC (3.80-5.40) m/uL Hgb (11.4-16.0) gm/dL Hct (34.0-46.0) % RDW (11.5-15.5) % Plt Count (150-450) k/uL Neutrophils # (1.3-7.7) k/uL Lymphocytes # (1.0-4.8) k/uL Potassium (3.5-5.1) mmol/L Chloride (98-107) mmol/L Glucose (74-99) mg/dL Calcium (8.4-10.2) mg/dL TIBC (228-460) ug/dL % Saturation (12.00-45.00) Ferritin (10.0-291.0) ng/mL Alkaline Phosphatase (38-126) U/L Total Protein (6.3-8.2) g/dL Albumin (3.5-5.0) g/dL Vitamin B12 (200.0-944.0) pg/mL Crossmatch See Detail Microbiology - Last 24 Hours (Table) 01/19/21 12:20 Blood Culture - Preliminary Blood No Growth after 48 hours 01/19/21 12:11 Blood Culture - Preliminary Blood No Growth after 48 hours Assessment and Plan Plan: -Neutropenic colitis: Patient will be started on Zosyn continue with IV fluids to replace electrolytes. She was started on diet -Pancytopenia secondary to chemotherapy. Hemoglobin is 6.9 transfused or ectopy RBC -Severe hypokalemia: Secondary to IV fluids trying to replace. -Left-sided lung cancer on chemotherapy -Gastroesophageal reflux disease -Depression DVT prophylaxis with Lovenox
[2021-01-21] MEDS ORDERED: LOPERAMIDE 2 MG CAP PO PRN (19:42)
[2021-01-21] MEDS ORDERED: LOPERAMIDE 2 MG CAP PO STA (19:42)
[2021-01-21] MEDS: CITALOPRAM HYDROBROMIDE 20 MG TAB PO SCH (21:22)
[2021-01-22] MEDS: PIPERACILLIN-TAZOBACTAM 3.375 GM in SODIUM CHLORIDE 0.9% 100 ML IVPB SCH ×4 (00:38→23:49)
[2021-01-22 06:14] LABS: HCT 26.7 % (34.0-46.0); MCH 28.9 pg (25.0-35.0); MCHC 34.2 g/dL (31.0-37.0); MCV 84.4 fL (80.0-100.0); Mean Platelet Volume 10.2; RBC 3.16 m/uL (3.80-5.40); RDW 15.6 % (11.5-15.5); WBC 3.6 k/uL (3.8-10.6)
[2021-01-22 06:39] LABS: HGB 9.1 gm/dL (11.4-16.0); Platelet Count 15 k/uL (150-450)
[2021-01-22] MEDS: PANTOPRAZOLE 40 MG TABLET PO SCH (08:25)
[2021-01-22] MEDS: ONDANSETRON 4 MG/2 ML VIAL IVP PRN ×2 (09:05→19:23)
[2021-01-22] MEDS: SYMBICORT 80-4.5 MCG INHALER INHALATION SCH ×2 (09:08→20:12)
[2021-01-22 10:25] LABS: African American GFR (CKD) 110.5 (60.0-200.0); Anion Gap 8.4 mmol/L (4.00-12.00); Calcium 7.6 mg/dL (8.7-10.3); Carbon Dioxide 19.6 mmol/L (21.6-31.8); Non-African American GFR(CKD) 95.3 (60.0-200.0); Potassium 3.7 mmol/L (3.5-5.5)
--- NOTE | 2021-01-22 11:55 | PN ---
PROGRESS NOTE DATE OF SERVICE: January 22, 2021. CHIEF COMPLAINT: Abdominal pain. Mary is seen today as a followup. She has some abdominal pain and she had an episode of diarrhea this morning, which resolved. She is tolerating liquid diet well. No fever or chills. No melena, hematochezia, hematemesis, hematuria or hemoptysis. CURRENT MEDICATION: Reviewed in her electronic medical record. PHYSICAL EXAMINATION: She is alert, oriented x3. She does not appear to be in distress. Her vital signs are: Temperature 97.9, pulse is 100, respirations 16, blood pressure 154/95. HEENT: Normocephalic, atraumatic. NECK: Supple. Chest equal expansion bilaterally. LUNGS: Clear. Heart is irregular. ABDOMEN: She has generalized tenderness. Positive bowel sounds. EXTREMITIES: Revealed no significant edema. LABORATORY DATA: WBC of 3.6, hemoglobin 9.1, hematocrit is 27.6, platelets are 15. IMPRESSION: 1. Extensive small cell carcinoma. The patient has received 3 cycles of chemo immunotherapy so far. 2. Chemotherapy-induced myelosuppression. This has been improved. Her neutrophils count have recovered and her hemoglobin improved but she remained thrombocytopenic. 3. Neutropenic colitis. She is clinically improving, but she still has abdominal tenderness. 4. Electrolyte imbalance is being corrected. RECOMMENDATION: 1. Continue supportive care. 2. Advance diet. 3. If the patient's condition continued to improve, she may discontinue antibiotics by tomorrow. 4. If she continues to show improvement over the next 24 hours, then she could be discharged home. 5. Continue to hold off DVT prophylaxis due to her thrombocytopenia. Thank you very much. MMODL / IJN: [id number] /
--- NOTE | 2021-01-22 12:20 | P.PN ---
Subjective Patient with neutropenia is admitted for a neutropenic colitis and patient is presently on Zosyn. Patient remains neutropenic. Patient is being continued on broad-spectrum antibiotics and IV fluids potassium is low which is being replaced but patient declined taking it any more potassium supplementation at this time. Patient is clinically doing well at this time patient was started on clear liquid diet today. 01/21/2021 Patient the neutropenia improved white blood cell count is 1100 compared to 400 yesterday. Patient hemoglobin is 6.9 for which patient is to monitor. Obesity transfusion patient does have thrombocytopenia as well patient has applied abnormalities which we're trying to Correct and the patient does not want to IV potassium supplementation will add potassium to her IV fluids. Patient to hypomagnesemia improved. Patient will be started on clear liquid diet. Patient remains on broad-spectrum antibiotics. 01/22/2021 Patient is tolerating a soft diet but still having abdominal pain. Patient's platelet is only 15,000 white blood cell count did improve to 3600 hemoglobin is 9.1 today Constitutional: Denied any fatigue denied any fever. Cardio vascular: denied any chest pain, palpitations Gastrointestinal denied any nausea vomiting Pulmonary: Denied any shortness of breath cough Neurologic denied any new focal deficits All inpatient medications were reviewed and appropriate changes in these medications as dictated in the interval history and assessment and plan. Objective - Vital Signs Vital signs: Vital Signs Temp 97.9 F 01/22/21 05:00 Pulse 103 H 01/22/21 05:00 Resp 16 01/22/21 05:00 BP 154/95 01/22/21 05:00 Pulse Ox 98 01/22/21 05:00 Intake & Output 01/21/21 01/22/21 01/22/21 18:59 06:59 18:59 Intake Total 1110 1200 Output Total 1 Balance 1110 1200 -1 Intake: Intake, IV Titration 1200 Amount 0.9% NaCl with KCl 40 Meq 1100 /l 1,000 ml @ 100 mls/hr IV .Q10H [facility] Rx#: [id number] Piperacillin-Tazobactam 3 100 .375 gm In Sodium Chloride 0.9% 100 ml @ 25 mls/hr IVPB Q8HR [facility] Rx# :[id number] Oral 800 Blood Product 310 Rc Cpda-1 Unit 310 [id number] Output: Stool 1 Other: Voiding Method Toilet Toilet Toilet Bedside Commode Bedside Commode Bedside Commode # Voids 4 3 # Bowel Movements 1 - Exam PHYSICAL EXAMINATION: GENERAL: The patient is alert and oriented x3, not in any acute distress. Well developed, well nourished. HEENT: Pupils are round and equally reacting to light. EOMI. No scleral icterus. No conjunctival pallor. Normocephalic, atraumatic. No pharyngeal erythema. No thyromegaly. CARDIOVASCULAR: S1 and S2 present. No murmurs, rubs, or gallops. PULMONARY: Chest is clear to auscultation, no wheezing or crackles. ABDOMEN: Soft, mild tenderness in the epigastric area as well as bilateral upper quadrants, nondistended, normoactive bowel sounds. No palpable organomegaly. MUSCULOSKELETAL: No joint swelling or deformity. EXTREMITIES: No cyanosis, clubbing, or pedal edema. NEUROLOGICAL: Gross neurological examination did not reveal any focal deficits. SKIN: No rashes. - Labs CBC & Chem 7: 01/22/21 06:00 01/22/21 06:00 Labs: Abnormal Lab Results - Last 24 Hours (Table) 01/21/21 01/22/21 01/22/21 Range/Units 10:53 06:00 06:00 WBC 3.6 L (3.8-10.6) k/uL RBC 3.16 L (3.80-5.40) m/uL Hgb 9.1 L D (11.4-16.0) gm/dL Hct 26.7 L (34.0-46.0) % RDW 15.6 H (11.5-15.5) % Plt Count 15 L* (150-450) k/uL Chloride 116 H (96-109) mmol/L Carbon Dioxide 19.6 L (21.6-31.8) mmol/L Creatinine 0.5 L (0.6-1.5) mg/dL Glucose 55 L (70-110) mg/dL Calcium 7.6 L (8.7-10.3) mg/dL Crossmatch See Detail Microbiology - Last 24 Hours (Table) 01/19/21 12:20 Blood Culture - Preliminary Blood No Growth after 48 hours 01/19/21 12:11 Blood Culture - Preliminary Blood No Growth after 48 hours Assessment and Plan Plan: -Neutropenic colitis: Patient will be started on Zosyn continue with IV fluids to replace electrolytes. Patient is on sore but still has some abdominal pain. Neutropenia improved -Pancytopenia secondary to chemotherapy. Hemoglobin improved to 9.1 after transfusion -Severe hypokalemia: Secondary to IV fluids, replacing -Left-sided lung cancer on chemotherapy -Gastroesophageal reflux disease -Depression DVT prophylaxis with Lovenox
[2021-01-22] MEDS: 0.9% NACL WITH KCL 20 MEQ/L 1,000 ML IV SCH (14:29)
[2021-01-22] MEDS: 0.9% NACL WITH KCL 40 MEQ/L 1,000 ML IV SCH (14:31)
[2021-01-22] MEDS: CITALOPRAM HYDROBROMIDE 20 MG TAB PO SCH (20:37)
[2021-01-22] MEDS: PROMETHAZINE 25 MG TAB PO PRN (21:44)
[2021-01-23] MEDS: 0.9% NACL WITH KCL 20 MEQ/L 1,000 ML IV SCH (02:56)
[2021-01-23] MEDS: SYMBICORT 80-4.5 MCG INHALER INHALATION SCH (08:52)
[2021-01-23 09:38] LABS: Methylmalonic Acid 0.12 umol/L (<0.40)
[2021-01-23] MEDS: PIPERACILLIN-TAZOBACTAM 3.375 GM in SODIUM CHLORIDE 0.9% 100 ML IVPB SCH ×2 (10:02→16:08)
[2021-01-23] MEDS: PANTOPRAZOLE 40 MG TABLET PO SCH (10:03)
[2021-01-23] MEDS: ONDANSETRON 4 MG/2 ML VIAL IVP PRN (11:55)
[2021-01-23 12:23] LABS: Anisocytosis Slight; HCT 26.5 % (34.0-46.0); HGB 8.8 gm/dL (11.4-16.0); MCH 28.3 pg (25.0-35.0); MCHC 33.3 g/dL (31.0-37.0); Mean Platelet Volume 9.5; RBC 3.12 m/uL (3.80-5.40); RDW 16.3 % (11.5-15.5); WBC 7.7 k/uL (3.8-10.6)
[2021-01-23 12:27] LABS: Platelet Count 20 k/uL (150-450)
[2021-01-23 12:29] VITALS: BP 123/81; PULSE 106; RESP 16; TEMP 98.1
[2021-01-23 12:42] LABS: African American GFR (CKD) >90 (>60 ml/min/1.73 sqM); Anion Gap 1 mmol/L; Blood Urea Nitrogen <2 mg/dL (7-17); Calcium 7.8 mg/dL (8.4-10.2); Carbon Dioxide 24 mmol/L (22-30); Chloride 115 mmol/L (98-107); Glucose 84 mg/dL (74-99); Non-African American GFR(CKD) >90 (>60 ml/min/1.73 sqM); Potassium 3.4 mmol/L (3.5-5.1); Sodium 140 mmol/L (137-145)
[2021-01-23 13:39] LABS: Band Neutrophils % 6 %; Lymphocytes # (M) 1.54 k/uL (1.0-4.8); Metamyelocytes # (M) 0.23 k/uL (0); Metamyelocytes % 3 %; Monocytes # (M) 1.62 k/uL (0-1.0); Myelocytes # (M) 0.23 k/uL (0); Myelocytes % 3 %; Neutrophils % (M) 47 %; Promyelocytes # (M) 0.08 k/uL (0); Promyelocytes % 1 %
[2021-01-23 13:40] LABS: Blast Cells # (M) 0.08 k/uL (0); Nucleated Red Blood Cells 0 /100 WBC (0-0); Total Cells Counted 200
[2021-01-23] MEDS: PROMETHAZINE 25 MG TAB PO PRN (16:06)
[2021-01-23] MEDS: POTASSIUM BICARBONATE/CIT AC 20 MEQ TABLET.EFF NG-TUBE SCH (16:07)
--- NOTE | 2021-01-23 23:09 | DS ---
DISCHARGE SUMMARY DATE OF SERVICE: 01/23/2021 FINAL DIAGNOSES: 1. Severe neutropenic colitis, improved. 2. Pancytopenia. 3. Thrombocytopenia. 4. Severe hypokalemia. 5. Left-sided lung cancer on chemotherapy. 6. Gastroesophageal reflux disease. 7. Depression. DISCHARGE DISPOSITION: The patient will be discharged in stable condition with guarded prognosis. HISTORY OF PRESENT ILLNESS: This 75-year-old woman with a past medical history of multiple medical problems was admitted with neutropenic colitis, as well as thrombocytopenia. The patient was treated empirically with antibiotics. The patient improved significantly. The patient also On exam, vitals stable. Cardiovascular S1, S2. Abdomen soft. Nervous system: No focal deficits. Cultures are negative. Lab rey, WBC 7.6, hemoglobin is 8.8, and platelets are 20. Recommend close outpatient followup with Hematology/Oncology who saw the patient recommended outpatient followup. DISCHARGE ADVICE AND MEDICATIONS: 1. Diet is cardiac. 2. Activity limited until followup. 3. Follow up with Dr. Emy Ball in 2-3 days. 4. Follow up with Dr. Garvin as recommended. DISCHARGE MEDICATIONS: 1. Benadryl p.r.n. 2. Celexa 40 mg q.h.s. 3. [place] 7.5 mg q.h.s. 4. Omeprazole 20 mg daily. 5. KCl orally 20 mg p.o. daily. 6. Ventolin 2 puffs q.i.d. p.r.n. 7. Vitamin D3 25 mcg p.o. b.i.d. 8. Fluticasone 1 puff daily. 9. Zofran 4 mg q.4h p.r.n. 10.Augmentin 1 p.o. b.i.d. for 5 days. 11.Fentanyl patch 25 mcg q.72h. 12.Flexeril p.r.n. 13.Imodium p.r.n. 14.Phenergan p.r.n. Once again, the patient will be discharged in stable condition with guarded prognosis. MMODL / IJN: [id number] / MTDD
== END 2021-01-23 18:20 | disposition home health service (06) | DRG 391 ==
LOC: EC 15:02 → 5NMEDONC 19:32 → OBSVTOIN 01-20 12:16
PROVIDERS: ADMIT Hospitalist; ATTEND Hospitalist
PROC: 30233N1 Transfusion of Nonautologous Red Blood Cells into Peripheral Vein, Percutaneous Approach (ICD-10-PCS; principal; 2021-01-21)
DX: K52.89 Other specified noninfective gastroenteritis and colitis (principal); D61.810 Antineoplastic chemotherapy induced pancytopenia; E89.6 Postprocedural adrenocortical (-medullary) hypofunction; C79.9 Secondary malignant neoplasm of unspecified site; C34.02 Malignant neoplasm of left main bronchus; Z20.822 Contact with and (suspected) exposure to COVID-19; T45.1X5A Adverse effect of antineoplastic and immunosuppressive drugs, initial encounter; E87.6 Hypokalemia; E83.42 Hypomagnesemia; K21.9 Gastro-esophageal reflux disease without esophagitis; K46.9 Unspecified abdominal hernia without obstruction or gangrene; F32.9 Major depressive disorder, single episode, unspecified; F41.9 Anxiety disorder, unspecified; M25.552 Pain in left hip; M54.9 Dorsalgia, unspecified; M19.90 Unspecified osteoarthritis, unspecified site; Z99.81 Dependence on supplemental oxygen; Z79.51 Long term (current) use of inhaled steroids; Z79.899 Other long term (current) drug therapy; Z60.2 Problems related to living alone; Z87.01 Personal history of pneumonia (recurrent); Z87.442 Personal history of urinary calculi; Z87.440 Personal history of urinary (tract) infections; Z86.69 Personal history of other diseases of the nervous system and sense organs; Z90.49 Acquired absence of other specified parts of digestive tract; Z90.710 Acquired absence of both cervix and uterus; Z87.19 Personal history of other diseases of the digestive system; Z87.42 Personal history of other diseases of the female genital tract; Z96.652 Presence of left artificial knee joint; Z96.5 Presence of tooth-root and mandibular implants; Z87.39 Personal history of other diseases of the musculoskeletal system and connective tissue; Z86.19 Personal history of other infectious and parasitic diseases; Z87.891 Personal history of nicotine dependence; Z86.16 Personal history of COVID-19; Z98.890 Other specified postprocedural states; Z88.2 Allergy status to sulfonamides; Z88.1 Allergy status to other antibiotic agents; Z91.041 Radiographic dye allergy status; Z81.8 Family history of other mental and behavioral disorders
CPT/HCPCS: 36415; 71046; 74018; 74177; 80048; 80053; 81003; 82150; 82533; 82607; 82728; 82746; 83540; 83550; 83605; 83690; 83735; 83921; 84425; 84443; 84484; 85025; 85027; 85610; 85730; 86850; 86900; 86901; 86920; 87040; 87635; 94640; 96374; 96375; 99285

== ENCOUNTER 2021-02-05 19:01 | Inpatient (IN) | payer MEDICARE, BC ==
[2021-02-05] MEDS ORDERED: ASPIRIN 81 MG PO STA (19:17)
[2021-02-05] MEDS ORDERED: NITROGLYCERIN OINT 1 INCH/GM PACKET TOPICAL STA (19:17)
--- NOTE | 2021-02-05 19:21 | ED ---
General Adult HPI - General Chief complaint: Chest Pain Stated complaint: chest pain, SOB Time Seen by Provider: 02/05/21 19:09 Source: patient, family, RN notes reviewed Mode of arrival: wheelchair Limitations: no limitations - History of Present Illness Initial comments: Patient is a pleasant 75-year-old female presenting to the emergency Department with chest discomfort. Onset of symptoms was this morning. Symptoms have generally worsened throughout the day. Discomfort is not severe at this time. Discomfort feels like pressure without radiation. Patient does have dyspnea. Dyspnea does worsen with exertion. Patient states symptoms are somewhat similar to previous COVID-19 several months ago. Patient does have history of recent small cell lung cancer and just finished fourth treatment of chemotherapy. No nausea. No diaphoresis. No leg pain or leg swelling. - Related Data Home Medications Medication Instructions Recorded Confirmed Albuterol Inhaler [Ventolin Hfa 2 puff INHALATION RT-QID PRN 10/25/20 02/05/21 Inhaler] Citalopram Hydrobromide 40 mg PO HS 10/25/20 02/05/21 [Citalopram HBr] diphenhydrAMINE [Benadryl] 25 mg PO HS PRN 10/25/20 02/05/21 HYDROcodone/APAP 7.5-325MG [[place] 1 tab PO Q6H PRN 11/26/20 02/05/21 7.5-325] Omeprazole 20 mg PO DAILY 11/26/20 02/05/21 Ondansetron HCl [Zofran] 4 mg PO Q4H PRN 11/26/20 02/05/21 Cholecalciferol [Vitamin D3 (25 25 mcg PO BID 12/13/20 02/05/21 Mcg = 1000 Iu)] Fluticasone Propion/Salmeterol 1 puff INHALATION RT-BID 12/13/20 02/05/21 [[place] 250-50 Inhub] Magnesium Oxide 400 mg PO DAILY 02/05/21 02/05/21 Potassium Gluconate 99 mg PO BID 02/05/21 02/05/21 Previous Rx's Medication Instructions Recorded Cyclobenzaprine [Flexeril] 5 mg PO TID PRN #30 tab 11/01/20 fentaNYL 25MCG/HR PATCH [Duragesic 1 patch TRANSDERM Q72H #3 patch 11/01/20 25MCG/HR] Loperamide [Imodium] 2 mg PO QID PRN #30 cap 01/23/21 Allergies Allergy/AdvReac Type Severity Reaction Status Date / Time Iodinated Contrast Media Allergy Unknown Verified 02/05/21 20:13 [Iodinated Contrast Media - IV Dye] sulfamethoxazole Allergy Rash/Hives Verified 02/05/21 20:13 [From Bactrim] trimethoprim [From Bactrim] Allergy Rash/Hives Verified 02/05/21 20:13 Review of Systems ROS Statement: Those systems with pertinent positive or pertinent negative responses have been documented in the HPI. ROS Other: All systems not noted in ROS Statement are negative. Constitutional: Denies: fever Eyes: Denies: eye pain ENT: Denies: ear pain Respiratory: Reports: dyspnea Cardiovascular: Reports: chest pain Endocrine: Reports: fatigue Gastrointestinal: Denies: abdominal pain Genitourinary: Denies: urgency Musculoskeletal: Denies: back pain Skin: Denies: rash Neurological: Denies: weakness Psychiatric: Reports: anxiety Past Medical History Past Medical History: Cancer, Osteoarthritis (OA), Pneumonia Additional Past Medical History / Comment(s): sinus problems,kidney stones uti, bladder incnt/wears a pad,abd hernia,migraines,"muscles spasms and lt hip pain, had collapsed lung -not large enough to require c/t, DDD, sciatic, History of Any Multi-Drug Resistant Organisms: None Reported Date of last positivie culture/infection: 2015 Past Surgical History: Appendectomy, Bladder Surgery, Cholecystectomy, Hysterectomy, Orthopedic Surgery Additional Past Surgical History / Comment(s): artriscopy, lt knee replacemnent,adrenal gland removed,lt knee, colonoscopy, dental implants, 1997 had lt foot sx for hammer toes and stated had an implant in that foot-then january 2015 had a revison of that sx, Cdiff- 2015. covid 11/06 Past Anesthesia/Blood Transfusion Reactions: No Reported Reaction Additional Past Anesthesia/Blood Transfusion Reaction / Comment(s): Pt received blood without reaction. Past Psychological History: Anxiety Smoking Status: Former smoker Past Alcohol Use History: Rare Past Drug Use History: None Reported - Past Family History Mother Family Medical History: Dementia Additional Family Medical History / Comment(s): moms sister also had dementia Father Family Medical History: Unable to Obtain General Exam Limitations: no limitations General appearance: alert Head exam: Present: normocephalic Eye exam: Present: normal appearance Neck exam: Present: normal inspection Respiratory exam: Present: rhonchi (Right-sided, cleared with patient cough.). Absent: chest wall tenderness Cardiovascular Exam: Present: normal rhythm, tachycardia Expanded Peripheral pulses: 2+: Radial (R), Radial (L), Dorsalis Pedis (R), Dorsalis Pedis (L) GI/Abdominal exam: Present: soft. Absent: tenderness Extremities exam: Present: normal inspection. Absent: pedal edema, calf tenderness Neurological exam: Present: alert Psychiatric exam: Present: normal affect, normal mood Skin exam: Present: normal color Course Vital Signs 02/05/21 02/05/21 02/05/21 19:03 19:40 19:42 Temperature 98.6 F Pulse Rate 113 H 104 H Pulse Rate [ 102 H Filler Shredder Helper ] Respiratory 26 H 20 Rate Blood Pressure 85/55 100/64 O2 Sat by Pulse 94 L 100 Oximetry 02/05/21 02/05/21 02/05/21 19:55 22:00 22:22 Temperature Pulse Rate 114 H 106 H Pulse Rate [ [place] Shred[place] Helper ] Respiratory 22 18 Rate Blood Pressure 103/65 147/102 133/86 O2 Sat by Pulse 100 99 Oximetry - Reevaluation(s) Reevaluation #1: 02/05/21 22:45 There is concern for potential sepsis diagnosed at 2240. Blood culture and lactic acid will be ordered. IV antibiotics will be ordered. EKG Findings - EKG Comments: EKG Findings:: Sinus tachycardia with rate of 113. DC 128. QRS 64. QT 338. QTC or 63. Normal axis. Normal QRS. Nonspecific T waves. Medical Decision Making - Medical Decision Making Patient had chest pain again following CT. Patient was given morphine with resolution of symptoms. Patient does have elevated white blood cell count, unclear if patient recently received medications for her white blood cell count 6 last up. Patient be admitted with consults for cardiology, pulmonary, and oncology. Case was earlier discussed with Dr. Munson, who will admit covering for Dr. Emy Hassan. - Lab Data Result diagrams: 02/05/21 19:25 02/05/21 19:25 Lab Results 02/05/21 02/05/21 02/05/21 Range/Units 19:25 19:25 19:25 WBC 39.9 H (3.8-10.6) k/uL RBC 2.53 L (3.80-5.40) m/uL Hgb 7.2 L D (11.4-16.0) gm/dL Hct 21.4 L (34.0-46.0) % MCV 84.3 (80.0-100.0) fL MCH 28.6 (25.0-35.0) pg MCHC 33.9 (31.0-37.0) g/dL RDW 17.3 H (11.5-15.5) % Plt Count 175 D (150-450) k/uL MPV 7.0 Neutrophils % (Manual) 95 % Lymphocytes % (Manual) 5 % Neutrophils # (Manual) 37.91 H (1.3-7.7) k/uL Lymphocytes # (Manual) 2.00 (1.0-4.8) k/uL Nucleated RBCs 0 (0-0) /100 WBC Manual Slide Review Performed Anisocytosis Slight Anisocytosis (manual) Present PT 10.3 (9.0-12.0) sec INR 1.0 (<1.2) APTT 23.0 (22.0-30.0) sec D-Dimer 1.45 H (<0.60) mg/L FEU Sodium 137 (137-145) mmol/L Potassium 4.0 (3.5-5.1) mmol/L Chloride 103 (98-107) mmol/L Carbon Dioxide 26 (22-30) mmol/L Anion Gap 8 mmol/L BUN 15 (7-17) mg/dL Creatinine 0.47 L (0.52-1.04) mg/dL Est GFR (CKD-EPI)AfAm >90 (>60 ml/min/1.73 sqM) Est GFR (CKD-EPI)NonAf >90 (>60 ml/min/1.73 sqM) Glucose 107 H (74-99) mg/dL Calcium 8.8 (8.4-10.2) mg/dL Magnesium 1.5 L (1.6-2.3) mg/dL Total Bilirubin 0.8 (0.2-1.3) mg/dL AST 40 H (14-36) U/L ALT 12 (4-34) U/L Alkaline Phosphatase 187 H (38-126) U/L Troponin I (0.000-0.034) ng/mL NT-Pro-B Natriuret Pep pg/mL Total Protein 5.4 L (6.3-8.2) g/dL Albumin 3.1 L (3.5-5.0) g/dL 02/05/21 02/05/21 Range/Units 19:25 19:25 WBC (3.8-10.6) k/uL RBC (3.80-5.40) m/uL Hgb (11.4-16.0) gm/dL Hct (34.0-46.0) % MCV (80.0-100.0) fL MCH (25.0-35.0) pg MCHC (31.0-37.0) g/dL RDW (11.5-15.5) % Plt Count (150-450) k/uL MPV Neutrophils % (Manual) % Lymphocytes % (Manual) % Neutrophils # (Manual) (1.3-7.7) k/uL Lymphocytes # (Manual) (1.0-4.8) k/uL Nucleated RBCs (0-0) /100 WBC Manual Slide Review Anisocytosis Anisocytosis (manual) PT (9.0-12.0) sec INR (<1.2) APTT (22.0-30.0) sec D-Dimer (<0.60) mg/L FEU Sodium (137-145) mmol/L Potassium (3.5-5.1) mmol/L Chloride (98-107) mmol/L Carbon Dioxide (22-30) mmol/L Anion Gap mmol/L BUN (7-17) mg/dL Creatinine (0.52-1.04) mg/dL Est GFR (CKD-EPI)AfAm (>60 ml/min/1.73 sqM) Est GFR (CKD-EPI)NonAf (>60 ml/min/1.73 sqM) Glucose (74-99) mg/dL Calcium (8.4-10.2) mg/dL Magnesium (1.6-2.3) mg/dL Total Bilirubin (0.2-1.3) mg/dL AST (14-36) U/L ALT (4-34) U/L Alkaline Phosphatase (38-126) U/L Troponin I <0.012 (0.000-0.034) ng/mL NT-Pro-B Natriuret Pep 894 pg/mL Total Protein (6.3-8.2) g/dL Albumin (3.5-5.0) g/dL - Radiology Data Radiology results: report reviewed (Computed tomography scan negative for pulmonary embolism. There is linear left greater than right lung infiltrates and atelectasis.), image reviewed (Chest x-ray shows possible left lower lobe infiltrate) Critical Care Time Critical Care Time: Yes Total Critical Care Time: 33 Disposition Clinical Impression: Chest pain, Dyspnea, Pneumonia Disposition: ADMITTED IP TO THIS HOSP Is patient prescribed a controlled substance at d/c from ED?: No Referrals: Emy Ball MD [Primary Care Provider] - 1-2 days Decision Time: 22:08
[2021-02-05] MEDS ORDERED: ONDANSETRON 4 MG/2 ML VIAL IVP STA ×2 (19:31→19:51)
[2021-02-05 19:49] LABS: Anisocytosis Slight; HCT 21.4 % (34.0-46.0); MCH 28.6 pg (25.0-35.0); MCHC 33.9 g/dL (31.0-37.0); MCV 84.3 fL (80.0-100.0); RBC 2.53 m/uL (3.80-5.40); RDW 17.3 % (11.5-15.5); WBC 39.9 k/uL (3.8-10.6)
[2021-02-05 19:53] LABS: HGB 7.2 gm/dL (11.4-16.0); Platelet Count 175 k/uL (150-450)
[2021-02-05 20:03] LABS: ALT 12 U/L (4-34); AST 40 U/L (14-36); African American GFR (CKD) >90 (>60 ml/min/1.73 sqM); Albumin 3.1 g/dL (3.5-5.0); Alkaline Phosphatase 187 U/L (38-126); Anion Gap 8 mmol/L; Blood Urea Nitrogen 15 mg/dL (7-17); Calcium 8.8 mg/dL (8.4-10.2); Carbon Dioxide 26 mmol/L (22-30); Chloride 103 mmol/L (98-107); Glucose 107 mg/dL (74-99); Magnesium 1.5 mg/dL (1.6-2.3); Non-African American GFR(CKD) >90 (>60 ml/min/1.73 sqM); Sodium 137 mmol/L (137-145); Total Bilirubin 0.8 mg/dL (0.2-1.3); Total Protein 5.4 g/dL (6.3-8.2)
[2021-02-05 20:09] LABS: D-Dimer 1.45 mg/L FEU (<0.60); Prothrombin Time 10.3 sec (9.0-12.0)
--- NOTE | 2021-02-05 20:16 | XR ---
EXAMINATION TYPE: XR chest 2V DATE OF EXAM: 02/05/2021 COMPARISON: 01/19/2021. HISTORY: Shortness of breath. TECHNIQUE: Frontal and lateral views of the chest are obtained. FINDINGS: There is mild left basilar hazy opacity. No significant pleural effusion, or pneumothorax seen. The cardiac silhouette size is within normal limits. The osseous structures are intact. IMPRESSION: Mild left basilar atelectasis versus less favored developing infiltrates.
[2021-02-05] MEDS ORDERED: methylPREDNISolone SOD SUCCI 125 MG/2 ML VIAL IV STA (20:17)
[2021-02-05] MEDS ORDERED: diphenhydrAMINE 50 MG/ML 1 ML VIAL IVP STA (20:17)
[2021-02-05] MEDS ORDERED: FAMOTIDINE 20 MG/2 ML VIAL IV STA (20:17)
[2021-02-05 20:43] LABS: Neutrophils # (M) 37.91 k/uL (1.3-7.7); Neutrophils % (M) 95 %; Nucleated Red Blood Cells 0 /100 WBC (0-0); Total Cells Counted 200
[2021-02-05 20:44] LABS: Anisocytosis (M) Present
[2021-02-05] MEDS ORDERED: SODIUM CHLORIDE 0.9% 1,000 ML IV STA ×2 (21:03→21:44)
[2021-02-05] MEDS ORDERED: ALPRAZolam 0.25 MG TAB PO PRN (21:46)
[2021-02-05] MEDS ORDERED: HYDROmorphone 0.5 MG/0.5 ML SYRINGE IVP PRN (21:47)
[2021-02-05] MEDS ORDERED: MORPHINE SULFATE 4 MG/ML SYRINGE IVP STA (22:00)
--- NOTE | 2021-02-05 22:33 | CT ---
EXAMINATION TYPE: CT angio chest DATE OF EXAM: 02/05/2021 COMPARISON: 01/05/2021 HISTORY: Dyspnea, CP, Hx covid CT DLP: 223.20 mGycm Automated exposure control for dose reduction was used. CONTRAST: Performed with IV Contrast, patient injected with 100 mL of Isovue 370. Images obtained from the thoracic inlet to the diaphragm with IV contrast. There are 3-D post process ed images. There is linear infiltrate and atelectasis at the lung bases and more on the left side. There is smal l bilateral pleural effusions. Heart is top normal in size. There is no pericardial effusion. There a re enlarged left bronchial lymph nodes up to almost 2 cm. There are paratracheal enlarged lymph nodes that measure up to 1.7 cm. Thoracic aorta is intact. There is no aneurysm or dissection. There is no evidence of filling defect in the pulmonary arteries. There are multiple hypodensities in the visualized liver that measure up to 3.3 cm. There is some spu rring in the thoracic spine. There is no thoracic compression fracture. IMPRESSION: No evidence of pulmonary embolism. Pleural effusions and linear infiltrate and atelectasis at the giovanni g bases that is increased compared to 01/20/2021 CT scan. Multiple liver hypodensities consistent with metastatic disease also demonstrated on the previous CT scan of 01/20/2021. There is mediastinal and le ft bronchial adenopathy similar to old CT scan of 01/05/2021.
[2021-02-05] MEDS ORDERED: PNEUMONIA PROTOCOL UTILIZED 1 EACH MISC PO PRN (22:45)
[2021-02-05] MEDS ORDERED: NITROGLYCERIN SL TABS 0.4 MG TAB SUBLINGUAL PRN (22:45)
[2021-02-05] MEDS: CEFEPIME 2 GM in SODIUM CHLORIDE 0.9% 100 ML IVPB SCH (23:13)
[2021-02-06] MEDS: PANTOPRAZOLE 40 MG/10 ML VIAL IVP SCH ×3 (00:24→21:42)
[2021-02-06 04:31] LABS: Anisocytosis Slight; Basophils % (A) 0 %; Eosinophils % (A) 0 %; HCT 20.9 % (34.0-46.0); HGB 7.1 gm/dL (11.4-16.0); Lymphocytes # (A) 0.2 k/uL (1.0-4.8); Lymphocytes % (A) 1 %; MCH 29.3 pg (25.0-35.0); MCHC 33.7 g/dL (31.0-37.0); MCV 86.9 fL (80.0-100.0); Mean Platelet Volume 7.5; Monocytes # (A) 0.3 k/uL (0-1.0); Monocytes % (A) 1 %; Neutrophils # (A) 24.1 k/uL (1.3-7.7); Neutrophils % (A) 98 %; Platelet Count 129 k/uL (150-450); RBC 2.41 m/uL (3.80-5.40); RDW 17.3 % (11.5-15.5); WBC 24.7 k/uL (3.8-10.6)
[2021-02-06 04:34] LABS: African American GFR (CKD) >90 (>60 ml/min/1.73 sqM); Anion Gap 3 mmol/L; Blood Urea Nitrogen 16 mg/dL (7-17); Calcium 8.2 mg/dL (8.4-10.2); Carbon Dioxide 28 mmol/L (22-30); Chloride 106 mmol/L (98-107); Glucose 260 mg/dL (74-99); Non-African American GFR(CKD) >90 (>60 ml/min/1.73 sqM); Potassium 4.3 mmol/L (3.5-5.1); Sodium 137 mmol/L (137-145)
--- NOTE | 2021-02-06 05:41 | HP ---
HISTORY AND PHYSICAL CHIEF COMPLAINTS: Weakness, chest pains, dehydration and vomiting. HISTORY OF PRESENT ILLNESS: This 75-year-old woman with a past medical history of lung cancer, history of DJD, history of muscle spasms, history of appendectomy, history of bladder surgery, lung cancer receiving chemotherapy. The patient had troubles after every cycle of chemotherapy. Patient was recently admitted with neutropenic colitis and treated symptomatically. Patient improved significantly. Currently the patient has completed a course of chemotherapy about 3 days ago. The patient is noted to have some tiredness, weakness, chest pain. Patient is still vomiting and the p.o. intake could not be increased with the daughter and the patient taken to [facility] and admitted for evaluation and treatment. The patient had previous COVID-19 several weeks ago. There is no history of any fever, rigors. No history of any headache, loss of consciousness, seizures at this time. The patient is followed by Dr. Emy Ball in the outpatient setting. PAST MEDICAL HISTORY: History of DJD, lung cancer on chemo, history of bladder surgery, cholecystectomy, history of adrenal gland removal, history of anxiety. MEDICATIONS PRIOR TO ADMISSION: Home medications are magnesium chloride, fentanyl, Benadryl, potassium gluconate, Zofran, omeprazole, Imodium, [place], ( ), Flexeril, Celexa, vitamin D3, Ventolin HFA inhaler. ALLERGIES: IODINATED CONTRAST DYE AND BACTRIM. FAMILY HISTORY: History of dementia in the family. SOCIAL HISTORY: History of smoking continued ongoing. REVIEW OF SYSTEMS: ENT No history of diminished hearing or vision. CARDIOVASCULAR No angina or palpitations. RESPIRATORY As mentioned earlier. GI As mentioned earlier. No dysuria or hematuria. NERVOUS No numbness or weakness. ALLERGY/IMMUNOLOGY No asthma or hayfever. MUSCULOSKELETAL As mentioned earlier. HEMATOLOGY/ONCOLOGY Negative. ENDOCRINE No history of diabetes or hypothyroidism. CONSTITUTIONAL As mentioned earlier. DERMATOLOGY Negative. RHEUMATOLOGY Negative, PSYCHIATRY As mentioned earlier. PHYSICAL EXAM: Patient is alert, oriented x2. Pulse is 104, blood pressure is 100/64, respiration 20, temperature 98.6, pulse ox 100% on 3 L. HEENT: Conjunctivae normal. Oral mucosa dry. NECK: No jugular venous distention. No lymph node enlargement. CARDIOVASCULAR: S1, S2, muffled. No S3, no S4, RESPIRATORY: Diminished breath sounds at the bases. No rhonchi, no crackles. ABDOMEN: Soft, nontender. LEGS: No edema, no swelling. NERVOUS SYSTEM: Higher functions mentioned earlier. Moves all four limbs. Mild diffuse weakness. LYMPHATICS: No lymph node in neck or axilla. SKIN: No rash. JOINTS: No active deforming arthropathy. LABS: WBC 13.9, hemoglobin 7.2, D-dimer is 1.45 and glucose 107. Magnesium is 1.5 and albumin is 3.1. Chest x-ray which was personally reviewed by me showed possible left developing infiltrates. ASSESSMENT: 1. Possible sepsis with acute left lower pneumonia with sepsis. 2. Dehydration with weakness. 3. Carcinoma of the lung on chemotherapy. 4. Increased WBC. 5. Anemia, normocytic secondary to malignancy. 6. Elevated D-dimer. 7. Hypomagnesemia. 8. History of recent neutropenic colitis. 9. History of DJD. 10.History of pneumonia. 11.History of muscle spasms. 12.History of Clostridium difficile colitis. 13.History of cholecystectomy. 14.History of appendectomy. 15.History of anxiety. RECOMMENDATION: In this 75-year-old woman with a past medical history of multiple medical problems, at this time I recommend to continue the current management and symptomatic treatment. The possibility of sepsis is extremely high in this immunosuppressed individual. I would recommend obtaining the blood cultures and initiate broad-spectrum IV antibiotics. Otherwise, infectious Disease and Hematology/Oncology evaluation. IV hydration. Prognosis guarded because of multiple complex medical issues. Further recommendations to follow. Medication reconciliation will be done once it is completed. Otherwise, discussed with the family. MMODL / IJN: [id number] /
[2021-02-06] MEDS: CEFEPIME 2 GM in SODIUM CHLORIDE 0.9% 100 ML IVPB SCH ×3 (06:30→21:42)
--- NOTE | 2021-02-06 07:13 | XR ---
EXAMINATION TYPE: XR chest 2V DATE OF EXAM: 02/06/2021 COMPARISON: 02/05/2021 HISTORY: Pneumonia TECHNIQUE: Frontal and lateral views of the chest are obtained. FINDINGS: There is new haziness of the left hemidiaphragm, likely representing pleural-parenchymal disease. Cardiomediastinal silhouette is unchanged. IMPRESSION: There is new haziness of the left hemidiaphragm, likely representing pleural-parenchymal disease.
[2021-02-06] MEDS: HEPARIN SODIUM,PORCINE/PF 5,000 UNIT/0.5 ML SYRINGE SQ SCH ×2 (08:36→21:42)
[2021-02-06] MEDS ORDERED: ASPIRIN 325 MG TAB PO SCH (09:00)
[2021-02-06] MEDS: SYMBICORT 80-4.5 MCG INHALER INHALATION SCH ×2 (09:08→20:10)
[2021-02-06] MEDS: ALBUTEROL NEBULIZED 2.5 MG/3 ML INHALATION PRN (09:08)
[2021-02-06] MEDS: ASPIRIN 81 MG PO SCH (09:40)
[2021-02-06] MEDS: METOPROLOL TARTRATE 50 MG TAB PO SCH (09:40)
[2021-02-06] MEDS: SODIUM CHLORIDE 0.9% 1,000 ML IV SCH ×3 (09:41→20:28)
[2021-02-06 10:05] LABS: Chol/HDL Ratio 2.36; Cholesterol 137 mg/dL (0-200); LDL Cholesterol,Calculated 59.4 mg/dL (0.0-131.0)
[2021-02-06 11:55] LABS: Appearance,Urine Clear (Clear); Bilirubin,Urine Negative (Negative); Blood,Urine Negative (Negative); Color,Urine Yellow; Glucose,Urine (UA) Negative (Negative); Ketones,Urine Negative (Negative); Leukocyte Esterase,Urine Negative (Negative); Nitrite,Urine Negative (Negative); Protein,Urine Trace (Negative); Specific Gravity,Urine 1.032 (1.001-1.035); Urobilinogen,Urine <2.0 mg/dL (<2.0)
--- NOTE | 2021-02-06 14:05 | P.CRDCN ---
History of Present Illness History of present illness: HISTORY OF PRESENTING ILLNESS This is a pleasant 75-year-old female past medical history significant for small cell lung cancer currently on chemotherapy, former nicotine dependence recently quit in august, osteoarthritis, degenerative joint disease, muscle spasms, appendectomy, recent covid-19 several months ago. She does not follow with a flour tester. We have been asked to see in consultation for chest discomfort. Patient is seen and examined at bedside, no acute distress. She states she started to have chest discomfort yesterday and her symptoms worsen or continue. Her chest pain is nonradiating, nonexertional. She recently received her fourth treatment with her. She denies shortness of breath, nausea, diaphoresis, lightheadedness, dizziness. She denies history of [place], coronary disease, stroke, diabetes. EKG sinus tachycardia, rate 113, no significant ST-T wave abnorm alities. Repeat EKG this morning with similar findings Laboratory data reviewed troponin 3, COVID-19 negative, WBC 24.7, hemoglobin 7.1, platelets 129, sodium 137, potassium 4.3, BUN 16, serum creatinine 0.5, BNP 894, d-dimer elevated at 1.45. Chest x-ray revealed mild left basilar hazy opacities. CT chest negative for pulmonary embolism, pleural effusions. Pulmonary infiltrate and atelectasis at lung bases have increased compared to prior, multiple liver hypodensities consistent with metastatic disease. Telemetry tracings indicate sinus tachycardia. REVIEW OF SYSTEMS At the time of my exam: CONSTITUTIONAL: Denies fever or chills. CARDIOVASCULAR: + chest pain, Denies shortness of breath, orthopnea, PND or palpitations. RESPIRATORY: Denies cough. GASTROINTESTINAL: Denies abdominal pain, diarrhea, constipation, nausea or vomiting. MUSCULOSKELETAL: Denies myalgias. NEUROLOGIC: Denies numbness, tingling, headacbe or weakness. ENDOCRINE: Denies fatigue, weight change, polydipsia or polyurina. GENITOURINARY: Denies burning, hematuria or urgency with micturation. HEMATOLOGIC: Denies history of anemia or bleeding. PHYSICAL EXAMINATION Blood pressure 117/66 heart rate on 3 afebrile and maintaining oxygen saturation 99% on 2 L nasal cannula CONSTITUTIONAL: No apparent distress. HEENT: Head is normocephalic. Pupils are equal, round. Sclerae anicteric. Mucous membranes of the mouth are moist. No JVD. No carotid bruit. CHEST EXAMINATION: Lungs diminished to auscultation bilaterally. No chest wall tenderness is noted on palpation or with deep breathing. HEART EXAMINATION: Regular rate and rhythm. S1, S2 heard. No murmurs, gallops or rub. ABDOMEN: Soft, nontender. Positive bowel sounds. EXTREMITIES: 2+ peripheral pulses, no lower extremity edema and no calf tenderness. NEUROLOGIC EXAMINATION: Patient is awake, alert and oriented x3. ASSESSMENT Chest Pain, atypical, We cannot rule out coronary artery disease, acute coronary syndrome has been ruled out at this time, Troponin negative x 3, no ischemia noted on EKG. Small Cell Lung Cancer currently on chemotherapy Former nicotine dependence PLAN We will obtain echocardiogram Start metoprolol tartrate 50mg morning and 25mg at night Discontinue nitro paste Decrease aspirin to 81mg daily If echocardiogram with no acute findings, no further inpatient workup from cardiology perspective. Nurse Practitioner note has been reviewed, I agree with a documented findings and plan of care. Patient was seen and examined. Past Medical History Past Medical History: Cancer, Osteoarthritis (OA), Pneumonia Additional Past Medical History / Comment(s): sinus problems,kidney stones uti, bladder incnt/wears a pad,abd hernia,migraines,"muscles spasms and lt hip pain, had collapsed lung -not large enough to require c/t, DDD, sciatic, History of Any Multi-Drug Resistant Organisms: None Reported Date of last positivie culture/infection: 2015 Past Surgical History: Appendectomy, Bladder Surgery, Cholecystectomy, Hysterectomy, Orthopedic Surgery Additional Past Surgical History / Comment(s): artriscopy, lt knee replacemnent,adrenal gland removed,lt knee, colonoscopy, dental implants, 1997 had lt foot sx for hammer toes and stated had an implant in that foot-then january 2015 had a revison of that sx, Cdiff- 2015. covid 11/06 Past Anesthesia/Blood Transfusion Reactions: No Reported Reaction Additional Past Anesthesia/Blood Transfusion Reaction / Comment(s): Pt received blood without reaction. Past Psychological History: Anxiety Additional Psychological History / Comment(s): Pt resides with her champ, Najma. She has [facility]. She uses no device. She does not drive, her champ drives. Champ assists with RX. Smoking Status: Former smoker Past Alcohol Use History: Rare Additional Past Alcohol Use History / Comment(s): Pt started smoking in nd quit smoking aug 2020 due to lung cancer diagnosis Past Drug Use History: None Reported - Past Family History Mother Family Medical History: Dementia Additional Family Medical History / Comment(s): moms sister also had dementia Father Family Medical History: Unable to Obtain Medications and Allergies Home Medications Medication Instructions Recorded Confirmed Type Albuterol Inhaler [Ventolin Hfa 2 puff INHALATION RT-QID PRN 10/25/20 02/05/21 History Inhaler] Citalopram Hydrobromide 40 mg PO HS 10/25/20 02/05/21 History [Citalopram HBr] diphenhydrAMINE [Benadryl] 25 mg PO HS PRN 10/25/20 02/05/21 History Cyclobenzaprine [Flexeril] 5 mg PO TID PRN #30 tab 11/01/20 02/05/21 Rx fentaNYL 25MCG/HR PATCH [Duragesic 1 patch TRANSDERM Q72H #3 patch 11/01/20 02/05/21 Rx 25MCG/HR] HYDROcodone/APAP 7.5-325MG [[place] 1 tab PO Q6H PRN 11/26/20 02/05/21 History 7.5-325] Omeprazole 20 mg PO DAILY 11/26/20 02/05/21 History Ondansetron HCl [Zofran] 4 mg PO Q4H PRN 11/26/20 02/05/21 History Cholecalciferol [Vitamin D3 (25 25 mcg PO BID 12/13/20 02/05/21 History Mcg = 1000 Iu)] Fluticasone Propion/Salmeterol 1 puff INHALATION RT-BID 12/13/20 02/05/21 History [Wixela 250-50 Inhub] Loperamide [Imodium] 2 mg PO QID PRN #30 cap 01/23/21 02/05/21 Rx Magnesium Oxide 400 mg PO DAILY 02/05/21 02/05/21 History Potassium Gluconate 99 mg PO BID 02/05/21 02/05/21 History Allergies Allergy/AdvReac Type Severity Reaction Status Date / Time Iodinated Contrast Media Allergy Unknown Verified 02/05/21 20:13 [Iodinated Contrast Media - IV Dye] sulfamethoxazole Allergy Rash/Hives Verified 02/05/21 20:13 [From Bactrim] trimethoprim [From Bactrim] Allergy Rash/Hives Verified 02/05/21 20:13 Physical Exam Vitals: Vital Signs Temp Pulse Pulse Resp BP BP Pulse Ox 02/06/21 08:31 98.2 F 103 H 18 117/66 99 02/06/21 03:45 98.5 F 107 H 20 124/71 98 02/05/21 23:58 98.3 F 100 20 114/64 98 02/05/21 23:00 98.3 F 105 H 18 126/77 98 02/05/21 22:22 106 H 18 133/86 99 02/05/21 22:00 114 H 22 147/102 100 02/05/21 19:55 103/65 02/05/21 19:42 102 H 02/05/21 19:40 104 H 20 100/64 100 02/05/21 19:03 98.6 F 113 H 26 H 85/55 94 L Intake and Output 02/05/21 02/06/21 02/06/21 22:59 06:59 14:59 Other: Voiding Method Toilet Diaper # Voids 1 Weight 58.06 kg 56.2 kg Results 02/06/21 03:40 02/06/21 03:40 Cardiac Enzymes 02/05/21 02/05/21 02/06/21 Range/Units 19:25 19:25 00:23 AST 40 H (14-36) U/L Troponin I <0.012 <0.012 (0.000-0.034) ng/mL 02/06/21 Range/Units 03:40 AST (14-36) U/L Troponin I <0.012 (0.000-0.034) ng/mL Coagulation 02/05/21 Range/Units 19:25 PT 10.3 (9.0-12.0) sec APTT 23.0 (22.0-30.0) sec CBC 02/05/21 02/06/21 Range/Units 19:25 03:40 WBC 39.9 H 24.7 H (3.8-10.6) k/uL RBC 2.53 L 2.41 L (3.80-5.40) m/uL Hgb 7.2 L D 7.1 L (11.4-16.0) gm/dL Hct 21.4 L 20.9 L (34.0-46.0) % Plt Count 175 D 129 L (150-450) k/uL Comprehensive Metabolic Panel 02/05/21 02/06/21 Range/Units 19:25 03:40 Sodium 137 137 (137-145) mmol/L Potassium 4.0 4.3 (3.5-5.1) mmol/L Chloride 103 106 (98-107) mmol/L Carbon Dioxide 26 28 (22-30) mmol/L BUN 15 16 (7-17) mg/dL Creatinine 0.47 L 0.51 L (0.52-1.04) mg/dL Glucose 107 H 260 H (74-99) mg/dL Calcium 8.8 8.2 L (8.4-10.2) mg/dL AST 40 H (14-36) U/L ALT 12 (4-34) U/L Alkaline Phosphatase 187 H (38-126) U/L Total Protein 5.4 L (6.3-8.2) g/dL Albumin 3.1 L (3.5-5.0) g/dL Current Medications Generic Name Dose Route Start Last Admin Trade Name Freq PRN Reason Stop Dose Admin Hydrocodone Bitart/Acetaminophen 1 each 02/05/21 21:46 Hydrocodone/Apap 5-325mg 1 Each Tab PO Q6HR PRN Pain Albuterol Sulfate 2.5 mg 02/05/21 21:46 Albuterol Nebulized 2.5 Mg/3 Ml INHALATION RT-QID PRN Shortness Of Breath Alprazolam 0.25 mg 02/05/21 21:46 Alprazolam 0.25 Mg Tab PO TID PRN Anxiety Aspirin 81 mg 02/06/21 09:00 Aspirin 81 Mg PO DAILY WHITNEY Budesonide/Formoterol Fumarate 2 puff 02/06/21 08:00 Symbicort 80-4.5 Mcg Inhaler INHALATION RT-BID WHITNEY Heparin Sodium (Porcine) 5,000 unit 02/06/21 09:00 02/06/21 08:36 Heparin Sodium,Porcine/Pf 5,000 Unit/0.5 Ml Syringe SQ 5,000 unit Q12HR WHITNEY Administration Hydromorphone HCl 0.5 mg 02/05/21 21:47 Hydromorphone 0.5 Mg/0.5 Ml Syringe IVP Q6HR PRN Severe Pain Sodium Chloride 1,000 mls @ 75 mls/hr 02/05/21 21:44 02/06/21 00:24 Saline 0.9% IV 02/06/21 11:03 75 mls/hr .[id number] STA Administration Cefepime HCl 2 gm/ Sodium 100 mls @ 200 mls/hr 02/05/21 21:45 02/06/21 06:30 Chloride IVPB 200 mls/hr Q8H WHITNEY Administration Sodium Chloride 1,000 mls @ 100 mls/hr 02/05/21 22:45 02/06/21 00:00 Saline 0.9% IV Not Given .Q10H WHITNEY Metoprolol Tartrate 50 mg 02/06/21 09:00 Metoprolol Tartrate 50 Mg Tab PO DAILY WHITNEY Metoprolol Tartrate 25 mg 02/06/21 17:00 Metoprolol Tartrate 25 Mg Tab PO DAILY WHITNEY Miscellaneous Information 1 each 02/05/21 22:45 Pneumonia Protocol Utilized 1 Each Misc PO ONCE PRN Per Protocol Pantoprazole Sodium 40 mg 02/05/21 22:00 02/06/21 08:38 Pantoprazole 40 Mg/10 Ml Vial IVP 40 mg BID WHITNEY Administration Intake and Output 02/05/21 02/06/21 02/06/21 22:59 06:59 14:59 Other: Voiding Method Toilet Diaper # Voids 1 Weight 58.06 kg 56.2 kg 02/06/21 03:40 02/06/21 03:40
--- NOTE | 2021-02-06 14:46 | P.CNPUL ---
History of Present Illness Consult date: 02/06/21 Requesting physician: Mitesh Munson Reason for consult: COPD Chief complaint: Weakness, fatigue, and chest pain History of present illness: This is a 75-year-old female with history of small cell lung cancer, this was diagnosed back in November of 2020, patient has been receiving chemotherapy and few days ago she received her fourth course of chemotherapy. No radiation therapy has been given yet. Again her last course of chemotherapy was given 3 days ago, patient was brought into the ER complaining of weakness fatigue chest pain and some vomiting, and she was felt that the patient may have sepsis. Chest x-ray showed chronic left lingular opacity. CT of the chest showed no evidence of pul monary embolism, there was evidence of pleural effusions and linear infiltrates and atelectasis at the lung bases. Multiple liver hypodensities were noted consistent with metastatic disease. Mediastinal and left bronchial adenopathy was also noted similar to old CT of the chest. At any rate considering the presentation and considering her underlying COPD with possible pneumonia we were asked to see the patient on consultation. Clinically the patient made a significant improvement in the last 2 days, she was empirically started on antibiotics, WBC count is already down from 39.9 down to 24.7. Patient is not hypotensive, she is hemodynamically stable, O2 saturations 98% on 2 L, and she is asking if she could be discharged home already. Blood cultures are pending. Urine cultures are also pending. Patient is receiving cefepime. Review of Systems CONSTITUTIONAL: As noted in HPI mostly weakness CARDIOVASCULAR: Negative. RESPIRATORY: Denies cough wheezing or shortness of breath. GASTROINTESTINAL: Denies abdominal pain, diarrhea, constipation, nausea or vom iting. No GI symptoms during my evaluation. MUSCULOSKELETAL: Denies myalgias. NEUROLOGIC: Negative. ENDOCRINE: As noted. GENITOURINARY: Deferred. HEMATOLOGIC: Negative. Past Medical History Past Medical History: Cancer, Osteoarthritis (OA), Pneumonia Additional Past Medical History / Comment(s): sinus problems,kidney stones uti, bladder incnt/wears a pad,abd hernia,migraines,"muscles spasms and lt hip pain, had collapsed lung -not large enough to require c/t, DDD, sciatic, History of Any Multi-Drug Resistant Organisms: None Reported Date of last positivie culture/infection: 2015 Past Surgical History: Appendectomy, Bladder Surgery, Cholecystectomy, Hysterectomy, Orthopedic Surgery Additional Past Surgical History / Comment(s): artriscopy, lt knee replacemnent,adrenal gland removed,lt knee, colonoscopy, dental implants, 1997 had lt foot sx for hammer toes and stated had an implant in that foot-then january 2015 had a revison of that sx, Cdiff- 2015. covid 11/06 Past Anesthesia/Blood Transfusion Reactions: No Reported Reaction Additional Past Anesthesia/Blood Transfusion Reaction / Comment(s): Pt received blood without reaction. Past Psychological History: Anxiety Additional Psychological History / Comment(s): Pt resides with her champ, Najma. She has [facility]. She uses no device. She does not drive, her champ drives. Champ assists with RX. Smoking Status: Former smoker Past Alcohol Use History: Rare Additional Past Alcohol Use History / Comment(s): Pt started smoking in nd quit smoking aug 2020 due to lung cancer diagnosis Past Drug Use History: None Reported - Past Family History Mother Family Medical History: Dementia Additional Family Medical History / Comment(s): moms sister also had dementia Father Family Medical History: Unable to Obtain Medications and Allergies Home Medications Medication Instructions Recorded Confirmed Type Albuterol Inhaler [Ventolin Hfa 2 puff INHALATION RT-QID PRN 10/25/20 02/05/21 History Inhaler] Citalopram Hydrobromide 40 mg PO HS 10/25/20 02/05/21 History [Citalopram HBr] diphenhydrAMINE [Benadryl] 25 mg PO HS PRN 10/25/20 02/05/21 History Cyclobenzaprine [Flexeril] 5 mg PO TID PRN #30 tab 11/01/20 02/05/21 Rx fentaNYL 25MCG/HR PATCH [Duragesic 1 patch TRANSDERM Q72H #3 patch 11/01/20 02/05/21 Rx 25MCG/HR] HYDROcodone/APAP 7.5-325MG [[place] 1 tab PO Q6H PRN 11/26/20 02/05/21 History 7.5-325] Omeprazole 20 mg PO DAILY 11/26/20 02/05/21 History Ondansetron HCl [Zofran] 4 mg PO Q4H PRN 11/26/20 02/05/21 History Cholecalciferol [Vitamin D3 (25 25 mcg PO BID 12/13/20 02/05/21 History Mcg = 1000 Iu)] Fluticasone Propion/Salmeterol 1 puff INHALATION RT-BID 12/13/20 02/05/21 History [Wixela 250-50 Inhub] Loperamide [Imodium] 2 mg PO QID PRN #30 cap 01/23/21 02/05/21 Rx Magnesium Oxide 400 mg PO DAILY 02/05/21 02/05/21 History Potassium Gluconate 99 mg PO BID 02/05/21 02/05/21 History Allergies Allergy/AdvReac Type Severity Reaction Status Date / Time Iodinated Contrast Media Allergy Unknown Verified 02/05/21 20:13 [Iodinated Contrast Media - IV Dye] sulfamethoxazole Allergy Rash/Hives Verified 02/05/21 20:13 [From Bactrim] trimethoprim [From Bactrim] Allergy Rash/Hives Verified 02/05/21 20:13 Physical Exam Vitals: Vital Signs Temp Pulse Pulse Resp BP BP Pulse Ox 02/06/21 12:10 98.0 F 96 20 114/65 98 02/06/21 09:21 108 H 02/06/21 09:09 112 H 02/06/21 08:31 98.2 F 103 H 18 117/66 99 02/06/21 03:45 98.5 F 107 H 20 124/71 98 02/05/21 23:58 98.3 F 100 20 114/64 98 02/05/21 23:00 98.3 F 105 H 18 126/77 98 02/05/21 22:22 106 H 18 133/86 99 02/05/21 22:00 114 H 22 147/102 100 02/05/21 19:55 103/65 02/05/21 19:42 102 H 02/05/21 19:40 104 H 20 100/64 100 02/05/21 19:03 98.6 F 113 H 26 H 85/55 94 L Intake and Output 02/05/21 02/06/21 02/06/21 22:59 06:59 14:59 Intake Total 480 Output Total 400 Balance 80 Intake: Oral 480 Output: Urine 400 Other: Voiding Method Toilet Bedside Commode Diaper Diaper # Voids 1 Weight 58.06 kg 56.2 kg Physical Exam: Revealed a 75-year-old female in no distress. On 2 L nasal cannula. Head: Atraumatic, normocephalic. HEENT:[Neck is supple.] [No neck masses.] [No thyromegaly.] [No JVD.] Chest: [Clear throughout, no crackles, no rhonchi, no wheezes.] Cardiac Exam: [Normal S1 and S2, no S3 gallop, no murmur.] Abdomen: [Soft, nontender, no megaly, no rebound, no guarding, normal bowel sounds.] Extremities: [No clubbing, no edema, no cyanosis.] Neurological Exam: [No focal neurologic deficit.] Alert oriented 3. Psychiatric: Normal mood affect and normal mental status examination. Skin: No rashes Results - Laboratory Findings CBC and BMP: 02/06/21 03:40 02/06/21 03:40 PT/INR, D-dimer PT 10.3 sec (9.0-12.0) 02/05/21 19:25 INR 1.0 (<1.2) 02/05/21 19:25 D-Dimer 1.45 mg/L FEU (<0.60) H 02/05/21 19:25 Abnormal lab findings: Abnormal Labs 02/05/21 02/05/21 02/05/21 19:25 19:25 19:25 WBC 39.9 H RBC 2.53 L Hgb 7.2 L D Hct 21.4 L RDW 17.3 H Plt Count Neutrophils # Neutrophils # (Manual) 37.91 H Lymphocytes # D-Dimer 1.45 H Creatinine 0.47 L Glucose 107 H Calcium Magnesium 1.5 L AST 40 H Alkaline Phosphatase 187 H Total Protein 5.4 L Albumin 3.1 L Urine Protein 02/06/21 02/06/21 02/06/21 03:40 03:40 03:40 WBC 24.7 H RBC 2.41 L Hgb 7.1 L Hct 20.9 L RDW 17.3 H Plt Count 129 L Neutrophils # 24.1 H Neutrophils # (Manual) Lymphocytes # 0.2 L D-Dimer Creatinine 0.51 L Glucose 260 H Calcium 8.2 L Magnesium 1.5 L AST Alkaline Phosphatase Total Protein Albumin Urine Protein 02/06/21 11:30 WBC RBC Hgb Hct RDW Plt Count Neutrophils # Neutrophils # (Manual) Lymphocytes # D-Dimer Creatinine Glucose Calcium Magnesium AST Alkaline Phosphatase Total Protein Albumin Urine Protein Trace H - Diagnostic Findings CT scan - chest: image reviewed (As noted in HPI.) Assessment and Plan Assessment: Impression: sepsis and possible left lower lobe pneumonia although the findings on the chest x-ray and CT of the chest are likely related to her underlying malignancy. I strongly doubt pneumonia at this point. Small cell lung cancer, on chemotherapy. Leukocytosis secondary to sepsis. Acute dehydration with weakness. Elevated d-dimer, being addressed by cardiology. Atypical chest pain. History of neutropenic colitis related to chemotherapy. History of degenerative joint disease. Hypomagnesemia. Chronic anemia. Recommendation: Agree with the present treatment plan including antibiotics/cefepime. Awaiting blood cultures and urine cultures. Patient could be switched to oral antibiotics depending on the cultures. Continue bronchodilators. Awaiting final input from cardiology. We'll continue to follow. Time with Patient: Greater than 30
[2021-02-06] MEDS ORDERED: Magnesium Replacement Protocol 1 EACH MISC MISCELLANE PRN (14:51)
[2021-02-06] MEDS: MAGNESIUM OXIDE 400 MG TAB PO SCH (14:56)
--- NOTE | 2021-02-06 15:23 | P.CONS ---
History of Present Illness - Reason for Consult Consult date: 02/06/21 Extensive small cell Requesting physician: Mitesh Munson - History of Present Illness Ms. Campbell is a very pleasant 75-year-old female who was referred to us for a new diagnosis of metastatic small cell lung cancer. She is O2 dependent, she has a 40 year pack history of smoking, states quitting but doesn't remember when. In late September early October 2020 she had a progressive, persistent cough, no hemoptysis, she was also experiencing pain in the middle of her back as well as in her left shoulder. The symptoms became so severe that it was causing her to feel lightheaded and dizzy at times, she can also not get comfortable. Family became concerned and took her to the emergency room. She had a CT angiogram on 10/25/20 revealing a large left pulmonary hilar mass encasing the left lower lobe and left upper lobe pulmonary arteries, measuring 8 x 5 cm. There was extension into the mediastinum with multiple enlarged paratracheal and anterior mediastinal lymph nodes up to 2 cm, subcarinal adenopathy. She did not have a PE. She had a Mcbride needle biopsy and bronchial washings 10/31/[address] Monterroso. All of them were nondiagnostic except for the lingula brushings, rare, mildly atypical cells suspicious for small cell, the transbronchial biopsy was positive for small cell, positive for CAM 5.2, synaptophysin and CD 56. IHC negative for TTF-1. CT of the brain with contrast 10/30/20 showed no evidence of metastatic disease. CT of the abdomen and pelvis with contrast 10/30/20 revealed numerous hypodense masses in the liver, measuring up to 3.4 x 2 cm. There was a small left pleural effusion seen. MRI of the brain with and without contrast 10/31/20 no evidence of enhancing mass. Staging PET scan 11/04/20 showed [facility] admitted the with bilateral hypermetabolic supracla vicular adenopathy right greater than left, measuring 3.4 x 2.4 cm. Left hilar mass 3.8 x 3.7 cm. Additional abnormalities in the left hilar region along subcarinal, prevascular, paratracheal, AP window and anterior superior mediastinal adenopathy. Multiple hypermetabolic foci throughout the liver, the largest one in the right lobe measuring 4.7 cm. Innumerable hypermetabolic osseous foci. Left sacral lesion, proximal right femur lesion, left L3 lesion called out for reference. Greatest osseous involvement is throughout the abdomen and pelvis. She was seen in the hospital by Dr. Garvin. Recommendation was to begin chemotherapy therapy/IO. She is in the office 11/08/20 for treatment education. During the discussion is noted patient is extraordinarily anxious, her O2 tank ran out, at 1. she burst into tears and began sobbing uncontrollably. She started to complain of chest pain, pain in the middle of her back, feeling dizzy, to touch she was clammy and sweaty. Muscles brought into evaluate patient. Once she began talking about other things, her symptoms dissipated. Patient does not appear to have substantial support at home. She has 2 daughters but, neither are here for her appointment, I did talk to one of them on the phone briefly. She states that she lives alone, she has 4-5 steps to get up into her house. She is getting back and forth to appointments via Cab at this time as her family would not let her drive because of the new addition of narcotic painkillers. 11/15/20-Pt here today s/p cycle 1 of carbo/[employer]/tecentriq. States diarrhea and vomiting yesterday and today, 1 hour, thick and frothy, nausea pill helped, 2-3 episodes of diarrhea, denied cramping, bleeding or mucus. CBC is WNL. No fevers, she does have dry mouth, SOB is stable, no swelling, pain is controlled. No other physical c/o. As above. patient had cycle #1 starting 11/09/20 and is status post 3 cycles. The patient was unable to have cycle #2 on schedule, as she was admitted with Covid pneumonitis. Discharged on 12/01/20. She was seen in the office in follow-up on 12/13/20. The patient on evaluation was quite weak and unable to give a coherent history. History was mostly obtained from the daughter. There is no history of any fevers/chills/nausea or vomiting. Patient appears to be having significant cough with production of clear phlegm. She has been quite weak with some worsening over the past few days, including in her respiratory status. Oxygen requirement is up to 4 L, and activity level is very limited. She has mostly been taking liquids with oral intake of solids also quite limited. She is able to walk only a few feet before getting winded. He is complaining of some new onset of left-sided back pain that developed while moving around earlier today. she was initially admitted to the hospital, and had cycle 2 (delayed) after treatment and discharge the patient was admitted again after cycle 3 for neutropenic colitis. He again improve fairly quickly within 2-3 days with recovery of her WBC. she denied any fevers/chills/nausea/vomiting currently. Bowel movements have normalized. Appetite is slowly improving. She denied any abdominal pain. He continues to have overall generalized weakness and uses a wheelchair outside the house. She continues on oxygen 2 L. No significant chest pain or cough currently. the patient was admitted to the hospital again for neutropenic colitis after cycle #3. She did improve with recovery of her WBC, and supportive care. Performance status at this time remains compromise but is almost back to her baseline. CBC shows hemoglobin of 9, and platelets of 60,000 with WBC 19.6. - The patient's chest CT after cycle 2 had shown a stable left hilar lesion, and left lower lobe partial atelectasis. CT of the abdomen and pelvis after cycle 2 had indicated possible progression in the liver. However CT abdomen and pelvis after cycle 3 showed stable disease compared to the prior CT. At last appointment with Dr. Garvin on 01/26 Patient states that she is having difficulty in tolerating either oral potassium chloride or K-Lyte. They will try to get potassium supplement from [id number] and try that. Continue magnesium plan was Continue chemotherapy with dose reduction. Discontinue chemotherapy after cycle 4 and switch patient to maintenance immunotherapy. Repeat CT scans after her first cycle of maintenance immunotherapy She now represents to hospital with concern sepsis. She is status post cycle 4 of carbo, Etoposide and Tecentriq on 02/03. She did receive Neulasta which is likely contributing to her leukocytosis Review of Systems All systems: negative Constitutional: Reports as per HPI Past Medical History Past Medical History: Cancer, Osteoarthritis (OA), Pneumonia Additional Past Medical History / Comment(s): sinus problems,kidney stones uti, bladder incnt/wears a pad,abd hernia,migraines,"muscles spasms and lt hip pain, had collapsed lung -not large enough to require c/t, DDD, sciatic, History of Any Multi-Drug Resistant Organisms: None Reported Year Discovered:: 2016 Past Surgical History: Appendectomy, Bladder Surgery, Cholecystectomy, Hysterectomy, Orthopedic Surgery Additional Past Surgical History / Comment(s): artriscopy, lt knee replacemnent,adrenal gland removed,lt knee, colonoscopy, dental implants, 1997 had lt foot sx for hammer toes and stated had an implant in that foot-then january 2015 had a revison of that sx, Cdiff- 2015. covid 11/06 Past Anesthesia/Blood Transfusion Reactions: No Reported Reaction Additional Past Anesthesia/Blood Transfusion Reaction / Comm: Pt received blood without reaction. Past Psychological History: Anxiety Additional Psychological History / Comment(s): Pt resides with her champ, Najma. She has [facility]. She uses no device. She does not drive, her champ drives. Champ assists with RX. Smoking Status: Former smoker Past Alcohol Use History: Rare Additional Past Alcohol Use History / Comment(s): Pt started smoking in nd quit smoking aug 2020 due to lung cancer diagnosis Past Drug Use History: None Reported - Past Family History Mother Family Medical History: Dementia Additional Family Medical History / Comment(s): moms sister also had dementia Father Family Medical History: Unable to Obtain Medications and Allergies Home Medications Medication Instructions Recorded Confirmed Type Albuterol Inhaler [Ventolin Hfa 2 puff INHALATION RT-QID PRN 10/25/20 02/05/21 History Inhaler] Citalopram Hydrobromide 40 mg PO HS 10/25/20 02/05/21 History [Citalopram HBr] diphenhydrAMINE [Benadryl] 25 mg PO HS PRN 10/25/20 02/05/21 History Cyclobenzaprine [Flexeril] 5 mg PO TID PRN #30 tab 11/01/20 02/05/21 Rx fentaNYL 25MCG/HR PATCH [Duragesic 1 patch TRANSDERM Q72H #3 patch 11/01/20 02/05/21 Rx 25MCG/HR] HYDROcodone/APAP 7.5-325MG [Lovely 1 tab PO Q6H PRN 11/26/20 02/05/21 History 7.5-325] Omeprazole 20 mg PO DAILY 11/26/20 02/05/21 History Ondansetron HCl [Zofran] 4 mg PO Q4H PRN 11/26/20 02/05/21 History Cholecalciferol [Vitamin D3 (25 25 mcg PO BID 12/13/20 02/05/21 History Mcg = 1000 Iu)] Fluticasone Propion/Salmeterol 1 puff INHALATION RT-BID 12/13/20 02/05/21 History [Wixela 250-50 Inhub] Loperamide [Imodium] 2 mg PO QID PRN #30 cap 01/23/21 02/05/21 Rx Magnesium Oxide 400 mg PO DAILY 02/05/21 02/05/21 History Potassium Gluconate 99 mg PO BID 02/05/21 02/05/21 History Allergies Allergy/AdvReac Type Severity Reaction Status Date / Time Iodinated Contrast Media Allergy Unknown Verified 02/05/21 20:13 [Iodinated Contrast Media - IV Dye] sulfamethoxazole Allergy Rash/Hives Verified 02/05/21 20:13 [From Bactrim] trimethoprim [From Bactrim] Allergy Rash/Hives Verified 02/05/21 20:13 Physical Exam Vitals: Vital Signs Temp Pulse Pulse Resp BP BP Pulse Ox 02/06/21 12:10 98.0 F 96 20 114/65 98 02/06/21 09:21 108 H 02/06/21 09:09 112 H 02/06/21 08:31 98.2 F 103 H 18 117/66 99 02/06/21 03:45 98.5 F 107 H 20 124/71 98 02/05/21 23:58 98.3 F 100 20 114/64 98 02/05/21 23:00 98.3 F 105 H 18 126/77 98 02/05/21 22:22 106 H 18 133/86 99 02/05/21 22:00 114 H 22 147/102 100 02/05/21 19:55 103/65 02/05/21 19:42 102 H 02/05/21 19:40 104 H 20 100/64 100 02/05/21 19:03 98.6 F 113 H 26 H 85/55 94 L Intake and Output 02/06/21 02/06/21 02/06/21 06:59 14:59 22:59 Intake Total 480 Output Total 400 Balance 80 Intake: Oral 480 Output: Urine 400 Other: Voiding Method Toilet Bedside Commode Diaper Diaper # Voids 1 Weight 56.2 kg - Constitutional General appearance: cooperative, no acute distress - EENT Eyes: EOMI, PERRLA ENT: NA/AT - Respiratory Respiratory: bilateral: expiratory wheeze, bilateral bibasilar diminished - Cardiovascular Rhythm: regular - Gastrointestinal General gastrointestinal: soft, tenderness - Musculoskeletal Musculoskeletal: generalized weakness - Psychiatric Anxious Psychiatric: A&O x's 3, anxious Results CBC & Chem 7: 02/06/21 03:40 02/06/21 03:40 Labs: Abnormal Lab Results - Last 24 Hours (Table) 02/05/21 02/05/21 02/05/21 Range/Units 19:25 19:25 19:25 WBC 39.9 H (3.8-10.6) k/uL RBC 2.53 L (3.80-5.40) m/uL Hgb 7.2 L D (11.4-16.0) gm/dL Hct 21.4 L (34.0-46.0) % RDW 17.3 H (11.5-15.5) % Plt Count (150-450) k/uL Neutrophils # (1.3-7.7) k/uL Neutrophils # (Manual) 37.91 H (1.3-7.7) k/uL Lymphocytes # (1.0-4.8) k/uL D-Dimer 1.45 H (<0.60) mg/L FEU Creatinine 0.47 L (0.52-1.04) mg/dL Glucose 107 H (74-99) mg/dL Calcium (8.4-10.2) mg/dL Magnesium 1.5 L (1.6-2.3) mg/dL AST 40 H (14-36) U/L Alkaline Phosphatase 187 H (38-126) U/L Total Protein 5.4 L (6.3-8.2) g/dL Albumin 3.1 L (3.5-5.0) g/dL Urine Protein (Negative) 02/06/21 02/06/21 02/06/21 Range/Units 03:40 03:40 03:40 WBC 24.7 H (3.8-10.6) k/uL RBC 2.41 L (3.80-5.40) m/uL Hgb 7.1 L (11.4-16.0) gm/dL Hct 20.9 L (34.0-46.0) % RDW 17.3 H (11.5-15.5) % Plt Count 129 L (150-450) k/uL Neutrophils # 24.1 H (1.3-7.7) k/uL Neutrophils # (Manual) (1.3-7.7) k/uL Lymphocytes # 0.2 L (1.0-4.8) k/uL D-Dimer (<0.60) mg/L FEU Creatinine 0.51 L (0.52-1.04) mg/dL Glucose 260 H (74-99) mg/dL Calcium 8.2 L (8.4-10.2) mg/dL Magnesium 1.5 L (1.6-2.3) mg/dL AST (14-36) U/L Alkaline Phosphatase (38-126) U/L Total Protein (6.3-8.2) g/dL Albumin (3.5-5.0) g/dL Urine Protein (Negative) 02/06/21 Range/Units 11:30 WBC (3.8-10.6) k/uL RBC (3.80-5.40) m/uL Hgb (11.4-16.0) gm/dL Hct (34.0-46.0) % RDW (11.5-15.5) % Plt Count (150-450) k/uL Neutrophils # (1.3-7.7) k/uL Neutrophils # (Manual) (1.3-7.7) k/uL Lymphocytes # (1.0-4.8) k/uL D-Dimer (<0.60) mg/L FEU Creatinine (0.52-1.04) mg/dL Glucose (74-99) mg/dL Calcium (8.4-10.2) mg/dL Magnesium (1.6-2.3) mg/dL AST (14-36) U/L Alkaline Phosphatase (38-126) U/L Total Protein (6.3-8.2) g/dL Albumin (3.5-5.0) g/dL Urine Protein Trace H (Negative) Assessment and Plan (1) Leukocytosis Current Visit: Yes Status: Acute Code(s): D72.829 - ELEVATED WHITE BLOOD CELL COUNT, UNSPECIFIED SNOMED Code(s): 598304647 (2) SIRS (systemic inflammatory response syndrome) Current Visit: No Status: Acute Code(s): R65.10 - SIRS OF NON-INFECTIOUS ORIGIN W/O ACUTE ORGAN DYSFUNCTION SNOMED Code(s): 445768991 (3) Small cell lung cancer Current Visit: No Status: Acute Code(s): C34.90 - MALIGNANT NEOPLASM OF UNSP PART OF UNSP BRONCHUS OR LUNG SNOMED Code(s): 365936331 Plan: Assessment and Recommendations: Left Lower Lobe Pneumonia: - Pulmonary FOllowing Leukocytosis: - Secondary to GCSF and likely infectious inflammatory process Monitor daily labs and good supportive care
[2021-02-06] MEDS: MAGNESIUM SULFATE-D5W PMX 1 GM in DEXTROSE/WATER 1 100ML.BAG IVPB SCH ×2 (16:16→17:50)
[2021-02-06] MEDS: METOPROLOL TARTRATE 25 MG TAB PO SCH (16:21)
--- NOTE | 2021-02-06 17:16 | PN ---
PROGRESS NOTE DATE OF SERVICE: 02/06/2021 This 75-year-old woman who was admitted with left lower pneumonia with possible sepsis also had dehydration also. Patient closely monitored at this time. Pulmonary and as well as Hematology/Oncology following the patient closely. PAST MEDICAL HISTORY: Reviewed. REVIEW OF SYSTEMS: CARDIOVASCULAR SYSTEM: No angina. RESPIRATION: As mentioned earlier. GI: As mentioned earlier. : No dysuria. NERVOUS SYSTEM: No numbness, no weakness. CURRENT MEDICATIONS: Reviewed and include: Alton, Ventolin, Xanax, aspirin, the rest of medications noted, Cefepime. PHYSICAL EXAMINATION: Patient is alert, oriented x3. Pulse is 93. Blood pressure 111/63, respiration 18. Temperature 98.2, pulse ox 98% on 2 L. HEENT: Conjunctivae normal. Neck: No JVD. CARDIOVASCULAR: S1, S2 muffled. RESPIRATORY: Breath sounds diminished in the bases. A few scattered rhonchi. ABDOMEN: Soft, nontender. LEGS: No edema. No swelling. NERVOUS: No focal deficits. LAB STUDIES: WBC 24.7, hemoglobin 7.1. UA noted. ASSESSMENT: 1. Acute left lower pneumonia with possible sepsis present on admission. 2. Dehydration with weakness. 3. Anemia secondary to malignancy. 4. CA of the lung on chemotherapy. 5. Increased WBC. 6. Elevated D-dimer. 7. Hypomagnesemia. 8. History of recent neutropenic colitis. 9. History of degenerative joint disease. 10.History of pneumonia. 11.History of muscle spasm. 12.History of Clostridium difficile colitis. 13.History of cholecystectomy. 14.History of appendectomy. 15.History of anxiety. RECOMMENDATIONS AND DISCUSSION: Recommend to continue current medications, symptomatic treatment. Otherwise, continue the broad-spectrum IV antibiotics. I would also recommend one unit transfusion because hemoglobin borderline and patient is symptomatic. Transfusion for symptomatic anemia. Otherwise, prognosis guarded because of multiple complex medical issues. We will closely follow with Pulmonary and Infectious Disease. Further recommendations to follow. MMODL / IJN: [id number] /
[2021-02-06] MEDS: HYDROcodone/APAP 5-325MG 1 EACH TAB PO PRN (20:04)
--- NOTE | 2021-02-06 23:56 | CONS ---
CONSULTATION DATE OF SERVICE: 02/06/2021 REASON FOR CONSULTATION: Pneumonia. HISTORY OF PRESENT ILLNESS: The patient is a 75-year-old female with past medical history significant for small cell lung cancer diagnosed in November of 2020. The patient received chemotherapy on 4 cycles was few days ago. The patient presented to the ER at [facility] last night for evaluation of weakness, fatigue and chest pain has been mostly in the left lower chest area. Described to more of a dull aching at at times sharp intensity is 5 to 6/10 no radiation. The patient did have some nausea and vomiting. The patient did have a cough with occasional sputum production. No hemoptysis. With these symptoms, the patient has been evaluated by the ER physician. On arrival to the ER, the patient was afebrile. No fever has been recorded. Subsequently the [place] [id number], repeat is 24.7 did have was mildly elevated. Creatinine is normal. Liver enzymes are normal. Urine is negative. Chen PCR was negative. The patient did have chest x-ray followed by CT angiogram of the chest that was negative for PE did show an increasing infiltrate to the left lower lung with concern for possible pneumonia. The patient was started on cefepime. Infectious disease was consulted with concern for possible sepsis and further management for antibiotic therapy. REVIEW OF SYSTEMS: Positive points have been mentioned in HPI. Rest of systems are negative. PAST MEDICAL HISTORY: Small-cell lung cancer, osteoarthritis, pneumonia. PAST SURGICAL HISTORY: Appendectomy, bladder surgery, cholecystectomy, hysterectomy, left knee replacement. SOCIAL HISTORY: Remote history of smoking. Rarely drinks. No drug use. FAMILY HISTORY: Mother with history of dementia. ALLERGIES: TO IODINATED CONTRAST DYE AND BACTRIM. MEDICATIONS: The patient is on cefepime 2 g. She is on Pilot, Ventolin, Xanax, aspirin, Symbicort, Dilaudid, Mag oxide, Lopressor and Protonix. PHYSICAL EXAMINATION: Blood pressure is 117/70 with a pulse of 89, temperature 98.1. She is 98% on 2 L nasal cannula. General description is an elderly female lying in bed in no distress. No tachypnea or accessory muscles of respiration use. HEENT: Examination shows slight pallor. No scleral icterus. Oral mucous membrane is dry. NECK: Trachea central. No thyromegaly. LUNGS unlabored breathing with decreased breath sounds at bases. No wheeze or crackles. Heart S1, S2. Regular rate and rhythm. ABDOMEN: Soft, no tenderness. No guarding. No rigidity. EXTREMITIES: No edema of the feet. Skin examination no rash or mass palpable. NEUROLOGICAL: Patient is awake, alert, oriented times tree. Mood and affect normal. LABS: Hemoglobin is 7.1, white count 4.7. Admission white count 29.9, BUN of 16, creatinine 0.51. Electrolytes have been normal. Liver enzymes are normal. Urine is negative. Chen PCR was negative CT angiogram report mentioned above. DIAGNOSTIC IMPRESSION AND PLAN: Patient admitted to the hospital with chest pain, shortness of breath in this patient who did have a small cell lung cancer on chemotherapy with increasing infiltrate to the left lower lobe concerning for possible pneumonia. Question ability to eat gram- negative. PLAN: 1. We will try to obtain sputum for Gram stain and culture. 2. Continue with cefepime 2 grams q.8 hours. 3. Check a procalcitonin level. 4. We will follow on clinical condition and culture to further adjust medication if needed. Thank you for this consultation. Will follow this patient along with you. MMODL / IJN: [id number] /
[2021-02-07] MEDS: CEFEPIME 2 GM in SODIUM CHLORIDE 0.9% 100 ML IVPB SCH ×3 (06:16→20:41)
[2021-02-07 07:22] LABS: Anisocytosis Slight; Basophils % (A) 0 %; Eosinophils % (A) 0 %; HCT 22.6 % (34.0-46.0); HGB 7.7 gm/dL (11.4-16.0); Lymphocytes # (A) 0.9 k/uL (1.0-4.8); Lymphocytes % (A) 7 %; MCHC 34.1 g/dL (31.0-37.0); MCV 88.1 fL (80.0-100.0); Mean Platelet Volume 7.5; Monocytes # (A) 0.1 k/uL (0-1.0); Monocytes % (A) 1 %; Neutrophils # (A) 11.2 k/uL (1.3-7.7); Neutrophils % (A) 91 %; RBC 2.57 m/uL (3.80-5.40); RDW 16.3 % (11.5-15.5); WBC 12.4 k/uL (3.8-10.6)
--- NOTE | 2021-02-07 07:46 | ECHOF ---
Referral Reason:LV function MEASUREMENTS -------- HEIGHT: 160.0 cm WEIGHT: 55.8 kg BP: IVSd: 1.1 cm (0.6 - 1.1) LVIDd: 4.6 cm (3.9 - 5.3) LVPWd: 1.4 cm (0.6 - 1.1) IVSs: 1.3 cm LVIDs: 3.8 cm LVPWs: 1.8 cm LAESV Index (A-L): 31.23 ml/m Ao Diam: 3.0 cm (2.0 - 3.7) AV Cusp: 1.4 cm (1.5 - 2.6) LA Diam: 3.8 cm (2.7 - 3.8) MV EXCURSION: 16.659 mm (> 18.000) MV EF SLOPE: 69 mm/s (70 - 150) EPSS: 0.4 cm MV E Garry: 0.85 m/s MV DecT: 194 ms MV A Garry: 1.29 m/s MV E/A Ratio: 0.66 RAP: 5.00 mmHg RVSP: 27.79 mmHg FINDINGS -------- Sinus rhythm. This was a technically good study. LV size, wall thickness and systolic function are normal, with an EF greater than 55%. The left jo tricular size is normal. The right ventricle is normal in size. The right atrial size is normal. The aortic valve is trileaflet, and appears structurally normal. No aortic stenosis or regurgitation. [id number] mitral regurgitation is present. Mild tricuspid regurgitation present. Right ventricular systolic pressure is normal at < 35 mmHg. There is no pulmonic regurgitation present. The aortic root size is normal. There is no pericardial effusion. CONCLUSIONS -------- 1. LV size, wall thickness and systolic function are normal, with an EF greater than 55%. 2. The left ventricular size is normal. 3. The right ventricle is normal in size. 4. The right atrial size is normal. 5. The aortic valve is trileaflet, and appears structurally normal. No aortic stenosis or regurgitati on. 6. [id number] mitral regurgitation is present. 7. Mild tricuspid regurgitation present. 8. There is no pulmonic regurgitation present. 9. The aortic root size is normal. 10. There is no pericardial effusion. HEALTH PROFESSIONAL: Ashley Chen RDCS
[2021-02-07] MEDS: MAGNESIUM OXIDE 400 MG TAB PO SCH (08:20)
[2021-02-07] MEDS: ASPIRIN 81 MG PO SCH (08:20)
[2021-02-07] MEDS: METOPROLOL TARTRATE 50 MG TAB PO SCH (08:20)
[2021-02-07] MEDS: PANTOPRAZOLE 40 MG/10 ML VIAL IVP SCH (08:24)
[2021-02-07] MEDS: SYMBICORT 80-4.5 MCG INHALER INHALATION SCH ×2 (08:25→20:21)
[2021-02-07] MEDS: HEPARIN SODIUM,PORCINE/PF 5,000 UNIT/0.5 ML SYRINGE SQ SCH ×2 (08:31→20:42)
[2021-02-07 12:40] LABS: Platelet Count 87 k/uL (150-450)
--- NOTE | 2021-02-07 13:23 | P.PN ---
Subjective Progress Note Date: 02/07/21 Principal diagnosis: Weakness, fatigue, chest pain This is a 75-year-old female with history of small cell lung cancer, this was diagnosed back in November of 2020, patient has been receiving chemotherapy and few days ago she received her fourth course of chemotherapy. No radiation therapy has been given yet. Again her last course of chemotherapy was given 3 days ago, patient was brought into the ER complaining of weakness fatigue chest pain and some vomiting, and she was felt that the patient may have sepsis. Chest x-ray showed chronic left lingular opacity. CT of the chest showed no evidence of pulmonary embolism, there was evidence of pleural effusions and linear inf iltrates and atelectasis at the lung bases. Multiple liver hypodensities were noted consistent with metastatic disease. Mediastinal and left bronchial adenopathy was also noted similar to old CT of the chest. At any rate considering the presentation and considering her underlying COPD with possible pneumonia we were asked to see the patient on consultation. Clinically the patient made a significant improvement in the last 2 days, she was empirically started on antibiotics, WBC count is already down from 39.9 down to 24.7. Patient is not hypotensive, she is hemodynamically stable, O2 saturations 98% on 2 L, and she is asking if she could be discharged home already. Blood cultures are pending. Urine cultures are also pending. Patient is receiving cefepime. On 02/07/2021 patient seen in follow-up on selective care unit, she is resting comfortably, she states she feels better, breathing easier, she is on 1 L of oxygen, her pulse ox of 97%, she's been afebrile, hemodynamically she has been stable, still sounds congested, but her cough is nonproductive, she remains on antibiotics in the form of cefepime for a possibility of left lower lobe pneumonia. Clinically she seems to be improving, no new chest x-ray today. Her white count continues to improve and is down to 12.4 on today's labs, hemoglobin is 7.7. Patient was unable to produce a sputum specimen for culture, blood c ultures have shown no growth thus far. No hemoptysis, no chest discomfort. She had no acute events overnight, no nausea vomiting or diarrhea. Objective - Vital Signs Vital signs: Vital Signs Temp 97.8 F 02/07/21 12:17 Pulse 83 02/07/21 12:17 Resp 18 02/07/21 12:17 BP 136/83 02/07/21 12:17 Pulse Ox 97 02/07/21 12:17 Intake & Output 02/06/21 02/07/21 02/07/21 18:59 06:59 18:59 Intake Total 720 310 118 Output Total 400 Balance 320 310 118 Weight 57.8 kg Intake: Oral 720 118 Blood Product 0 310 Rc As-1 Unit 0 310 [id number] Output: Urine 400 Other: Voiding Method Bedside Commode Bedside Commode Bedside Commode Diaper Diaper Diaper # Voids 1 1 1 # Bowel Movements 1 - Exam GENERAL EXAM: Alert, very pleasant, 75-year-old white female on 1 L oxygen with pulse ox of 97% comfortable in no apparent distress. HEAD: Normocephalic/atraumatic. EYES: Normal reaction of pupils, equal size. Conjunctiva pink, sclera white. NOSE: Clear with pink turbinates. THROAT: No erythema or exudates. NECK: No masses, no JVD, no thyroid enlargement, no adenopathy. CHEST: No chest wall deformity. Symmetrical expansion. LUNGS: Equal air entry with no crackles, wheeze, rhonchi or dullness. CVS: Regular rate and rhythm, normal S1 and S2, no gallops, no murmurs, no rubs ABDOMEN: Soft, nontender. No hepatosplenomegaly, normal bowel sounds, no guarding or rigidity. EXTREMITIES: No clubbing, no edema, no cyanosis, 2+ pulses and upper and lower extremities. MUSCULOSKELETAL: Muscle strength and tone normal. SPINE: No scoliosis or deformity SKIN: No rashes CENTRAL NERVOUS SYSTEM: Alert and oriented -3. No focal deficits, tone is normal in all 4 extremities. PSYCHIATRIC: Alert and oriented -3. Appropriate affect. Intact judgment and insight. - Labs CBC & Chem 7: 02/07/21 06:22 02/06/21 03:40 Labs: Abnormal Lab Results - Last 24 Hours (Table) 02/06/21 02/07/21 Range/Units 17:13 06:22 WBC 12.4 H (3.8-10.6) k/uL RBC 2.57 L (3.80-5.40) m/uL Hgb 7.7 L (11.4-16.0) gm/dL Hct 22.6 L (34.0-46.0) % RDW 16.3 H (11.5-15.5) % Plt Count 87 L (150-450) k/uL Neutrophils # 11.2 H (1.3-7.7) k/uL Lymphocytes # 0.9 L (1.0-4.8) k/uL Crossmatch See Detail Microbiology - Last 24 Hours (Table) 02/05/21 22:55 Blood Culture - Preliminary Blood No Growth after 24 hours 02/05/21 22:30 Blood Culture - Preliminary Blood No Growth after 24 hours Assessment and Plan Plan: Assessment: #1. Possible left lower lobe pneumonia with sepsis, although the findings on the chest x-ray and CT of the chest, likely related to her underlying malignancy #2. History of small cell lung cancer, on chemotherapy #3. Leukocytosis related to pneumonia with sepsis, improving #4. Acute dehydration with weakness #5. Elevated d-dimer, being addressed by cardiology #6. Atypical chest pain #7. History of neutropenic colitis related to chemotherapy #8. History of degenerative joint disease #9. Hypomagnesemia #10. Chronic anemia Plan: Continue current antibiotics, patient is currently on cefepime White count is improving, patient is feeling better, Follow-up chest x-ray tomorrow Increase activity as tolerated Continue bronchodilators If continues to improve she may be considered for transition to oral antibiotics in the next 24 hours We'll repeat chest x-ray and reevaluate the patient I performed a history & physical examination of the patient and discussed their management with my nurse practitioner, Teresa Agosto. I reviewed the nurse practitioner's note and agree with the documented findings and plan of care. Lung sounds are positive for diminished breath sounds. The findings and the impression was discussed with the patient. I attest to the documentation by the nurse practitioner. Time with Patient: Less than 30
[2021-02-07] MEDS: ALBUTEROL NEBULIZED 2.5 MG/3 ML INHALATION PRN ×2 (16:11→20:21)
[2021-02-07] MEDS: METOPROLOL TARTRATE 25 MG TAB PO SCH (16:32)
--- NOTE | 2021-02-07 17:27 | US ---
EXAMINATION TYPE: US venous doppler duplex LE BI DATE OF EXAM: 02/07/2021 5:15 PM COMPARISON: NONE CLINICAL HISTORY: dvt. Bilateral leg pain Exam done portable. SIDE PERFORMED: Bilateral TECHNIQUE: The lower extremity deep venous system is examined utilizing real time linear array sonog sandip with graded compression, doppler sonography and color-flow sonography. VESSELS IMAGED: Common Femoral Vein Deep Femoral Vein Greater Saphenous Vein * Femoral Vein Popliteal Vein Small Saphenous Vein * Proximal Calf Veins (* superficial vessels) Right Leg: Appears negative for DVT Left Leg: Appears negative for DVT IMPRESSION: No evidence of deep vein thrombosis in both legs.
--- NOTE | 2021-02-07 18:28 | PN ---
PROGRESS NOTE DATE OF SERVICE: 02/07/2021. HISTORY: This 75-year-old woman who was admitted with acute left lower lobe pneumonia with possible sepsis present on admission, is being closely monitored. At this time the patient is on broad-spectrum IV antibiotics. The cultures are negative so far. Pulmonary and Infectious Disease are following the patient closely. A 2D echo with Doppler was noted. Ejection fraction about 55%. Mild to moderate mitral regurgitation was also noted. No chest pain. No palpitations. No fever. PHYSICAL EXAMINATION: Alert, oriented x2 pulse 86, blood pressure 130/74, respirations 20, temperature 98.4, pulse ox 98% on 1 L. HEENT: S1, S2 muffled. RESPIRATORY SYSTEM: Breath sounds diminished at the bases. Few scattered rhonchi. ABDOMEN: Soft, nontender. LEGS: No edema, no swelling. LAB STUDIES: WBC 12.2, hemoglobin 7.7, and procalcitonin 0.17. PAST MEDICAL HISTORY: Reviewed. REVIEW OF SYSTEMS: CARDIOVASCULAR: No angina. RESPIRATORY: As mentioned earlier. GI: As mentioned. : As mentioned. NERVOUS SYSTEM: No numbness or weakness. MEDICATIONS: Current medications are [place], Ventolin, Xanax, aspirin, Symbicort, heparin, Dilaudid, magnesium, Lopressor. Doses reviewed. ASSESSMENT: 1. Acute left lower pneumonia with possible sepsis present on admission possibly gram- negative. 2. Dehydration with weakness present on admission. 3. Anemia secondary to malignancy. 4. Elevated D-dimer without any evidence of pulmonary embolism. 5. CT of the lung on chemotherapy. 6. Increased WBC. 7. Hypomagnesemia. 8. History of recent neutropenic colitis. 9. History of DJD. 10.History of pneumonia. 11.History of muscle spasm. 12.History of Clostridium difficile colitis. 13.History of cholecystectomy. 14.History of appendectomy. 15.History of anxiety. 16.Anemia. 17.Thrombocytopenia. RECOMMENDATIONS: Continue current medications and symptomatic treatment. Otherwise at this time I would recommend to monitor the CBC closely. Otherwise, I would also recommend ultrasound of the leg to rule out possible DVT. Otherwise, closely follow with Hematology/Oncology and Infectious Disease and Pulmonary. Prognosis guarded because of multiple complex medical issues. Further recommendations to follow. MMODL / IJN: [id number] /
--- NOTE | 2021-02-07 18:53 | P.PN ---
Subjective Progress Note Date: 02/07/21 Principal diagnosis: sirs/pneumonia hemoglobin 7.7, platelets decreased 86K today. She is still very tired. Objective - Vital Signs Vital signs: Vital Signs Temp 98.4 F 02/07/21 16:30 Pulse 86 02/07/21 16:30 Resp 20 02/07/21 16:30 BP 135/74 02/07/21 16:30 Pulse Ox 99 02/07/21 16:30 Intake & Output 02/06/21 02/07/21 02/07/21 18:59 06:59 18:59 Intake Total 720 310 236 Output Total 400 Balance 320 310 236 Weight 57.8 kg Intake: Oral 720 236 Blood Product 0 310 Rc As-1 Unit 0 310 [id number] Output: Urine 400 Other: Voiding Method Bedside Commode Bedside Commode Bedside Commode Diaper Diaper Diaper # Voids 1 1 1 # Bowel Movements 1 - Exam - Constitutional General appearance: cooperative, no acute distress - EENT Eyes: EOMI, PERRLA ENT: NA/AT - Respiratory Respiratory: bilateral: expiratory wheeze, bilateral bibasilar diminished - Cardiovascular Rhythm: regular - Gastrointestinal General gastrointestinal: soft, tenderness - Musculoskeletal Musculoskeletal: generalized weakness - Psychiatric Anxious Psychiatric: A&O x's 3, anxious - Labs CBC & Chem 7: 02/07/21 06:22 02/06/21 03:40 Labs: Abnormal Lab Results - Last 24 Hours (Table) 02/06/21 02/07/21 02/07/21 Range/Units 17:13 06:22 06:22 WBC 12.4 H (3.8-10.6) k/uL RBC 2.57 L (3.80-5.40) m/uL Hgb 7.7 L (11.4-16.0) gm/dL Hct 22.6 L (34.0-46.0) % RDW 16.3 H (11.5-15.5) % Plt Count 87 L (150-450) k/uL Neutrophils # 11.2 H (1.3-7.7) k/uL Lymphocytes # 0.9 L (1.0-4.8) k/uL Procalcitonin 0.17 H (0.02-0.09) ng/mL Crossmatch See Detail Microbiology - Last 24 Hours (Table) 02/05/21 22:55 Blood Culture - Preliminary Blood No Growth after 24 hours 02/05/21 22:30 Blood Culture - Preliminary Blood No Growth after 24 hours Assessment and Plan (1) Leukocytosis Current Visit: Yes Status: Acute Code(s): D72.829 - ELEVATED WHITE BLOOD CELL COUNT, UNSPECIFIED SNOMED Code(s): 885540754 (2) SIRS (systemic inflammatory response syndrome) Current Visit: No Status: Acute Code(s): R65.10 - SIRS OF NON-INFECTIOUS ORIGIN W/O ACUTE ORGAN DYSFUNCTION SNOMED Code(s): 625336962 (3) Small cell lung cancer Current Visit: No Status: Acute Code(s): C34.90 - MALIGNANT NEOPLASM OF UNSP PART OF UNSP BRONCHUS OR LUNG SNOMED Code(s): 180008658 Plan: Assessment and Recommendations: Left Lower Lobe Pneumonia: - Pulmonary FOllowing Leukocytosis: - Secondary to GCSF and likely infectious inflammatory process Anemia and Thrombocytopenia: - - Secondary to Chemotherapy - With infectious process monitor for DIC - Labs for am Monitor daily labs and good supportive care
[2021-02-07] MEDS: PANTOPRAZOLE 40 MG TABLET PO SCH (20:42)
[2021-02-08 01:35] VITALS: RESP 18
--- NOTE | 2021-02-08 04:30 | PN ---
PROGRESS NOTE DATE OF SERVICE: 02/07/2021 REASON FOR FOLLOWUP: Pneumonia. INTERVAL HISTORY: The patient is afebrile. The patient is breathing more comfortably. The patient denies having any chest pain. Occasional cough. No nausea, vomiting, abdominal pain or diarrhea. PHYSICAL EXAMINATION: Blood pressure 144/78 with a pulse of 69, temperature 98. She is 99% on 2 L nasal cannula. General description is an elderly female lying in bed in no distress. Respiratory system: Unlabored breathing, decreased intensity of breath sounds in the base, with no wheeze. Heart S1, S2. Regular rate and rhythm. Abdomen soft, no tenderness. LABS: Hemoglobin 7.1, white count 12.4. DIAGNOSTIC IMPRESSION AND PLAN: Patient admitted to the hospital with shortness of breath and chest pain with evidence of pneumonia possible left lower lung. The patient clinically has been responding to the cefepime to continue. Try to obtain a sputum to narrow down her antibiotics and monitor clinical course closely. MMODL / IJN: [id number] /
[2021-02-08] MEDS: CEFEPIME 2 GM in SODIUM CHLORIDE 0.9% 100 ML IVPB SCH (05:41)
[2021-02-08 07:14] LABS: Anisocytosis Slight; Basophils % (A) 1 %; Eosinophils % (A) 0 %; HCT 22.6 % (34.0-46.0); HGB 7.4 gm/dL (11.4-16.0); Lymphocytes # (A) 0.7 k/uL (1.0-4.8); Lymphocytes % (A) 18 %; MCH 29.1 pg (25.0-35.0); MCV 88.2 fL (80.0-100.0); Monocytes # (A) 0.1 k/uL (0-1.0); Monocytes % (A) 2 %; Neutrophils # (A) 2.9 k/uL (1.3-7.7); Neutrophils % (A) 78 %; Platelet Count 58 k/uL (150-450); RBC 2.56 m/uL (3.80-5.40); RDW 16.4 % (11.5-15.5); WBC 3.8 k/uL (3.8-10.6)
[2021-02-08 07:24] LABS: Partial Thromboplastin Time 25.1 sec (22.0-30.0); Prothrombin Time 10.5 sec (9.0-12.0)
[2021-02-08 07:38] LABS: ALT 9 U/L (4-34); AST 25 U/L (14-36); African American GFR (CKD) >90 (>60 ml/min/1.73 sqM); Albumin 2.7 g/dL (3.5-5.0); Alkaline Phosphatase 133 U/L (38-126); Anion Gap 1 mmol/L; Blood Urea Nitrogen 15 mg/dL (7-17); Calcium 8.2 mg/dL (8.4-10.2); Carbon Dioxide 28 mmol/L (22-30); Chloride 111 mmol/L (98-107); Glucose 81 mg/dL (74-99); Magnesium 1.6 mg/dL (1.6-2.3); Non-African American GFR(CKD) >90 (>60 ml/min/1.73 sqM); Phosphorus 2.4 mg/dL (2.5-4.5); Potassium 3.6 mmol/L (3.5-5.1); Sodium 140 mmol/L (137-145); Total Bilirubin 0.7 mg/dL (0.2-1.3)
[2021-02-08] MEDS: SYMBICORT 80-4.5 MCG INHALER INHALATION SCH (08:14)
[2021-02-08 08:17] LABS: LDH 2800 U/L (313-618)
[2021-02-08] MEDS: ALBUTEROL NEBULIZED 2.5 MG/3 ML INHALATION PRN (08:18)
[2021-02-08] MEDS ORDERED: POTASSIUM CHLORIDE ER 20 MEQ TAB.ER PO STA (09:58)
--- NOTE | 2021-02-08 10:10 | P.DS ---
Providers Date of admission: 02/05/21 22:45 Attending physician: Mitesh Munson Consults: 02/05/21 21:44 Consult Physician Routine Consulting Provider: Emeterio Garvin Consult Reason/Comments: malignancy Do you want consulting provider notified?: Yes 02/05/21 21:45 Consult Physician Routine Consulting Provider: Maegan Norman Consult Reason/Comments: sepsis Do you want consulting provider notified?: Yes 02/05/21 22:45 Consult Physician Routine Consulting Provider: Silvana Clemons Consult Reason/Comments: dyspnea, pneumonia Do you want consulting provider notified?: Yes 02/05/21 22:46 Consult Physician Routine Consulting Provider: Beatriz Nguyen Consult Reason/Comments: cp Do you want consulting provider notified?: Yes [facility] Course: patient is a pleasant 75-year-old female with known history of lung cancer on chemotherapyIs admitted for sepsis which is believed to be secondary to left lower lobe pneumonia. CT of the chest was done during this hospitalization. Patient has small cell lung cancer for which patient is actively receiving chemotherapy at this time. Patient is also found to have mildly elevated troponins which was believed to be secondary to sepsis no further intervention was done. Aspirin is not being recommended by cardiology. Patient when he is on beta tonya because of the tachycardia. Patient will be discharged today on moxifloxacin as recommended by infectious disease and patient was on cefepime here. PHYSICAL EXAMINATION: GENERAL: The patient is alert and oriented x3, not in any acute distress. Well developed, well nourished. HEENT: Pupils are round and equally reacting to light. EOMI. No scleral icterus. No conjunctival pallor. Normocephalic, atraumatic. No pharyngeal erythema. No thyromegaly. CARDIOVASCULAR: S1 and S2 present. No murmurs, rubs, or gallops. PULMONARY: Chest is clear to auscultation, no wheezing or crackles. ABDOMEN: Soft, nontender, nondistended, normoactive bowel sounds. No palpable organomegaly. MUSCULOSKELETAL: No joint swelling or deformity. EXTREMITIES: No cyanosis, clubbing, or pedal edema. NEUROLOGICAL: Gross neurological examination did not reveal any focal deficits. SKIN: No rashes. -Sepsis secondary to left lower lobe pneumonia -Small cell lung cancer on chemotherapy -Atypical chest pain with mildly elevated troponins troponin elevation secondary to sepsis -Rest of the medical problems and hospice physician course please refer to documentation from Dr. Munson from yesterday Plan - Discharge Summary Discharge Rx Participant: No New Discharge Prescriptions: New Levofloxacin [Levaquin] 500 mg PO DAILY 5 Days #5 tab Metoprolol Tartrate [Lopressor] 50 mg PO DAILY #30 tab Moxifloxacin HCl [Avelox] 400 mg PO DAILY #7 tablet Metoprolol Tartrate [Lopressor] 25 mg PO DAILY@1700 #30 tab Continue diphenhydrAMINE [Benadryl] 25 mg PO HS PRN PRN Reason: SLEEP/ALLERGIC REACTION Citalopram Hydrobromide [Citalopram HBr] 40 mg PO HS Albuterol Inhaler [Ventolin Hfa Inhaler] 2 puff INHALATION RT-QID PRN PRN Reason: Shortness Of Breath fentaNYL 25MCG/HR PATCH [Duragesic 25MCG/HR] 1 patch TRANSDERM Q72H #3 patch Cyclobenzaprine [Flexeril] 5 mg PO TID PRN #30 tab PRN Reason: Muscle Spasm HYDROcodone/APAP 7.5-325MG [[place] 7.5-325] 1 tab PO Q6H PRN PRN Reason: Pain Cholecalciferol [Vitamin D3 (25 Mcg = 1000 Iu)] 25 mcg PO BID Potassium Gluconate 99 mg PO BID Magnesium Oxide 400 mg PO DAILY Omeprazole 20 mg PO DAILY Ondansetron HCl [Zofran] 4 mg PO Q4H PRN PRN Reason: Nausea And Vomiting Fluticasone Propion/Salmeterol [[place] 250-50 Inhub] 1 puff INHALATION RT-BID Loperamide [Imodium] 2 mg PO QID PRN #30 cap PRN Reason: Diarrhea Discharge Medication List Albuterol Inhaler [Ventolin Hfa Inhaler] 2 puff INHALATION RT-QID PRN 10/25/20 [History] Citalopram Hydrobromide [Citalopram HBr] 40 mg PO HS 10/25/20 [History] diphenhydrAMINE [Benadryl] 25 mg PO HS PRN 10/25/20 [History] Cyclobenzaprine [Flexeril] 5 mg PO TID PRN #30 tab 11/01/20 [Rx] fentaNYL 25MCG/HR PATCH [Durages[place] 25MCG/HR] 1 patch TRANSDERM Q72H #3 patch 11/01/20 [Rx] HYDROcodone/APAP 7.5-325MG [[place] 7.5-325] 1 tab PO Q6H PRN 11/26/20 [History] Omeprazole 20 mg PO DAILY 11/26/20 [History] Ondansetron HCl [Zofran] 4 mg PO Q4H PRN 11/26/20 [History] Cholecalciferol [Vitamin D3 (25 Mcg = 1000 Iu)] 25 mcg PO BID 12/13/20 [History] Fluticasone Propion/Salmeterol [[place] 250-50 Inhub] 1 puff INHALATION RT-BID 12/13/20 [History] Loperamide [Imodium] 2 mg PO QID PRN #30 cap 01/23/21 [Rx] Magnesium Oxide 400 mg PO DAILY 02/05/21 [History] Potassium Gluconate 99 mg PO BID 02/05/21 [History] Levofloxacin [Levaquin] 500 mg PO DAILY 5 Days #5 tab 02/08/21 [Rx] Metoprolol Tartrate [Lopressor] 25 mg PO DAILY@1700 #30 tab 02/08/21 [Rx] Metoprolol Tartrate [Lopressor] 50 mg PO DAILY #30 tab 02/08/21 [Rx] Moxifloxacin HCl [Avelox] 400 mg PO DAILY #7 tablet 02/08/21 [Rx] Follow up Appointment(s)/Referral(s): Jeimy Dozier MD [STAFF PHYSICIAN] - 2 Weeks Emy Ball MD [Primary Care Provider] - 3 Days
[2021-02-08] MEDS: MAGNESIUM SULFATE-D5W PMX 1 GM in DEXTROSE/WATER 1 100ML.BAG IVPB SCH ×2 (10:15→11:50)
[2021-02-08] MEDS: ASPIRIN 81 MG PO SCH (10:16)
[2021-02-08] MEDS: METOPROLOL TARTRATE 50 MG TAB PO SCH (10:16)
[2021-02-08] MEDS: PANTOPRAZOLE 40 MG TABLET PO SCH (10:16)
[2021-02-08] MEDS: HEPARIN SODIUM,PORCINE/PF 5,000 UNIT/0.5 ML SYRINGE SQ SCH (10:17)
[2021-02-08] MEDS: MAGNESIUM OXIDE 400 MG TAB PO SCH (10:17)
[2021-02-08] MEDS: HYDROcodone/APAP 5-325MG 1 EACH TAB PO PRN (10:31)
--- NOTE | 2021-02-08 12:30 | P.PN ---
Subjective Progress Note Date: 02/08/21 Principal diagnosis: Reaction to chemotherapy This is a 75-year-old female with history of small cell lung cancer, this was diagnosed back in November of 2020, patient has been receiving chemotherapy and few days ago she received her fourth course of chemotherapy. No radiation therapy has been given yet. Again her last course of chemotherapy was given 3 days ago, patient was brought into the ER complaining of weakness fatigue chest pain and some vomiting, and she was felt that the patient may have sepsis. Chest x-ray showed chronic left lingular opacity. CT of the chest showed no evidence of pulmonary embolism, there was evidence of pleural effusions and linear infiltra annabel and atelectasis at the lung bases. Multiple liver hypodensities were noted consistent with metastatic disease. Mediastinal and left bronchial adenopathy was also noted similar to old CT of the chest. At any rate considering the presentation and considering her underlying COPD with possible pneumonia we were asked to see the patient on consultation. Clinically the patient made a significant improvement in the last 2 days, she was empirically started on antibiotics, WBC count is already down from 39.9 down to 24.7. Patient is not hypotensive, she is hemodynamically stable, O2 saturations 98% on 2 L, and she is asking if she could be discharged home already. Blood cultures are pending. Urine cultures are also pending. Patient is receiving cefepime. On 02/07/2021 patient seen in follow-up on selective care unit, she is resting comfortably, she states she feels better, breathing easier, she is on 1 L of oxygen, her pulse ox of 97%, she's been afebrile, hemodynamically she has been stable, still sounds congested, but her cough is nonproductive, she remains on antibiotics in the form of cefepime for a possibility of left lower lobe pneumonia. Clinically she seems to be improving, no new chest x-ray today. Her white count continues to improve and is down to 12.4 on today's labs, hemoglobin is 7.7. Patient was unable to produce a sputum specimen for culture, blood cultures have shown no growth thus far. No hemoptysis, no chest discomfort. She had no acute events overnight, no nausea vomiting or diarrhea. The patient is seen today 02/08/2021 in follow-up on the selective care unit. She is awake and alert in no acute distress. Denies any worsening shortness of breath, cough or congestion. 18 O2 saturations up to 99% on 2 L/m per nasal cannula. She's afebrile. Hemodynamically stable. Feeling a bit stronger today compared to yesterday. She did receive 1 unit of packed red blood cells. Current hemoglobin 7.4. Blood cultures reveal no growth. Sputum culture reveals no growth. Doppler of the lower extremities negative for DVT bilaterally White count 3.8. Platelets 58,000. Sodium 140. Potassium 3.6. Creatinine 0.47. Pro-calcitonin 0.17. Urinalysis clean. Cortisol level 12. She is currently on cefepime. Objective - Vital Signs Vital signs: Vital Signs Temp 97.6 F 02/08/21 08:00 Pulse 82 02/08/21 08:30 Resp 18 02/08/21 08:00 BP 132/88 02/08/21 08:00 Pulse Ox 99 02/08/21 08:00 Intake & Output 02/07/21 02/08/21 02/08/21 18:59 06:59 18:59 Intake Total 236 300 Output Total 250 Balance 236 -250 300 Weight 57 kg Intake: IV 100 Magnesium Sulfate-D5w Pmx 100 1 gm In Dextrose/Water 1 100ml.bag @ 100 mls/hr IVPB Q1H REPLACED BY [facility] Rx#: [id number] Oral 236 200 Output: Urine 250 Other: Voiding Method Bedside Commode Bedside Commode Bedside Commode Diaper Diaper Diaper # Voids 1 1 1 # Bowel Movements 1 - Exam GENERAL EXAM: Alert, very pleasant, 75-year-old female patient on 2 L oxygen with pulse ox of 99% comfortable in no apparent distress. HEAD: Normocephalic/atraumatic. EYES: Normal reaction of pupils, equal size. Conjunctiva pink, sclera white. NOSE: Clear with pink turbinates. THROAT: No erythema or exudates. NECK: No masses, no JVD, no thyroid enlargement, no adenopathy. CHEST: No chest wall deformity. Symmetrical expansion. LUNGS: Equal air entry with no crackles, wheeze, rhonchi or dullness. CVS: Regular rate and rhythm, normal S1 and S2, no gallops, no murmurs, no rubs ABDOMEN: Soft, nontender. No hepatosplenomegaly, normal bowel sounds, no guarding or rigidity. EXTREMITIES: No clubbing, no edema, no cyanosis, 2+ pulses and upper and lower extremities. MUSCULOSKELETAL: Muscle strength and tone normal. SPINE: No scoliosis or deformity SKIN: No rashes CENTRAL NERVOUS SYSTEM: No focal deficits, tone is normal in all 4 extremities. PSYCHIATRIC: Alert and oriented -3. Appropriate affect. Intact judgment and insight. - Labs CBC & Chem 7: 02/08/21 06:41 02/08/21 06:41 Labs: Abnormal Lab Results - Last 24 Hours (Table) 02/07/21 02/07/21 02/08/21 Range/Units 06:22 06:22 06:41 RBC 2.56 L (3.80-5.40) m/uL Hgb 7.4 L (11.4-16.0) gm/dL Hct 22.6 L (34.0-46.0) % RDW 16.4 H (11.5-15.5) % Plt Count 87 L 58 L (150-450) k/uL Neutrophils # 11.2 H (1.3-7.7) k/uL Lymphocytes # 0.9 L 0.7 L (1.0-4.8) k/uL Chloride (98-107) mmol/L Creatinine (0.52-1.04) mg/dL Calcium (8.4-10.2) mg/dL Phosphorus (2.5-4.5) mg/dL Alkaline Phosphatase (38-126) U/L Lactate Dehydrogenase (313-618) U/L Total Protein (6.3-8.2) g/dL Albumin (3.5-5.0) g/dL Procalcitonin 0.17 H (0.02-0.09) ng/mL 02/08/21 Range/Units 06:41 RBC (3.80-5.40) m/uL Hgb (11.4-16.0) gm/dL Hct (34.0-46.0) % RDW (11.5-15.5) % Plt Count (150-450) k/uL Neutrophils # (1.3-7.7) k/uL Lymphocytes # (1.0-4.8) k/uL Chloride 111 H (98-107) mmol/L Creatinine 0.47 L (0.52-1.04) mg/dL Calcium 8.2 L (8.4-10.2) mg/dL Phosphorus 2.4 L (2.5-4.5) mg/dL Alkaline Phosphatase 133 H (38-126) U/L Lactate Dehydrogenase 2800 H (313-618) U/L Total Protein 5.0 L (6.3-8.2) g/dL Albumin 2.7 L (3.5-5.0) g/dL Procalcitonin (0.02-0.09) ng/mL Microbiology - Last 24 Hours (Table) 02/05/21 22:55 Blood Culture - Preliminary Blood No Growth after 48 hours 02/07/21 16:46 Gram Stain - Preliminary Sputum Sputum Culture - Preliminary 02/05/21 22:30 Blood Culture - Preliminary Blood No Growth after 48 hours Assessment and Plan Assessment: #1. Possible left lower lobe pneumonia with sepsis, although the findings on the chest x-ray and CT of the chest, her calcitonin 0.17, likely related to her underlying malignancy #2. History of small cell lung cancer, on chemotherapy #3. Leukocytosis related to pneumonia with sepsis, improving #4. Acute dehydration with weakness #5. Elevated d-dimer, being addressed by cardiology #6. Atypical chest pain #7. History of neutropenic colitis related to chemotherapy #8. History of degenerative joint disease #9. Hypomagnesemia #10. Chronic anemia Plan: The patient was seen and evaluated by Dr. Roa She is cleared for discharge from the pulmonary standpoint Follow-up in the office in 1-2 weeks' time We will repeat a chest x-ray then I, the cosigning physician, performed a history & physical examination of the patient. Lungs sounds are clear. Maintaining good O2 saturations in the 90s on 2 L/m per nasal cannula I discussed the assessment and plan of care with my nurse practitioner, Annabel Morales. I attest to the above note as dictated by her.
--- NOTE | 2021-02-08 13:14 | P.PN ---
Subjective Progress Note Date: 02/08/21 Principal diagnosis: sirs/pneumonia Feeling better today, PLatelets decreased 58K, Hemoglbin 7.1, WBC decreasing. No intervention needed. Objective - Vital Signs Vital signs: Vital Signs Temp 97.6 F 02/08/21 08:00 Pulse 82 02/08/21 08:30 Resp 18 02/08/21 08:00 BP 132/88 02/08/21 08:00 Pulse Ox 99 02/08/21 08:00 Intake & Output 02/07/21 02/08/21 02/08/21 18:59 06:59 18:59 Intake Total 236 300 Output Total 250 Balance 236 -250 300 Weight 57 kg Intake: IV 100 Magnesium Sulfate-D5w Pmx 100 1 gm In Dextrose/Water 1 100ml.bag @ 100 mls/hr IVPB Q1H [facility] Rx#: [id number] Oral 236 200 Output: Urine 250 Other: Voiding Method Bedside Commode Bedside Commode Bedside Commode Diaper Diaper Diaper # Voids 1 1 1 # Bowel Movements 1 - Exam - Constitutional General appearance: cooperative, no acute distress - EENT Eyes: EOMI, PERRLA ENT: NA/AT - Respiratory Respiratory: bilateral: expiratory wheeze, bilateral bibasilar diminished - Cardiovascular Rhythm: regular - Gastrointestinal General gastrointestinal: soft, tenderness - Musculoskeletal Musculoskeletal: generalized weakness - Psychiatric Anxious Psychiatric: A&O x's 3, anxious - Labs CBC & Chem 7: 02/08/21 06:41 02/08/21 06:41 Labs: Abnormal Lab Results - Last 24 Hours (Table) 02/07/21 02/08/21 02/08/21 Range/Units 06:22 06:41 06:41 RBC 2.56 L (3.80-5.40) m/uL Hgb 7.4 L (11.4-16.0) gm/dL Hct 22.6 L (34.0-46.0) % RDW 16.4 H (11.5-15.5) % Plt Count 58 L (150-450) k/uL Lymphocytes # 0.7 L (1.0-4.8) k/uL Chloride 111 H (98-107) mmol/L Creatinine 0.47 L (0.52-1.04) mg/dL Calcium 8.2 L (8.4-10.2) mg/dL Phosphorus 2.4 L (2.5-4.5) mg/dL Alkaline Phosphatase 133 H (38-126) U/L Lactate Dehydrogenase 2800 H (313-618) U/L Total Protein 5.0 L (6.3-8.2) g/dL Albumin 2.7 L (3.5-5.0) g/dL Procalcitonin 0.17 H (0.02-0.09) ng/mL Microbiology - Last 24 Hours (Table) 02/05/21 22:55 Blood Culture - Preliminary Blood No Growth after 48 hours 02/07/21 16:46 Gram Stain - Preliminary Sputum Sputum Culture - Preliminary 02/05/21 22:30 Blood Culture - Preliminary Blood No Growth after 48 hours Assessment and Plan (1) Leukocytosis Current Visit: Yes Status: Acute Code(s): D72.829 - ELEVATED WHITE BLOOD CELL COUNT, UNSPECIFIED SNOMED Code(s): 101636902 (2) SIRS (systemic inflammatory response syndrome) Current Visit: No Status: Acute Code(s): R65.10 - SIRS OF NON-INFECTIOUS ORIGIN W/O ACUTE ORGAN DYSFUNCTION SNOMED Code(s): 300217600 (3) Small cell lung cancer Current Visit: No Status: Acute Code(s): C34.90 - MALIGNANT NEOPLASM OF UNSP PART OF UNSP BRONCHUS OR LUNG SNOMED Code(s): 635120001 Plan: Assessment and Recommendations: Left Lower Lobe Pneumonia: - Pulmonary FOllowing Leukocytosis: - Secondary to GCSF and likely infectious inflammatory process Anemia and Thrombocytopenia: - - Secondary to Chemotherapy - With infectious process monitor for DIC - Labs for am Monitor daily labs and good supportive care If platelets drop below 50K will hold Anticoagulation Doppler negative DVT Pulm continues to follow
[2021-02-08 15:11] VITALS: BP 146/79; PULSE 72; TEMP 98.2
--- NOTE | 2021-02-08 16:48 | PN ---
PROGRESS NOTE DATE OF SERVICE: 02/08/2021 REASON FOR FOLLOWUP: Pneumonia. INTERVAL HISTORY: The patient is afebrile. The patient is breathing comfortably. Patient denies having any chest pain. No shortness of breath or cough. No abdominal pain. No diarrhea. PHYSICAL EXAMINATION: Blood pressure 146/79, pulse of 72, temperature 98.2. She is 100% on 2 L nasal cannula. General description is a middle-aged female lying in bed in no distress. Respiratory system: Unlabored breathing, decreased intensity. No wheeze. Heart S1, S2. Regular rate and rhythm. Abdomen soft, no tenderness. LABS: Hemoglobin 10.8. White count normalized to 3.8. BUN of 15, creatinine 0.47. DIAGNOSTIC IMPRESSION AND PLAN: Patient admitted to the hospital with shortness of breath and cough with evidence of pneumonia left lower lobe. Sputum culture is pending. Patient showing overall improvement with cefepime. Plan for discharge will be Avelox 400 daily for 7 days. Discussed with the admitting physician working on discharge. MMODL / IJN: [id number] /
[2021-02-08] MEDS: METOPROLOL TARTRATE 25 MG TAB PO SCH (17:33)
[2021-02-08 21:01] LABS: % Iron Saturation 68.82 (12.00-45.00); Ferritin 1797.7 ng/mL (10.0-291.0); Iron 117 ug/dL (50-170); Total Iron Binding Capacity 170 ug/dL (228-460)
--- NOTE | 2021-02-09 07:16 | FL ---
EXAMINATION TYPE: FL barium swallow w video DATE OF EXAM: 02/08/2021 MODIFIED SWALLOW / DEGLUTITION STUDY CLINICAL HISTORY: Dysphagia. TECHNIQUE: Deglutition study is performed utilizing thin liquid barium, barium thick applesauce, and barium coated cracker. Total fluoro time 59 seconds COMPARISON: None. FINDINGS: The oral and pharyngeal phases show satisfactory initiation and propagation with all modali ties tested. Normal mastication is seen with solid modalities tested. There is no evidence of penet ration or aspiration with any modality tested. No significant pharyngeal residue was appreciated. IMPRESSION: Normal deglutition study. Please refer to speech therapist notes for further details if necessary.
== END 2021-02-08 17:57 | disposition home health service (06) | DRG 871 ==
LOC: EC 19:01 → 3SCARD 22:45
PROVIDERS: ADMIT Hospitalist; ATTEND Hospitalist
PROC: 30230N1 Transfusion of Nonautologous Red Blood Cells into Peripheral Vein, Open Approach (ICD-10-PCS; principal; 2021-02-06)
DX: A41.9 Sepsis, unspecified organism (principal); J18.9 Pneumonia, unspecified organism; J44.0 Chronic obstructive pulmonary disease with (acute) lower respiratory infection; E89.6 Postprocedural adrenocortical (-medullary) hypofunction; C34.02 Malignant neoplasm of left main bronchus; C78.7 Secondary malignant neoplasm of liver and intrahepatic bile duct; J98.11 Atelectasis; D69.6 Thrombocytopenia, unspecified; Z20.822 Contact with and (suspected) exposure to COVID-19; D63.0 Anemia in neoplastic disease; E83.42 Hypomagnesemia; E86.0 Dehydration; I08.1 Rheumatic disorders of both mitral and tricuspid valves; F41.9 Anxiety disorder, unspecified; R32 Unspecified urinary incontinence; R77.8 Other specified abnormalities of plasma proteins; M19.90 Unspecified osteoarthritis, unspecified site; M62.838 Other muscle spasm; M54.9 Dorsalgia, unspecified; M25.552 Pain in left hip; T45.1X5A Adverse effect of antineoplastic and immunosuppressive drugs, initial encounter; R59.0 Localized enlarged lymph nodes; Z99.81 Dependence on supplemental oxygen; Z79.51 Long term (current) use of inhaled steroids; Z79.891 Long term (current) use of opiate analgesic; Z79.899 Other long term (current) drug therapy; Z86.16 Personal history of COVID-19; Z87.01 Personal history of pneumonia (recurrent); Z87.442 Personal history of urinary calculi; Z90.49 Acquired absence of other specified parts of digestive tract; Z90.710 Acquired absence of both cervix and uterus; Z96.652 Presence of left artificial knee joint; Z87.19 Personal history of other diseases of the digestive system; Z87.42 Personal history of other diseases of the female genital tract; Z87.39 Personal history of other diseases of the musculoskeletal system and connective tissue; Z96.5 Presence of tooth-root and mandibular implants; Z86.19 Personal history of other infectious and parasitic diseases; Z87.891 Personal history of nicotine dependence; Z90.6 Acquired absence of other parts of urinary tract; Z86.69 Personal history of other diseases of the nervous system and sense organs; Z87.440 Personal history of urinary (tract) infections; Z98.890 Other specified postprocedural states; Z88.2 Allergy status to sulfonamides; Z88.1 Allergy status to other antibiotic agents; Z91.041 Radiographic dye allergy status; Z81.8 Family history of other mental and behavioral disorders
CPT/HCPCS: 36415; 71046; 71275; 74230; 80048; 80053; 80061; 81003; 82306; 82533; 82728; 83540; 83550; 83605; 83615; 83735; 83880; 84100; 84145; 84484; 85025; 85379; 85610; 85730; 86850; 86900; 86901; 86920; 87040; 87070; 87205; 87635; 93005; 93306; 93970; 94640; 96374; 96375; 99291

== ENCOUNTER 2021-02-16 19:54 | Inpatient (IN) | payer MEDICARE, BC ==
[2021-02-16] MEDS ORDERED: ONDANSETRON 4 MG/2 ML VIAL IVP STA (20:20)
[2021-02-16] MEDS ORDERED: SODIUM CHLORIDE 0.9% 500 ML 500 ML IV ONE (20:20)
[2021-02-16] MEDS ORDERED: HYDROmorphone 0.5 MG/0.5 ML SYRINGE IVP STA (20:20)
--- NOTE | 2021-02-16 20:26 | ED ---
Abdominal Pain HPI - General Source: patient, family Mode of arrival: wheelchair <Beulah Garcia - Last Filed: 02/17/21 01:25> <Keith Antoine - Last Filed: 02/20/21 07:27> - General Chief Complaint: Abdominal Pain Stated Complaint: Abd Pain, Cancer Patient Time Seen by Provider: 02/16/21 20:09 - History of Present Illness Initial Comments: 75 year-old female patient currently in treatment for small cell carcinoma of the lung presents to the emergency department for evaluation of abdominal pain and low back pain that started about 4 days ago. Patient states the pain has been worsening. States it is constant. Daughter reports patient was moaning in pain throughout the night last night. Has been taking norco every 6 hours without relief. Reports two small episodes of vomiting today. States she is able to take in liquids, but has decreased food intake. Denies any diarrhea. Mild constipation. Denies any hematuria, dysuria, urinary frequency, urinary urgency. Denies any known fevers. Patient denies any recent rash, cough, shortness of breath, chest pain, numbness, tingling, dizziness, weakness, headache, visual changes, or any other complaints. (Beulah Garcia) - Related Data Home Medications Medication Instructions Recorded Confirmed Albuterol Inhaler [Ventolin Hfa 2 puff INHALATION RT-QID PRN 10/25/20 02/16/21 Inhaler] Citalopram Hydrobromide 40 mg PO HS 10/25/20 02/16/21 [Citalopram HBr] diphenhydrAMINE [Benadryl] 25 mg PO HS PRN 10/25/20 02/16/21 HYDROcodone/APAP 7.5-325MG [Sarona 1 tab PO Q6H PRN 11/26/20 02/16/21 7.5-325] Omeprazole 20 mg PO DAILY 11/26/20 02/16/21 Ondansetron HCl [Zofran] 4 mg PO Q4H PRN 11/26/20 02/16/21 Cholecalciferol [Vitamin D3 (25 25 mcg PO BID 12/13/20 02/16/21 Mcg = 1000 Iu)] Fluticasone Propion/Salmeterol 1 puff INHALATION RT-BID 12/13/20 02/16/21 [Wixela 250-50 Inhub] Magnesium Oxide 400 mg PO DAILY 02/05/21 02/16/21 Potassium Gluconate 99 mg PO BID 02/05/21 02/16/21 Previous Rx's Medication Instructions Recorded fentaNYL 25MCG/HR PATCH [Duragesic 1 patch TRANSDERM Q72H #3 patch 11/01/20 25MCG/HR] Loperamide [Imodium] 2 mg PO QID PRN #30 cap 01/23/21 Metoprolol Tartrate [Lopressor] 25 mg PO DAILY@1700 #30 tab 02/08/21 Metoprolol Tartrate [Lopressor] 50 mg PO DAILY #30 tab 02/08/21 Allergies Allergy/AdvReac Type Severity Reaction Status Date / Time Iodinated Contrast Media Allergy Unknown Verified 02/16/21 20:07 [Iodinated Contrast Media - IV Dye] sulfamethoxazole Allergy Rash/Hives Verified 02/16/21 20:07 [From Bactrim] trimethoprim [From Bactrim] Allergy Rash/Hives Verified 02/16/21 20:07 Review of Systems ROS Other: All systems not noted in ROS Statement are negative. <Beulah Garcia - Last Filed: 02/17/21 01:25> ROS Other: All systems not noted in ROS Statement are negative. <Keith Antoine - Last Filed: 02/20/21 07:27> ROS Statement: Those systems with pertinent positive or pertinent negative responses have been documented in the HPI. Past Medical History Past Medical History: Cancer, Osteoarthritis (OA), Pneumonia Additional Past Medical History / Comment(s): sinus problems,kidney stones uti, bladder incnt/wears a pad,abd hernia,migraines,"muscles spasms and lt hip pain, had collapsed lung -not large enough to require c/t, DDD, sciatic. just finished fourth round of chemo this week 02/2021. recent breathing difficulties. History of Any Multi-Drug Resistant Organisms: None Reported Date of last positivie culture/infection: 2015 Past Surgical History: Appendectomy, Bladder Surgery, Cholecystectomy, Hysterectomy, Orthopedic Surgery Additional Past Surgical History / Comment(s): artriscopy, lt knee replacemnent,adrenal gland removed,lt knee, colonoscopy, dental implants, 1997 had lt foot sx for hammer toes and stated had an implant in that foot-then january 2015 had a revison of that sx, Cdiff- 2016. covid 11/06 Past Anesthesia/Blood Transfusion Reactions: No Reported Reaction Additional Past Anesthesia/Blood Transfusion Reaction / Comment(s): Pt received blood without reaction. Past Psychological History: Anxiety Smoking Status: Former smoker Past Alcohol Use History: Rare Past Drug Use History: None Reported - Past Family History Mother Family Medical History: Dementia Additional Family Medical History / Comment(s): moms sister also had dementia Father Family Medical History: Unable to Obtain <Beulah Garcia M - Last Filed: 02/17/21 01:25> General Exam General appearance: alert, in no apparent distress, other (This is a well developed, ill appearing adult female patient in mild distress related to pain. Vital signs upon presentation are temperature 98.3F, pulse 125, respirations 17, blood pressure 102/68, pulse ox 98% on room air.) Eye exam: Present: normal appearance, PERRL, EOMI. Absent: scleral icterus, conjunctival injection, periorbital swelling Respiratory exam: Present: normal lung sounds bilaterally. Absent: respiratory distress, wheezes, rales, rhonchi, stridor Cardiovascular Exam: Present: regular rate, normal rhythm, normal heart sounds. Absent: systolic murmur, diastolic murmur, rubs, gallop, clicks GI/Abdominal exam: Present: soft, tenderness (Generalized), guarding, normal bowel sounds. Absent: distended, rebound, rigid Neurological exam: Present: alert, oriented X3, CN II-XII intact Psychiatric exam: Present: normal affect, normal mood Skin exam: Present: warm, dry, intact, normal color. Absent: rash <Beulah Garcia - Last Filed: 02/17/21 01:25> Course Vital Signs 02/16/21 02/16/21 02/16/21 20:02 20:07 22:06 Temperature 98.3 F Pulse Rate 125 H 110 H 116 H Pulse Rate [ Pulse Oximetery ] Respiratory 17 22 18 Rate Blood Pressure 102/68 125/107 109/72 Blood Pressure [Left Arm] O2 Sat by Pulse 98 98 97 Oximetry 02/17/21 02/17/21 02/17/21 00:31 01:00 01:54 Temperature Pulse Rate 115 H 113 H 72 Pulse Rate [ Pulse Oximetery ] Respiratory 20 14 20 Rate Blood Pressure 112/68 124/72 86/55 Blood Pressure [Left Arm] O2 Sat by Pulse 95 95 90 L Oximetry 02/17/21 02:00 Temperature 98.4 F Pulse Rate Pulse Rate [ 117 H Pulse Oximetery ] Respiratory 16 Rate Blood Pressure Blood Pressure 136/82 [Left Arm] O2 Sat by Pulse 95 Oximetry Medical Decision Making - Lab Data Result diagrams: 02/16/21 20:49 02/16/21 20:49 - EKG Data -: EKG Interpreted by Ct - Radiology Data Radiology results: report reviewed, image reviewed <Beulah Garcia - Last Filed: 02/17/21 01:25> - Lab Data Result diagrams: 02/19/21 06:55 02/19/21 06:55 <Keith Antoine - Last Filed: 02/20/21 07:27> - Medical Decision Making 75-year-old female patient presents the emergency department today for evaluation of abdominal pain and low back pain. Patient states the pain is worse she's ever had. Physical examination did reveal tenderness over the entirety of the abdomen, guarding. Labs reviewed and did reveal white blood cell count at 29.4, hemoglobin 7.8, platelets 136. CO2 is 32. Lactic acid is normal. Troponin is negative. EKG did show new ST depression.. We will admit her to the hospital for further monitoring and evaluation. We'll consult oncology. Obtain serial troponins. Give a dose of IV antibiotics. Case discussed with my attending Dr. Antoine. (Beulah Garcia) I saw this patient in conjunction with the physician assistant press operator offset. I performed independent history and physical exam. Agree with case management. (Keith Antoine) - Lab Data Lab Results 02/16/21 02/16/21 02/16/21 Range/Units 20:49 20:49 20:49 WBC 29.4 H (3.8-10.6) k/uL RBC 2.72 L (3.80-5.40) m/uL Hgb 7.8 L (11.4-16.0) gm/dL Hct 24.0 L (34.0-46.0) % MCV 88.2 (80.0-100.0) fL MCH 28.6 (25.0-35.0) pg MCHC 32.4 (31.0-37.0) g/dL RDW 18.8 H (11.5-15.5) % Plt Count 136 L D (150-450) k/uL MPV 7.1 Neutrophils % (Manual) 75 % Band Neuts % (Manual) 11 % Lymphocytes % (Manual) 10 % Monocytes % (Manual) 2 % Metamyelocytes % 2 % Neutrophils # (Manual) 25.20 H (1.3-7.7) k/uL Lymphocytes # (Manual) 2.94 (1.0-4.8) k/uL Monocytes # (Manual) 0.59 (0-1.0) k/uL Metamyelocytes # (Man) 0.59 H (0) k/uL Nucleated RBCs 0 (0-0) /100 WBC Manual Slide Review Performed Anisocytosis Slight Sodium 139 (137-145) mmol/L Potassium 3.9 (3.5-5.1) mmol/L Chloride 104 (98-107) mmol/L Carbon Dioxide 32 H (22-30) mmol/L Anion Gap 3 mmol/L BUN 15 (7-17) mg/dL Creatinine 0.58 (0.52-1.04) mg/dL Est GFR (CKD-EPI)AfAm >90 (>60 ml/min/1.73 sqM) Est GFR (CKD-EPI)NonAf >90 (>60 ml/min/1.73 sqM) Glucose 123 H (74-99) mg/dL Plasma Lactic Acid Jorge (0.7-2.0) mmol/L Calcium 11.9 H (8.4-10.2) mg/dL Total Bilirubin 0.7 (0.2-1.3) mg/dL AST 48 H (14-36) U/L ALT 11 (4-34) U/L Alkaline Phosphatase 171 H (38-126) U/L Troponin I (0.000-0.034) ng/mL Total Protein 5.8 L (6.3-8.2) g/dL Albumin 3.5 (3.5-5.0) g/dL Lipase 24 (23-300) U/L Urine Color Yellow Urine Appearance Clear (Clear) Urine pH 6.5 (5.0-8.0) Ur Specific Hope 1.039 H (1.001-1.035) Urine Protein Negative (Negative) Urine Glucose (UA) Negative (Negative) Urine Ketones Negative (Negative) Urine Blood Negative (Negative) Urine Nitrite Negative (Negative) Urine Bilirubin Negative (Negative) Urine Urobilinogen <2.0 (<2.0) mg/dL Ur Leukocyte Esterase Small H (Negative) Urine RBC 2 (0-5) /hpf Urine WBC 18 H (0-5) /hpf Ur Squamous Epith Cells 5 H (0-4) /hpf Amorphous Sediment Occasional H (None) /hpf Hyaline Casts 5 H (0-2) /lpf Urine Mucus Rare H (None) /hpf 02/16/21 02/16/21 Range/Units 20:49 20:49 WBC (3.8-10.6) k/uL RBC (3.80-5.40) m/uL Hgb (11.4-16.0) gm/dL Hct (34.0-46.0) % MCV (80.0-100.0) fL MCH (25.0-35.0) pg MCHC (31.0-37.0) g/dL RDW (11.5-15.5) % Plt Count (150-450) k/uL MPV Neutrophils % (Manual) % Band Neuts % (Manual) % Lymphocytes % (Manual) % Monocytes % (Manual) % Metamyelocytes % % Neutrophils # (Manual) (1.3-7.7) k/uL Lymphocytes # (Manual) (1.0-4.8) k/uL Monocytes # (Manual) (0-1.0) k/uL Metamyelocytes # (Man) (0) k/uL Nucleated RBCs (0-0) /100 WBC Manual Slide Review Anisocytosis Sodium (137-145) mmol/L Potassium (3.5-5.1) mmol/L Chloride (98-107) mmol/L Carbon Dioxide (22-30) mmol/L Anion Gap mmol/L BUN (7-17) mg/dL Creatinine (0.52-1.04) mg/dL Est GFR (CKD-EPI)AfAm (>60 ml/min/1.73 sqM) Est GFR (CKD-EPI)NonAf (>60 ml/min/1.73 sqM) Glucose (74-99) mg/dL Plasma Lactic Acid Jorge 1.1 (0.7-2.0) mmol/L Calcium (8.4-10.2) mg/dL Total Bilirubin (0.2-1.3) mg/dL AST (14-36) U/L ALT (4-34) U/L Alkaline Phosphatase (38-126) U/L Troponin I <0.012 (0.000-0.034) ng/mL Total Protein (6.3-8.2) g/dL Albumin (3.5-5.0) g/dL Lipase (23-300) U/L Urine Color Urine Appearance (Clear) Urine pH (5.0-8.0) Ur Specific Hope (1.001-1.035) Urine Protein (Negative) Urine Glucose (UA) (Negative) Urine Ketones (Negative) Urine Blood (Negative) Urine Nitrite (Negative) Urine Bilirubin (Negative) Urine Urobilinogen (<2.0) mg/dL Ur Leukocyte Esterase (Negative) Urine RBC (0-5) /hpf Urine WBC (0-5) /hpf Ur Squamous Epith Cells (0-4) /hpf Amorphous Sediment (None) /hpf Hyaline Casts (0-2) /lpf Urine Mucus (None) /hpf - EKG Data EKG Comments: EKG obtained at 2248 shows sinus tachycardia with a ventricular rate of 126, NC interval 118, QR muslim 66, QT 258, QTC 373. There is evidence for new ST depression. (Beulah Garcia) - Radiology Data CT lumbar spine with contrast shows multilevel lumbar spondylotic changes. No fracture. No change compared to 10/30/2020 CT abdomen and pelvis is obtained. Report is reviewed in its entirety. Impression by Dr. Cr shows a sense of hepatic metastatic disease which appears slightly improved compared to last exam. Epigastric ventral hernia unchanged. Clearing up. Buccal subcu case edema compared to old exam. There is increased atelectasis right posterior lung bases compared to last exam. No significant change the left lower lobe consolidation and atelectasis. (Beulah Garcia) Disposition Decision to Admit Reason: Admit from EC Decision Date: 02/17/21 Decision Time: 01:10 <Beulah Garcia - Last Filed: 02/17/21 01:25> <Keith Antoine - Last Filed: 02/20/21 07:27> Clinical Impression: Leukocytosis (leucocytosis), Abdominal pain, Back pain Disposition: ADMITTED IP TO THIS HOSP Condition: Serious
[2021-02-16] MEDS ORDERED: HYDROmorphone 1 MG/ML 1 ML SYRINGE IVP STA (21:24)
[2021-02-16 21:35] LABS: Anisocytosis Slight; HGB 7.8 gm/dL (11.4-16.0); MCH 28.6 pg (25.0-35.0); MCHC 32.4 g/dL (31.0-37.0); MCV 88.2 fL (80.0-100.0); Mean Platelet Volume 7.1; Platelet Count 136 k/uL (150-450); RBC 2.72 m/uL (3.80-5.40); RDW 18.8 % (11.5-15.5); WBC 29.4 k/uL (3.8-10.6)
[2021-02-16 21:38] LABS: ALT 11 U/L (4-34); AST 48 U/L (14-36); African American GFR (CKD) >90 (>60 ml/min/1.73 sqM); Albumin 3.5 g/dL (3.5-5.0); Alkaline Phosphatase 171 U/L (38-126); Anion Gap 3 mmol/L; Blood Urea Nitrogen 15 mg/dL (7-17); Calcium 11.9 mg/dL (8.4-10.2); Carbon Dioxide 32 mmol/L (22-30); Chloride 104 mmol/L (98-107); Glucose 123 mg/dL (74-99); Lipase 24 U/L (23-300); Non-African American GFR(CKD) >90 (>60 ml/min/1.73 sqM); Potassium 3.9 mmol/L (3.5-5.1); Sodium 139 mmol/L (137-145); Total Bilirubin 0.7 mg/dL (0.2-1.3); Total Protein 5.8 g/dL (6.3-8.2)
[2021-02-16] MEDS ORDERED: FAMOTIDINE 20 MG/2 ML VIAL IV STA (21:41)
[2021-02-16] MEDS ORDERED: methylPREDNISolone SOD SUCCI 125 MG/2 ML VIAL IV STA (21:41)
[2021-02-16] MEDS ORDERED: diphenhydrAMINE 50 MG/ML 1 ML VIAL IVP STA (21:41)
[2021-02-16 22:08] LABS: Band Neutrophils % 11 %; Lymphocytes # (M) 2.94 k/uL (1.0-4.8); Metamyelocytes # (M) 0.59 k/uL (0); Metamyelocytes % 2 %; Monocytes # (M) 0.59 k/uL (0-1.0); Neutrophils % (M) 75 %; Nucleated Red Blood Cells 0 /100 WBC (0-0); Total Cells Counted 100
--- NOTE | 2021-02-16 23:01 | CT ---
EXAMINATION TYPE: CT abdomen pelvis w con DATE OF EXAM: 02/16/2021 COMPARISON: 01/20/2021 HISTORY: Abdominal/back pain. Hx small cell ca. CT DLP: 1669.5 mGycm Automated exposure control for dose reduction was used. CONTRAST: Performed with IV Contrast, patient injected with 100 mL of Isovue 300. Images obtained from the diaphragm to the floor the pelvis with IV contrast. There is airspace consolidation and atelectasis in the left lower lobe left paraspinal region. There is some mild atelectasis right posterior lung base. Heart appears borderline enlarged. There are multiple variable-sized hypodense masses throughout the liver with some peripheral enhancem ent and consistent with hepatic metastatic disease. These measure up to 3 cm. There are clips from ch olecystectomy. Spleen is intact. There is no evidence of pancreatic mass. Stomach is intact. There is epigastric ventral hernia that contains omental fat and measures 5.5 x 3 cm. Kidneys show satisfactory contrast opacification. There is no hydronephrosis. The ureters are not dil ated. There is no retroperitoneal adenopathy. Bladder distends smoothly. There is 2 cm cortical cyst upper pole right kidney. There is no evidence of adrenal mass. The ureters are not dilated. Delayed images show normal renal excretion. There is no inguinal hernia. There is no evidence of a bowel obstruction. There is no mesenteric edema. There is no ascites or fr ee air. There is some coarse trabeculae in the left side of the T12 vertebral body. This is consisten t with hemangioma and appears unchanged. The bony pelvis is intact. Hip joints are intact. IMPRESSION: Extensive hepatic metastatic disease which appear slightly improved compared to last exam. Epigastric ventral hernia unchanged. There is clearing of the periumbilical subcutaneous edema compared to old exam. There is increased at electasis right posterior lung base compared to last exam. There is no significant change in the left lower lobe consolidation and atelectasis.
--- NOTE | 2021-02-16 23:06 | CT ---
EXAMINATION TYPE: CT lumbar spine w con DATE OF EXAM: 02/16/2021 COMPARISON: None HISTORY: Abdominal/back pain. Hx small cell ca. CT DLP: 1669.5 mGycm Automated exposure control for dose reduction was used. CONTRAST: Performed with IV Contrast, patient injected with 100 mL of Isovue 300. Images obtained from the level ofLumbar T11 to the S3 vertebra with IV contrast. Vertebra have Normal alignment. There is degenerative disc space narrowing throughout the lumbar spi ne with spur formation. There is no compression fracture. There is coarse trabeculae in the left side of the T12 vertebral body extending into the pedicle. This is also present on the old CT scan of and consistent with a hemangioma. I see no focal bone destruction. Abdominal aorta is atherom atous. There is no lumbar paraspinal mass. The sacroiliac joints appear intact. IMPRESSION: Multilevel lumbar spondylotic changes. No fracture. No change compared to 10/30/2020.
[2021-02-17 00:13] LABS: Amorphous Sediment,Urine Occasional /hpf; Appearance,Urine Clear (Clear); Bilirubin,Urine Negative (Negative); Blood,Urine Negative (Negative); Color,Urine Yellow; Glucose,Urine (UA) Negative (Negative); Hyaline Casts,Urine 5 /lpf (0-2); Ketones,Urine Negative (Negative); Leukocyte Esterase,Urine Small (Negative); Mucus,Urine Rare /hpf; Nitrite,Urine Negative (Negative); PH, Urine 6.5 (5.0-8.0); Protein,Urine Negative (Negative); RBC,Urine 2 /hpf (0-5); Specific Gravity,Urine 1.039 (1.001-1.035); Squamous Epithelial Cell,Urine 5 /hpf (0-4); Urobilinogen,Urine <2.0 mg/dL (<2.0); WBC,Urine 18 /hpf (0-5)
[2021-02-17] MEDS ORDERED: CEFEPIME 2 GM in SODIUM CHLORIDE 0.9% 100 ML IVPB STA (01:02)
[2021-02-17] MEDS ORDERED: NALOXONE 0.4 MG/ML 1 ML VIAL IV PRN (01:06)
[2021-02-17] MEDS ORDERED: ONDANSETRON 4 MG/2 ML VIAL IVP PRN (01:06)
[2021-02-17] MEDS: SODIUM CHLORIDE 0.9% 1,000 ML IV SCH ×2 (01:44→20:28)
[2021-02-17 04:10] LABS: Glucose,Whole Blood 155 mg/dL (75-99)
[2021-02-17] MEDS ORDERED: LOPERAMIDE 2 MG CAP PO PRN (07:04)
[2021-02-17] MEDS ORDERED: ONDANSETRON 4 MG TAB PO PRN (07:04)
[2021-02-17] MEDS ORDERED: diphenhydrAMINE 25 MG CAP PO PRN (07:04)
[2021-02-17] MEDS: CHOLECALCIFEROL 25 MCG (1000 IU) TABLET PO SCH ×2 (08:29→20:28)
[2021-02-17] MEDS: PANTOPRAZOLE 40 MG TABLET PO SCH (08:29)
[2021-02-17] MEDS: METOPROLOL TARTRATE 50 MG TAB PO SCH (08:29)
[2021-02-17] MEDS: MAGNESIUM OXIDE 400 MG TAB PO SCH (08:29)
[2021-02-17] MEDS: SYMBICORT 80-4.5 MCG INHALER INHALATION SCH ×2 (08:42→20:25)
[2021-02-17] MEDS ORDERED: NON FORMULARY DRUG (Potassium Gluconate [Potassium Gluconate] 99 MG Tablet.Er) PO SCH (09:00)
[2021-02-17] MEDS ORDERED: HEPARIN SODIUM 1,000 UN/ML (10ML VL) IV PRN (11:05)
[2021-02-17] MEDS ORDERED: HEPARIN SODIUM 1,000 UN/ML (10ML VL) IV ONE (11:05)
[2021-02-17] MEDS ORDERED: polyethylene glycoL 3350 17 GM POWD.PACK PO PRN (11:07)
[2021-02-17] MEDS ORDERED: HEPARIN SOD,PORK IN 0.45% NACL 25,000 UNIT in 0.45% NACL 1 250ML.BAG IV SCH (11:15)
--- NOTE | 2021-02-17 11:16 | P.HPIM ---
History of Present Illness Patient is pleasant 75-year-old male with known history of small cell carcinoma came in with the worsening abdominal pain and back pain. Patient also gave me a vague history with sounds like patient had a syncopal episode. Patient is mainly admitted for elevated troponins and leukocytosis without any clear evidence of infection. Abdominal CAT scan showed significant metastatic disease I do not have any chest x-ray available will obtain a chest x-ray to rule out any pneumonic infiltrate. Patient does have leukocytosis. Patient the last chemotherapy as per the patient was about couple weeks ago unsure whether patient received a colony-stimulating factor like Neupogen which may have contributed to her leukocytosis. Patient doesn't have any fever chills patient denied any dysuria patient the urine is not significantly abnormal but is a contaminated urine sample. Patient does have some chronic cough denied any sputum production. Patient denied any significant chest pain REVIEW OF SYSTEMS: CONSTITUTIONAL: No fever, no malaise, no fatigue. HEENT: No recent visual problems or hearing problems. Denied any sore throat. CARDIOVASCULAR: No chest pain, orthopnea, PND, no palpitations, no syncope. PULMONARY: No shortness of breath, no cough, no hemoptysis. GASTROINTESTINAL: No diarrhea, no nausea, no vomiting, no abdominal pain. NEUROLOGICAL: No headaches, no weakness, no numbness. HEMATOLOGICAL: Denies any bleeding or petechiae. GENITOURINARY: Denies any burning micturition, frequency, or urgency. MUSCULOSKELETAL/RHEUMATOLOGICAL: As mentioned in HPI ENDOCRINE: Denies any polyuria or polydipsia. The rest of the 14-point review of systems is negative. PHYSICAL EXAMINATION: GENERAL: The patient is alert and oriented x3, not in any acute distress. Well developed, well nourished. HEENT: Pupils are round and equally reacting to light. EOMI. No scleral icterus. No conjunctival pallor. Normocephalic, atraumatic. No pharyngeal erythema. No thyromegaly. CARDIOVASCULAR: S1 and S2 present. No murmurs, rubs, or gallops. PULMONARY: Chest is clear to auscultation, no wheezing or crackles. ABDOMEN: Soft, nontender, nondistended, normoactive bowel sounds. No palpable organomegaly. MUSCULOSKELETAL: No joint swelling or deformity. EXTREMITIES: No cyanosis, clubbing, or pedal edema. NEUROLOGICAL: Gross neurological examination did not reveal any focal deficits. SKIN: No rashes. Assessment and plan -Back pain and the abdominal pain: Secondary to metastatic disease. Patient will be continued on home regimen will titrate depending on her pain control. -Elevated troponin etiology is not clear cardiology was consulted patient will be started on IV heparin for now -COPD without any acute exacerbation Chronic hypoxic and hypercapnic respiratory failure seconded to COPD as well as lung cancer -Leukocytosis no evidence of infection so far depending on the d-dimer will decide on whether to get a CT angios the chest are just a chest x-ray if her d- dimer is negative possibility of pneumonia is low risk clinically patient doesn't have any pneumonia patient is presently not on any antibiotics will monitor her without antibiotics. -Lung cancer: Oncology will follow the patient DVT prophylaxis: Patient is presently on IV heparin which will be continued Past Medical History Past Medical History: Cancer, Osteoarthritis (OA), Pneumonia Additional Past Medical History / Comment(s): sinus problems,kidney stones uti, bladder incnt/wears a pad,abd hernia,migraines,"muscles spasms and lt hip pain, had collapsed lung -not large enough to require c/t, DDD, sciatic. just finished fourth round of chemo this week 02/2021. recent breathing difficulties. History of Any Multi-Drug Resistant Organisms: None Reported Date of last positivie culture/infection: 2015 Past Surgical History: Appendectomy, Bladder Surgery, Cholecystectomy, Hysterectomy, Orthopedic Surgery Additional Past Surgical History / Comment(s): artriscopy, lt knee replacemnent,adrenal gland removed,lt knee, colonoscopy, dental implants, 1997 had lt foot sx for hammer toes and stated had an implant in that foot-then january 2015 had a revison of that sx, Cdiff- 2015. covid 11/06 Past Anesthesia/Blood Transfusion Reactions: No Reported Reaction Additional Past Anesthesia/Blood Transfusion Reaction / Comment(s): Pt received blood without reaction. Past Psychological History: Anxiety Smoking Status: Former smoker Past Alcohol Use History: Rare Past Drug Use History: None Reported - Past Family History Mother Family Medical History: Dementia Additional Family Medical History / Comment(s): moms sister also had dementia Father Family Medical History: Unable to Obtain Medications and Allergies Home Medications Medication Instructions Recorded Confirmed Type Albuterol Inhaler [Ventolin Hfa 2 puff INHALATION RT-QID PRN 10/25/20 02/16/21 History Inhaler] Citalopram Hydrobromide 40 mg PO HS 10/25/20 02/16/21 History [Citalopram HBr] diphenhydrAMINE [Benadryl] 25 mg PO HS PRN 10/25/20 02/16/21 History fentaNYL 25MCG/HR PATCH [Duragesic 1 patch TRANSDERM Q72H #3 patch 11/01/20 02/16/21 Rx 25MCG/HR] HYDROcodone/APAP 7.5-325MG [[place] 1 tab PO Q6H PRN 11/26/20 02/16/21 History 7.5-325] Omeprazole 20 mg PO DAILY 11/26/20 02/16/21 History Ondansetron HCl [Zofran] 4 mg PO Q4H PRN 11/26/20 02/16/21 History Cholecalciferol [Vitamin D3 (25 25 mcg PO BID 12/13/20 02/16/21 History Mcg = 1000 Iu)] Fluticasone Propion/Salmeterol 1 puff INHALATION RT-BID 12/13/20 02/16/21 History [Wixela 250-50 Inhub] Loperamide [Imodium] 2 mg PO QID PRN #30 cap 01/23/21 02/16/21 Rx Magnesium Oxide 400 mg PO DAILY 02/05/21 02/16/21 History Potassium Gluconate 99 mg PO BID 02/05/21 02/16/21 History Metoprolol Tartrate [Lopressor] 25 mg PO DAILY@1700 #30 tab 02/08/21 02/16/21 Rx Metoprolol Tartrate [Lopressor] 50 mg PO DAILY #30 tab 02/08/21 02/16/21 Rx Allergies Allergy/AdvReac Type Severity Reaction Status Date / Time Iodinated Contrast Media Allergy Unknown Verified 02/16/21 20:07 [Iodinated Contrast Media - IV Dye] sulfamethoxazole Allergy Rash/Hives Verified 02/16/21 20:07 [From Bactrim] trimethoprim [From Bactrim] Allergy Rash/Hives Verified 02/16/21 20:07 Physical Exam Vitals: Vital Signs Temp Pulse Pulse Resp BP BP Pulse Ox 02/17/21 08:20 97 02/17/21 07:35 98.3 F 121 H 17 179/86 96 02/17/21 02:00 98.4 F 117 H 16 136/82 95 02/17/21 01:54 72 20 86/55 90 L 02/17/21 01:00 113 H 14 124/72 95 02/17/21 00:31 115 H 20 112/68 95 02/16/21 22:06 116 H 18 109/72 97 02/16/21 20:07 110 H 22 125/107 98 02/16/21 20:02 98.3 F 125 H 17 102/68 98 Intake and Output 02/16/21 02/17/21 02/17/21 22:59 06:59 14:59 Other: Voiding Method Bedpan Diaper # Voids 4 Weight 58.967 kg 58.967 kg Results CBC & Chem 7: 02/16/21 20:49 02/16/21 20:49 Labs: Abnormal Lab Results - Last 24 Hours (Table) 02/16/21 02/16/21 02/16/21 Range/Units 20:49 20:49 20:49 WBC 29.4 H (3.8-10.6) k/uL RBC 2.72 L (3.80-5.40) m/uL Hgb 7.8 L (11.4-16.0) gm/dL Hct 24.0 L (34.0-46.0) % RDW 18.8 H (11.5-15.5) % Plt Count 136 L D (150-450) k/uL Neutrophils # (Manual) 25.20 H (1.3-7.7) k/uL Metamyelocytes # (Man) 0.59 H (0) k/uL Carbon Dioxide 32 H (22-30) mmol/L Glucose 123 H (74-99) mg/dL POC Glucose (mg/dL) (75-99) mg/dL Calcium 11.9 H (8.4-10.2) mg/dL AST 48 H (14-36) U/L Alkaline Phosphatase 171 H (38-126) U/L Troponin I (0.000-0.034) ng/mL Total Protein 5.8 L (6.3-8.2) g/dL Ur Specific [place] 1.039 H (1.001-1.035) Ur Leukocyte Esterase Small H (Negative) Urine WBC 18 H (0-5) /hpf Ur Squamous Epith Cells 5 H (0-4) /hpf Amorphous Sediment Occasional H (None) /hpf Hyaline Casts 5 H (0-2) /lpf Urine Mucus Rare H (None) /hpf 02/17/21 02/17/21 02/17/21 Range/Units 02:56 04:03 05:52 WBC (3.8-10.6) k/uL RBC (3.80-5.40) m/uL Hgb (11.4-16.0) gm/dL Hct (34.0-46.0) % RDW (11.5-15.5) % Plt Count (150-450) k/uL Neutrophils # (Manual) (1.3-7.7) k/uL Metamyelocytes # (Man) (0) k/uL Carbon Dioxide (22-30) mmol/L Glucose (74-99) mg/dL POC Glucose (mg/dL) 155 H (75-99) mg/dL Calcium (8.4-10.2) mg/dL AST (14-36) U/L Alkaline Phosphatase (38-126) U/L Troponin I 0.519 H* 0.710 H* (0.000-0.034) ng/mL Total Protein (6.3-8.2) g/dL Ur Specific [place] (1.001-1.035) Ur Leukocyte Esterase (Negative) Urine WBC (0-5) /hpf Ur Squamous Epith Cells (0-4) /hpf Amorphous Sediment (None) /hpf Hyaline Casts (0-2) /lpf Urine Mucus (None) /hpf Microbiology - Last 24 Hours (Table) 02/16/21 20:49 Urine Culture - Preliminary Urine,Voided Thrombosis Risk Factor Assmnt - Choose All That Apply Any of the Below Risk Factors Present?: No Other Risk Factors: Yes Each Risk Factor Represents 2 Points: Age 61-74 years Other congenital or acquired thrombophilia - If yes, enter type in comment: No Thrombosis Risk Factor Assessment Total Risk Factor Score: 2 Thrombosis Risk Factor Assessment Level: Low Risk
[2021-02-17] MEDS: ASPIRIN 81 MG PO SCH (12:05)
[2021-02-17 12:07] LABS: D-Dimer 0.86 mg/L FEU (<0.60); Partial Thromboplastin Time 22.5 sec (22.0-30.0); Prothrombin Time 10.8 sec (9.0-12.0)
[2021-02-17] MEDS: HYDROmorphone 0.5 MG/0.5 ML SYRINGE IVP PRN (12:17)
--- NOTE | 2021-02-17 13:01 | ECHOF ---
Referral Reason:LV function MEASUREMENTS -------- HEIGHT: 160.0 cm WEIGHT: 59.0 kg BP: IVSd: 1.1 cm (0.6 - 1.1) LVIDd: 4.4 cm (3.9 - 5.3) LVPWd: 1.3 cm (0.6 - 1.1) IVSs: 1.4 cm LVIDs: 3.1 cm LVPWs: 1.3 cm LAESV Index (A-L): 30.25 ml/m IVSd: 0.9 cm (0.6 - 1.1) LVIDd: 6.6 cm (3.9 - 5.3) LVPWd: 1.2 cm (0.6 - 1.1) IVSs: 1.0 cm LVIDs: 4.7 cm LVPWs: 2.3 cm EDV(Teich): 220 ml ESV(Teich): 104 ml EF(Teich): 53 % %FS: 28 % SV(Teich): 116 ml RAP: 5.00 mmHg RVSP: 42.49 mmHg FINDINGS -------- Sinus rhythm. This was a technically adequate study. Limited Study The left ventricular size is normal. Left ventricular wall thickness is normal. Overall left vent ricular systolic function is mildly impaired with, an EF between 45 - 50 %. Mid anteroseptal LV wal l motion is hypokinetic. Apical inferior LV wall motion is hypokinetic. Apical septum LV wall m otion is normal. Possible Distal Septum Hypokinesis. LA is midly dilated 29-33ml/m2. Moderate mitral regurgitation is present. Moderate tricuspid regurgitation present. There is moderate pulmonary hypertension. There is no pericardial effusion. CONCLUSIONS -------- 1. The left ventricular size is normal. 2. Left ventricular wall thickness is normal. 3. Overall left ventricular systolic function is mildly impaired with, an EF between 45 - 50 %. 4. Apical septum LV wall motion is normal. 5. LA is midly dilated 29-33ml/m2. 6. Moderate mitral regurgitation is present. 7. Moderate tricuspid regurgitation present. 8. There is moderate pulmonary hypertension. [employer]: Soni Mcgraw [facility]
[2021-02-17 13:16] VITALS: BMI 23.0
--- NOTE | 2021-02-17 13:24 | P.CRDCN ---
History of Present Illness History of present illness: HISTORY OF PRESENTING ILLNESS This is a pleasant 75-year-old female past medical history significant for small cell lung cancer currently on chemotherapy last chemo was January, former nicotine dependence recently quit in august, osteoarthritis, degenerative joint disease, muscle spasms, appendectomy, recent covid-19 several months ago. 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 We have been asked to see in consultation for elevated troponin. Admitted for abdominal pain and back pain and leukocytosis. Patient was confused on admission. CT abdomen and pelvis revealed extensive hepatic metastatic disease which appeared slightly improved compared to last exam. Epigastric ventral hernia. Increase atelectasis right posterior lung base compared to last exam. No significant change in left lower lobe consolidation and atelectasis. Lumbar CT revealed multi-level lumbar spondylitic changes. No fracture. EKG revealed sinus tachycardia, heart rate 126, ST depression in the inferior and anterior leads. This is new . Her troponin trend is negative 1,--> 0.5,--> 0.7. Patient denies any chest pain, shortness of breath, lightheadedness, dizziness. She denies history of [place], coronary disease, stroke, diabetes. She denies shortness of breath, nausea, diaphoresis, lightheadedness, dizziness. Lab today reviewed WBC 29, hemoglobin 7.8, platelets 136, sodium 139, potassium 3.9, BUN 15, serum creatinine 0.58, TSH within normal limits On 01/05/2021 patient presents for hospital with chest pain. EKG sinus tachycardia, rate 113, no significant ST-T wave abnormalities. Laboratory data reviewed troponin 3 at that time. Echocardiogram in 02/06/2021 revealed an EF of greater than 55%, mild to moderate mitral regurgitation, mild tricuspid regurgitation. REVIEW OF SYSTEMS At the time of my exam: CONSTITUTIONAL: Denies fever or chills. CARDIOVASCULAR: Denies chest pain, Denies shortness of breath, orthopnea, PND or palpitations. RESPIRATORY: Denies cough. GASTROINTESTINAL: Denies abdominal pain, diarrhea, constipation, nausea or vomiting. MUSCULOSKELETAL: Denies myalgias. NEUROLOGIC: Denies numbness, tingling, headacbe or weakness. ENDOCRINE: Denies fatigue, weight change, polydipsia or polyurina. GENITOURINARY: Denies burning, hematuria or urgency with micturation. HEMATOLOGIC: Denies history of anemia or bleeding. PHYSICAL EXAMINATION Blood pressure 136/82 heart rate on 117 afebrile and maintaining oxygen saturation 99% on 2 L nasal cannula CONSTITUTIONAL: No apparent distress. HEENT: Head is normocephalic. Pupils are equal, round. Sclerae anicteric. Mucous membranes of the mouth are moist. No JVD. No carotid bruit. CHEST EXAMINATION: Lungs diminished to auscultation bilaterally. No chest wall tenderness is noted on palpation or with deep breathing. HEART EXAMINATION: Regular rate and rhythm. S1, S2 heard. Systolic murmur ABDOMEN: Soft, nontender. Positive bowel sounds. EXTREMITIES: 2+ peripheral pulses, no lower extremity edema and no calf tendern ess. NEUROLOGIC EXAMINATION: Patient is awake, alert and oriented x3. ASSESSMENT Elevated Troponin, consistent with possible NSTEMI Leukocytosis Small Cell Lung Cancer currently on chemotherapy with hepatic metastatic disease Former nicotine dependence PLAN At this time we recommend medical management. Patient is not a candidate for cardiac catheterization at this time. Obtain repeat Limited Echocardiogram Start Aspirin Continue beta tonya Heparin drip started Further recommendations based on clinical course. Nurse Practitioner note has been reviewed, I agree with a documented findings and plan of care. Patient was seen and examined. Past Medical History Past Medical History: Cancer, Osteoarthritis (OA), Pneumonia Additional Past Medical History / Comment(s): sinus problems,kidney stones uti, bladder incnt/wears a pad,abd hernia,migraines,"muscles spasms and lt hip pain, had collapsed lung -not large enough to require c/t, DDD, sciatic. just finished fourth round of chemo this week 02/2021. recent breathing difficulties. History of Any Multi-Drug Resistant Organisms: None Reported Date of last positivie culture/infection: 2015 Past Surgical History: Appendectomy, Bladder Surgery, Cholecystectomy, Hysterectomy, Orthopedic Surgery Additional Past Surgical History / Comment(s): artriscopy, lt knee replacemnent,adrenal gland removed,lt knee, colonoscopy, dental implants, 1997 had lt foot sx for hammer toes and stated had an implant in that foot-then january 2015 had a revison of that sx, Cdiff- 2015. covid 11/06 Past Anesthesia/Blood Transfusion Reactions: No Reported Reaction Additional Past Anesthesia/Blood Transfusion Reaction / Comment(s): Pt received blood without reaction. Past Psychological History: Anxiety Smoking Status: Former smoker Past Alcohol Use History: Rare Past Drug Use History: None Reported - Past Family History Mother Family Medical History: Dementia Additional Family Medical History / Comment(s): moms sister also had dementia Father Family Medical History: Unable to Obtain Medications and Allergies Home Medications Medication Instructions Recorded Confirmed Type Albuterol Inhaler [Ventolin Hfa 2 puff INHALATION RT-QID PRN 10/25/20 02/16/21 History Inhaler] Citalopram Hydrobromide 40 mg PO HS 10/25/20 02/16/21 History [Citalopram HBr] diphenhydrAMINE [Benadryl] 25 mg PO HS PRN 10/25/20 02/16/21 History fentaNYL 25MCG/HR PATCH [Duragesic 1 patch TRANSDERM Q72H #3 patch 11/01/20 02/16/21 Rx 25MCG/HR] HYDROcodone/APAP 7.5-325MG [[place] 1 tab PO Q6H PRN 11/26/20 02/16/21 History 7.5-325] Omeprazole 20 mg PO DAILY 11/26/20 02/16/21 History Ondansetron HCl [Zofran] 4 mg PO Q4H PRN 11/26/20 02/16/21 History Cholecalciferol [Vitamin D3 (25 25 mcg PO BID 12/13/20 02/16/21 History Mcg = 1000 Iu)] Fluticasone Propion/Salmeterol 1 puff INHALATION RT-BID 12/13/20 02/16/21 History [[place]ela 250-50 Inhub] Loperamide [Imodium] 2 mg PO QID PRN #30 cap 01/23/21 02/16/21 Rx Magnesium Oxide 400 mg PO DAILY 02/05/21 02/16/21 History Potassium Gluconate 99 mg PO BID 02/05/21 02/16/21 History Metoprolol Tartrate [Lopressor] 25 mg PO DAILY@1700 #30 tab 02/08/21 02/16/21 Rx Metoprolol Tartrate [Lopressor] 50 mg PO DAILY #30 tab 02/08/21 02/16/21 Rx Allergies Allergy/AdvReac Type Severity Reaction Status Date / Time Iodinated Contrast Media Allergy Unknown Verified 02/16/21 20:07 [Iodinated Contrast Media - IV Dye] sulfamethoxazole Allergy Rash/Hives Verified 02/16/21 20:07 [From Bactrim] trimethoprim [From Bactrim] Allergy Rash/Hives Verified 02/16/21 20:07 Physical Exam Vitals: Vital Signs Temp Pulse Pulse Resp BP BP Pulse Ox 02/17/21 02:00 98.4 F 117 H 16 136/82 95 02/17/21 01:54 72 20 86/55 90 L 02/17/21 01:00 113 H 14 124/72 95 02/17/21 00:31 115 H 20 112/68 95 02/16/21 22:06 116 H 18 109/72 97 02/16/21 20:07 110 H 22 125/107 98 02/16/21 20:02 98.3 F 125 H 17 102/68 98 Intake and Output 02/16/21 02/17/21 02/17/21 22:59 06:59 14:59 Other: Voiding Method Bedpan Diaper # Voids 4 Weight 58.967 kg Results 02/16/21 20:49 02/16/21 20:49 Cardiac Enzymes 02/16/21 02/16/21 02/17/21 Range/Units 20:49 20:49 02:56 AST 48 H (14-36) U/L Troponin I <0.012 0.519 H* (0.000-0.034) ng/mL CBC 02/16/21 Range/Units 20:49 WBC 29.4 H (3.8-10.6) k/uL RBC 2.72 L (3.80-5.40) m/uL Hgb 7.8 L (11.4-16.0) gm/dL Hct 24.0 L (34.0-46.0) % Plt Count 136 L D (150-450) k/uL Comprehensive Metabolic Panel 02/16/21 Range/Units 20:49 Sodium 139 (137-145) mmol/L Potassium 3.9 (3.5-5.1) mmol/L Chloride 104 (98-107) mmol/L Carbon Dioxide 32 H (22-30) mmol/L BUN 15 (7-17) mg/dL Creatinine 0.58 (0.52-1.04) mg/dL Glucose 123 H (74-99) mg/dL Calcium 11.9 H (8.4-10.2) mg/dL AST 48 H (14-36) U/L ALT 11 (4-34) U/L Alkaline Phosphatase 171 H (38-126) U/L Total Protein 5.8 L (6.3-8.2) g/dL Albumin 3.5 (3.5-5.0) g/dL Current Medications Generic Name Dose Route Start Last Admin Trade Name Freq PRN Reason Stop Dose Admin Albuterol Sulfate 2 puff 02/17/21 07:04 Albuterol Hfa Inhaler INHALATION RT-QID PRN Shortness Of Breath Cholecalciferol 25 mcg 02/17/21 09:00 Cholecalciferol 25 Mcg (1000 Iu) Tablet PO BID [facility] Diphenhydramine HCl 25 mg 02/17/21 07:04 Diphenhydramine 25 Mg Cap PO HS PRN SLEEP/ALLERGIC REACTION Fentanyl 1 patch 02/17/21 07:15 Fentanyl 25mcg/Hr Patch TRANSDERM Q72H [facility] Protocol Hydromorphone HCl 0.5 mg 02/17/21 01:06 Hydromorphone 0.5 Mg/0.5 Ml Syringe IVP Q3HR PRN Moderate Pain Sodium Chloride 1,000 mls @ 50 mls/hr 02/17/21 01:15 02/17/21 01:44 Saline 0.9% IV 50 mls/hr .Q20H [facility] Administration Loperamide HCl 2 mg 02/17/21 07:04 Loperamide 2 Mg Cap PO QID PRN Diarrhea Metoprolol Tartrate 25 mg 02/17/21 17:00 Metoprolol Tartrate 25 Mg Tab PO DAILY@1700 [facility] Metoprolol Tartrate 50 mg 02/17/21 09:00 Metoprolol Tartrate 50 Mg Tab PO DAILY [facility] Naloxone HCl 0.2 mg 02/17/21 01:06 Naloxone 0.4 Mg/Ml 1 Ml Vial IV Q2M PRN Opioid Reversal Non-Formulary Medication 40 mg 02/17/21 21:00 Citalopram Hydrobromide [Citalopram Hbr] PO HS [facility] Non-Formulary Medication 1 puff 02/17/21 08:00 Fluticasone Propion/Salmeterol [[place] 250-50 Inhub] INHALATION RT-BID [facility] Non-Formulary Medication 400 mg 02/17/21 09:00 Magnesium Oxide [Magnesium Oxide] PO DAILY [facility] Non-Formulary Medication 20 mg 02/17/21 09:00 Omeprazole [Omeprazole] PO DAILY [facility] Non-Formulary Medication 99 mg 02/17/21 09:00 Potassium Gluconate [Potassium Gluconate] PO BID [facility] Ondansetron HCl 4 mg 02/17/21 01:06 Ondansetron 4 Mg/2 Ml Vial IVP Q8HR PRN Nausea And Vomiting Ondansetron HCl 4 mg 02/17/21 07:04 Ondansetron 4 Mg Tab PO Q4H PRN Nausea And Vomiting Intake and Output 02/16/21 02/17/21 02/17/21 22:59 06:59 14:59 Other: Voiding Method Bedpan Diaper # Voids 4 Weight 58.967 kg 02/16/21 20:49 02/16/21 20:49
[2021-02-17] MEDS ORDERED: METOPROLOL TARTRATE 25 MG TAB PO SCH (17:00)
--- NOTE | 2021-02-17 17:51 | P.CONS ---
History of Present Illness - Reason for Consult Consult date: 02/17/21 abdominal and back pain. Small cell carcinoma on chemotherapy - History of Present Illness the patient is a 75-year-old white female with multiple medical problems, well- known to myself. She was initially diagnosed with small cell lung cancer in 11/06 with primary in the left upper lung. PET scan revealed widespread me tastasis including mediastinal and bilateral supraclavicular adenopathy, liver metastasis, and multiple areas of involvement through the skeleton. Brain MRI was negative The patient was started on treatment with CARD DECORATOR-16, carboplatin, and Tecentriq in 11/06. She is status post 4 cycles, the most recent one completed on 02/03/21. She received PEG G-CSF on 02/03/21. The patient's treatment course has been completed by multiple admissions. Cycle 2 was delayed because of COVID pneumonitis. She developed neutropenic colitis after cycle 3. She was admitted with left lower lobe pneumonia after cycle 4. she has however responded to treatment with improvement in her symptoms, and with CT scans after cycle 3 showing partial response The patient states that she was feeling better after her recent discharge for pneumonia. She then developed somewhat acute onset of upper mid and left-sided abdominal pain, as well as back pain. associated symptoms included increased weakness, decrease in appetite and questionable near syncope. She noted some mild difficulty in breathing with the same. She therefore came into the emergency room where labs revealed upon increased 0.5 range with a second set, and an increased into the 0.7 range with the 3rd set. She has been admitted for further management and has been evaluated by cardiology with medical management recommended. CBC shows hemoglobin of 7.8, WBC of 29.[address] of the abdomen and pelvis showed no evidence of progression with mild improvement in the known hepatic metastatic disease. CT of the lumbar spine showed degenerative changes. her EKG showed significant ST, T wave changes in inferior and anterior leads, that were new compared to EKG on 02/05/21. Review of Systems Constitutional: Reports fatigue, Reports poor appetite, Reports weakness Eyes: denies blurred vision, denies pain Ears: deny: decreased hearing, ear discharge, earache, tinnitus Ears, nose, mouth and throat: Denies headache, Denies sore throat Cardiovascular: Reports dyspnea on exertion Respiratory: Reports dyspnea Gastrointestinal: Reports abdominal pain Genitourinary: Denies dysuria, Denies hematuria Menstruation: Reports postmenopausal Musculoskeletal: Reports as per HPI (upper, mid back pain) Integumentary: Denies pruritus, Denies rash Neurological: Reports weakness Psychiatric: Reports anxiety Endocrine: Reports fatigue, Reports weight change Hematologic/Lymphatic: Reports as per HPI Past Medical History Past Medical History: Cancer, Osteoarthritis (OA), Pneumonia Additional Past Medical History / Comment(s): sinus problems,kidney stones uti, bladder incnt/wears a pad,abd hernia,migraines,"muscles spasms and lt hip pain, had collapsed lung -not large enough to require c/t, DDD, sciatic. just finished fourth round of chemo this week 02/2021. recent breathing difficulties. History of Any Multi-Drug Resistant Organisms: None Reported Year Discovered:: 2015 Past Surgical History: Appendectomy, Bladder Surgery, Cholecystectomy, Hysterectomy, Orthopedic Surgery Additional Past Surgical History / Comment(s): artriscopy, lt knee replacemnent,adrenal gland removed,lt knee, colonoscopy, dental implants, 1997 had lt foot sx for hammer toes and stated had an implant in that foot-then january 2015 had a revison of that sx, Cdiff- 2015. covid 11/06 Past Anesthesia/Blood Transfusion Reactions: No Reported Reaction Additional Past Anesthesia/Blood Transfusion Reaction / Comm: Pt received blood without reaction. Past Psychological History: Anxiety Smoking Status: Former smoker Past Alcohol Use History: Rare Past Drug Use History: None Reported - Past Family History Mother Family Medical History: Dementia Additional Family Medical History / Comment(s): moms sister also had dementia Father Family Medical History: Unable to Obtain Medications and Allergies Home Medications Medication Instructions Recorded Confirmed Type Albuterol Inhaler [Ventolin Hfa 2 puff INHALATION RT-QID PRN 10/25/20 02/16/21 History Inhaler] Citalopram Hydrobromide 40 mg PO HS 10/25/20 02/16/21 History [Citalopram HBr] diphenhydrAMINE [Benadryl] 25 mg PO HS PRN 10/25/20 02/16/21 History fentaNYL 25MCG/HR PATCH [Duragesic 1 patch TRANSDERM Q72H #3 patch 11/01/20 02/16/21 Rx 25MCG/HR] HYDROcodone/APAP 7.5-325MG [[place] 1 tab PO Q6H PRN 11/26/20 02/16/21 History 7.5-325] Omeprazole 20 mg PO DAILY 11/26/20 02/16/21 History Ondansetron HCl [Zofran] 4 mg PO Q4H PRN 11/26/20 02/16/21 History Cholecalciferol [Vitamin D3 (25 25 mcg PO BID 12/13/20 02/16/21 History Mcg = 1000 Iu)] Fluticasone Propion/Salmeterol 1 puff INHALATION RT-BID 12/13/20 02/16/21 History [[place]ixela 250-50 Inhub] Loperamide [Imodium] 2 mg PO QID PRN #30 cap 01/23/21 02/16/21 Rx Magnesium Oxide 400 mg PO DAILY 02/05/21 02/16/21 History Potassium Gluconate 99 mg PO BID 02/05/21 02/16/21 History Metoprolol Tartrate [Lopressor] 25 mg PO DAILY@1700 #30 tab 02/08/21 02/16/21 Rx Metoprolol Tartrate [Lopressor] 50 mg PO DAILY #30 tab 02/08/21 02/16/21 Rx Allergies Allergy/AdvReac Type Severity Reaction Status Date / Time Iodinated Contrast Media Allergy Unknown Verified 02/16/21 20:07 [Iodinated Contrast Media - IV Dye] sulfamethoxazole Allergy Rash/Hives Verified 02/16/21 20:07 [From Bactrim] trimethoprim [From Bactrim] Allergy Rash/Hives Verified 02/16/21 20:07 Physical Exam Vitals: Vital Signs Temp Pulse Pulse Resp BP BP Pulse Ox 02/17/21 14:00 98.7 F 106 H 17 133/63 96 02/17/21 08:20 97 02/17/21 07:35 98.3 F 121 H 17 179/86 96 02/17/21 02:00 98.4 F 117 H 16 136/82 95 02/17/21 01:54 72 20 86/55 90 L 02/17/21 01:00 113 H 14 124/72 95 02/17/21 00:31 115 H 20 112/68 95 02/16/21 22:06 116 H 18 109/72 97 02/16/21 20:07 110 H 22 125/107 98 02/16/21 20:02 98.3 F 125 H 17 102/68 98 Intake and Output 02/17/21 02/17/21 02/17/21 06:59 14:59 22:59 Intake Total 600 Balance 600 Intake: Intake, IV Titration 600 Amount Sodium Chloride 0.9% 1, 600 000 ml @ 75 mls/hr IV . [id number] [facility] Rx#:[id number] Other: Voiding Method Bedpan Diaper # Voids 4 3 Weight 58.967 kg - Constitutional General appearance: no acute distress - EENT Eyes: EOMI, PERRLA ENT: hearing grossly normal, normal oropharynx - Neck Neck: no lymphadenopathy Thyroid: bilateral: normal size - Respiratory Respiratory: bilateral: CTA - Cardiovascular Rhythm: regular Heart sounds: normal: S1, S2 - Gastrointestinal General gastrointestinal: normal bowel sounds, soft - Integumentary Integumentary: normal - Neurologic Neurologic: CNII-XII intact - Musculoskeletal Musculoskeletal: generalized weakness, strength equal bilaterally - Psychiatric Psychiatric: A&O x's 3, appropriate affect Results CBC & Chem 7: 02/16/21 20:49 02/16/21 20:49 Labs: Abnormal Lab Results - Last 24 Hours (Table) 02/16/21 02/16/21 02/16/21 Range/Units 20:49 20:49 20:49 WBC 29.4 H (3.8-10.6) k/uL RBC 2.72 L (3.80-5.40) m/uL Hgb 7.8 L (11.4-16.0) gm/dL Hct 24.0 L (34.0-46.0) % RDW 18.8 H (11.5-15.5) % Plt Count 136 L D (150-450) k/uL Neutrophils # (Manual) 25.20 H (1.3-7.7) k/uL Metamyelocytes # (Man) 0.59 H (0) k/uL D-Dimer (<0.60) mg/L FEU Carbon Dioxide 32 H (22-30) mmol/L Glucose 123 H (74-99) mg/dL POC Glucose (mg/dL) (75-99) mg/dL Calcium 11.9 H (8.4-10.2) mg/dL AST 48 H (14-36) U/L Alkaline Phosphatase 171 H (38-126) U/L Troponin I (0.000-0.034) ng/mL Total Protein 5.8 L (6.3-8.2) g/dL Ur Specific [place] 1.039 H (1.001-1.035) Ur Leukocyte Esterase Small H (Negative) Urine WBC 18 H (0-5) /hpf Ur Squamous Epith Cells 5 H (0-4) /hpf Amorphous Sediment Occasional H (None) /hpf Hyaline Casts 5 H (0-2) /lpf Urine Mucus Rare H (None) /hpf 02/17/21 02/17/21 02/17/21 Range/Units 02:56 04:03 05:52 WBC (3.8-10.6) k/uL RBC (3.80-5.40) m/uL Hgb (11.4-16.0) gm/dL Hct (34.0-46.0) % RDW (11.5-15.5) % Plt Count (150-450) k/uL Neutrophils # (Manual) (1.3-7.7) k/uL Metamyelocytes # (Man) (0) k/uL D-Dimer (<0.60) mg/L FEU Carbon Dioxide (22-30) mmol/L Glucose (74-99) mg/dL POC Glucose (mg/dL) 155 H (75-99) mg/dL Calcium (8.4-10.2) mg/dL AST (14-36) U/L Alkaline Phosphatase (38-126) U/L Troponin I 0.519 H* 0.710 H* (0.000-0.034) ng/mL Total Protein (6.3-8.2) g/dL Ur Specific [place] (1.001-1.035) Ur Leukocyte Esterase (Negative) Urine WBC (0-5) /hpf Ur Squamous Epith Cells (0-4) /hpf Amorphous Sediment (None) /hpf Hyaline Casts (0-2) /lpf Urine Mucus (None) /hpf 02/17/21 Range/Units 11:18 WBC (3.8-10.6) k/uL RBC (3.80-5.40) m/uL Hgb (11.4-16.0) gm/dL Hct (34.0-46.0) % RDW (11.5-15.5) % Plt Count (150-450) k/uL Neutrophils # (Manual) (1.3-7.7) k/uL Metamyelocytes # (Man) (0) k/uL D-Dimer 0.86 H (<0.60) mg/L FEU Carbon Dioxide (22-30) mmol/L Glucose (74-99) mg/dL POC Glucose (mg/dL) (75-99) mg/dL Calcium (8.4-10.2) mg/dL AST (14-36) U/L Alkaline Phosphatase (38-126) U/L Troponin I (0.000-0.034) ng/mL Total Protein (6.3-8.2) g/dL Ur Specific [place] (1.001-1.035) Ur Leukocyte Esterase (Negative) Urine WBC (0-5) /hpf Ur Squamous Epith Cells (0-4) /hpf Amorphous Sediment (None) /hpf Hyaline Casts (0-2) /lpf Urine Mucus (None) /hpf Microbiology - Last 24 Hours (Table) 02/16/21 20:49 Urine Culture - Preliminary Urine,Voided Comments: CT #report revealed EKG 02/17, and 02/05/21 images reviewed Echocardiogram report reviewed CT scan - abdomen: report reviewed Assessment and Plan (1) Acute coronary syndrome Narrative/Plan: the patient appears to have common with an acute coronary syndrome. Her EKG from this admission shows significant changes involving the ST segment and T waves in the anterior and inferior leads compared to prior EKG from 02/05/21. In addition echocardiogram also shows hypokinesis in the anteroseptal and inferior craig. Patient has been evaluated by cardiology, and at this time medical management is recommended, given the patient's underlying metastatic malignancy and multiple other medical problems. Defer to cardiology for further management. From the hematology standpoint, at this time the patient is an acceptable candidate for any anticoagulation/antiplatelet therapy as updated counts are above 50,000. In addition she has completed her chemotherapy and will forward will be on immunotherapy alone which would typically not be expected to drop her counts. Current Visit: Yes Status: Acute Code(s): I24.9 - ACUTE ISCHEMIC HEART DISEASE, UNSPECIFIED SNOMED Code(s): 442256020 (2) Primary small cell malignant neoplasm of lung, stage 4 Narrative/Plan: D and diagnostic circumstances as described. The patient has completed her initial set of chemotherapy plus immunotherapy, 4 cycles. She has had multiple admissions as noted in the HPI. She has had a partial remission based on the most recent CT scans. Therefore after recovery from her acute condition, she will be continued on maintenance immunotherapy and ongoing surveillance with office visits and CT scans. Current Visit: Yes Status: Acute Code(s): C34.90 - MALIGNANT NEOPLASM OF UNSP PART OF UNSP BRONCHUS OR LUNG SNOMED Code(s): 11424504497741 (3) Leukocytosis Narrative/Plan: this is due to her receiving growth factors on 02/03/21. Current Visit: Yes Status: Acute Code(s): D72.829 - ELEVATED WHITE BLOOD CELL COUNT, UNSPECIFIED SNOMED Code(s): 714180302 (4) Anemia Narrative/Plan: this is aplastic due to chemotherapy. Hemoglobin is in a safe range. Transfuse to keep greater than 7. It is expected that hemoglobin will improve as the patient has now completed her planned chemotherapy Current Visit: No Status: Acute Code(s): D64.9 - ANEMIA, UNSPECIFIED SNOMED Code(s): 701085025 Plan: defer to the admitting service for management of her multiple other medical problems
[2021-02-17] MEDS: CITALOPRAM HYDROBROMIDE 20 MG TAB PO SCH (20:28)
[2021-02-18] MEDS: SYMBICORT 80-4.5 MCG INHALER INHALATION SCH ×2 (08:22→19:38)
[2021-02-18] MEDS: METOPROLOL TARTRATE 50 MG TAB PO SCH (09:02)
[2021-02-18] MEDS: MAGNESIUM OXIDE 400 MG TAB PO SCH (09:02)
[2021-02-18] MEDS: ASPIRIN 81 MG PO SCH (09:02)
[2021-02-18] MEDS: PANTOPRAZOLE 40 MG TABLET PO SCH (09:02)
[2021-02-18] MEDS: CHOLECALCIFEROL 25 MCG (1000 IU) TABLET PO SCH ×2 (09:02→21:44)
[2021-02-18] MEDS: SODIUM CHLORIDE 0.9% 1,000 ML IV SCH (09:27)
[2021-02-18 09:58] LABS: HCT 21.6 % (37.2-46.3); HGB 6.7 g/dL (12.0-15.0); MCH 29.3 pg (27.0-32.0); MCV 94.3 fL (80.0-97.0); Mean Platelet Volume 9.9 fL (9.5-12.2); Platelet Count 149 X 10*3/uL (140-440); RBC 2.29 X 10*6/uL (4.10-5.20); WBC 31.29 X 10*3/uL (4.50-10.00)
[2021-02-18 09:59] LABS: Basophils # (M) 0 X 10*3/uL (0.00-0.10); Eosinophils # (M) 0 X 10*3/uL (0.04-0.35); Lymphocytes # (M) 0.94 X 10*3/uL (0.90-5.00); Metamyelocytes % 1 % (0-0); Monocytes # (M) 0.94 X 10*3/uL (0.20-1.00); Myelocytes % 3 % (0-0); Neutrophils # (M) 27.85 X 10*3/uL (2.00-8.90); Neutrophils % (M) 89 %; Promyelocytes % 1 % (0-0)
[2021-02-18 10:00] LABS: African American GFR (CKD) 104.1 (60.0-200.0); Anion Gap 9.8 mmol/L (4.00-12.00); BUN/Creat Ratio 46.67 Ratio (12.00-20.00); Calcium 10.8 mg/dL (8.7-10.3); Carbon Dioxide 24.2 mmol/L (21.6-31.8); Non-African American GFR(CKD) 89.8 (60.0-200.0); Potassium 3.4 mmol/L (3.5-5.5)
[2021-02-18] MEDS ORDERED: Potassium Replacement Protocol 1 EACH MISC MISCELLANE PRN (10:08)
[2021-02-18] MEDS: POTASSIUM CHLORIDE ER 20 MEQ TAB.ER PO SCH (10:18)
[2021-02-18] MEDS: AMPICILLIN-SULBACTAM 3 GM in SODIUM CHLORIDE 0.9% 100 ML IVPB SCH ×2 (10:18→15:39)
--- NOTE | 2021-02-18 11:07 | P.PN ---
Subjective Leukocytosis, non-ST elevation myocardial infarction Patient is pleasant 75-year-old male with known history of small cell carcinoma came in with the worsening abdominal pain and back pain. Patient also gave me a vague history with sounds like patient had a syncopal episode. Patient is mainly admitted for elevated troponins and leukocytosis without any clear evidence of infection. Abdominal CAT scan showed significant metastatic disease I do not have any chest x-ray available will obtain a chest x-ray to rule out any pneumonic infiltrate. Patient does have leukocytosis. Patient the last chemotherapy as per the patient was about couple weeks ago unsure whether patient received a colony-stimulating factor like Neupogen which may have contributed to her leukocytosis. Patient doesn't have any fever chills patient denied any dysuria patient the urine is not significantly abnormal but is a contaminated urine sample. Patient does have some chronic cough denied any sputum production. Patient denied any significant chest pain 02/18/2021 Patient white blood cell count went up a little bit this may be secondary to growth factors she received post chemotherapy although I cannot completely rule out urinary tract infection in spite of her not having symptoms patient has significant leukocytosis urine cultures are showing group B enterococcus, patient will be started on Unasyn. Cardiac evaluated because of Elevated tr oponins possibly of non-ST elevation myocardial infarction considering her metastatic cancer they're recommending medical management. Patient's hemoglobin did drop below 7 patient will receive 1 unit of PRBC transfusion and this is secondary to bone marrow suppression from chemotherapy no evidence of acute bleed at this time. Patient is getting bit drowsy because of which is this can you Benadryl continue with the her fentanyl and Tylenol for pain. Constitutional: Denied any fatigue denied any fever. Cardio vascular: denied any chest pain, palpitations Gastrointestinal denied any nausea vomiting Pulmonary: Denied any shortness of breath cough Neurologic denied any new focal deficits All inpatient medications were reviewed and appropriate changes in these medications as dictated in the interval history and assessment and plan. PHYSICAL EXAMINATION: GENERAL: The patient is alert and oriented x3, not in any acute distress. Well developed, well nourished. HEENT: Pupils are round and equally reacting to light. EOMI. No scleral icterus. No conjunctival pallor. Normocephalic, atraumatic. No pharyngeal erythema. No thyromegaly. CARDIOVASCULAR: S1 and S2 present. No murmurs, rubs, or gallops. PULMONARY: Chest is clear to auscultation, no wheezing or crackles. ABDOMEN: Soft, nontender, nondistended, normoactive bowel sounds. No palpable organomegaly. MUSCULOSKELETAL: No joint swelling or deformity. EXTREMITIES: No cyanosis, clubbing, or pedal edema. NEUROLOGICAL: Gross neurological examination did not reveal any focal deficits. SKIN: No rashes. Assessment and plan -Leukocytosis secondary to growth factors post chemotherapy although possibility of urinary tract infection cannot be ruled out patient is group B enterococcus and urine patient was started on Unasyn -Back pain and the abdominal pain: Secondary to metastatic disease. Patient will be continued on home regimen will titrate depending on her pain control. -Toxic encephalopathy: Secondary to infection and medications -Possibly acute non-ST elevation myocardial infarction: Medical management because of above-mentioned reasons -COPD without any acute exacerbation Chronic hypoxic and hypercapnic respiratory failure seconded to COPD as well as lung cancer -Lung cancer: Oncology following the patient DVT prophylaxis: Lovenox Objective - Vital Signs Vital signs: Vital Signs Temp 97.7 F 02/18/21 08:00 Pulse 114 H 02/18/21 08:00 Resp 16 02/18/21 08:00 BP 144/92 02/18/21 08:00 Pulse Ox 94 L 02/18/21 08:00 Intake & Output 02/17/21 02/18/21 02/18/21 18:59 06:59 18:59 Intake Total 600 Balance 600 Weight 58.967 kg Intake: Intake, IV Titration 600 Amount Sodium Chloride 0.9% 1, 600 000 ml @ 75 mls/hr IV . [id number] [facility] Rx#:[id number] Other: Voiding Method Toilet Toilet Diaper # Voids 3 3 2 - Labs CBC & Chem 7: 02/18/21 06:23 02/18/21 06:23 Labs: Abnormal Lab Results - Last 24 Hours (Table) 02/17/21 02/18/21 02/18/21 Range/Units 11:18 06:23 06:23 WBC 31.29 H (4.50-10.00) X 10*3/uL RBC 2.29 L (4.10-5.20) X 10*6/uL Hgb 6.7 L* (12.0-15.0) g/dL Hct 21.6 L (37.2-46.3) % MCHC 31.0 L (32.0-37.0) g/dL RDW 19.0 H (11.5-14.5) % Absolute Nucleated RBC 0.16 H (0.00-0.00) X 10*3/uL Metamyelocytes % 1 H (0-0) % Myelocytes % 3 H (0-0) % Promyelocytes % 1 H (0-0) % Neutrophils # (Manual) 27.85 H (2.00-8.90) X 10*3/uL Eosinophils # (Manual) 0 L (0.04-0.35) X 10*3/uL NRBC/100 WBC Diff 0.5 H (0.0-0.0) /100 WBCS D-Dimer 0.86 H (<0.60) mg/L FEU Potassium 3.4 L (3.5-5.5) mmol/L BUN 28.0 H (9.0-27.0) mg/dL BUN/Creatinine Ratio 46.67 H (12.00-20.00) Ratio Calcium 10.8 H (8.7-10.3) mg/dL Microbiology - Last 24 Hours (Table) 02/16/21 20:49 Urine Culture - Preliminary Urine,Voided Group D Enterococcus 02/17/21 03:00 Blood Culture - Preliminary Blood No Growth after 24 hours
[2021-02-18] MEDS: ACETAMINOPHEN TAB 325 MG TAB PO PRN (13:16)
--- NOTE | 2021-02-18 14:59 | P.PN ---
Progress Note - Text Patient is resting comfortably in bed No respiratory distress, no orthopnea On examination no JVD, blood pressure 130/78 mmHg pulse rate in the 90s Heart sounds S1-S2 are normal Lungs are clear no rhonchi no crackles Abdomen soft She is receiving a blood transfusion at this time 2-D echo shows mildly reduced LV systolic function of 45-50% with apical, septal and apical inferior hypokinesis Labs are reviewed Elevated white count Low hemoglobin of 6.7 Abnormal troponin of 0.5 and 0.7 Sodium 143 potassium 3.4, BUN 28 and creatinine 0.6 TSH 0.51 Impression Likely non-Q-wave myocardial infarction Small cell lung cancer, currently on chemotherapy with hepatic metastasis Reduced LV systolic function of 45-50% with wall motion normalities Plan Continue aspirin Continue metoprolol but switched to long-acting metoprolol succinate 50 mrem by mouth daily in the morning Start statins atorvastatin 20 mg by mouth daily
[2021-02-18] MEDS: ATORVASTATIN 20 MG TAB PO SCH (21:44)
[2021-02-18] MEDS: HYDROmorphone 0.5 MG/0.5 ML SYRINGE IVP PRN (21:44)
[2021-02-18] MEDS: CITALOPRAM HYDROBROMIDE 20 MG TAB PO SCH (21:44)
[2021-02-19] MEDS: AMPICILLIN-SULBACTAM 3 GM in SODIUM CHLORIDE 0.9% 100 ML IVPB SCH ×4 (00:53→23:20)
[2021-02-19] MEDS: SODIUM CHLORIDE 0.9% 1,000 ML IV SCH ×2 (05:07→13:06)
[2021-02-19] MEDS: SYMBICORT 80-4.5 MCG INHALER INHALATION SCH ×2 (07:49→20:26)
[2021-02-19] MEDS: ALBUTEROL NEBULIZED 2.5 MG/3 ML INHALATION PRN ×3 (07:49→20:26)
[2021-02-19] MEDS: CHOLECALCIFEROL 25 MCG (1000 IU) TABLET PO SCH ×2 (09:14→23:20)
[2021-02-19] MEDS: ASPIRIN 81 MG PO SCH (09:14)
[2021-02-19] MEDS: PANTOPRAZOLE 40 MG TABLET PO SCH (09:14)
[2021-02-19] MEDS: MAGNESIUM OXIDE 400 MG TAB PO SCH (09:14)
[2021-02-19] MEDS: ENOXAPARIN 40 MG/0.4 ML SYRINGE SQ SCH (09:14)
[2021-02-19] MEDS: METOPROLOL SUCCINATE (ER) 50 MG TAB.ER.24H PO SCH (09:14)
[2021-02-19] MEDS: HYDROmorphone 0.5 MG/0.5 ML SYRINGE IVP PRN (09:15)
[2021-02-19 11:48] LABS: African American GFR (CKD) 104.1 (60.0-200.0); Anion Gap 11.2 mmol/L (4.00-12.00); Calcium 10.5 mg/dL (8.7-10.3); Carbon Dioxide 22.8 mmol/L (21.6-31.8); Non-African American GFR(CKD) 89.8 (60.0-200.0); Potassium 3.8 mmol/L (3.5-5.5)
[2021-02-19 13:28] LABS: Acanthocytes 2+; Basophils # (M) 0 X 10*3/uL (0.00-0.10); Eosinophils # (M) 0 X 10*3/uL (0.04-0.35); HCT 26.2 % (37.2-46.3); HGB 8.2 g/dL (12.0-15.0); Lymphocytes # (M) 0.36 X 10*3/uL (0.90-5.00); MCH 29.4 pg (27.0-32.0); MCHC 31.3 g/dL (32.0-37.0); MCV 93.9 fL (80.0-97.0); Mean Platelet Volume 10.3 fL (9.5-12.2); Metamyelocytes % 1 % (0-0); Monocytes # (M) 0.72 X 10*3/uL (0.20-1.00); Myelocytes % 4 % (0-0); Neutrophils % (M) 92 %; Platelet Count 160 X 10*3/uL (140-440); RBC 2.79 X 10*6/uL (4.10-5.20); RDW 18.6 % (11.5-14.5); WBC 35.76 X 10*3/uL (4.50-10.00)
--- NOTE | 2021-02-19 15:28 | XR ---
EXAMINATION TYPE: XR femur RT DATE OF EXAM: 02/19/2021 COMPARISON: NONE HISTORY: Femur pain TECHNIQUE: 4 views FINDINGS: There is acetabular spurring. There is right knee prosthesis. Components appear in anatomic position. There is vascular calcification. I see no fracture. IMPRESSION: No acute abnormality of the right femur. Right hip appears unchanged compared to
[2021-02-19] MEDS: ALPRAZolam 0.25 MG TAB PO PRN ×2 (15:42→23:19)
[2021-02-19] MEDS: HYDROcodone/APAP 7.5-325MG 1 EACH TAB PO PRN ×2 (15:46→23:18)
--- NOTE | 2021-02-19 17:43 | PN ---
PROGRESS NOTE DATE OF SERVICE: 02/19/2021 CHIEF COMPLAINT: Anxious and pain in the right side. INTERVAL HISTORY: Mary is seen today as a followup. She appears anxious. She complains of pain in her right thigh. Her mental status improved since she has been admitted and her urine culture was positive for group D enterococcus and she is currently on Unasyn. CURRENT MEDICATION: Include Tylenol as needed, Ventolin inhaler, Xanax 0.25 mg t.i.d. as needed, aspirin 81 mg daily, Lipitor 20 mg q.h.s., Symbicort, vitamin D3, Celexa, Lovenox 40 mg subcu daily, [place] 7.5/325 every 6 hours as needed, Dilaudid 0.5 mg IV every 3 hours as needed, Imodium as needed, metoprolol-XL 50 mg daily, Zofran as needed, MiraLAX as needed, fentanyl 25 mcg per hour patch. PHYSICAL EXAMINATION: She is alert, oriented x3 at this time. She does not appear to be in distress. Her vital signs are temperature 98.1. She is afebrile. Pulse is 78, regular, respiration 18, blood pressure 152/84. HEENT: Normocephalic, atraumatic. NECK: Supple. CHEST: Equal expansion bilaterally. LUNGS: Clear. HEART: Regular. ABDOMEN: Soft. No tenderness. EXTREMITIES: Reveal no edema. She has tenderness to percussion in her mid right thigh, but she has full range of motion in the right hip. LABORATORY DATA: WBC are 31.29, hemoglobin 6.7, hematocrit 21.6, platelets 149. Sodium 147, potassium 3.8, chloride 111, CO2 is 22, BUN is 24.0, creatinine 0.7. IMPRESSION: 1. Small cell lung carcinoma. She recently completed 4 cycles of carboplatin, etoposide, and Tecentriq. She had partial response to treatment. Her treatment was complicated with multiple hospital admissions. 2. Anemia likely secondary to recent systemic treatment. She received blood transfusion yesterday. 3. Leukocytosis, possibly related to recent use of granulocyte colony-stimulating factor. However, underlying urinary tract infection cannot be excluded. 4. Change in her mental status and anxiety. This appears to be improved. 5. Right mid thigh pain. 6. Multiple other comorbidities. 7. Possible non-Q-wave myocardial infarction. RECOMMENDATION: 1. Will monitor blood count and continue supportive transfusion as needed. 2. Continue current antibiotics. Awaiting final culture results. 3. May continue fentanyl for pain and try to use [place] as needed instead of Dilaudid. The Dilaudid made her very anxious. 4. In regard to right thigh pain, we will obtain an x-ray of her hip. The above was discussed with the patient and her daughter at bedside and with nursing staff and I have answered all their questions. RODGER / ISSAC: [id number] /
[2021-02-19] MEDS: CITALOPRAM HYDROBROMIDE 20 MG TAB PO SCH (23:19)
[2021-02-19] MEDS: ATORVASTATIN 20 MG TAB PO SCH (23:20)
[2021-02-20] MEDS: SODIUM CHLORIDE 0.9% 1,000 ML IV SCH (03:28)
[2021-02-20] MEDS: HYDROmorphone 0.5 MG/0.5 ML SYRINGE IVP PRN ×2 (03:29→21:16)
[2021-02-20] MEDS: ALBUTEROL NEBULIZED 2.5 MG/3 ML INHALATION PRN ×3 (07:30→15:03)
[2021-02-20] MEDS: SYMBICORT 80-4.5 MCG INHALER INHALATION SCH ×2 (07:30→20:34)
[2021-02-20] MEDS: AMPICILLIN-SULBACTAM 3 GM in SODIUM CHLORIDE 0.9% 100 ML IVPB SCH ×2 (08:29→17:35)
[2021-02-20] MEDS: HYDROcodone/APAP 7.5-325MG 1 EACH TAB PO PRN ×2 (08:31→14:00)
[2021-02-20] MEDS: METOPROLOL SUCCINATE (ER) 50 MG TAB.ER.24H PO SCH (08:31)
[2021-02-20] MEDS: ASPIRIN 81 MG PO SCH (08:31)
[2021-02-20] MEDS: CHOLECALCIFEROL 25 MCG (1000 IU) TABLET PO SCH ×2 (08:31→21:16)
[2021-02-20] MEDS: ALPRAZolam 0.25 MG TAB PO PRN ×2 (08:31→17:34)
[2021-02-20] MEDS: PANTOPRAZOLE 40 MG TABLET PO SCH (08:31)
[2021-02-20] MEDS: MAGNESIUM OXIDE 400 MG TAB PO SCH (08:32)
[2021-02-20] MEDS: ENOXAPARIN 40 MG/0.4 ML SYRINGE SQ SCH (08:32)
[2021-02-20 09:23] LABS: HCT 23.7 % (37.2-46.3); HGB 7.6 g/dL (12.0-15.0); MCH 29.8 pg (27.0-32.0); MCHC 32.1 g/dL (32.0-37.0); MCV 92.9 fL (80.0-97.0); Mean Platelet Volume 10.1 fL (9.5-12.2); Platelet Count 151 X 10*3/uL (140-440); RBC 2.55 X 10*6/uL (4.10-5.20); RDW 18.6 % (11.5-14.5); WBC 28.93 X 10*3/uL (4.50-10.00)
[2021-02-20 09:36] LABS: African American GFR (CKD) 104.1 (60.0-200.0); Anion Gap 14.4 mmol/L (4.00-12.00); BUN/Creat Ratio 38.33 Ratio (12.00-20.00); Calcium 10.8 mg/dL (8.7-10.3); Carbon Dioxide 19.6 mmol/L (21.6-31.8); Non-African American GFR(CKD) 89.8 (60.0-200.0); Potassium 3.3 mmol/L (3.5-5.5)
[2021-02-20] MEDS ORDERED: Potassium Replacement Protocol 1 EACH MISC MISCELLANE PRN (12:10)
[2021-02-20] MEDS ORDERED: DEXTROSE 5% IN WATER 1,000 ML IV ONE (13:08)
[2021-02-20] MEDS: POTASSIUM CHLORIDE ER 20 MEQ TAB.ER PO SCH (14:00)
--- NOTE | 2021-02-20 15:04 | P.PN ---
Subjective Progress Note Date: 02/20/21 Leukocytosis, non-ST elevation myocardial infarction Patient is pleasant 75-year-old male with known history of small cell carcinoma came in with the worsening abdominal pain and back pain. Patient also gave me a vague history with sounds like patient had a syncopal episode. Patient is mainly admitted for elevated troponins and leukocytosis without any clear evidence of infection. Abdominal CAT scan showed significant metastatic disease I do not have any chest x-ray available will obtain a chest x-ray to rule out any pneumonic infiltrate. Patient does have leukocytosis. Patient the last chemotherapy as per the patient was about couple weeks ago unsure whether patient received a colony-stimulating factor like Neupogen which may have contributed to her leukocytosis. Patient doesn't have any fever chills patient denied any dysuria patient the urine is not significantly abnormal but is a contaminated urine sample. Patient does have some chronic cough denied any sputum production. Patient denied any significant chest pain 02/18/2021 Patient white blood cell count went up a little bit this may be secondary to growth factors she received post chemotherapy although I cannot completely rule out urinary tract infection in spite of her not having symptoms patient has significant leukocytosis urine cultures are showing group B enterococcus, patient will be started on Unasyn. Cardiac evaluated because of Elevated troponins possibly of non-ST elevation myocardial infarction considering her metastatic cancer they're recommending medical management. Patient's hemoglobin did drop below 7 patient will receive 1 unit of PRBC transfusion and this is secondary to bone marrow suppression from chemotherapy no evidence of acute bleed at this time. Patient is getting bit drowsy because of which is this can you Benadryl continue with the her fentanyl and Tylenol for pain. 02/20/2021 Patient is seen in follow-up this morning extremely lethargic and extremely anxious and being closely monitored. Family at the bedside. Patient states she is cold and hungry and currently awaiting for her lunch tray. Patient is continued on IV antibiotics in the form of Unasyn and urine culture finalized showing enterococcus faecium VRE and infectious disease has been consulted and appreciate antibiotic recommendations. White blood count continues to be elevated at 28.93 and hemoglobin is 7.6 status post 1 unit of PRBCs and will continue to monitor closely and transfuse if hemoglobin is 7 or less. GI also following as patient is actively receiving treatments for metastatic cancer. Per nursing staff patient is more confused and attempting to hold narcotic medications although patient continues to request IV pain medication. Patient is extremely weak and lethargic and very ill-appearing with family at the bedside and CODE STATUS was again redressed and patient wishes to remain a full code. Prognosis is extremely poor and guarded. Sodium found to be 146 and we'll transition IV fluids to dextrose 5% in water and will also repeat potassium as potassium today was 3.3 and will replace per protocol. Her creatinine is stable at 0.6. Patient is afebrile. Constitutional: Reports continued fatigue, denied any fever. Cardio vascular: denied any chest pain, palpitations Gastrointestinal denied any nausea vomiting Pulmonary: Denied any shortness of breath cough Neurologic denied any new focal deficits All inpatient medications were reviewed and appropriate changes in these med ications as dictated in the interval history and assessment and plan. Active Medications Acetaminophen (Acetaminophen Tab 325 Mg Tab) 650 mg PO Q6HR PRN PRN Reason: Fever and/ or Pain Last Admin: 02/18/21 13:16 Dose: 650 mg Documented by: Hydrocodone Bitart/Acetaminophen (Hydrocodone/Apap 7.5-325mg 1 Each Tab) 1 each PO Q6H PRN PRN Reason: Pain Last Admin: 02/20/21 14:00 Dose: 1 each Documented by: Albuterol Sulfate (Albuterol Nebulized 2.5 Mg/3 Ml) 2.5 mg INHALATION RT-QID PRN PRN Reason: Shortness Of Breath Last Admin: 02/20/21 11:11 Dose: 2.5 mg Documented by: Alprazolam (Alprazolam 0.25 Mg Tab) 0.25 mg PO TID PRN PRN Reason: Anxiety Last Admin: 02/20/21 08:31 Dose: 0.25 mg Documented by: Aspirin (Aspirin 81 Mg) 81 mg PO DAILY [facility] Last Admin: 02/20/21 08:31 Dose: 81 mg Documented by: Atorvastatin Calcium (Atorvastatin 20 Mg Tab) 20 mg PO HS [facility] Last Admin: 02/19/21 23:20 Dose: 20 mg Documented by: Budesonide/Formoterol Fumarate (Symbicort 80-4.5 Mcg Inhaler) 2 puff INHALATION RT-BID [facility] Last Admin: 02/20/21 07:30 Dose: 2 puff Documented by: Cholecalciferol (Cholecalciferol 25 Mcg (1000 Iu) Tablet) 25 mcg PO BID [facility] Last Admin: 02/20/21 08:31 Dose: 25 mcg Documented by: Citalopram Hydrobromide (Citalopram Hydrobromide 20 Mg Tab) 40 mg PO HS [facility] Last Admin: 02/19/21 23:19 Dose: 40 mg Documented by: Enoxaparin Sodium (Enoxaparin 40 Mg/0.4 Ml Syringe) 40 mg SQ DAILY [facility] Last Admin: 02/20/21 08:32 Dose: 40 mg Documented by: Fentanyl (Fentanyl 25mcg/Hr Patch) 1 patch TRANSDERM Q72H [facility]; Protocol Last Admin: 02/20/21 08:30 Dose: 1 patch Documented by: Hydromorphone HCl (Hydromorphone 0.5 Mg/0.5 Ml Syringe) 0.5 mg IVP Q3HR PRN PRN Reason: Moderate Pain Last Admin: 02/20/21 03:29 Dose: 0.5 mg Documented by: Ampicillin Sodium/Sulbactam (Sodium 3 gm/ Sodium Chloride) 100 mls @ 200 mls/hr IVPB Q8HR [facility] Last Admin: 02/20/21 08:29 Dose: 200 mls/hr Documented by: Dextrose/Water (Dextrose 5%-Water Iv Soln) 1,000 mls @ 75 mls/hr IV .[id number] ONE Stop: 02/21/21 02:27 Last Admin: 02/20/21 14:01 Dose: 75 mls/hr Documented by: Loperamide HCl (Loperamide 2 Mg Cap) 2 mg PO QID PRN PRN Reason: Diarrhea Magnesium Oxide (Magnesium Oxide 400 Mg Tab) 400 mg PO DAILY [facility] Last Admin: 02/20/21 08:32 Dose: 400 mg Documented by: Metoprolol Succinate (Metoprolol Succinate (Er) 50 Mg Tab.Er.24h) 50 mg PO DAILY [facility] Last Admin: 02/20/21 08:31 Dose: 50 mg Documented by: Miscellaneous Information (Potassium Replacement Protocol 1 Each Misc) 1 each MISCELLANE DAILY PRN; Protocol PRN Reason: Per Protocol Miscellaneous Information (Potassium Replacement Protocol 1 Each Misc) 1 each MISCELLANE DAILY PRN; Protocol PRN Reason: Per Protocol Naloxone HCl (Naloxone 0.4 Mg/Ml 1 Ml Vial) 0.2 mg IV Q2M PRN PRN Reason: Opioid Reversal Ondansetron HCl (Ondansetron 4 Mg/2 Ml Vial) 4 mg IVP Q8HR PRN PRN Reason: Nausea And Vomiting Ondansetron HCl (Ondansetron 4 Mg Tab) 4 mg PO Q4H PRN PRN Reason: Nausea And Vomiting Pantoprazole Sodium (Pantoprazole 40 Mg Tablet) 40 mg PO DAILY [facility] Last Admin: 02/20/21 08:31 Dose: 40 mg Documented by: Polyethylene Glycol (Polyethylene Glycol 3350 17 Gm Powd.Pack) 17 gm PO DAILY PRN PRN Reason: Constipation Objective - Vital Signs Vital signs: Vital Signs Temp 98.1 F 02/20/21 07:03 Pulse 80 02/20/21 07:41 Resp 18 02/20/21 07:03 BP 157/97 02/20/21 07:03 Pulse Ox 97 02/20/21 07:03 Intake & Output 02/19/21 02/20/21 02/20/21 18:59 06:59 18:59 Intake Total 200 Balance 200 Intake: Intake, IV Titration 200 Amount Ampicillin-Sulbactam 3 gm 200 In Sodium Chloride 0.9% 100 ml @ 200 mls/hr IVPB Q8HR [facility] Rx#:[id number] Other: Voiding Method Toilet # Voids 4 4 # Bowel Movements 2 - Exam GENERAL: The patient is alert and oriented x1-2, not in any acute distress. Extremely lethargic although arousable, ill-appearing HEENT: Pupils are round and equally reacting to light. EOMI. No scleral icterus. No conjunctival pallor. Normocephalic, atraumatic. No pharyngeal erythema. No thyromegaly. CARDIOVASCULAR: S1 and S2 present. No murmurs, rubs, or gallops. PULMONARY: Chest is clear to auscultation, no wheezing or crackles. ABDOMEN: Soft, nontender, nondistended, normoactive bowel sounds. No palpable organomegaly. MUSCULOSKELETAL: No joint swelling or deformity. EXTREMITIES: No cyanosis, clubbing, or pedal edema. NEUROLOGICAL: Gross neurological examination did not reveal any focal deficits. Diffuse weakness SKIN: No rashes. Pale - Labs CBC & Chem 7: 02/20/21 05:40 02/20/21 05:40 Labs: Abnormal Lab Results - Last 24 Hours (Table) 02/19/21 02/19/21 02/20/21 Range/Units 06:55 06:55 05:40 WBC 35.76 H 28.93 H (4.50-10.00) X 10*3/uL RBC 2.79 L 2.55 L (4.10-5.20) X 10*6/uL Hgb 8.2 L 7.6 L (12.0-15.0) g/dL Hct 26.2 L 23.7 L (37.2-46.3) % MCHC 31.3 L (32.0-37.0) g/dL RDW 18.6 H 18.6 H (11.5-14.5) % Absolute Nucleated RBC 0.20 H 0.17 H (0.00-0.00) X 10*3/uL Metamyelocytes % 1 H (0-0) % Myelocytes % 4 H (0-0) % Neutrophils # (Manual) 32.90 H (2.00-8.90) X 10*3/uL Lymphocytes # (Manual) 0.36 L (0.90-5.00) X 10*3/uL Eosinophils # (Manual) 0 L (0.04-0.35) X 10*3/uL NRBC/100 WBC Diff 0.6 H 0.6 H (0.0-0.0) /100 WBCS Sodium 146 H (135-145) mmol/L Potassium (3.5-5.5) mmol/L Chloride 112 H (96-109) mmol/L Carbon Dioxide (21.6-31.8) mmol/L Anion Gap (4.00-12.00) mmol/L BUN/Creatinine Ratio 40.00 H (12.00-20.00) Ratio Glucose 119 H (70-110) mg/dL Calcium 10.5 H (8.7-10.3) mg/dL 02/20/21 Range/Units 05:40 WBC (4.50-10.00) X 10*3/uL RBC (4.10-5.20) X 10*6/uL Hgb (12.0-15.0) g/dL Hct (37.2-46.3) % MCHC (32.0-37.0) g/dL RDW (11.5-14.5) % Absolute Nucleated RBC (0.00-0.00) X 10*3/uL Metamyelocytes % (0-0) % Myelocytes % (0-0) % Neutrophils # (Manual) (2.00-8.90) X 10*3/uL Lymphocytes # (Manual) (0.90-5.00) X 10*3/uL Eosinophils # (Manual) (0.04-0.35) X 10*3/uL NRBC/100 WBC Diff (0.0-0.0) /100 WBCS Sodium 146 H (135-145) mmol/L Potassium 3.3 L (3.5-5.5) mmol/L Chloride 112 H (96-109) mmol/L Carbon Dioxide 19.6 L (21.6-31.8) mmol/L Anion Gap 14.40 H (4.00-12.00) mmol/L BUN/Creatinine Ratio 38.33 H (12.00-20.00) Ratio Glucose (70-110) mg/dL Calcium 10.8 H (8.7-10.3) mg/dL Microbiology - Last 24 Hours (Table) 02/17/21 03:00 Blood Culture - Preliminary Blood No Growth after 72 hours 02/16/21 20:49 Urine Culture - Final Urine,Voided Enterococcus faecium VRE Assessment and Plan Assessment: -Leukocytosis secondary to growth factors post chemotherapy although possibility of urinary tract infection cannot be ruled out, patient has enterococcus faecium VRE in the urine and patient was started on Unasyn, with resistance and infectious disease consulted and pending. -Hypernatremia, will change IV fluids to dextrose 5% in water and repeat labs and monitor closely. -Back pain and the abdominal pain: Secondary to metastatic disease. Patient will be continued on home regimen will titrate depending on her pain control. -Toxic encephalopathy: Secondary to infection and medications -Possibly acute non-ST elevation myocardial infarction: Medical management because of above-mentioned reasons and cardiology has evaluated the patient -COPD without any acute exacerbation -Chronic hypoxic and hypercapnic respiratory failure secondary to COPD as well as lung cancer, on O2 nasal cannula outpatient -Lung cancer: Oncology following the patient -DVT prophylaxis: Lovenox Plan: Continue on IV antibiotics and have consulted infectious disease and appreciate antibiotic recommendations and input. Cardiology has evaluated the patient recommending to continue with medical management. Oncology also following as she is actively receiving treatment. Patient wishes to remain full code at this time and prognosis remains extremely poor and guarded. Will repeat labs and continue to transfuse if hemoglobin is 7 or less. Repeat urinalysis with culture is ordered and pending. Per daughter at the bedside plan is for the patient to return home with her and continue with home care once stabilized. Further recommendations to follow based on the clinical course of the patient. Again, prognosis remains extremely guarded.
[2021-02-20 17:47] LABS: Appearance,Urine Clear (Clear); Bilirubin,Urine Negative (Negative); Blood,Urine Negative (Negative); Color,Urine Yellow; Glucose,Urine (UA) Negative (Negative); Ketones,Urine Negative (Negative); Leukocyte Esterase,Urine Negative (Negative); Nitrite,Urine Negative (Negative); PH, Urine 5.5 (5.0-8.0); Protein,Urine Trace (Negative); Specific Gravity,Urine 1.021 (1.001-1.035); Urobilinogen,Urine <2.0 mg/dL (<2.0)
[2021-02-20] MEDS ORDERED: diphenhydrAMINE 25 MG CAP PO PRN (20:04)
[2021-02-20] MEDS: ATORVASTATIN 20 MG TAB PO SCH (21:16)
[2021-02-20] MEDS: CITALOPRAM HYDROBROMIDE 20 MG TAB PO SCH (21:16)
[2021-02-21] MEDS: AMPICILLIN-SULBACTAM 3 GM in SODIUM CHLORIDE 0.9% 100 ML IVPB SCH (00:11)
[2021-02-21] MEDS: ALBUTEROL NEBULIZED 2.5 MG/3 ML INHALATION PRN ×3 (00:16→19:17)
[2021-02-21] MEDS: HYDROcodone/APAP 7.5-325MG 1 EACH TAB PO PRN ×2 (01:14→13:04)
[2021-02-21] MEDS: ALPRAZolam 0.25 MG TAB PO PRN ×3 (01:15→23:25)
[2021-02-21] MEDS: HYDROmorphone 0.5 MG/0.5 ML SYRINGE IVP PRN ×5 (03:53→20:47)
--- NOTE | 2021-02-21 06:54 | P.CONS ---
History of Present Illness - Reason for Consult Consult date: 02/20/21 VRE urinary tract infection Requesting physician: Lorna Allison - Chief Complaint abd pain x 4 days - History of Present Illness Patient is a 75-year-old female with a past medical history significant for small cell lung cancer left upper lobe stage IV disease diagnosed in November 06 in this patient status post 4 cycles of chemotherapy and recent admission to the hospital for pneumonia patient presented to the ER 4 days ago on February 19, 2021 for evaluation of abdominal pain and low back pain that has been going on for 4 days before presentation to the hospital patient describes the pain to be mostly in the lower abdominal area currently to be more of a dull aching to colicky intensity about 7 out of 10 and no radiation patient did have 2 episodes of vomiting and did have decreased food intake no diarrhea mild constipation with the symptom the patient was evaluated by the ER physician on arrival to the ER the patient was afebrile and no fever has been recorded for the last 4 days patient is currently on room air patient did have a elevated white count of admission 29.4 which has come down to 28.93 kidney function was normal AST was mildly elevated patient did have mildly positive UA showing small leukocyte esterase 18 WBC and urine culture has been finalized with the VRE that has prompted this infectious disease consultation patient also have a CT of abdominal pelvis did shows extensive hepatic metastatic disease clearing of the periumbilical subcutaneous edema some atelectasis right posterior lung base and no significant changes in the left lower lobe consolidation or atelectasis CT of the lumbar spine multilevel lumbar spondylosis changes no fracture Review of Systems Positive point has been mentioned in the HPI rest of the systems are negative Past Medical History Past Medical History: Cancer, Osteoarthritis (OA), Pneumonia Additional Past Medical History / Comment(s): sinus problems,kidney stones uti, bladder incnt/wears a pad,abd hernia,migraines,"muscles spasms and lt hip pain, had collapsed lung -not large enough to require c/t, DDD, sciatic. just finished fourth round of chemo this week 02/2021. recent breathing difficulties. History of Any Multi-Drug Resistant Organisms: VRE Year Discovered:: 02/16/21 VRE MDRO Source:: Urine-VRE Past Surgical History: Appendectomy, Bladder Surgery, Cholecystectomy, Hysterectomy, Orthopedic Surgery Additional Past Surgical History / Comment(s): artriscopy, lt knee replacemnent,adrenal gland removed,lt knee, colonoscopy, dental implants, 1997 had lt foot sx for hammer toes and stated had an implant in that foot-then january 2015 had a revison of that sx, Cdiff- 2015. covid 11/06 Past Anesthesia/Blood Transfusion Reactions: No Reported Reaction Additional Past Anesthesia/Blood Transfusion Reaction / Comm: Pt received blood without reaction. Past Psychological History: Anxiety Smoking Status: Former smoker Past Alcohol Use History: Rare Past Drug Use History: None Reported - Past Family History Mother Family Medical History: Dementia Additional Family Medical History / Comment(s): moms sister also had dementia Father Family Medical History: Unable to Obtain Medications and Allergies Home Medications Medication Instructions Recorded Confirmed Type Albuterol Inhaler [Ventolin Hfa 2 puff INHALATION RT-QID PRN 10/25/20 02/16/21 History Inhaler] Citalopram Hydrobromide 40 mg PO HS 10/25/20 02/16/21 History [Citalopram HBr] diphenhydrAMINE [Benadryl] 25 mg PO HS PRN 10/25/20 02/16/21 History fentaNYL 25MCG/HR PATCH [Duragesic 1 patch TRANSDERM Q72H #3 patch 11/01/20 02/16/21 Rx 25MCG/HR] HYDROcodone/APAP 7.5-325MG [[place] 1 tab PO Q6H PRN 11/26/20 02/16/21 History 7.5-325] Omeprazole 20 mg PO DAILY 11/26/20 02/16/21 History Ondansetron HCl [Zofran] 4 mg PO Q4H PRN 11/26/20 02/16/21 History Cholecalciferol [Vitamin D3 (25 25 mcg PO BID 12/13/20 02/16/21 History Mcg = 1000 Iu)] Fluticasone Propion/Salmeterol 1 puff INHALATION RT-BID 12/13/20 02/16/21 History [[place] 250-50 Inhub] Loperamide [Imodium] 2 mg PO QID PRN #30 cap 01/23/21 02/16/21 Rx Magnesium Oxide 400 mg PO DAILY 02/05/21 02/16/21 History Potassium Gluconate 99 mg PO BID 02/05/21 02/16/21 History Metoprolol Tartrate [Lopressor] 25 mg PO DAILY@1700 #30 tab 02/08/21 02/16/21 Rx Metoprolol Tartrate [Lopressor] 50 mg PO DAILY #30 tab 02/08/21 02/16/21 Rx Allergies Allergy/AdvReac Type Severity Reaction Status Date / Time Iodinated Contrast Media Allergy Unknown Verified 02/16/21 20:07 [Iodinated Contrast Media - IV Dye] sulfamethoxazole Allergy Rash/Hives Verified 02/16/21 20:07 [From Bactrim] trimethoprim [From Bactrim] Allergy Rash/Hives Verified 02/16/21 20:07 Physical Exam Vitals: Vital Signs Temp Pulse Pulse Resp BP Pulse Ox 02/20/21 15:12 80 02/20/21 15:04 80 02/20/21 14:12 97.7 F 103 H 17 153/83 95 02/20/21 11:24 80 02/20/21 11:13 80 02/20/21 07:41 80 02/20/21 07:32 76 02/20/21 07:03 98.1 F 103 H 18 157/97 97 02/20/21 02:00 97.6 F 91 24 157/87 96 02/19/21 20:32 75 02/19/21 20:26 75 02/19/21 20:00 97.5 F L 97 22 145/90 97 Intake and Output 02/20/21 02/20/21 02/20/21 06:59 14:59 22:59 Intake Total 200 Balance 200 Intake: Intake, IV Titration 200 Amount Ampicillin-Sulbactam 3 gm 200 In Sodium Chloride 0.9% 100 ml @ 200 mls/hr IVPB Q8HR [facility] Rx#:[id number] GENERAL DESCRIPTION: An elderly female lying in bed, no distress. No tachypnea or accessory muscle of respiration use. HEENT: Shows Pallor , no scleral icterus. Oral mucous membrane is dry. No pharyngeal erythema or thrush NECK: Trachea central, no thyromegaly. LUNGS: Unlabored breathing. decreased breath sounds at base. No wheeze or crackle. HEART: S1, S2, regular rate and rhythm. No loud murmur ABDOMEN: Soft, no tenderness , guarding or rigidity, no organomegaly EXTREMITIES: No edema of feet. SKIN: No rash, no masses palpable. NEUROLOGICAL: The patient is awake, alert, oriented x3, mood and affect normal. Results CBC & Chem 7: 02/20/21 05:40 02/20/21 05:40 Labs: Abnormal Lab Results - Last 24 Hours (Table) 02/20/21 02/20/21 Range/Units 05:40 05:40 WBC 28.93 H (4.50-10.00) X 10*3/uL RBC 2.55 L (4.10-5.20) X 10*6/uL Hgb 7.6 L (12.0-15.0) g/dL Hct 23.7 L (37.2-46.3) % RDW 18.6 H (11.5-14.5) % Absolute Nucleated RBC 0.17 H (0.00-0.00) X 10*3/uL NRBC/100 WBC Diff 0.6 H (0.0-0.0) /100 WBCS Sodium 146 H (135-145) mmol/L Potassium 3.3 L (3.5-5.5) mmol/L Chloride 112 H (96-109) mmol/L Carbon Dioxide 19.6 L (21.6-31.8) mmol/L Anion Gap 14.40 H (4.00-12.00) mmol/L BUN/Creatinine Ratio 38.33 H (12.00-20.00) Ratio Calcium 10.8 H (8.7-10.3) mg/dL Microbiology - Last 24 Hours (Table) 02/17/21 03:00 Blood Culture - Preliminary Blood No Growth after 72 hours 02/16/21 20:49 Urine Culture - Final Urine,Voided Enterococcus faecium VRE Assessment and Plan Assessment: 1-patient with a positive urine culture with VRE low colony count this patient urine was not significantly positive patient is not very clear about any urinary symptoms with concern for possible colonization versus contamination. 2-leukocytosis more likely secondary to colony-stimulating factor as the patient has received after her last chemotherapy 3-abdominal pain on presentation CT abdominal pelvis did not show any intra- abdominal pathology acute (1) Positive urine culture Current Visit: Yes Status: Acute Code(s): R82.79 - OTHER ABNORMAL FINDINGS ON MICROBIOLOG EXAMINATION OF URINE SNOMED Code(s): 623503559 (2) Leukocytosis Current Visit: Yes Status: Acute Code(s): D72.829 - ELEVATED WHITE BLOOD CELL COUNT, UNSPECIFIED SNOMED Code(s): 457729011 Plan: 1-we will repeat her UA straight cath patient if negative no further work-up will be needed 2-no need to add any specific treatment for VRE in the urine 3-Unasyn can be safely discontinued as no evidence of any infection at this point We will follow on clinical condition and cultures to further adjust medication if needed Thank you for this consultation we will follow the patient along with you Time with Patient: Greater than 30
[2021-02-21] MEDS: SYMBICORT 80-4.5 MCG INHALER INHALATION SCH ×2 (08:35→19:17)
[2021-02-21] MEDS: ASPIRIN 81 MG PO SCH (09:09)
[2021-02-21] MEDS: PANTOPRAZOLE 40 MG TABLET PO SCH (09:09)
[2021-02-21] MEDS: METOPROLOL SUCCINATE (ER) 50 MG TAB.ER.24H PO SCH (09:09)
[2021-02-21] MEDS: CHOLECALCIFEROL 25 MCG (1000 IU) TABLET PO SCH ×2 (09:09→20:38)
[2021-02-21] MEDS: MAGNESIUM OXIDE 400 MG TAB PO SCH (09:10)
[2021-02-21] MEDS: ENOXAPARIN 40 MG/0.4 ML SYRINGE SQ SCH (09:10)
[2021-02-21 09:43] LABS: African American GFR (CKD) 110.5 (60.0-200.0); Anion Gap 13.4 mmol/L (4.00-12.00); Calcium 10.4 mg/dL (8.7-10.3); Carbon Dioxide 22.6 mmol/L (21.6-31.8); Non-African American GFR(CKD) 95.3 (60.0-200.0); Potassium 3.2 mmol/L (3.5-5.5)
[2021-02-21] MEDS ORDERED: POTASSIUM CHLORIDE ER 20 MEQ TAB.ER PO STA (10:46)
[2021-02-21] MEDS: ACETAMINOPHEN TAB 325 MG TAB PO PRN (11:20)
[2021-02-21 12:27] LABS: HGB 7.8 g/dL (12.0-15.0); MCH 29.4 pg (27.0-32.0); MCHC 31.2 g/dL (32.0-37.0); MCV 94.3 fL (80.0-97.0); Mean Platelet Volume 10.3 fL (9.5-12.2); Platelet Count 177 X 10*3/uL (140-440); RBC 2.65 X 10*6/uL (4.10-5.20); RDW 18.6 % (11.5-14.5); WBC 26.18 X 10*3/uL (4.50-10.00)
--- NOTE | 2021-02-21 14:25 | P.PN ---
Subjective Progress Note Date: 02/21/21 Leukocytosis, non-ST elevation myocardial infarction Patient is pleasant 75-year-old male with known history of small cell carcinoma came in with the worsening abdominal pain and back pain. Patient also gave me a vague history with sounds like patient had a syncopal episode. Patient is mainly admitted for elevated troponins and leukocytosis without any clear evidence of infection. Abdominal CAT scan showed significant metastatic disease I do not have any chest x-ray available will obtain a chest x-ray to rule out any pneumonic infiltrate. Patient does have leukocytosis. Patient the last chemotherapy as per the patient was about couple weeks ago unsure whether patient received a colony-stimulating factor like Neupogen which may have contributed to her leukocytosis. Patient doesn't have any fever chills patient denied any dysuria patient the urine is not significantly abnormal but is a contaminated urine sample. Patient does have some chronic cough denied any sputum production. Patient denied any significant chest pain 02/18/2021 Patient white blood cell count went up a little bit this may be secondary to growth factors she received post chemotherapy although I cannot completely rule out urinary tract infection in spite of her not having symptoms patient has significant leukocytosis urine cultures are showing group B enterococcus, patient will be started on Unasyn. Cardiac evaluated because of Elevated troponins possibly of non-ST elevation myocardial infarction considering her metastatic cancer they're recommending medical management. Patient's hemoglobin did drop below 7 patient will receive 1 unit of PRBC transfusion and this is secondary to bone marrow suppression from chemotherapy no evidence of acute bleed at this time. Patient is getting bit drowsy because of which is this can you Benadryl continue with the her fentanyl and Tylenol for pain. 02/20/2021 Patient is seen in follow-up this morning extremely lethargic and extremely anxious and being closely monitored. Family at the bedside. Patient states she is cold and hungry and currently awaiting for her lunch tray. Patient is continued on IV antibiotics in the form of Unasyn and urine culture finalized showing enterococcus faecium VRE and infectious disease has been consulted and appreciate antibiotic recommendations. White blood count continues to be elevated at 28.93 and hemoglobin is 7.6 status post 1 unit of PRBCs and will continue to monitor closely and transfuse if hemoglobin is 7 or less. GI also following as patient is actively receiving treatments for metastatic cancer. Per nursing staff patient is more confused and attempting to hold narcotic medications although patient continues to request IV pain medication. Patient is extremely weak and lethargic and very ill-appearing with family at the bedside and CODE STATUS was again redressed and patient wishes to remain a full code. Prognosis is extremely poor and guarded. Sodium found to be 146 and we'll transition IV fluids to dextrose 5% in water and will also repeat potassium as potassium today was 3.3 and will replace per protocol. Her creatinine is stable at 0.6. Patient is afebrile. 02/21/2021 Patient is seen this morning extremely lethargic although arousable and anxious when awake and fatigues very easily. Her nursing staff patient requesting pain medication multiple times for continued abdominal discomfort. Patient does have some mild guarding and discomfort on palpation of the abdomen. White blood count slightly improved although still elevated at 26.18 and hemoglobin is stable at 7.8. Sodium slightly improved at 145 and potassium found to be 3.2 and will replace and repeat labs. Current creatinine is stable at 0.5. Pro- calcitonin is elevated at 0.87. Patient is afebrile. Patient continues to have very poor oral intake and is maintained on dysphasia 3 chopped diet. Infectious disease following along with oncology. Constitutional: Reports continued fatigue, denied any fever. Cardio vascular: denied any chest pain, palpitations Gastrointestinal denied any nausea vomiting Pulmonary: Denied any shortness of breath cough Neurologic denied any new focal deficits All inpatient medications were reviewed and appropriate changes in these medications as dictated in the interval history and assessment and plan. Objective - Vital Signs Vital signs: Vital Signs Temp 98.3 F 02/21/21 08:13 Pulse 96 02/21/21 08:50 Resp 16 02/21/21 08:13 BP 169/96 02/21/21 08:13 Pulse Ox 97 02/21/21 08:13 Intake & Output 02/20/21 02/21/21 02/21/21 18:59 06:59 18:59 Intake Total 1100 Balance 1100 Intake: Intake, IV Titration 1100 Amount Ampicillin-Sulbactam 3 gm 100 In Sodium Chloride 0.9% 100 ml @ 200 mls/hr IVPB Q8HR [facility] Rx#:[id number] Dextrose 5% in Water 1, 1000 000 ml @ 75 mls/hr IV . [id number] Rx#:[id number] Sodium Chloride 0.9% 1, 0 000 ml @ 75 mls/hr IV . [id number] [facility] Rx#:[id number] Other: Voiding Method Toilet # Voids 2 - Exam GENERAL: The patient is alert and oriented x1-2, not in any acute distress. Extremely lethargic although arousable, ill-appearing HEENT: Pupils are round and equally reacting to light. EOMI. No scleral icterus. No conjunctival pallor. Normocephalic, atraumatic. No pharyngeal erythema. No thyromegaly. CARDIOVASCULAR: S1 and S2 present. No murmurs, rubs, or gallops. PULMONARY: Diminished breath sounds bilaterally with some scattered rhonchi noted throughout. ABDOMEN: Soft, mildly tender, nondistended, normoactive bowel sounds. No palpable organomegaly. MUSCULOSKELETAL: No joint swelling or deformity. EXTREMITIES: No cyanosis, clubbing, or pedal edema. NEUROLOGICAL: Gross neurological examination did not reveal any focal deficits. Diffuse weakness SKIN: No rashes. Pale - Labs CBC & Chem 7: 02/21/21 07:11 02/21/21 05:40 Labs: Abnormal Lab Results - Last 24 Hours (Table) 02/20/21 02/20/21 02/20/21 Range/Units 05:40 05:40 17:00 WBC 28.93 H (4.50-10.00) X 10*3/uL RBC 2.55 L (4.10-5.20) X 10*6/uL Hgb 7.6 L (12.0-15.0) g/dL Hct 23.7 L (37.2-46.3) % RDW 18.6 H (11.5-14.5) % Absolute Nucleated RBC 0.17 H (0.00-0.00) X 10*3/uL NRBC/100 WBC Diff 0.6 H (0.0-0.0) /100 WBCS Sodium 146 H (135-145) mmol/L Potassium 3.3 L (3.5-5.5) mmol/L Chloride 112 H (96-109) mmol/L Carbon Dioxide 19.6 L (21.6-31.8) mmol/L Anion Gap 14.40 H (4.00-12.00) mmol/L BUN/Creatinine Ratio 38.33 H (12.00-20.00) Ratio Calcium 10.8 H (8.7-10.3) mg/dL Urine Protein Trace H (Negative) Microbiology - Last 24 Hours (Table) 02/17/21 03:00 Blood Culture - Preliminary Blood No Growth after 96 hours Assessment and Plan Assessment: -Leukocytosis secondary to growth factors post chemotherapy although possibility of urinary tract infection cannot be ruled out, patient has enterococcus faecium VRE in the urine. Repeat urinalysis was negative and Unasyn being discontinued. Infectious disease following. -Hypernatremia, improving current sodium is 145 -Back pain and abdominal pain: Secondary to metastatic disease. Patient will be continued on home regimen will titrate depending on her pain control. -Toxic encephalopathy: Secondary to infection and medications -Possibly acute non-ST elevation myocardial infarction: Medical management because of above-mentioned reasons and cardiology has evaluated the patient -COPD without any acute exacerbation -Chronic hypoxic and hypercapnic respiratory failure secondary to COPD as well as lung cancer, on O2 nasal cannula outpatient -Lung cancer: Oncology following the patient -DVT prophylaxis: Lovenox Plan: Continue on IV antibiotics and infectious disease following. Repeat urinalysis was negative and IV antibiotics in the form of Unasyn discontinued. Cardiology has evaluated the patient recommending to continue with medical management. Oncology also following as she is actively receiving treatment. Patient wishes to remain full code at this time and prognosis remains extremely poor and guarded. Per daughter at the bedside plan is for the patient to return home with her and continue with home care once stabilized. Further recommendations to follow based on the clinical course of the patient. Again, prognosis remains extremely guarded.
[2021-02-21 14:47] LABS: Basophils # (M) 0 X 10*3/uL (0.00-0.10); Eosinophils # (M) 0 X 10*3/uL (0.04-0.35); Lymphocytes # (M) 0.52 X 10*3/uL (0.90-5.00); Metamyelocytes % 1 % (0-0); Monocytes # (M) 0.79 X 10*3/uL (0.20-1.00); Myelocytes % 2 % (0-0); Neutrophils # (M) 23.82 X 10*3/uL (2.00-8.90); Neutrophils % (M) 91 %; Promyelocytes % 1 % (0-0)
[2021-02-21 14:50] LABS: African American GFR (CKD) 110.5 (60.0-200.0); Albumin 3.3 g/dL (3.80-4.90); Albumin/Globulin Ratio 1.65 (1.60-3.17); Anion Gap 10.6 mmol/L (4.00-12.00); Calcium 10.3 mg/dL (8.7-10.3); Carbon Dioxide 24.4 mmol/L (21.6-31.8); Non-African American GFR(CKD) 95.3 (60.0-200.0); Potassium 3.1 mmol/L (3.5-5.5); Total Bilirubin 0.9 mg/dL (0.2-1.2); Total Protein 5.3 g/dL (6.2-8.2)
[2021-02-21 15:50] LABS: C Reactive Protein 20.6 mg/dL (0.0-0.8)
[2021-02-21] MEDS: ATORVASTATIN 20 MG TAB PO SCH (20:38)
[2021-02-21] MEDS: CITALOPRAM HYDROBROMIDE 20 MG TAB PO SCH (20:39)
[2021-02-22] MEDS: HYDROmorphone 0.5 MG/0.5 ML SYRINGE IVP PRN ×4 (00:12→12:38)
--- NOTE | 2021-02-22 02:07 | PN ---
PROGRESS NOTE DATE OF SERVICE: 02/21/2021 REASON FOR FOLLOWUP: 1. Positive urine culture. 2. Leukocytosis. INTERVAL HISTORY: The patient was seen on rounds this morning. The patient has been afebrile. The patient is breathing comfortably. Complaining of some abdominal pain though. No nausea, no vomiting. No chest pain, shortness of breath or cough. PHYSICAL EXAMINATION: Blood pressure is 157/92 with a pulse of 100, temperature 98.2. She is 92% on 3 L nasal cannula. General description is an elderly female lying in bed in no distress. Respiratory system: Unlabored breathing. Clear to auscultation anteriorly. Heart: S1, S2. Regular rate and rhythm. Abdomen: Soft, no tenderness. LABORATORY DATA: Hemoglobin 7.8, white count 6.1. BUN of 19, creatinine 0.5. Repeat urine is negative. DIAGNOSTIC IMPRESSION/PLAN: 1. Patient with a positive culture with VRE possible contamination or colonization. Repeat urine is negative. No need for any for the same. 2. Patient with elevated white count, more likely related to the injection after chemo with no obvious focus of infection. We will monitor the patient closely off antibiotic therapy. MMODL / IJN: [id number] /
[2021-02-22] MEDS: HYDROcodone/APAP 7.5-325MG 1 EACH TAB PO PRN ×3 (02:23→15:10)
[2021-02-22] MEDS: SYMBICORT 80-4.5 MCG INHALER INHALATION SCH (08:24)
[2021-02-22] MEDS ORDERED: DEXTROSE 5% IN WATER 1,000 ML IV SCH (08:30)
[2021-02-22 08:54] LABS: African American GFR (CKD) >90 (>60 ml/min/1.73 sqM); Anion Gap 7 mmol/L; Blood Urea Nitrogen 13 mg/dL (7-17); Calcium 11.1 mg/dL (8.4-10.2); Carbon Dioxide 26 mmol/L (22-30); Chloride 109 mmol/L (98-107); Glucose 77 mg/dL (74-99); Non-African American GFR(CKD) >90 (>60 ml/min/1.73 sqM); Potassium 3.9 mmol/L (3.5-5.1); Sodium 142 mmol/L (137-145)
[2021-02-22] MEDS: ALPRAZolam 0.25 MG TAB PO PRN (08:54)
[2021-02-22] MEDS: ENOXAPARIN 40 MG/0.4 ML SYRINGE SQ SCH (08:54)
[2021-02-22] MEDS: ASPIRIN 81 MG PO SCH (08:54)
[2021-02-22] MEDS: MAGNESIUM OXIDE 400 MG TAB PO SCH (08:55)
[2021-02-22] MEDS: METOPROLOL SUCCINATE (ER) 50 MG TAB.ER.24H PO SCH (08:55)
[2021-02-22] MEDS: PANTOPRAZOLE 40 MG TABLET PO SCH (08:55)
[2021-02-22] MEDS: CHOLECALCIFEROL 25 MCG (1000 IU) TABLET PO SCH (08:56)
[2021-02-22 12:08] LABS: HCT 25.2 % (37.2-46.3); HGB 7.8 g/dL (12.0-15.0); MCH 29.4 pg (27.0-32.0); MCV 95.1 fL (80.0-97.0); Mean Platelet Volume 10.5 fL (9.5-12.2); Platelet Count 159 X 10*3/uL (140-440); RBC 2.65 X 10*6/uL (4.10-5.20); WBC 26.54 X 10*3/uL (4.50-10.00)
[2021-02-22 12:54] LABS: Basophils # (M) 0.27 X 10*3/uL (0.00-0.10); Eosinophils # (M) 0 X 10*3/uL (0.04-0.35); Lymphocytes # (M) 1.06 X 10*3/uL (0.90-5.00); Metamyelocytes % 3 % (0-0); Myelocytes % 1 % (0-0); Neutrophils # (M) 23.36 X 10*3/uL (2.00-8.90); Neutrophils % (M) 88 %
[2021-02-22 14:33] VITALS: BP 150/90; RESP 24; TEMP 98.3
[2021-02-22] MEDS ORDERED: ALBUTEROL NEBULIZED 2.5 MG/3 ML INHALATION SCH (16:00)
[2021-02-22 16:16] VITALS: PULSE 82
--- NOTE | 2021-02-22 17:31 | PN ---
PROGRESS NOTE DATE OF SERVICE: 02/22/2021 REASON FOR FOLLOW UP: 1. Positive urine culture with VRE, likely contaminant. 2. Elevated white count. INTERVAL HISTORY: The patient is afebrile. The patient is breathing comfortably. Denies any chest pain. Did have a cough, not bringing up sputum. No nausea, vomiting. No abdominal pain, no diarrhea. PHYSICAL EXAMINATION: Blood pressure 150/90 with a pulse of 92, temperature 98.2. She is 98% on 3 L nasal cannula. General description is an elderly female lying in no distress. Respiratory system: Unlabored breathing, coarse breath sounds bilaterally, no wheeze. Heart S1, S2. Regular rate and rhythm. Abdomen soft, no tenderness. LABS: Hemoglobin 7.8, white count 26.54, BUN of 13, creatinine 0.45. Blood culture has been negative. DIAGNOSTIC IMPRESSION AND PLAN: 1. Patient with positive culture with VRE, more likely contaminant. Repeat urine culture has been negative. No need for any specific antibiotic therapy for the same. 2. Patient with elevated white count more likely related to colony-stimulating factor the patient received after chemo. Watch for source of infection. Will monitor closely off antibiotic therapy. MMODL / IJN: [id number] /
--- NOTE | 2021-02-22 20:15 | P.PN ---
Subjective Progress Note Date: 02/22/21 Leukocytosis, non-ST elevation myocardial infarction Patient is pleasant 75-year-old male with known history of small cell carcinoma came in with the worsening abdominal pain and back pain. Patient also gave me a vague history with sounds like patient had a syncopal episode. Patient is mainly admitted for elevated troponins and leukocytosis without any clear evidence of infection. Abdominal CAT scan showed significant metastatic disease I do not have any chest x-ray available will obtain a chest x-ray to rule out any pneumonic infiltrate. Patient does have leukocytosis. Patient the last chemotherapy as per the patient was about couple weeks ago unsure whether patient received a colony-stimulating factor like Neupogen which may have contributed to her leukocytosis. Patient doesn't have any fever chills patient denied any dysuria patient the urine is not significantly abnormal but is a contaminated urine sample. Patient does have some chronic cough denied any sputum production. Patient denied any significant chest pain 02/18/2021 Patient white blood cell count went up a little bit this may be secondary to growth factors she received post chemotherapy although I cannot completely rule out urinary tract infection in spite of her not having symptoms patient has significant leukocytosis urine cultures are showing group B enterococcus, patient will be started on Unasyn. Cardiac evaluated because of Elevated troponins possibly of non-ST elevation myocardial infarction considering her metastatic cancer they're recommending medical management. Patient's hemoglobin did drop below 7 patient will receive 1 unit of PRBC transfusion and this is secondary to bone marrow suppression from chemotherapy no evidence of acute bleed at this time. Patient is getting bit drowsy because of which is this can you Benadryl continue with the her fentanyl and Tylenol for pain. 02/20/2021 Patient is seen in follow-up this morning extremely lethargic and extremely anxious and being closely monitored. Family at the bedside. Patient states she is cold and hungry and currently awaiting for her lunch tray. Patient is continued on IV antibiotics in the form of Unasyn and urine culture finalized showing enterococcus faecium VRE and infectious disease has been consulted and appreciate antibiotic recommendations. White blood count continues to be elevated at 28.93 and hemoglobin is 7.6 status post 1 unit of PRBCs and will continue to monitor closely and transfuse if hemoglobin is 7 or less. GI also following as patient is actively receiving treatments for metastatic cancer. Per nursing staff patient is more confused and attempting to hold narcotic medications although patient continues to request IV pain medication. Patient is extremely weak and lethargic and very ill-appearing with family at the bedside and CODE STATUS was again redressed and patient wishes to remain a full code. Prognosis is extremely poor and guarded. Sodium found to be 146 and we'll transition IV fluids to dextrose 5% in water and will also repeat potassium as potassium today was 3.3 and will replace per protocol. Her creatinine is stable at 0.6. Patient is afebrile. 02/21/2021 Patient is seen this morning extremely lethargic although arousable and anxious when awake and fatigues very easily. Her nursing staff patient requesting pain medication multiple times for continued abdominal discomfort. Patient does have some mild guarding and discomfort on palpation of the abdomen. White blood count slightly improved although still elevated at 26.18 and hemoglobin is stable at 7.8. Sodium slightly improved at 145 and potassium found to be 3.2 and will replace and repeat labs. Current creatinine is stable at 0.5. Pro- calcitonin is elevated at 0.87. Patient is afebrile. Patient continues to have very poor oral intake and is maintained on dysphasia 3 chopped diet. Infectious disease following along with oncology. 02/22/2021 Patient is seen and evaluated this morning and mentation much worse and patient continues to moan out in pain and receive pain medications and falls back asleep and wakes again shortly after moaning out in pain and inconsolable. Patient is minimally eating and not following appropriately to commands to encouragement of swallowing. Patient is extremely anxious and restless. Breathing more labored and continues on 3 Liter NC with prn breathing treatments. will add scheduled treatments. Gentle IV fluids ordered again as they had fallen off the order set. Sodium is 142 which is improved and potassium improved as well at 3.9. Patient continues off of IV antibiotics and WBC remains 26 although is on hormone therapy with a slow downward trend. Hemoglobin stable at 7.6 with no active bleeding noted. Patient is extremely pale and somewhat mottled in the extremities. Attempted to contact daughter to discuss code status once again and possible hospice to keep patient comfortable as she was in continued pain and discomfort. Hospice consult placed after discussing with daughter at the bedside later in the afternoon. Review of systems: Unable to obtain as patient was confused and restless All inpatient medications were reviewed and appropriate changes in these medications as dictated in the interval history and assessment and plan. Objective - Vital Signs Vital signs: Vital Signs Temp 97.7 F 02/22/21 07:24 Pulse 100 02/22/21 07:24 Resp 22 02/22/21 07:24 BP 155/80 02/22/21 07:24 Pulse Ox 99 02/22/21 08:24 Intake & Output 02/21/21 02/22/21 02/22/21 18:59 06:59 18:59 Output Total 300 Balance -300 Weight 58.967 kg Output: Urine 300 Other: Voiding Method Diaper External Catheter External Catheter # Voids 550 - Exam GENERAL: The patient is alert and oriented x0, in acute distress. Extremely restless and anxious, ill-appearing HEENT: Pupils are round and equally reacting to light. EOMI. No scleral icterus. No conjunctival pallor. Normocephalic, atraumatic. No pharyngeal erythema. No thyromegaly. CARDIOVASCULAR: S1 and S2 present. No murmurs, rubs, or gallops. PULMONARY: Diminished breath sounds bilaterally with some scattered rhonchi noted throughout. expiratory wheezing noted on exam, tachypneic ABDOMEN: Soft, mildly tender, nondistended, sluggish bowel sounds. No palpable organomegaly. MUSCULOSKELETAL: No joint swelling or deformity. EXTREMITIES: No cyanosis, clubbing, or pedal edema. NEUROLOGICAL: unable to completely assess SKIN: No rashes. Pale - Labs CBC & Chem 7: 02/22/21 07:01 02/22/21 07:01 Labs: Abnormal Lab Results - Last 24 Hours (Table) 02/21/21 02/21/21 02/21/21 Range/Units 05:40 07:11 07:11 WBC 26.18 H (4.50-10.00) X 10*3/uL RBC 2.65 L (4.10-5.20) X 10*6/uL Hgb 7.8 L (12.0-15.0) g/dL Hct 25.0 L (37.2-46.3) % MCHC 31.2 L (32.0-37.0) g/dL RDW 18.6 H (11.5-14.5) % Absolute Nucleated RBC 0.16 H (0.00-0.00) X 10*3/uL Metamyelocytes % 1 H (0-0) % Myelocytes % 2 H (0-0) % Promyelocytes % 1 H (0-0) % Neutrophils # (Manual) 23.82 H (2.00-8.90) X 10*3/uL Lymphocytes # (Manual) 0.52 L (0.90-5.00) X 10*3/uL Eosinophils # (Manual) 0 L (0.04-0.35) X 10*3/uL NRBC/100 WBC Diff 0.6 H (0.0-0.0) /100 WBCS Potassium 3.2 L 3.1 L (3.5-5.5) mmol/L Chloride (98-107) mmol/L Anion Gap 13.40 H (4.00-12.00) mmol/L Creatinine 0.5 L 0.5 L (0.6-1.5) mg/dL BUN/Creatinine Ratio 40.00 H 38.00 H (12.00-20.00) Ratio Calcium 10.4 H (8.7-10.3) mg/dL AST 49 H (13-35) U/L Alkaline Phosphatase 212 H (41-126) U/L C-Reactive Protein 20.6 H (0.0-0.8) mg/dL Total Protein 5.3 L (6.2-8.2) g/dL Albumin 3.30 L (3.80-4.90) g/dL Procalcitonin (0.02-0.09) ng/mL 02/21/21 02/22/21 Range/Units 07:11 07:01 WBC (4.50-10.00) X 10*3/uL RBC (4.10-5.20) X 10*6/uL Hgb (12.0-15.0) g/dL Hct (37.2-46.3) % MCHC (32.0-37.0) g/dL RDW (11.5-14.5) % Absolute Nucleated RBC (0.00-0.00) X 10*3/uL Metamyelocytes % (0-0) % Myelocytes % (0-0) % Promyelocytes % (0-0) % Neutrophils # (Manual) (2.00-8.90) X 10*3/uL Lymphocytes # (Manual) (0.90-5.00) X 10*3/uL Eosinophils # (Manual) (0.04-0.35) X 10*3/uL NRBC/100 WBC Diff (0.0-0.0) /100 WBCS Potassium (3.5-5.5) mmol/L Chloride 109 H (98-107) mmol/L Anion Gap (4.00-12.00) mmol/L Creatinine 0.45 L (0.6-1.5) mg/dL BUN/Creatinine Ratio (12.00-20.00) Ratio Calcium 11.1 H (8.7-10.3) mg/dL AST (13-35) U/L Alkaline Phosphatase (41-126) U/L C-Reactive Protein (0.0-0.8) mg/dL Total Protein (6.2-8.2) g/dL Albumin (3.80-4.90) g/dL Procalcitonin 0.87 H (0.02-0.09) ng/mL Microbiology - Last 24 Hours (Table) 02/17/21 03:00 Blood Culture - Preliminary Blood No Growth after 120 hours Assessment and Plan Assessment: -Leukocytosis secondary to growth factors post chemotherapy although possibility of urinary tract infection cannot be ruled out, patient has enterococcus faecium VRE in the urine. Repeat urinalysis was negative and Unasyn being discontinued. Infectious disease following. -Hypernatremia, improving current sodium is 142 and patient continues on D5% in water at 75ml/hr -Back pain and abdominal pain: Secondary to metastatic disease. Patient will be continued on home regimen will titrate depending on her pain control. -Toxic encephalopathy: Secondary to infection and medications -Possibly acute non-ST elevation myocardial infarction: Medical management because of above-mentioned reasons and cardiology has evaluated the patient -COPD without any acute exacerbation -Chronic hypoxic and hypercapnic respiratory failure secondary to COPD as well as lung cancer, on O2 nasal cannula outpatient -Lung cancer with liver metastasis -DVT prophylaxis: Lovenox Plan: Continues to become more restless and anxious and not following commands, continues to be in pain although extremely lethargic after receiving pain medications until she is in pain again and moans out but no relief noted. Breath ing has become more labored with expiratory wheezing noted, not eating or even swallowing properly. Attempted to contact daughter to discuss possible hospice and awaiting until she arrived at the hospital to discuss in length about extremely guarded and poor prognosis and clinical decline. Hospice consult was then placed after daughter was in agreement. Calling other sister to come to the hospital. [facility] on the unit. Ultimate goal was for patient comfort. This was also discussed in detail with oncology. Patient will meet inpatient criteria once admitted to hospice. Will continue to monitor closely.
--- NOTE | 2021-02-22 22:05 | P.PN ---
Subjective Progress Note Date: 02/22/21 patient's condition has changed significantly over the last 48 hours or so, especially today. She had been somewhat more lethargic over the last couple days, but was extremely lethargic today with significant difficulty in responding. She is been complaining of significant pain in the right hip/right thigh area. She also developed increasing difficulty with breathing today. No fever or chills, obvious nausea or vomiting. No trauma noted. At the time of my evaluation, the patient family had just decided to opt for hospice Objective - Vital Signs Vital signs: Vital Signs Temp 98.3 F 02/22/21 14:00 Pulse 82 02/22/21 16:13 Resp 24 02/22/21 14:00 BP 150/90 02/22/21 14:00 Pulse Ox 98 02/22/21 14:00 Intake & Output 02/22/21 02/22/21 02/23/21 06:59 18:59 06:59 Output Total 300 Balance -300 Output: Urine 300 Other: Voiding Method External Catheter External Catheter - Constitutional Constitutional Comment(s): moderate distress. Quite lethargic. However she was intermittently arousable and responsive - EENT Eyes: Present: EOMI ENT: Present: hearing grossly normal, normal oropharynx - Respiratory Respiratory: right: wheezing (quite pronounced right lower lobe), bilateral: prolonged expiration - Cardiovascular Rhythm: regular Heart sounds: normal: S1, S2 - Gastrointestinal General gastrointestinal: Present: normal bowel sounds, soft - Integumentary Integumentary: Present: normal - Neurologic Neurologic: Present: CNII-XII intact - Musculoskeletal Musculoskeletal: Present: generalized weakness, strength equal bilaterally - Psychiatric Psychiatric Comment(s): very lethargic, and difficult to arouse. However she was arousable intermittently with comprehension appearing reasonable during this intervals - Labs CBC & Chem 7: 02/22/21 07:01 02/22/21 07:01 Labs: Abnormal Lab Results - Last 24 Hours (Table) 02/22/21 02/22/21 Range/Units 07:01 07: WBC 26.54 H (4.50-10.00) X 10*3/uL RBC 2.65 L (4.10-5.20) X 10*6/uL Hgb 7.8 L (12.0-15.0) g/dL Hct 25.2 L (37.2-46.3) % MCHC 31.0 L (32.0-37.0) g/dL RDW 19.0 H (11.5-14.5) % Absolute Nucleated RBC 0.15 H (0.00-0.00) X 10*3/uL Metamyelocytes % 3 H (0-0) % Myelocytes % 1 H (0-0) % Neutrophils # (Manual) 23.36 H (2.00-8.90) X 10*3/uL Eosinophils # (Manual) 0 L (0.04-0.35) X 10*3/uL Basophils # (Manual) 0.27 H (0.00-0.10) X 10*3/uL NRBC/100 WBC Diff 0.6 H (0.0-0.0) /100 WBCS Chloride 109 H (98-107) mmol/L Creatinine 0.45 L (0.52-1.04) mg/dL Calcium 11.1 H (8.4-10.2) mg/dL Microbiology - Last 24 Hours (Table) 02/17/21 03:00 Blood Culture - Preliminary Blood No Growth after 120 hours Assessment and Plan Assessment: this has been managed conservatively according to cardiology recommendations. Patient has not had recurrence of chest pain (1) Acute coronary syndrome Status: Acute Code(s): I24.9 - ACUTE ISCHEMIC HEART DISEASE, UNSPECIFIED SNOMED Code(s): 269480710 (2) Primary small cell malignant neoplasm of lung, stage 4 Narrative/Plan: diagnostic and therapeutic circumstances as described previously in the initial consult. Patient's most recent imaging appears to show a partial response. There has been no evidence on imaging of any obvious progression of cancer. However the patient does have metastatic disease at diagnosis. It has been discussed with the family multiple times, and was retreated today, that her cancer is not curable and objective of treatment this from duration of life and palliation of symptoms. Therefore for any intervention, impact on quality as well as quantity of life needs to be considered. Status: Acute Code(s): C34.90 - MALIGNANT NEOPLASM OF UNSP PART OF UNSP BRONCHUS OR LUNG SNOMED Code(s): 70694932095858 (3) Leukocytosis Status: Acute Code(s): D72.829 - ELEVATED WHITE BLOOD CELL COUNT, UNSPECIFIED SNOMED Code(s): 213144000 (4) Anemia Narrative/Plan: hemoglobin has been stable since her last transfusion about 3 days ago. It was 7.8 today. Status: Acute Code(s): D64.9 - ANEMIA, UNSPECIFIED SNOMED Code(s): 215134795 Plan: the patient has had significant deterioration specially today. She had been getting more lethargic over the past 2 days. Etiology of the same is unclear. She was on treatment for possible VRE UTI, but subsequent investigations and evaluation by ID appear to rule this out. Therefore antibiotics were discontinued. - Given her symptoms, recurrent sepsis is felt to possible. Definite source was not immediately apparent. As noted patient has been followed by ID this admission. Based on my exam lung source cannot be ruled out. - It was discussed with the family that the patient has been declining significantly despite ongoing aggressive supportive care. Case was also discussed in detail with the admitting service. Given the patient's current condition and fairly rapid deterioration especially today, it was felt by the admitting service that the patient was getting to the point where more aggressive, life-support type measures would need to be considered for ongoing support. As noted, the patient has known stage IV small cell cancer, and has had various complications throughout treatment. She has become significantly more debilitated. It was discussed in detail with the family, that with this underlying diagnosis even if the patient has had a partial response, if she deteriorates due to another medical condition, where life-support needs to be considered, the chances of clinical benefit from the same be extremely poor. Therefore from my standpoint consideration of comfort care in this situation is very reasonable. Family's wishes were answered in detail. They're quite comfortable with the decision to proceed with comfort care. Case was also discussed in detail with the admitting service. It was felt from the oncology standpoint that antibiotics and breathing treatments would be reasonable to institute as they could potentially help with the patient's comfort given her respiratory issues.
--- NOTE | 2021-02-23 09:41 | P.DS ---
Providers Date of admission: 02/17/21 01:11 Expected date of discharge: 02/23/21 Attending physician: Mitesh Munson Consults: 02/17/21 01:06 Consult Physician Routine Consulting Provider: Kishor Moses Consult Reason/Comments: Leukocytosis; Abd pain; back pain Do you want consulting provider notified?: Yes 02/17/21 03:54 Consult Physician Stat Consulting Provider: Beatriz Nguyen Consult Reason/Comments: Elevated trop Do you want consulting provider notified?: Yes 02/20/21 13:05 Consult Physician Urgent Consulting Provider: Maegan Norman Consult Reason/Comments: VRE urine/ abx recommendations Do you want consulting provider notified?: Yes Primary care physician: Emy Ball [facility] Course: Final diagnosis -Leukocytosis secondary to growth factors post chemotherapy although possibility of urinary tract infection cannot be ruled out, patient has enterococcus faecium VRE in the urine. Repeat urinalysis was negative -Hypernatremia, improving -Back pain and abdominal pain: Secondary to metastatic disease -Toxic encephalopathy: Secondary to infection and medications -Possibly acute non-ST elevation myocardial infarction: Medical management because of above-mentioned reasons and cardiology has evaluated the patient -COPD without any acute exacerbation -Chronic hypoxic and hypercapnic respiratory failure secondary to COPD as well as lung cancer, on O2 nasal cannula outpatient -Lung cancer with liver metastasis -DVT prophylaxis -No code Discharge disposition Patient is being transferred and made inpatient hospice in a stable condition with extremely guarded and poor prognosis. Family at the bedside and have agreed to meet with hospice and will be signing on with [facility] course This is a 75-year-old female who was recently admitted with leukocytosis, non-ST elevation myocardial infarction and was being closely monitored. Patient does have a past medical history of small cell carcinoma with most recent CAT scan showing significant metastatic disease to the liver. Patient has been receiving chemotherapy along with growth factors which may have contributed to elevated white blood count. Initial urinalysis and culture finalized showing VRE and infectious disease is following. Patient was maintained on IV antibiotics in the form of Zosyn and repeat urinalysis was done which was negative. Patient was taken off antibiotics. Patient continued to deteriorate becoming more lethargic and unresponsive and continued to moan out in pain requesting multiple pain medications. Patient became more altered after using pain medications per family but continued to be uncomfortable and in extreme severe pain. Patient's oral intake was very poor and being required to have assistance and taking minimal bites per day of food. Lengthy discussion was had with the family about extremely guarded and poor prognosis and was agreeable to meet with hospice once another family member arrived. [facility] consulted and have obtained consent and will be made inpatient hospice with comfort measures. Please refer to previous dictations for further HPI. On exam vital signs are stable. Cardio S1, S2 are muffled. Respiratory system shows diminished breath sounds bilaterally with some scattered rhonchi and expiratory wheezing noted. Abdomen is soft and tender on exam with palpation. Nervous system shows diffuse weakness. Patient will be started on comfort medications per hospice orders. Patient Condition at Discharge: Poor Plan - Discharge Summary Discharge Rx Participant: No New Discharge Prescriptions: No Action diphenhydrAMINE [Benadryl] 25 mg PO HS PRN PRN Reason: SLEEP/ALLERGIC REACTION Citalopram Hydrobromide [Citalopram HBr] 40 mg PO HS Albuterol Inhaler [Ventolin Hfa Inhaler] 2 puff INHALATION RT-QID PRN PRN Reason: Shortness Of Breath fentaNYL 25MCG/HR PATCH [Duragesic 25MCG/HR] 1 patch TRANSDERM Q72H #3 patch HYDROcodone/APAP 7.5-325MG [[place] 7.5-325] 1 tab PO Q6H PRN PRN Reason: Pain Cholecalciferol [Vitamin D3 (25 Mcg = 1000 Iu)] 25 mcg PO BID Potassium Gluconate 99 mg PO BID Magnesium Oxide 400 mg PO DAILY Metoprolol Tartrate [Lopressor] 50 mg PO DAILY #30 tab Omeprazole 20 mg PO DAILY Ondansetron HCl [Zofran] 4 mg PO Q4H PRN PRN Reason: Nausea And Vomiting Fluticasone Propion/Salmeterol [Wixela 250-50 Inhub] 1 puff INHALATION RT-BID Loperamide [Imodium] 2 mg PO QID PRN #30 cap PRN Reason: Diarrhea Metoprolol Tartrate [Lopressor] 25 mg PO DAILY@1700 #30 tab Discharge Medication List Albuterol Inhaler [Ventolin Hfa Inhaler] 2 puff INHALATION RT-QID PRN 10/25/20 [History] Citalopram Hydrobromide [Citalopram HBr] 40 mg PO HS 03/09/21 [History] diphenhydrAMINE [Benadryl] 25 mg PO HS PRN 10/25/20 [History] fentaNYL 25MCG/HR PATCH [Duragesic 25MCG/HR] 1 patch TRANSDERM Q72H #3 patch 11/01/20 [Rx] HYDROcodone/APAP 7.5-325MG [[place] 7.5-325] 1 tab PO Q6H PRN 11/26/20 [History] Omeprazole 20 mg PO DAILY 11/26/20 [History] Ondansetron HCl [Zofran] 4 mg PO Q4H PRN 11/26/20 [History] Cholecalciferol [Vitamin D3 (25 Mcg = 1000 Iu)] 25 mcg PO BID 12/13/20 [History] Fluticasone Propion/Salmeterol [Wixela 250-50 Inhub] 1 puff INHALATION RT-BID 12/13/20 [History] Loperamide [Imodium] 2 mg PO QID PRN #30 cap 01/23/21 [Rx] Magnesium Oxide 400 mg PO DAILY 02/05/21 [History] Potassium Gluconate 99 mg PO BID 02/05/21 [History] Metoprolol Tartrate [Lopressor] 25 mg PO DAILY@1700 #30 tab 02/08/21 [Rx] Metoprolol Tartrate [Lopressor] 50 mg PO DAILY #30 tab 02/08/21 [Rx] Follow up Appointment(s)/Referral(s): Emy Ball MD [Primary Care Provider] - 1-2 days [facility], [NON-STAFF] - Discharge Disposition: HOME WITH HOSPICE
== END 2021-02-22 16:45 | disposition hospice, home (50) | DRG 280 ==
LOC: EC 19:54 → 4SSUR 02-17 01:11
PROVIDERS: ADMIT Hospitalist; ATTEND Hospitalist
PROC: 30233N1 Transfusion of Nonautologous Red Blood Cells into Peripheral Vein, Percutaneous Approach (ICD-10-PCS; principal; 2021-02-18)
DX: I21.4 Non-ST elevation (NSTEMI) myocardial infarction (principal); D61.1 Drug-induced aplastic anemia; G92 Toxic encephalopathy; C34.12 Malignant neoplasm of upper lobe, left bronchus or lung; C77.1 Secondary and unspecified malignant neoplasm of intrathoracic lymph nodes; C77.0 Secondary and unspecified malignant neoplasm of lymph nodes of head, face and neck; C79.51 Secondary malignant neoplasm of bone; E89.6 Postprocedural adrenocortical (-medullary) hypofunction; C78.7 Secondary malignant neoplasm of liver and intrahepatic bile duct; J98.11 Atelectasis; J96.11 Chronic respiratory failure with hypoxia; J96.12 Chronic respiratory failure with hypercapnia; N39.0 Urinary tract infection, site not specified; Z16.21 Resistance to vancomycin; E87.0 Hyperosmolality and hypernatremia; J44.9 Chronic obstructive pulmonary disease, unspecified; G89.3 Neoplasm related pain (acute) (chronic); I08.1 Rheumatic disorders of both mitral and tricuspid valves; M47.816 Spondylosis without myelopathy or radiculopathy, lumbar region; T45.1X5A Adverse effect of antineoplastic and immunosuppressive drugs, initial encounter; B95.2 Enterococcus as the cause of diseases classified elsewhere; K43.9 Ventral hernia without obstruction or gangrene; F41.9 Anxiety disorder, unspecified; M25.552 Pain in left hip; M25.551 Pain in right hip; K59.00 Constipation, unspecified; M19.90 Unspecified osteoarthritis, unspecified site; Z79.891 Long term (current) use of opiate analgesic; Z79.51 Long term (current) use of inhaled steroids; Z79.899 Other long term (current) drug therapy; Z87.01 Personal history of pneumonia (recurrent); Z87.442 Personal history of urinary calculi; Z87.440 Personal history of urinary (tract) infections; Z87.891 Personal history of nicotine dependence; Z90.49 Acquired absence of other specified parts of digestive tract; Z87.19 Personal history of other diseases of the digestive system; Z90.710 Acquired absence of both cervix and uterus; Z87.39 Personal history of other diseases of the musculoskeletal system and connective tissue; Z98.811 Dental restoration status; Z86.16 Personal history of COVID-19; Z87.42 Personal history of other diseases of the female genital tract; Z87.448 Personal history of other diseases of urinary system; Z86.69 Personal history of other diseases of the nervous system and sense organs; Z98.890 Other specified postprocedural states; Z88.2 Allergy status to sulfonamides; Z91.041 Radiographic dye allergy status; Z81.8 Family history of other mental and behavioral disorders
CPT/HCPCS: 36415; 72132; 74177; 80048; 80053; 81001; 81003; 83605; 83690; 84145; 84443; 84484; 85025; 85027; 85379; 85610; 85730; 86140; 86850; 86900; 86901; 86920; 87040; 87077; 87086; 87186; 93005; 93308; 94640; 94760; 96374; 96375; 96376; 99285

== ENCOUNTER 2021-02-22 16:24 | Inpatient (IN) | payer MEDICAID ==
[2021-02-22] MEDS ORDERED: MORPHINE SULFATE 4 MG/ML SYRINGE IV PRN (16:32)
[2021-02-22] MEDS: LORazepam 2 MG/ML INJ IV PRN (17:41)
[2021-02-22] MEDS: SCOPOLAMINE 1.5MG/72HR PATCH TRANSDERM SCH (18:05)
[2021-02-22] MEDS: MORPHINE SULFATE (100 MG/2 ML) 100 MG in SODIUM CHLORIDE 0.9% 100 ML IV SCH ×2 (18:05→19:25)
[2021-02-23] MEDS: ACETAMINOPHEN SUPPOSITORY 650 MG SUPP RECTAL PRN (01:31)
--- NOTE | 2021-02-23 13:20 | P.HPIM ---
History of Present Illness H&P Date: 02/23/21 This is a 75-year-old female with a past medical history of small cell lung carcinoma with metastasis to the liver and was recently admitted for leukocytosis, increased abdominal and back pain, and non-ST segment elevation myocardial infarction. Cardiology evaluated the patient and given multiple medical complications and comorbidities recommending maximizing medical management with no surgical interventions or further testing needed. Patient also follows with oncology as she was continuing to receive chemoradiation treatments most recently the beginning of this month. Patient had also been receiving growth factors status post chemotherapy which may have been contributed to leukocytosis. Patient was started on IV antibiotics as urine was showing enterococcus VRE and treated for multiple days. Infectious disease was following as well with repeat urinalysis being negative and IV antibiotics were ultimately discontinued. Patient's mental status continued to deteriorate most likely secondary to metastatic cancer along with toxic encephalopathy related to multiple narcotic medications. Patient had been on fentanyl patch along with hydrocodone and also with IV pain medications. Patient was maintained on 3-4 L via nasal cannula which is her baseline and continued on breathing inhalational treatments although respiratory status continued to deteriorate as well. Patient having audible wheezing noted on exam along with being tachypneic. Patient extremely restless and anxious in spite of using Xanax and unable to follow simple commands. Patient had not been eating or drinking and continued with abdominal pain on palpation with guarding noted. Discussion was had with daughter at the bedside and would like her mother to be comfort measures and hospice consult was placed. Patient is admitted in patient with [facility] hospice services with comfort measures only. Review of Systems ROS unobtainable: due to mental status Past Medical History Past Medical History: Cancer, Osteoarthritis (OA), Pneumonia Additional Past Medical History / Comment(s): sinus problems,kidney stones uti, bladder incnt/wears a pad,abd hernia,migraines,"muscles spasms and lt hip pain, had collapsed lung -not large enough to require c/t, DDD, sciatic. just finished fourth round of chemo this week 02/2021. recent breathing difficulties. History of Any Multi-Drug Resistant Organisms: VRE Date of last positivie culture/infection: 02/16/21 VRE MDRO Source:: Urine-VRE Past Surgical History: Appendectomy, Bladder Surgery, Cholecystectomy, Hysterectomy, Orthopedic Surgery Additional Past Surgical History / Comment(s): artriscopy, lt knee replacemnent,adrenal gland removed,lt knee, colonoscopy, dental implants, 1997 had lt foot sx for hammer toes and stated had an implant in that foot-then january 2015 had a revison of that sx, Cdiff- 2015. covid 11/06 Past Anesthesia/Blood Transfusion Reactions: No Reported Reaction Additional Past Anesthesia/Blood Transfusion Reaction / Comment(s): Pt received blood without reaction. Past Psychological History: Anxiety Smoking Status: Former smoker Past Alcohol Use History: Rare Past Drug Use History: None Reported - Past Family History Mother Family Medical History: Dementia Additional Family Medical History / Comment(s): moms sister also had dementia Father Family Medical History: Unable to Obtain Medications and Allergies Home Medications Medication Instructions Recorded Confirmed Type Albuterol Inhaler [Ventolin Hfa 2 puff INHALATION RT-QID PRN 10/25/20 02/22/21 History Inhaler] Citalopram Hydrobromide 40 mg PO HS 10/25/20 02/22/21 History [Citalopram HBr] diphenhydrAMINE [Benadryl] 25 mg PO HS PRN 10/25/20 02/22/21 History fentaNYL 25MCG/HR PATCH [Duragesic 1 patch TRANSDERM Q72H #3 patch 11/01/20 02/22/21 Rx 25MCG/HR] HYDROcodone/APAP 7.5-325MG [[place] 1 tab PO Q6H PRN 11/26/20 02/22/21 History 7.5-325] Omeprazole 20 mg PO DAILY 11/26/20 02/22/21 History Ondansetron HCl [Zofran] 4 mg PO Q4H PRN 11/26/20 02/22/21 History Cholecalciferol [Vitamin D3 (25 25 mcg PO BID 12/13/20 02/22/21 History Mcg = 1000 Iu)] Fluticasone Propion/Salmeterol 1 puff INHALATION RT-BID 12/13/20 02/22/21 History [Wixela 250-50 Inhub] Loperamide [Imodium] 2 mg PO QID PRN #30 cap 01/23/21 02/22/21 Rx Magnesium Oxide 400 mg PO DAILY 02/05/21 02/22/21 History Potassium Gluconate 99 mg PO BID 02/05/21 02/22/21 History Metoprolol Tartrate [Lopressor] 25 mg PO DAILY@1700 #30 tab 02/08/21 02/22/21 Rx Metoprolol Tartrate [Lopressor] 50 mg PO DAILY #30 tab 02/08/21 02/22/21 Rx Allergies Allergy/AdvReac Type Severity Reaction Status Date / Time Iodinated Contrast Media Allergy Unknown Verified 02/22/21 18:18 [Iodinated Contrast Media - IV Dye] sulfamethoxazole Allergy Rash/Hives Verified 02/22/21 18:18 [From Bactrim] trimethoprim [From Bactrim] Allergy Rash/Hives Verified 02/22/21 18:18 Physical Exam Vitals: Vital Signs Temp Pulse Resp BP Pulse Ox 02/23/21 07:36 98.6 F 93 16 98/65 96 02/23/21 04:51 98.6 F 02/23/21 00:54 100.0 F H 92 17 118/78 97 02/22/21 20:00 98.5 F 89 15 130/92 87 L Intake and Output 02/22/21 02/23/21 02/23/21 22:59 06:59 14:59 Intake Total 1.751 Output Total 300 Balance -298.249 Intake: Intake, IV Titration 1.751 Amount Morphine Sulfate (100 mg/ 1.751 2 ml) 100 mg In Sodium Chloride 0.9% 100 ml @ 1 MG/HR 1.02 mls/hr IV . Q24H [facility] Rx#:[id number] Output: Urine 300 Other: Voiding Method Indwelling Catheter Weight 58.96 kg Gen: This is a 75-year-old female, alert and oriented 0, currently resting comfortably, pale, ill-appearing HEENT: Head is atraumatic, normocephalic. Pupils equal, round. Sclerae is anicteric. NECK: Supple. No JVD. No lymphadenopathy. No thyromegaly. LUNGS: Diminished breath sounds bilaterally with some scattered rhonchi and crackles noted. Audible expiratory wheezing noted. No intercostal retractions. HEART: S1, S2 are muffled ABDOMEN: Soft. Sluggish bowel sounds. No masses. No tenderness. EXTREMITIES: No pedal edema. No calf tenderness. NEUROLOGICAL: Unable to completely assess as patient is on a morphine drip with comfort measures Assessment and Plan Assessment: -Leukocytosis secondary to growth factors post chemotherapy -Recent history of acute urinary tract infection initially growing enterococcus VRE with repeat urinalysis negative after IV antibiotic therapy -Hypernatremia, improved -Back pain and abdominal pain: Secondary to metastatic disease -Toxic encephalopathy: Secondary to infection and medications -Recent acute non-ST elevation myocardial infarction -COPD without any acute exacerbation -Chronic hypoxic and hypercapnic respiratory failure secondary to COPD as well as lung cancer, on O2 nasal cannula outpatient -Lung cancer with liver metastasis -No code Plan: Patient was recently transferred to inpatient hospice with [facility] hospice and comfort measures only. Prognosis remains extremely poor and guarded. Family at the bedside along with [facility] hospice volunteer as patient is on a morphine drip and will continue with family wishes of comfort measures only. Will continue to monitor closely.
[2021-02-23] MEDS: MORPHINE SULFATE (100 MG/2 ML) 100 MG in SODIUM CHLORIDE 0.9% 100 ML IV SCH (17:59)
[2021-02-24] MEDS: ACETAMINOPHEN SUPPOSITORY 650 MG SUPP RECTAL PRN (09:56)
[2021-02-24 12:03] VITALS: BMI 23.0
--- NOTE | 2021-02-24 15:16 | P.PN ---
Subjective Progress Note Date: 02/24/21 This is a 75-year-old female with a past medical history of small cell lung carcinoma with metastasis to the liver and was recently admitted for leukocytosis, increased abdominal and back pain, and non-ST segment elevation myocardial infarction. Cardiology evaluated the patient and given multiple medical complications and comorbidities recommending maximizing medical management with no surgical interventions or further testing needed. Patient also follows with oncology as she was continuing to receive chemoradiation treatments most recently the beginning of this month. Patient had also been receiving growth factors status post chemotherapy which may have been contributed to leukocytosis. Patient was started on IV antibiotics as urine was showing enterococcus VRE and treated for multiple days. Infectious disease was following as well with repeat urinalysis being negative and IV antibiotics were ultimately discontinued. Patient's mental status continued to deteriorate most likely secondary to metastatic cancer along with toxic encephalopathy related to multiple narcotic medications. Patient had been on fentanyl patch along with hydrocodone and also with IV pain medications. Patient was maintained on 3-4 L via nasal cannula which is her baseline and continued on breathing inhalational treatments although respiratory status continued to deteriorate as well. Patient having audible wheezing noted on exam along with being tachypneic. Patient extremely restless and anxious in spite of using Xanax and unable to follow simple commands. Patient had not been eating or drinking and continued with abdominal pain on palpation with guarding noted. Discussion was had with daughter at the bedside and would like her mother to be comfort measures and hospice consult was placed. Patient is admitted in patient with [facility] services with comfort measures only. 02/24/2021 Patient is seen this morning with both daughters at the bedside continues on a morphine drip in [facility] following closely and continuing with comfort measures only. Patient is not responding at all and appears to be comfortable although having some brief periods of restlessness and working to breathe. She continues on 3 L which is her baseline for continued comfort. Objective - Vital Signs Vital signs: Vital Signs Temp 98.6 F 02/24/21 01:33 Pulse 84 02/24/21 01:33 Resp 14 02/24/21 06:57 BP 98/52 02/24/21 01:33 Pulse Ox 94 L 02/24/21 01:33 Intake & Output 02/23/21 02/24/21 02/24/21 18:59 06:59 18:59 Intake Total 62.369 51.733 Output Total 1100 200 Balance -1037.631 -148.267 Intake: Intake, IV Titration 62.369 51.733 Amount Morphine Sulfate (100 mg/ 62.369 51.733 2 ml) 100 mg In Sodium Chloride 0.9% 100 ml @ 1 MG/HR 1.02 mls/hr IV . Q24H [facility] Rx#:[id number] Output: Urine 1100 200 Other: Voiding Method Indwelling Catheter Indwelling Catheter # Voids 2 - Exam Gen: This is a 75-year-old female, alert and oriented 0, currently resting comfortably, pale, ill-appearing HEENT: Head is atraumatic, normocephalic. Pupils equal, round. Sclerae is anicteric. NECK: Supple. No JVD. No lymphadenopathy. No thyromegaly. LUNGS: Diminished breath sounds bilaterally with some scattered rhonchi and crackles noted. Audible expiratory wheezing noted. No intercostal retractions. HEART: S1, S2 are muffled ABDOMEN: Soft. Sluggish bowel sounds. No masses. No tenderness. EXTREMITIES: No pedal edema. No calf tenderness. NEUROLOGICAL: Unable to completely assess as patient is on a morphine drip with comfort measures Assessment and Plan Assessment: -Leukocytosis secondary to growth factors post chemotherapy -Recent history of acute urinary tract infection initially growing enterococcus VRE with repeat urinalysis negative after IV antibiotic therapy -Hypernatremia, improved -Back pain and abdominal pain: Secondary to metastatic disease -Toxic encephalopathy: Secondary to infection and medications -Recent acute non-ST elevation myocardial infarction -COPD without any acute exacerbation -Chronic hypoxic and hypercapnic respiratory failure secondary to COPD as well as lung cancer, on O2 nasal cannula outpatient -Lung cancer with liver metastasis -No code Plan: Patient continues with [facility] hospice and comfort measures only. Prognosis remains extremely poor and guarded. Family at the bedside along with [facility] cloth beamer as patient is on a morphine drip and will continue with family wishes of comfort measures only. Will continue to monitor closely.
[2021-02-24] MEDS: MORPHINE SULFATE (100 MG/2 ML) 100 MG in SODIUM CHLORIDE 0.9% 100 ML IV SCH (17:14)
[2021-02-25] MEDS: LORazepam 2 MG/ML INJ IV PRN (04:23)
[2021-02-25] MEDS: ATROPINE OPHTH SOLN 1% 5ML BTL SUBLINGUAL PRN ×4 (04:24→17:39)
[2021-02-25] MEDS: GLYCOPYRROLATE 0.2 MG/ML 2 ML VIAL IVP PRN ×2 (04:44→15:27)
--- NOTE | 2021-02-25 11:52 | P.PN ---
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 Cardiology evaluated the patient and given multiple medical complications and comorbidities recommending maximizing medical management with no surgical interventions or further testing needed. Patient also follows with oncology as she was continuing to receive chemoradiation treatments most recently the beginning of this month. Patient had also been receiving growth factors status post chemotherapy which may have been contributed to leukocytosis. Patient was started on IV antibiotics as urine was showing enterococcus VRE and treated for multiple days. Infectious disease was following as well with repeat urinalysis being negative and IV antibiotics were ultimately discontinued. Patient's mental status continued to deteriorate most likely secondary to metastatic cancer along with toxic encephalopathy related to multiple narcotic medications. Patient had been on fentanyl patch along with hydrocodone and also with IV pain medications. Patient was maintained on 3-4 L via nasal cannula which is her baseline and continued on breathing inhalational treatments although respiratory status continued to deteriorate as well. Patient having audible wheezing noted on exam along with being tachypneic. Patient extremely restless and anxious in spite of using Xanax and unable to follow simple commands. Patient had not been eating or drinking and continued with abdominal pain on palpation with guarding noted. Discussion was had with daughter at the bedside and would like her mother to be comfort measures and hospice consult was placed. Patient is admitted in patient with [facility] hospice services with comfort measures only. 02/24/2021 Patient is seen this morning with both daughters at the bedside continues on a morphine drip in [facility] hospice following closely and continuing with comfort measures only. Patient is not responding at all and appears to be comfortable although having some brief periods of restlessness and working to breathe. She continues on 3 L which is her baseline for continued comfort. 02/25/2021 Patient appears comfortable significantly decreased respiratory rate and heart rate - Exam Gen: This is a 75-year-old female, alert and oriented 0, currently resting comfortably, pale, ill-appearing HEENT: Head is atraumatic, normocephalic. Did. Sclerae is anicteric. NECK: Supple. No JVD. No lymphadenopathy. No thyromegaly. LUNGS: Diminished breath sounds bilaterally with some scattered rhonchi and crackles noted. Audible expiratory wheezing noted. No intercostal retractions. HEART: S1, S2 are muffled ABDOMEN: Soft. Sluggish bowel sounds. No masses. No tenderness. EXTREMITIES: No pedal edema. No calf tenderness. NEUROLOGICAL: Unable to assess as patient is on a morphine drip with comfort measures Assessment and Plan Assessment: -Leukocytosis secondary to growth factors post chemotherapy -Recent history of acute urinary tract infection initially growing enterococcus VRE with repeat urinalysis negative after IV antibiotic therapy -Hypernatremia, improved -Back pain and abdominal pain: Secondary to metastatic disease -Toxic encephalopathy: Secondary to infection and medications -Recent acute non-ST elevation myocardial infarction -COPD without any acute exacerbation -Chronic hypoxic and hypercapnic respiratory failure secondary to COPD as well as lung cancer, on O2 nasal cannula outpatient -Lung cancer with liver metastasis -No code Plan: Patient continues with [facility] hospice and comfort measures only. Prognosis remains extremely poor and guarded. Family at the bedside. patient is on a morphine drip and will continue with family wishes of comfort measures only. Objective - Vital Signs Vital signs: Vital Signs Temp 99.7 F H 02/25/21 06:54 Pulse 84 02/24/21 01:33 Resp 18 02/25/21 06:54 BP 61/38 02/25/21 06:54 Pulse Ox 94 L 02/24/21 01:33 Intake & Output 02/24/21 02/25/21 02/25/21 18:59 06:59 18:59 Intake Total 1130.267 57.75 Output Total 400 100 Balance 730.267 -42.25 Weight 58.96 kg Intake: Intake, IV Titration 50.267 57.75 Amount Morphine Sulfate (100 mg/ 50.267 57.75 2 ml) 100 mg In Sodium Chloride 0.9% 100 ml @ 1 MG/HR 1.02 mls/hr IV . Q24H [facility] Rx#:[id number] Oral 1080 Output: Urine 400 100 Other: Voiding Method Indwelling Catheter Indwelling Catheter
[2021-02-25] MEDS: MORPHINE SULFATE (100 MG/2 ML) 100 MG in SODIUM CHLORIDE 0.9% 100 ML IV SCH (12:18)
[2021-02-25 13:36] VITALS: BP 69/40
[2021-02-25] MEDS: SCOPOLAMINE 1.5MG/72HR PATCH TRANSDERM SCH (17:31)
[2021-02-25] MEDS: ACETAMINOPHEN SUPPOSITORY 650 MG SUPP RECTAL PRN ×2 (17:31→20:10)
[2021-02-25 20:17] VITALS: PULSE 82; RESP 28; TEMP 103
--- NOTE | 2021-02-26 13:38 | P.DS ---
Providers Date of admission: 02/22/21 16:45 Expected date of discharge: 02/25/21 Attending physician: Mitesh Munson [facility] Course: Patient has non-small cell cancer with extensive metastasis. Patient was on comfort care and hospice last night please refer to nursing documentation for exact time of Plan - Discharge Summary New Discharge Prescriptions: No Action diphenhydrAMINE [Benadryl] 25 mg PO HS PRN PRN Reason: SLEEP/ALLERGIC REACTION Citalopram Hydrobromide [Citalopram HBr] 40 mg PO HS Albuterol Inhaler [Ventolin Hfa Inhaler] 2 puff INHALATION RT-QID PRN PRN Reason: Shortness Of Breath fentaNYL 25MCG/HR PATCH [Duragesic 25MCG/HR] 1 patch TRANSDERM Q72H #3 patch HYDROcodone/APAP 7.5-325MG [[place] 7.5-325] 1 tab PO Q6H PRN PRN Reason: Pain Cholecalciferol [Vitamin D3 (25 Mcg = 1000 Iu)] 25 mcg PO BID Potassium Gluconate 99 mg PO BID Magnesium Oxide 400 mg PO DAILY Metoprolol Tartrate [Lopressor] 50 mg PO DAILY #30 tab Omeprazole 20 mg PO DAILY Ondansetron HCl [Zofran] 4 mg PO Q4H PRN PRN Reason: Nausea And Vomiting Fluticasone Propion/Salmeterol [[place]ixela 250-50 Inhub] 1 puff INHALATION RT-BID Loperamide [Imodium] 2 mg PO QID PRN #30 cap PRN Reason: Diarrhea Metoprolol Tartrate [Lopressor] 25 mg PO DAILY@1700 #30 tab Discharge Medication List Albuterol Inhaler [Ventolin Hfa Inhaler] 2 puff INHALATION RT-QID PRN 10/25/20 [History] Citalopram Hydrobromide [Citalopram HBr] 40 mg PO HS 10/25/20 [History] diphenhydrAMINE [Benadryl] 25 mg PO HS PRN 10/25/20 [History] fentaNYL 25MCG/HR PATCH [Duragesic 25MCG/HR] 1 patch TRANSDERM Q72H #3 patch 11/01/20 [Rx] HYDROcodone/APAP 7.5-325MG [[place] 7.5-325] 1 tab PO Q6H PRN 11/26/20 [History] Omeprazole 20 mg PO DAILY 11/26/20 [History] Ondansetron HCl [Zofran] 4 mg PO Q4H PRN 11/26/20 [History] Cholecalciferol [Vitamin D3 (25 Mcg = 1000 Iu)] 25 mcg PO BID 12/13/20 [History] Fluticasone Propion/Salmeterol [[place] 250-50 Inhub] 1 puff INHALATION RT-BID 12/13/20 [History] Loperamide [Imodium] 2 mg PO QID PRN #30 cap 01/23/21 [Rx] Magnesium Oxide 400 mg PO DAILY 02/05/21 [History] Potassium Gluconate 99 mg PO BID 02/05/21 [History] Metoprolol Tartrate [Lopressor] 25 mg PO DAILY@1700 #30 tab 02/08/21 [Rx] Metoprolol Tartrate [Lopressor] 50 mg PO DAILY #30 tab 02/08/21 [Rx] Discharge Disposition: - Preliminary Cause of Preliminary Cause of : Metastatic lung cancer
== END 2021-02-25 20:53 | disposition expired | DRG 951 ==
LOC: 4SSUR 16:45
PROVIDERS: ADMIT Hospitalist; ATTEND Hospitalist
DX: Z51.5 Encounter for palliative care (principal); G92 Toxic encephalopathy; C78.7 Secondary malignant neoplasm of liver and intrahepatic bile duct; E87.0 Hyperosmolality and hypernatremia; J96.12 Chronic respiratory failure with hypercapnia; J96.11 Chronic respiratory failure with hypoxia; T40.695A Adverse effect of other narcotics, initial encounter; Z66 Do not resuscitate; G89.3 Neoplasm related pain (acute) (chronic); R32 Unspecified urinary incontinence; F41.9 Anxiety disorder, unspecified; J44.9 Chronic obstructive pulmonary disease, unspecified; Z96.652 Presence of left artificial knee joint; Z86.16 Personal history of COVID-19; Z87.891 Personal history of nicotine dependence; Z79.891 Long term (current) use of opiate analgesic; Z79.899 Other long term (current) drug therapy; Z88.2 Allergy status to sulfonamides; Z87.440 Personal history of urinary (tract) infections; Z99.81 Dependence on supplemental oxygen; I25.2 Old myocardial infarction; Z85.118 Personal history of other malignant neoplasm of bronchus and lung; Z92.21 Personal history of antineoplastic chemotherapy; Z90.710 Acquired absence of both cervix and uterus; Z87.442 Personal history of urinary calculi